=== PATIENT | male | born 1945 | race Caucasian/White ===

== ENCOUNTER 2016-09-18 20:39 | Emergency (ER) | payer MEDICARE, OTHER ==
[2016-09-18] MEDS ORDERED: Sodium Chloride 0.9% 10 ML Syringe FLUSH PRN (20:48)
[2016-09-18] MEDS ORDERED: Aspirin 81 MG Tab.Chew PO ONE (20:57)
--- NOTE | 2016-09-18 22:18 | EDM.PDOC ---
ED HISTORY OF PRESENT ILLNESS - General Chief Complaint: Chest Pain Stated Complaint: CHEST PAIN Time Seen by Provider: 09/18/16 20:48 Source of Information: Reports: Patient, RN notes reviewed - History of Present Illness INITIAL COMMENTS - FREE TEXT/NARRATIVE: 8-year-old male comes in having had 2 episodes of anterior chest discomfort. Debi is driving tractor about an hour to one hour and one half ago when he had onset of sharp anterior chest discomfort without radiation. Also did have some palpitations and mild dizziness with that. He does not recall getting short of breath. He has had chronic cough frequently productive. He just finished a course of Levaquin a few days ago. He is a former heavy smoker and still continues to smoke a "few cigarettes per day". He has history of mild CVA 3 or 4 months ago. He has also been suffering with some eye problems status post cataract surgery. He does have a pacemaker. He is on Plavix with history of prior stroke. He also does take daily aspirin. - Related Data Allergies/ADRs: Allergies Allergy/AdvReac Type Severity Reaction Status Date / Time atorvastatin calcium AdvReac Muscle Verified 05/09/16 09:12 [From Lipitor] Aches Home Meds: Home Meds Aspirin [Halfprin] 81 mg PO BEDTIME 04/03/15 [History] Mirtazapine 15 mg PO BEDTIME 04/03/15 [History] Pravastatin [Pravachol] 40 mg PO BEDTIME 04/03/15 [History] PARoxetine [Paxil] 20 mg PO BEDTIME 09/06/15 [History] risperiDONE 0.5 mg PO BEDTIME 09/06/15 [History] Ibuprofen [Motrin] 400 mg PO Q8HR PRN 11/17/15 [History] Acetaminophen 650 mg PO Q4HR PRN 01/07/16 [History] Biotin/FA/Vit C/Vit B Complex [Nephrocaps] 1 cap PO DAILY 01/07/16 [History] Prazosin HCl [Prazosin] 2 mg PO BID 01/07/16 [History] Albuterol Sulfate [Proair Respiclick] 2 puff INH Q4H PRN 09/18/16 [History] Clopidogrel [Plavix] 75 mg PO BEDTIME 09/18/16 [History] Past Medical History HEENT History: Reports: Other (see below) Other HEENT History: glasses, hearing aids, dentures Cardiovascular History: Reports: Aneurysm, Arrhythmia, High cholesterol, Hypertension, Pacemaker Gastrointestinal History: Reports: GERD Genitourinary History: Reports: Other (see below) Other Genitourinary History: bladder spasms Neurological History: Reports: Migraines Psychiatric History: Reports: PTSD, Other (see below) Other Psychiatric History: nightmares and went thru treatment and feels it has helped. 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 Endocrine/Metabolic: Reports: Diabetes, type II Other Endocrine/Metabolic Family History: Pt states nobody in his family has DM II. RN unable to unchart DM II by BOBTAIL [employer]IVER. Oncologic: Reports: Prostate, Other (see below) Other Oncologic Family History: Pt states his bother has prostate CA with mets to back. - Tobacco Use Smoking Status *Q: Current Every Day Smoker Years of Tobacco use: 48 Packs/Tins Daily: 0.2 Used Tobacco, but Quit: No Second Hand Smoke Exposure: Yes - Caffeine Use Caffeine Use: Reports: Soda Other Caffeine Use: rarely - Alcohol Use Days Per Week of Alcohol Use: 0 (Alcoholic, sober since April 2015) Number of Drinks Per Day: 4 Total Drinks Per Week: 0 - Recreational Drug Use Recreational Drug Use: No Drug Use in Last 12 Months: No - Living Situation & Occupation Living situation: Reports: , with spouse ED ROS GENERAL - Review of Systems Review Of Systems: See Below Constitutional: Denies: fever, chills, diaphoresis HEENT: Denies: Sinus problem, Throat pain Respiratory: Reports: Shortness of Breath (With exertion chronically), Cough, Sputum (Occasional) Cardiovascular: Reports: Chest pain (2 episodes this evening, duration relatively brief, chest pain now gone), Lightheadedness, Palpitations (Gone). Denies: Syncope GI/Abdominal: Denies: Abdominal pain, Nausea, Vomiting Musculoskeletal: Denies: neck pain, shoulder pain, arm pain Skin: Reports: no symptoms Neurological: Reports: Dizziness (Mild, gone). Denies: Numbness, Tingling, Difficulty Walking ED EXAM, GENERAL - Physical Exam Exam: See Below General Appearance: alert, anxious (Mild) Eye Exam: bilateral eye: PERRL Throat/Mouth: Normal inspection, Normal oropharynx Head: atraumatic. No: facial swelling Neck: supple, full range of motion, other (No JVD) Respiratory/Chest: no respiratory distress, lungs clear, normal breath sounds. No: rhonchi, wheezing Cardiovascular: regular rate, rhythm GI/Abdominal: soft, non tender. No: guarding Extremities: normal inspection, normal range of motion. No: pedal edema, leg pain, increased warmth, redness Neurological: alert, oriented, no motor/sensory deficits Skin Exam: Warm, Dry, Normal color EKG INTERPRETATION EKG Date: 09/18/16 Rhythm: NSR [place]: LAD-left axis deviation QRS: normal ST-T: normal Course - Vital Signs Last Recorded V/S: Last Vital Signs Temp 97.1 F 09/18/16 20:46 Pulse 60 09/18/16 23:27 Resp 16 09/18/16 21:45 BP 99/66 09/18/16 23:27 Pulse Ox 91 L 09/18/16 23:27 - Orders/Labs/Meds Orders: Active Orders 24 hr Category Date Time Status EKG 12 Lead [EKG Documentation Completion] [RC] STAT Care 09/18/16 20:48 Active Peripheral IV Care [RC] . DIRECTED Care 09/18/16 20:48 Active Chest 1V Frontal [CR] Stat Exams 09/18/16 21:35 Taken Sodium Chloride 0.9% [Saline Flush] Med 09/18/16 20:48 Active 10 ml FLUSH ASDIRECTED PRN Peripheral IV Insertion Adult [OM.PC] Stat Oth 09/18/16 20:48 Ordered Medication Orders Sodium Chloride (Saline Flush) 10 ml FLUSH ASDIRECTED PRN PRN Reason: Keep Vein Open Last Admin: 09/18/16 21:34 Dose: 10 ml Labs: Laboratory Tests 09/18/16 09/18/16 09/18/16 Range/Units 20:48 20:51 20:51 WBC 8.46 (4.23-9.07) K/mm3 RBC 4.23 L (4.63-6.08) M/mm3 Hgb 12.9 L (13.7-17.5) gm/L Hct 39.1 L (40.1-51.0) % MCV 92.4 H (79.0-92.2) fl MCH 30.5 (25.7-32.2) pg MCHC 33.0 (32.2-35.5) g/dl RDW Std Deviation 45.9 H (35.1-43.9) fL Plt Count 230 (163-337) K/mm3 MPV 8.9 L (9.4-12.3) fl Neut % (Auto) 57.6 (34.0-67.9) % Lymph % (Auto) 30.0 (21.8-53.1) % [place] % (Auto) 9.7 (5.3-12.2) % Eos % (Auto) 2.2 (0.8-7.0) Baso % (Auto) 0.4 (0.1-1.2) % Neut # (Auto) 4.87 (1.78-5.38) K/mm3 Lymph # (Auto) 2.54 (1.32-3.57) K/mm3 [place] # (Auto) 0.82 (0.30-0.82) K/mm3 Eos # (Auto) 0.19 (0.04-0.54) K/mm3 Baso # (Auto) 0.03 (0.01-0.08) K/mm3 Sodium 143 (136-145) mEq/L Potassium 3.8 (3.5-5.1) mEq/L Chloride 107 (98-107) mEq/L Carbon Dioxide 28 (21-32) mEq/L Anion Gap 11.8 (5-15) BUN 20 H (7-18) mg/dL Creatinine 1.3 (0.7-1.3) mg/dL Est Cr Clr Drug Dosing 58.69 mL/min Estimated GFR (MDRD) 55 (>60) mL/min BUN/Creatinine Ratio 15.4 (14-18) Glucose 83 (80-115) mg/dL Calcium 9.4 (8.5-10.1) mg/dL Total Bilirubin 0.3 (0.2-1.0) mg/dL AST 16 (15-37) U/L ALT 20 (16-63) U/L Alkaline Phosphatase 75 (46-116) U/L Troponin I < 0.017 (0.00-0.056) ng/mL Total Protein 7.6 (6.4-8.2) g/dl Albumin 3.9 (3.4-5.0) g/dl Globulin 3.7 gm/dL Albumin/Globulin Ratio 1.1 (1-2) TSH 3rd Generation 3.293 (0.358-3.74) uIU/mL 09/18/16 Range/Units 22:55 WBC (4.23-9.07) K/mm3 RBC (4.63-6.08) M/mm3 Hgb (13.7-17.5) gm/L Hct (40.1-51.0) % MCV (79.0-92.2) fl MCH (25.7-32.2) pg MCHC (32.2-35.5) g/dl RDW Std Deviation (35.1-43.9) fL Plt Count (163-337) K/mm3 MPV (9.4-12.3) fl Neut % (Auto) (34.0-67.9) % Lymph % (Auto) (21.8-53.1) % [place] % (Auto) (5.3-12.2) % Eos % (Auto) (0.8-7.0) Baso % (Auto) (0.1-1.2) % Neut # (Auto) (1.78-5.38) K/mm3 Lymph # (Auto) (1.32-3.57) K/mm3 [place] # (Auto) (0.30-0.82) K/mm3 Eos # (Auto) (0.04-0.54) K/mm3 Baso # (Auto) (0.01-0.08) K/mm3 Sodium (136-145) mEq/L Potassium (3.5-5.1) mEq/L Chloride (98-107) mEq/L Carbon Dioxide (21-32) mEq/L Anion Gap (5-15) BUN (7-18) mg/dL Creatinine (0.7-1.3) mg/dL Est Cr Clr Drug Dosing mL/min Estimated GFR (MDRD) (>60) mL/min BUN/Creatinine Ratio (14-18) Glucose (80-115) mg/dL Calcium (8.5-10.1) mg/dL Total Bilirubin (0.2-1.0) mg/dL AST (15-37) U/L ALT (16-63) U/L Alkaline Phosphatase (46-116) U/L Troponin I < 0.017 (0.00-0.056) ng/mL Total Protein (6.4-8.2) g/dl Albumin (3.4-5.0) g/dl Globulin gm/dL Albumin/Globulin Ratio (1-2) TSH 3rd Generation (0.358-3.74) uIU/mL Meds: Medications Generic Name Dose Route Start Last Admin Trade Name Freq PRN Reason Stop Dose Admin Sodium Chloride 10 ml 09/18/16 20:48 09/18/16 21:34 Saline Flush FLUSH 10 ml ASDIRECTED PRN Administration Keep Vein Open Discontinued Medications Generic Name Dose Route Start Last Admin Trade Name Freq PRN Reason Stop Dose Admin Aspirin 162 mg 09/18/16 20:57 09/18/16 21:00 Aspirin PO 09/18/16 20:58 162 mg ONETIME ONE Administration - Re-Assessments/Exams Free Text/Narrative Re-Assessment/Exam: 09/18/16 22:17 Chest x-ray looks fine, initial troponin is normal. Other labs also all relatively normal. His is mentioning that he seems to have extremely low energy these past several months since his recent stroke. I am going to check a TSH. Continues pain free. He continues with sinus rhythm. Blood pressure readings are in the 105 systolic range but his states that those are normal range readings for him. No ectopy. We'll do a two-hour repeat troponin. 09/19/16 00:02, repeat 2 hour troponin was good. TSH also came back normal. His is concerned that he has not had very good energy for this last 2 or 3 months since his stroke several months ago. Have written a physical therapy order for evaluation for strength and mobility. Also he requests for home strengthening exercises. Discharge instructions as documented. Departure - Departure Time of Disposition: 23:48 Disposition: Home, Self-Care 01 Condition: fair Clinical Impression: Atypical chest pain, Generalized weakness Instructions: Weakness, Lxaw-[id number], Nonspecific Chest Pain Referrals: Sigifredo Thompson MD [Primary Care Provider] - Forms: ED Department Discharge Additional Instructions: Continue current medications, consider a once a day multivitamin, an order for physical therapy has been provided to evaluate intrigue for generalized weakness and to set up a home exercise strengthening program, followup with her regular providers as needed, return to ED as needed - My Orders Last 24 Hours: My Active Orders 09/18/16 20:48 EKG 12 Lead [EKG Documentation Completion] [RC] STAT Peripheral IV Care [RC] . DIRECTED Sodium Chloride 0.9% [Saline Flush] 10 ml FLUSH ASDIRECTED PRN Peripheral IV Insertion Adult [OM.PC] Stat 09/18/16 21:35 Chest 1V Frontal [CR] Stat - Assessment/Plan Last 24 Hours: My Active Orders 09/18/16 20:48 EKG 12 Lead [EKG Documentation Completion] [RC] STAT Peripheral IV Care [RC] . DIRECTED Sodium Chloride 0.9% [Saline Flush] 10 ml FLUSH ASDIRECTED PRN Peripheral IV Insertion Adult [OM.PC] Stat 09/18/16 21:35 Chest 1V Frontal [CR] Stat
[2016-09-18 23:28] VITALS: BP 99/66
--- NOTE | 2016-09-19 10:04 | CR ---
Chest: Portable view of the chest was obtained. Comparison: Previous chest x-ray of 04/28/16 is available. Heart size is normal. Tortuous thoracic aorta is noted. Pacemaker is present. Minimal atelectasis noted within the left base. Lungs otherwise are clear. Impression: 1. Incidental findings. Nothing acute is identified on portable chest x-ray. Diagnostic code #2
== END 2016-09-18 23:55 | disposition home or self-care (01) ==
LOC: JD.ED 20:39
DX: R07.89 Other chest pain (principal); R53.1 Weakness; I10 Essential (primary) hypertension; E78.00 Pure hypercholesterolemia, unspecified; K21.9 Gastro-esophageal reflux disease without esophagitis; F17.210 Nicotine dependence, cigarettes, uncomplicated; Z98.890 Other specified postprocedural states; Z79.02 Long term (current) use of antithrombotics/antiplatelets; Z95.0 Presence of cardiac pacemaker; Z86.73 Personal history of transient ischemic attack (TIA), and cerebral infarction without residual deficits; Z88.8 Allergy status to other drugs, medicaments and biological substances
CPT/HCPCS: 36415; 71010; 80053; 84443; 84484; 85025; 93005; 99285; A9270; J7050; 99284

== ENCOUNTER 2016-10-05 19:54 | Emergency (ER) | payer OTHER, MEDICARE ==
[2016-10-05 20:12] VITALS: BP 122/88
--- NOTE | 2016-10-05 20:53 | EDM.PDOC ---
ED HPI GENERAL MEDICAL PROBLEM - General Chief Complaint: Upper Extremity Injury/Pain Stated Complaint: LEFT SHOULDER INJURY Time Seen by Provider: 10/05/16 20:24 Source of Information: Reports: Patient History Limitations: Reports: No Limitations - History of Present Illness INITIAL COMMENTS - FREE TEXT/NARRATIVE: Patient is a 71 year old male who presents to the E.D. complaining of left sided shoulder pain.Patient states while reaching for the handle on a dry kiln loader he lost footing causing his left arm to be overly stretched placing excessive stress on the shoulder. This caused him to be in a awkward position. [place] a pop to the shoulder and immediate pain. Since then he's had difficulty with raising his arm above the shoulder and also away his body. Has generalized pain to the shoulder. patient states past seen Dr. gonsalez for chronic left shoulder. Dr. Gonsalez injected his left shoulder with cortisone approximately one month ago. Has been in PT ever since. Patient does not know exactly what's wrong with his shoulder. He's had no MRI. Onset: Sudden Duration: Constant Location: Reports: Other (left shoulder) Quality: Reports: Ache, Throbbing Severity: Moderate Improves with: Reports: Rest Worsens with: Reports: Movement (palpation) Context: Reports: Other Associated Symptoms: Reports: No Other Symptoms Treatments SNAILER: Reports: Acetaminophen Left Shoulder Pain Score (Numeric/FACES): 6 - Related Data Allergies Allergy/AdvReac Type Severity Reaction Status Date / Time atorvastatin calcium AdvReac Muscle Verified 10/05/16 20:09 [From Lipitor] Aches Home Meds: Home Meds Aspirin [Halfprin] 81 mg PO BEDTIME 04/03/15 [History] Mirtazapine 15 mg PO BEDTIME 04/03/15 [History] Pravastatin [Pravachol] 40 mg PO BEDTIME 04/03/15 [History] PARoxetine [Paxil] 20 mg PO BEDTIME 09/06/15 [History] risperiDONE 0.5 mg PO BEDTIME 09/06/15 [History] Ibuprofen [Motrin] 400 mg PO Q8HR PRN 11/17/15 [History] Acetaminophen 650 mg PO Q4HR PRN 01/07/16 [History] Biotin/FA/Vit C/Vit B Complex [Nephrocaps] 1 cap PO DAILY 01/07/16 [History] Prazosin HCl [Prazosin] 2 mg PO BID 01/07/16 [History] Albuterol Sulfate [Proair Respiclick] 2 puff INH Q4H PRN 09/18/16 [History] Clopidogrel [Plavix] 75 mg PO BEDTIME 09/18/16 [History] Past Medical History HEENT History: Reports: Epistaxis, Impaired Vision, Macular Degeneration Other HEENT History: Bleeding into R) eye, Wears glasses Cardiovascular History: Reports: Aneurysm, Arrhythmia, High Cholesterol, Hypertension, Pacemaker Gastrointestinal History: Reports: GERD Genitourinary History: Reports: Urinary Incontinence Other Genitourinary History: bladder spasms Musculoskeletal History: Reports: Other (See Below) Other Musculoskeletal History: Injection in L) shoulder Neurological History: Reports: Migraines Psychiatric History: Reports: Depression, PTSD Other Psychiatric History: nightmares and went thru treatment and feels it has helped. 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 Dermatologic History: Reports: Melanoma Other Dermatologic History: sebaceous cyst to R cheek, Melanoma to back - Infectious Disease History Infectious Disease History: Reports: Chicken Pox, Measles, Mumps - Past Surgical History HEENT Surgical History: Reports: Cataract Surgery GI Surgical History: Reports: Cholecystectomy, Colonoscopy, ERCP Other GI Surgeries/Procedures: hemorrhoid surgery Musculoskeletal Surgical History: Reports: Arthroscopic Knee Social & Family History - Family History Family Medical History: Noncontributory Cardiac: Reports: [place] Other Cardiac Family History: Pt states his father had a couple heart attacks. Endocrine/Metabolic: Reports: Diabetes, type II Other Endocrine/Metabolic Family History: Pt states nobody in his family has DM II. RN unable to unchart DM II by HONEY PROCESSOR. Oncologic: Reports: Prostate, Other (See Below) Other Oncologic Family History: Pt states his bother has prostate CA with mets to back. - Tobacco Use Smoking Status *Q: Current Every Day Smoker Years of Tobacco use: 49 Packs/Tins Daily: 0.2 Used Tobacco, but Quit: No Second Hand Smoke Exposure: Yes - Caffeine Use Caffeine Use: Reports: Soda Other Caffeine Use: rarely - Alcohol Use Days Per Week of Alcohol Use: 0 (Alcoholic, sober since April 2015) Number of Drinks Per Day: 4 Total Drinks Per Week: 0 - Recreational Drug Use Recreational Drug Use: No Drug Use in Last 12 Months: No - Living Situation & Occupation Living situation: Reports: , with Spouse Review of Systems - Review of Systems Review Of Systems: See Below Musculoskeletal: Reports: Shoulder Pain (left). Denies: Neck Pain, Back Pain Neurological: Denies: Numbness, Tingling Trauma Exam - Physical Exam Exam: See Below Exam Limited By: No Limitations General Appearance: Reports: Alert, WD/WN, No Apparent Distress Head: Reports: Atraumatic, Normocephalic Ears: Reports: Hearing Grossly Normal Nose: Reports: Normal Inspection Throat/Mouth: Reports: Normal Voice, No Airway Compromise Neck: Reports: Non-Tender, Full Range of Motion, Normal Alignment, Normal Inspection Respiratory Exam: Reports: No Respiratory Distress, Lungs Clear, Normal Breath Sounds, No Accessory Muscle Use, Chest Non-Tender, Other (pacemaker to the left upper chest) Cardiovascular: Reports: Normal Peripheral Pulses, Regular Rate, Rhythm Back: Reports: Full Range of Motion Extremities: No Evidence of Injury, Bony-Point Tenderness (along the AC joint, anterior/lateral/posterior aspect of the left shoulder. ) Neurologic: Reports: Alert, Normal Mood/Affect, Oriented x 3, Other (Increased pain with flexion/extension, internal/external rototation, abduction/adduction of the shoulder. Active range of motion decrease incomparison with passive range of motion. Empty can test: positive. No weakness noted to abduction/ adduction of arm. Unable to perform drop arm test due to pain. ) Skin: Reports: Normal Color, Warm/Dry Course - Vital Signs Last Recorded V/S: Last Vital Signs Temp 98.1 F 10/05/16 20:10 Pulse 69 10/05/16 20:10 Resp 18 10/05/16 20:10 BP 122/88 10/05/16 20:10 Pulse Ox 94 L 10/05/16 20:10 - Orders/Labs/Meds Orders: Active Orders 24 hr Category Date Time Status Shoulder Comp Lt [CR] Stat Exams 10/05/16 20:42 Taken - Re-Assessments/Exams Free Text/Narrative Re-Assessment/Exam: X-ray of the left shoulder ordered. 10/05/16 21:27 X-ray of the left shoulder revealed no acute bony abnormalities. Ordered sling to be discharged patient with patient. Disharge instructions as documented. Departure - Departure Time of Disposition: 21:28 Disposition: Home, Self-Care 01 Condition: good Clinical Impression: Left shoulder strain Qualifiers: Encounter type: initial encounter Qualified Code(s): S46.912A - Strain of unspecified muscle, fascia and tendon at shoulder and upper arm level, left arm , initial encounter Rotator cuff injury Qualifiers: Encounter type: initial encounter Laterality: left Qualified Code(s): S46.002A - Unspecified injury of muscle(s) and tendon(s) of the rotator cuff of left shoulder, initial encounter - Discharge Information Instructions: Rotator Cuff Injury Referrals: Sigifredo Thompson MD [Primary Care Provider] - Everette Gonsalez MD [Physician] - Forms: ED Department Discharge Additional Instructions: Examination suggest you have a rotator cuff injury. Thus this will require further evaluation by orthopedic surgeon to determine treatment course. I have provided a shoulder sling to be use only when ambulating. Take off when sitting , bathing, and icing. See Dr. Gonsalez next week for further evaluation and treatment. Apply ice to the affected area 4 to 6 times daily, 20 minutes in duration, do not apply ice directly on the skin. Take ibuprofen and Tylenol in alternating fashion for pain. Return to the E.D. as needed for any new or worsening symptoms. - My Orders Last 24 Hours: My Active Orders 10/05/16 20:42 Shoulder Comp Lt [CR] Stat - Assessment/Plan Last 24 Hours: My Active Orders 10/05/16 20:42 Shoulder Comp Lt [CR] Stat
--- NOTE | 2016-10-07 07:37 | CR ---
Left shoulder: Three views of the left shoulder were obtained. Comparison: Previous MRI arthrogram exam of left shoulder dated 09/15/14. Joint space narrowing is noted within the acromioclavicular joint. No abnormal inferior spurring is seen off the acromioclavicular joint. Minimal inferior spurring noted off the glenoid. No acute fracture or other abnormality is seen. Impression: 1. Slight degenerative change. Diagnostic code #2
== END 2016-10-05 21:36 | disposition home or self-care (01) ==
LOC: JD.ED 19:54
DX: S46.912A Strain of unspecified muscle, fascia and tendon at shoulder and upper arm level, left arm, initial encounter (principal); S46.002A Unspecified injury of muscle(s) and tendon(s) of the rotator cuff of left shoulder, initial encounter; E78.00 Pure hypercholesterolemia, unspecified; I10 Essential (primary) hypertension; K21.9 Gastro-esophageal reflux disease without esophagitis; F32.9 Major depressive disorder, single episode, unspecified; Z79.82 Long term (current) use of aspirin; Z79.899 Other long term (current) drug therapy; Z88.8 Allergy status to other drugs, medicaments and biological substances; Z98.49 Cataract extraction status, unspecified eye; Z90.49 Acquired absence of other specified parts of digestive tract; W22.8XXA Striking against or struck by other objects, initial encounter
CPT/HCPCS: 73030-26-LT; 73030-LT; 99282; 99283

== ENCOUNTER 2017-05-13 14:15 | Emergency (ER) | payer OTHER ==
--- NOTE | 2017-05-13 14:38 | EDM.PDOC ---
ED HPI GENERAL MEDICAL PROBLEM - General Chief Complaint: Neuro Symptoms/Deficits Stated Complaint: STROKE SYMPTOMS Time Seen by Provider: 05/13/17 14:33 Source of Information: Reports: Patient, Family (spouse) History Limitations: Reports: No Limitations - History of Present Illness INITIAL COMMENTS - FREE TEXT/NARRATIVE: 71-year-old male presents the ED with reported sudden onset of severe bifrontal headache at about noon today. Subsequently identified to have developed dysarthric speech and right leg weakness at approximately 1230 hrs. He was wiping dishes with his in the kitchen when he suddenly stopped wiping and would not speak to her. After period of time is able to indicate that his right leg was weak and numb and tingling. He is unable to weight-bear or ambulate without her help. Speech was dysarthric but still discernible.. He states his leg is not cooperating with his brain and feels like it would give out on him. He has not fallen. Of note patient does take Plavix and aspirin daily. Patient had a stroke involving the right side May 09 last year. However at that time he awoke with symptoms during the night and did not receive any thrombolytics. He denies any nausea or vomiting. He states vision in his right eye is poor he can't see to the right periphery. Left eye is okay. Doesn't feel any numbness or tingling in his right arm or hand. Is aware of this in his right leg. 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 Has known peripheral vascular disease. Onset: Today Onset Date: 05/13/17 (Sudden onset of severe headache bifrontal started about noon today.) Onset Time: 12:00 Duration: Hour(s): Location: Reports: Head (Severe headache about noon today.), Lower Extremity, Right (Weakness), Other (Speech dysarthria) Quality: Reports: Ache Severity: Moderate Improves with: Reports: None Worsens with: Reports: None Context: Reports: Other (Acute spontaneous development of bifrontal headache and then right-sided weakness involving his leg primarily and dysarthric speech. ). Denies: Activity, Exercise, Lifting, Sick Contact, Trauma Associated Symptoms: Reports: Headaches. Denies: Confusion, Chest Pain, Cough, cough w sputum, Fever/Chills, Loss of Appetite, Nausea/Vomiting, Shortness of Breath, Syncope Treatments HEALTHCARE ANALYST: Reports: Other (see below) (None.) Headache Pain Score (Numeric/FACES): 8 - Related Data Allergies Allergy/AdvReac Type Severity Reaction Status Date / Time atorvastatin calcium AdvReac Muscle Verified 10/05/16 20:09 [From Lipitor] Aches Home Meds: Home Meds Aspirin [Halfprin] 81 mg PO BEDTIME 04/03/15 [History] Mirtazapine 15 mg PO BEDTIME 04/03/15 [History] Pravastatin [Pravachol] 40 mg PO BEDTIME 04/03/15 [History] PARoxetine [Paxil] 20 mg PO BEDTIME 09/06/15 [History] Acetaminophen 650 mg PO Q4HR PRN 01/07/16 [History] Clopidogrel [Plavix] 75 mg PO BEDTIME 09/18/16 [History] Magnesium Chloride 1 tab PO DAILY 05/13/17 [History] Metoprolol Succinate [Toprol XL] 12.5 mg PO DAILY 05/13/17 [History] Multivitamin W-Minerals/Lutein [Pub Multivitamin 50 Plus Tab] 1 tab PO DAILY [History] Oxybutynin 5 mg PO DAILY 05/13/17 [History] Rosuvastatin [Crestor] 10 mg PO DAILY 05/13/17 [History] Tamsulosin [Flomax] 0.4 mg PO DAILY 05/13/17 [History] Past Medical History HEENT History: Reports: Epistaxis, Impaired Vision, Macular Degeneration Other HEENT History: Bleeding into R) eye, Wears glasses Cardiovascular History: Reports: Aneurysm, Arrhythmia, High Cholesterol, Hypertension, Pacemaker Gastrointestinal History: Reports: GERD Genitourinary History: Reports: Urinary Incontinence Other Genitourinary History: bladder spasms Musculoskeletal History: Reports: Other (See Below) Other Musculoskeletal History: Injection in L) shoulder Neurological History: Reports: Migraines Psychiatric History: Reports: Depression, PTSD Other Psychiatric History: nightmares and went thru treatment and feels it has helped. 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 Dermatologic History: Reports: Melanoma Other Dermatologic History: sebaceous cyst to R cheek, Melanoma to back - Infectious Disease History Infectious Disease History: Reports: Chicken Pox, Measles, Mumps - Past Surgical History HEENT Surgical History: Reports: Cataract Surgery GI Surgical History: Reports: Cholecystectomy, Colonoscopy, ERCP Other GI Surgeries/Procedures: hemorrhoid surgery Musculoskeletal Surgical History: Reports: Arthroscopic Knee Social & Family History - Family History Family Medical History: Noncontributory Cardiac: Reports: NC Other Cardiac Family History: Pt states his father had a couple heart attacks. Endocrine/Metabolic: Reports: Diabetes, type II Other Endocrine/Metabolic Family History: Pt states nobody in his family has DM II. RN unable to unchart DM II by CLIENT SOLUTIONS DIRECTOR. Oncologic: Reports: Prostate, Other (See Below) Other Oncologic Family History: Pt states his bother has prostate CA with mets to back. - Tobacco Use Smoking Status *Q: Current Every Day Smoker Years of Tobacco use: 49 Packs/Tins Daily: 0.2 Used Tobacco, but Quit: No Second Hand Smoke Exposure: Yes - Caffeine Use Caffeine Use: Reports: Soda Other Caffeine Use: rarely - Alcohol Use Days Per Week of Alcohol Use: 0 (Alcoholic, sober since April 2015) Number of Drinks Per Day: 4 Total Drinks Per Week: 0 - Recreational Drug Use Recreational Drug Use: No Drug Use in Last 12 Months: No - Living Situation & Occupation Living situation: Reports: , with Spouse ED ROS GENERAL - Review of Systems Review Of Systems: See Below Constitutional: Reports: Malaise, Decreased Appetite (Is slowly losing weight.) . Denies: Fever, Chills HEENT: Reports: Glasses, Vision Change (Poor vision right eye with loss of peripheral vision.). Denies: Hearing Loss Respiratory: Reports: Shortness of Breath. Denies: Wheezing, Pleuritic Chest Pain (On exertion), Cough, Sputum Cardiovascular: Reports: Blood Pressure Problem, Dyspnea on Exertion. Denies: Chest Pain, Claudication, Edema, Lightheadedness, Orthopnea Endocrine: Reports: Fatigue GI/Abdominal: Reports: No Symptoms : Reports: Other (Nocturia 3. Has benign physical prostatic hypertrophy) Musculoskeletal: Reports: Joint Pain (Back neck knees and hips.) Skin: Reports: Bruising (Bruises easily because of being on Plavix and aspirin.) Neurological: Reports: Headache, Numbness, Tingling (Right leg right leg), Trouble Speaking (Speeches discernible), Difficulty Walking ( but dysarthric.), Weakness ( due to weakness in his right leg ), Change in Speech ( right leg weakness ), Gait Disturbance. Denies: Confusion, Dizziness, Tremors Psychiatric: Reports: Depression ED EXAM, NEURO - Physical Exam Exam: See Below Exam Limited By: Physical Impairment General Appearance: Alert, Anxious, Moderate Distress Eye Exam: Right Eye: Vision Changes (States he cannot see peripheral vision on the right side.), Bilateral Eye: Normal Inspection, PERRL Throat/Mouth: Normal Inspection, Normal Lips, Normal Teeth, Normal Oropharynx, Other Head Exam: Atraumatic (Uvula is normal.), Normocephalic Neck: Normal Inspection, Supple, Non-Tender, Full Range of Motion. No: Carotid Bruit, Lymphadenopathy (L), Lymphadenopathy (R) Respiratory/Chest: No Respiratory Distress, Respiratory Distress, Decreased Breath Sounds (Decreased breath sounds to the lower 50% of lung valladares). No: Rhonchi, Wheezing Cardiovascular: Regular Rate, Rhythm, No Edema, No Gallop, No Murmur, No Rub. No: Normal Peripheral Pulses GI/Abdominal: Normal Bowel Sounds, Non-Tender, Other (Firm abdominal wall. Multiple scars from previous surgeries.) Neurological: Alert, Oriented x 3, Abnormal Motor (Weakness in the right lower extremity appreciated he is unable to lift the leg hardly off the bed. I would give him grade 3 motor power and tone in the hip flexors and knee extensors. He was not able to plantarflex against my hand at all.). No: Normal Dorsiflexion, CN II-XII Intact, Normal Plantar Flexion, Normal Gait, Normal Reflexes DTR: 0: Achilles (R), Achilles (L), 1+: Patella (R), 2+: Bicep (R), Bicep (L), Patella (L) Back Exam: Normal Inspection, Full Range of Motion. No: CVA Tenderness (L), CVA Tenderness (R) Extremities: Normal Inspection, Normal Range of Motion, Non-Tender, No Pedal Edema, Normal Capillary Refill Psychiatric: Normal Affect Skin Exam: Warm, Dry, Intact, Normal Color, No Rash EKG INTERPRETATION EKG Date: 05/13/17 Time: 14:55 Rhythm: Other (Atrial paced rhythm at 60/m) Rate (Beats/Min): 60 Moody: LAD-Left Moody Deviation (-44) P-Wave: Present QRS: Other (Decreased voltage limb leads) ST-T: Normal QT: Prolonged (Moderately prolonged) Course - Vital Signs Last Recorded V/S: Last Vital Signs Temp 36.7 C 05/13/17 15:35 Pulse 60 05/13/17 15:35 Resp 14 05/13/17 15:35 BP 105/78 05/13/17 15:35 Pulse Ox 90 L 05/13/17 15:35 - Orders/Labs/Meds Orders: Active Orders 24 hr Category Date Time Status EKG Documentation Completion [RC] STAT Care 05/13/17 14:34 Active Labs: Laboratory Tests 05/13/17 05/13/17 05/13/17 Range/Units 14:40 14:40 14:40 WBC 7.68 (4.23-9.07) K/mm3 RBC 4.20 L (4.63-6.08) M/mm3 Hgb 12.8 L (13.7-17.5) gm/L Hct 39.4 L (40.1-51.0) % MCV 93.8 H (79.0-92.2) fl MCH 30.5 (25.7-32.2) pg MCHC 32.5 (32.2-35.5) g/dl RDW Std Deviation 51.0 H (35.1-43.9) fL Plt Count 228 (163-337) K/mm3 MPV 9.3 L (9.4-12.3) fl Neutrophils % (Manual) 66 H (40-60) % Band Neutrophils % 0 (0-10) % Lymphocytes % (Manual) 29 (20-40) % Atypical Lymphs % 0 % Monocytes % (Manual) 5 (2-10) % Eosinophils % (Manual) 0 L (0.8-7.0) % Basophils % (Manual) 0 L (0.2-1.2) Platelet Estimate Adequate Plt Morphology Comment Normal Anisocytosis 1+ slight Microcytosis 1+ slight Macrocytosis 1+ slight RBC Morph Comment Abnormal PT 10.3 (8.0-13.0) SECONDS INR 0.95 APTT (22-36) SECONDS D-Dimer, Quantitative 1.85 H (0.19-0.59) mg/L Sodium 142 (136-145) mEq/L Potassium 4.2 (3.5-5.1) mEq/L Chloride 107 (98-107) mEq/L Carbon Dioxide 27 (21-32) mEq/L Anion Gap 12.2 (5-15) BUN 21 H (7-18) mg/dL Creatinine 1.4 H (0.7-1.3) mg/dL Est Cr Clr Drug Dosing 55.49 mL/min Estimated GFR (MDRD) 50 (>60) mL/min BUN/Creatinine Ratio 15.0 (14-18) Glucose 100 (80-115) mg/dL Calcium 9.1 (8.5-10.1) mg/dL Magnesium 2.1 (1.8-2.4) mg/dl Total Bilirubin 0.5 (0.2-1.0) mg/dL AST 18 (15-37) U/L ALT 26 (16-63) U/L Alkaline Phosphatase 72 (46-116) U/L Troponin I < 0.017 (0.00-0.056) ng/mL Total Protein 7.2 (6.4-8.2) g/dl Albumin 3.6 (3.4-5.0) g/dl Globulin 3.6 gm/dL Albumin/Globulin Ratio 1.0 (1-2) 05/13/17 Range/Units 14:40 WBC (4.23-9.07) K/mm3 RBC (4.63-6.08) M/mm3 Hgb (13.7-17.5) gm/L Hct (40.1-51.0) % MCV (79.0-92.2) fl MCH (25.7-32.2) pg MCHC (32.2-35.5) g/dl RDW Std Deviation (35.1-43.9) fL Plt Count (163-337) K/mm3 MPV (9.4-12.3) fl Neutrophils % (Manual) (40-60) % Band Neutrophils % (0-10) % Lymphocytes % (Manual) (20-40) % Atypical Lymphs % % Monocytes % (Manual) (2-10) % Eosinophils % (Manual) (0.8-7.0) % Basophils % (Manual) (0.2-1.2) Platelet Estimate Plt Morphology Comment Anisocytosis Microcytosis Macrocytosis RBC Morph Comment PT (8.0-13.0) SECONDS INR APTT 25 (22-36) SECONDS D-Dimer, Quantitative (0.19-0.59) mg/L Sodium (136-145) mEq/L Potassium (3.5-5.1) mEq/L Chloride (98-107) mEq/L Carbon Dioxide (21-32) mEq/L Anion Gap (5-15) BUN (7-18) mg/dL Creatinine (0.7-1.3) mg/dL Est Cr Clr Drug Dosing mL/min Estimated GFR (MDRD) (>60) mL/min BUN/Creatinine Ratio (14-18) Glucose (80-115) mg/dL Calcium (8.5-10.1) mg/dL Magnesium (1.8-2.4) mg/dl Total Bilirubin (0.2-1.0) mg/dL AST (15-37) U/L ALT (16-63) U/L Alkaline Phosphatase (46-116) U/L Troponin I (0.00-0.056) ng/mL Total Protein (6.4-8.2) g/dl Albumin (3.4-5.0) g/dl Globulin gm/dL Albumin/Globulin Ratio (1-2) Meds: Medications Discontinued Medications Generic Name Dose Route Start Last Admin Trade Name Freq PRN Reason Stop Dose Admin Alteplase, Recombinant Confirm 05/13/17 15:04 05/13/17 15:16 Activase Administered 05/13/17 15:05 Not Given Dose 100 mg .ROUTE .STK-MED ONE Alteplase, Recombinant 7.3 mg 05/13/17 15:13 05/13/17 15:20 Activase IVPUSH 05/13/17 15:14 Not Given .BOLUS ONE Alteplase, Recombinant 7.3 mg 05/13/17 15:18 05/13/17 15:20 Activase IVPUSH 05/13/17 15:19 7.3 mg .BOLUS ONE Administration Sodium Chloride 1,000 mls @ 100 mls/hr 05/13/17 15:45 05/13/17 15:45 Normal Saline IV 100 mls/hr ASDIRECTED SERGIO Administration Sodium Chloride Confirm 05/13/17 15:48 05/13/17 15:48 Normal Saline Administered 05/13/17 15:49 Not Given Dose 1,000 mls @ as directed .ROUTE .STK-MED ONE - Radiology Interpretation Free Text/Narrative:: 71-year-old male presents the ED with acute onset of a severe bifrontal headache at about noon today. No associated nausea or vomiting. Subsequent identified to be dysarthric in terms of speech is to dismiss it is still discernible but not normal. He is also developed right leg weakness and this is evident on examination. Right arm has normal motor power and tone at this time. Patient is on Plavix and aspirin daily. Plan patient will be taken to CT suite immediately to rule out an intracranial hemorrhage. Routine labs including coags to be done. - Re-Assessments/Exams Free Text/Narrative Re-Assessment/Exam: 05/13/17 14:50: CT of the brain reveals evidence of an old lacunar infarct within the left thalamus that is occurred in the interim from previous examination. Ventricles along the basal cisterns and sulci over the convexities are mildly prominent. No other abnormal parenchymal densities are identified. An incidental intracranial hemorrhage or midline shift or mass effect identified. Therefore I was able to speak to on-call neurological services at [facility] and they agreed that he is still a candidate for thrombolytic therapy even on aspirin and Plavix. Therefore we will proceed with thrombolytic therapy ,Alteplase with total dose to be 73 mg. He will request see a bolus of 7.3 mg and then 66 mg over one hour. Plan will be to arrange a flight team to take him to [place] in [place]. There are no contraindications to thrombolytic therapy. BP here is 100/62. 05/13/17 15:42 Labs are back. White count is 7.68 with a 66% neutrophil count no bands. Hemoglobin is 12.8 with hematocrit of 39.4 Platelet count is normal at 220,000. Sodium is 142 potassium is 4.2. Chloride 107 bicarbonate 27. Anion gap is 12.2. B1 is 21. Creatinine is 1.4. EGFR is 50. Glucose 100 calcium 9.1. Magnesium 2.1 liver function normal troponin I is less than 0.017. Transport team is here to provide air flight to [place]. He was therefore discharged from the department. At the time of discharge there was no significant improvement in range of motion of his right leg and his speech remained dysarthric. Departure - Departure Time of Disposition: 15:50 Disposition: DC/Tfer to Acute Hospital 02 Condition: Serious Clinical Impression: Cerebrovascular accident (CVA) Qualifiers: CVA mechanism: unspecified Qualified Code(s): I63.9 - Cerebral infarction, unspecified - Discharge Information Referrals: Sigifredo Thompson MD [Primary Care Provider] - Forms: ED Department Discharge Additional Instructions: Patient was transferred to [place] stroke unit after receiving alteplase in the ED for significant right-sided weakness involving primarily his leg and dysarthric speech. Time of deficit was around 12:30 as his was standing beside of when the symptoms started to occur. Initially he couldn't speak to her and stop wiping dishes and held onto the countertop. He will then indicated to her that his right leg felt like a piece of wood with pins and needles and he would not work right in terms of allow him to walk. Patient had a similar event involving his right christelle-extremity May 09 of last year but was not amenable to thrombolytics at that time as he had awoken from sleep with symptoms. - My Orders Last 24 Hours: My Active Orders 05/13/17 14:34 EKG Documentation Completion [RC] STAT - Assessment/Plan Last 24 Hours: My Active Orders 05/13/17 14:34 EKG Documentation Completion [RC] STAT
--- NOTE | 2017-05-13 15:19 | CT ---
Head CT Technique: Multiple axial sections through the brain were obtained. Intravenous contrast was not utilized. Comparison: Previous head CT study of 05/09/16. Findings: Ventricles along with basal cisterns and sulci over the convexities are mildly prominent. Old lacunar infarct is noted within the left thalamus which has occurred in the interim from prior exam. No other abnormal parenchymal densities are seen. No evidence of intracranial hemorrhage. No midline shift or mass effect is seen. Bone window settings were reviewed which shows the visualized sinuses to appear clear. No acute calvarial abnormality is seen. Impression: 1. Old thalamic infarct which is an interval change from prior study. This is noted on the left side. 2. No acute intracranial abnormality is identified. Diagnostic code #2
[2017-05-13] MEDS ORDERED: Sodium Chloride 0.9% 1,000 ML IV SCH (15:45)
[2017-05-13] MEDS ORDERED: Sodium Chloride 0.9% 1,000 ML ONE (15:48)
[2017-05-13 19:10] VITALS: BP 105/78
== END 2017-05-13 15:50 ==
LOC: JD.ED 14:15
DX: I63.9 Cerebral infarction, unspecified (principal); E78.00 Pure hypercholesterolemia, unspecified; I10 Essential (primary) hypertension; F17.210 Nicotine dependence, cigarettes, uncomplicated; Z88.8 Allergy status to other drugs, medicaments and biological substances; Z79.82 Long term (current) use of aspirin; Z79.899 Other long term (current) drug therapy
CPT/HCPCS: 36415; 70450; 80053; 83735; 84484; 85025; 85379; 85610; 85730; 93005; 96365; 99285; J2997; J7040; 93010

== ENCOUNTER 2017-07-13 10:12 | Emergency (ER) | payer MEDICARE, OTHER ==
--- NOTE | 2017-07-13 10:18 | EDM.PDOC ---
ED HPI GENERAL MEDICAL PROBLEM - General Stated Complaint: WEAKNESS OF RT LEG Time Seen by Provider: 07/13/17 10:14 Source of Information: Reports: Patient, Family () History Limitations: Reports: Physical Impairment (Dysarthric speech, stutter - chronic) - History of Present Illness INITIAL COMMENTS - FREE TEXT/NARRATIVE: The patient's states that the patient went to bed around 20:45 last night, at his neurologic baseline. When he got up this morning around 08:30, he was dragging his right lower extremity. He complains of a headache all over his head , although his states that he gets them frequently, and that is not a new concern. Medical records indicate that the patient was seen in this ED on 05/13/2017 with a bifrontal headache, expressive aphasia (unclear if changed from his baseline), and right lower extremity weakness, numbness, and tingling. A CT scan of his head was negative, and the patient was given Activase before being transferred to [facility]. The patient's states that she was told by the doctors at [facility] that the patient had not suffered a stroke, that his symptoms were "stress related". The patient had previously been on Plavix and aspirin, which he is still on, but [facility] did not add any new medicines. The patient's PCP is Dr. Erickson. Headache Pain Score (Numeric/FACES): 8 - Related Data Allergies Allergy/AdvReac Type Severity Reaction Status Date / Time atorvastatin calcium AdvReac Muscle Verified 07/13/17 10:21 [From Lipitor] Aches Home Meds: Home Meds Aspirin [Halfprin] 81 mg PO BEDTIME 04/03/15 [History] Mirtazapine 45 mg PO BEDTIME 04/03/15 [History] PARoxetine [Paxil] 40 mg PO BEDTIME 09/06/15 [History] Acetaminophen 650 mg PO Q4HR PRN 01/07/16 [History] Clopidogrel [Plavix] 75 mg PO BEDTIME 09/18/16 [History] Metoprolol Succinate [Toprol XL] 12.5 mg PO DAILY 05/13/17 [History] Multivitamin W-Minerals/Lutein [Pub Multivitamin 50 Plus Tab] 1 tab PO DAILY [History] Oxybutynin 5 mg PO BID 05/13/17 [History] Rosuvastatin [Crestor] 10 mg PO DAILY 05/13/17 [History] Tamsulosin [Flomax] 0.4 mg PO DAILY 05/13/17 [History] Magnesium Oxide [Magnesium] 400 mg PO DAILY 07/13/17 [History] Rizatriptan [Maxalt LOIN TRIMMER] 1 tab PO Q2H PRN #3 tab.dis 07/13/17 [Rx] Past Medical History HEENT History: Reports: Impaired Vision, Macular Degeneration Other HEENT History: Wears glasses Cardiovascular History: Reports: Aneurysm (AAA), Arrhythmia (Bradycardia), High Cholesterol Genitourinary History: Reports: BPH, Urinary Incontinence (due to spastic bladder) Neurological History: Reports: Migraines Psychiatric History: Reports: Addiction (Alcoholism), Depression, PTSD Oncologic (Cancer) History: Reports: 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) - Infectious Disease History Infectious Disease History: Reports: Chicken Pox, Measles, Mumps - Past Surgical History HEENT Surgical History: Reports: Cataract Surgery Cardiovascular Surgical History: Reports: AAA Repair, Pacer GI Surgical History: Reports: Cholecystectomy, Colonoscopy, EGD, ERCP, Other ( See Below) (Hemorrhoidectomy) Musculoskeletal Surgical History: Reports: Arthroscopic Knee Dermatological Surgical History: Reports: Other (See Below) (Melanoma excised from back 2005) Social & Family History - Family History Family Medical History: Noncontributory Cardiac: Reports: [place] Other Cardiac Family History: Pt states his father had a couple heart attacks. Endocrine/Metabolic: Reports: Diabetes, type II Other Endocrine/Metabolic Family History: Pt states nobody in his family has DM II. RN unable to unchart DM II by CLEAR[employer] DIVER. Oncologic: Reports: Prostate, Other (See Below) Other Oncologic Family History: Pt states his bother has prostate CA with mets to back. - Tobacco Use Smoking Status *Q: Current Every Day Smoker Years of Tobacco use: 50 Packs/Tins Daily: 0.5 - Caffeine Use Caffeine Use: Reports: Soda Other Caffeine Use: rarely - Alcohol Use Alcohol Use History: Yes Date/Time of Last Drink Comment: November 2015 - Recreational Drug Use Recreational Drug Use: No - Living Situation & Occupation Living situation: Reports: , with Spouse Occupation: Retired ED ROS GENERAL - Review of Systems Review Of Systems: ROS reveals no pertinent complaints other than HPI. ED EXAM, NEURO - Physical Exam Exam: See Below Exam Limited By: No Limitations (stuttering sppech) General Appearance: Alert, WD/WN, No Apparent Distress Eye Exam: Bilateral Eye: EOMI (Patient had some difficulty following eye movement commands), Other (Bilateral cataracts) Ears: Normal External Exam, Hearing Grossly Normal Nose: Normal Inspection, No Blood Throat/Mouth: Normal Inspection, Normal Lips, Normal Voice, No Airway Compromise Head Exam: Atraumatic, Normocephalic Neck: Normal Inspection, Full Range of Motion Respiratory/Chest: No Respiratory Distress, Lungs Clear, Normal Breath Sounds, No Accessory Muscle Use Cardiovascular: Normal Peripheral Pulses, Regular Rate, Rhythm, No Edema, No Gallop, No JVD, No Murmur, No Rub GI/Abdominal: Normal Bowel Sounds, Soft, Non-Tender, No Organomegaly, No Distention, No Abnormal Bruit, No Mass (Male) Exam: Deferred Rectal (Males) Exam: Deferred Neurological: Alert, Oriented x 3, Other (The patient reports decreased sensation to the right side of his face that he had not appreciated prior to my examination. 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 There is considerable weakness of the right lower extremity to hip and knee flexion and extension. Plantar flexion and dorsiflexion are only minimally affected on the right. No sensory deprivation to the right lower extremity.) Back Exam: Normal Inspection, Full Range of Motion, NT Extremities: Normal Inspection, Normal Range of Motion, Non-Tender, No Pedal Edema, Normal Capillary Refill Psychiatric: Normal Affect Skin Exam: Warm, Dry, Intact, Normal Color, No Rash Course - Vital Signs Last Recorded V/S: Last Vital Signs Temp 36.2 C 07/13/17 10:12 Pulse 61 07/13/17 10:12 Resp 16 07/13/17 10:12 BP 97/75 07/13/17 10:12 Pulse Ox 93 L 07/13/17 10:12 - Orders/Labs/Meds Orders: Active Orders 24 hr Category Date Time Status EKG Documentation Completion [RC] STAT Care 07/13/17 10:18 Active Sodium Chloride 0.9% [Normal Saline] 1,000 ml Med 07/13/17 11:30 Active IV ASDIRECTED Medication Orders Sodium Chloride (Normal Saline) 1,000 mls @ 150 mls/hr IV ASDIRECTED SERGIO Last Admin: 07/13/17 11:45 Dose: 150 mls/hr Labs: Laboratory Tests 07/13/17 07/13/17 07/13/17 Range/Units 10:20 10:20 10:20 WBC 7.20 (4.23-9.07) K/mm3 RBC 4.63 (4.63-6.08) M/mm3 Hgb 14.0 (13.7-17.5) gm/L Hct 43.5 (40.1-51.0) % MCV 94.0 H (79.0-92.2) fl MCH 30.2 (25.7-32.2) pg MCHC 32.2 (32.2-35.5) g/dl RDW Std Deviation 49.0 H (35.1-43.9) fL Plt Count 240 (163-337) K/mm3 MPV 9.1 L (9.4-12.3) fl Neutrophils % (Manual) 61 H (40-60) % Band Neutrophils % 0 (0-10) % Lymphocytes % (Manual) 33 (20-40) % Atypical Lymphs % 0 % Monocytes % (Manual) 4 (2-10) % Eosinophils % (Manual) 2 (0.8-7.0) % Basophils % (Manual) 0 L (0.2-1.2) Platelet Estimate Adequate RBC Morph Comment Normal PT 10.0 (8.0-13.0) SECONDS INR 0.94 APTT 26 (22-36) SECONDS Sodium 144 (136-145) mEq/L Potassium 4.3 (3.5-5.1) mEq/L Chloride 105 (98-107) mEq/L Carbon Dioxide 27 (21-32) mEq/L Anion Gap 16.3 H (5-15) BUN 21 H (7-18) mg/dL Creatinine 1.2 (0.7-1.3) mg/dL Est Cr Clr Drug Dosing TNP Estimated GFR (MDRD) 60 (>60) mL/min BUN/Creatinine Ratio 17.5 (14-18) Glucose 83 (83-115) mg/dL POC Glucose (83-110) mg/dL Calcium 9.3 (8.5-10.1) mg/dL Total Bilirubin 0.4 (0.2-1.0) mg/dL AST 17 (15-37) U/L ALT 24 (16-63) U/L Alkaline Phosphatase 76 (46-116) U/L Total Protein 7.7 (6.4-8.2) g/dl Albumin 3.7 (3.4-5.0) g/dl Globulin 4.0 gm/dL Albumin/Globulin Ratio 0.9 L (1-2) 07/13/17 Range/Units 10:23 WBC (4.23-9.07) K/mm3 RBC (4.63-6.08) M/mm3 Hgb (13.7-17.5) gm/L Hct (40.1-51.0) % MCV (79.0-92.2) fl MCH (25.7-32.2) pg MCHC (32.2-35.5) g/dl RDW Std Deviation (35.1-43.9) fL Plt Count (163-337) K/mm3 MPV (9.4-12.3) fl Neutrophils % (Manual) (40-60) % Band Neutrophils % (0-10) % Lymphocytes % (Manual) (20-40) % Atypical Lymphs % % Monocytes % (Manual) (2-10) % Eosinophils % (Manual) (0.8-7.0) % Basophils % (Manual) (0.2-1.2) Platelet Estimate RBC Morph Comment PT (8.0-13.0) SECONDS INR APTT (22-36) SECONDS Sodium (136-145) mEq/L Potassium (3.5-5.1) mEq/L Chloride (98-107) mEq/L Carbon Dioxide (21-32) mEq/L Anion Gap (5-15) BUN (7-18) mg/dL Creatinine (0.7-1.3) mg/dL Est Cr Clr Drug Dosing Estimated GFR (MDRD) (>60) mL/min BUN/Creatinine Ratio (14-18) Glucose (83-115) mg/dL POC Glucose 90 (83-110) mg/dL Calcium (8.5-10.1) mg/dL Total Bilirubin (0.2-1.0) mg/dL AST (15-37) U/L ALT (16-63) U/L Alkaline Phosphatase (46-116) U/L Total Protein (6.4-8.2) g/dl Albumin (3.4-5.0) g/dl Globulin gm/dL Albumin/Globulin Ratio (1-2) Meds: Medications Generic Name Dose Route Start Last Admin Trade Name Sebastian PRN Reason Stop Dose Admin Sodium Chloride 1,000 mls @ 150 mls/hr 07/13/17 11:30 07/13/17 11:45 Normal Saline IV 150 mls/hr ASDIRECTED SERGIO Administration Discontinued Medications Generic Name Dose Route Start Last Admin Trade Name Kevinq PRN Reason Stop Dose Admin Benztropine Mesylate 1 mg 07/13/17 11:29 07/13/17 11:55 Cogentin PO 07/13/17 11:30 1 mg ONETIME STA Administration Haloperidol Lactate 5 mg 07/13/17 11:29 07/13/17 11:50 Haldol IM 07/13/17 11:30 5 mg ONETIME ONE Administration - Re-Assessments/Exams Free Text/Narrative Re-Assessment/Exam: 07/13/17 11:08 CT of the head without contrast is read by Dr. Benjamin as: 1. Findings as noted above. No significant change from previous study is seen. 2. Nothing acute is appreciated on noncontrast head CT. 07/13/17 11:32 [facility] contacted at 11:17. Case discussed with Dr. Solange Faye, Neurologist at [facility], at 11 :22. She reviewed the patient's chart from 05/13/2017. She stated that exhaustive workup, including a MRI/MRA found no stroke. The patient's symptoms were felt to have a strong psychiatric component, and it was recommended that the patient follow-up with psychiatry. 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 She agrees with my recommendation to treat the patient with Haldol to see if his symptoms resolve. No transfer. 07/13/17 12:26 30 minutes after receiving Haldol, the patient is reporting improvement in his symptoms. He states that his headache is nearly gone. The decreased sensation to his right face has resolved. The weakness to his right lower extremity is still present, but improving. He is now able to lift his right lower extremity off the gurney, and has increased flexion and extension at the hip and knee. The improvement in his symptoms is strongly supportive that his symptoms are due to a migraine. I will discharge the patient home with a prescription for Maxalt. Departure - Departure Time of Disposition: 12:27 Disposition: Home, Self-Care 01 Condition: Fair Clinical Impression: Hemiplegic migraine - Discharge Information Prescriptions: Rizatriptan [Maxalt LOIN TRIMMER] 1 tab PO Q2H PRN #3 tab.dis PRN Reason: Headache Instructions: Migraine Headache, [id number] Referrals: Sigifredo Thompson MD [Primary Care Provider] - Forms: ED Department Discharge Additional Instructions: You were seen in the emergency room for a headache, decreased sensation to the right side of your face, and weakness to your right lower extremity. Workup in the ER included an Accu-Chek, blood work, an ECG, and a CT scan of your head. Your entire workup was unremarkable. You have not suffered a stroke. Your case was discussed with a Neurologist at [facility]. She reviewed your prior admission and believes that your symptoms both in April and today are due to a hemiplegic migraine. You were treated with a migraine medicine, with improvement of your symptoms. You have been prescribed the anti-migraine medicine Maxalt. Dissolve 1 tablet in your mouth at the earliest onset of a migraine - whether a headache, tingling or numbness, or weakness. You may repeat 1 tablet after 2 hours, if needed, and you may take a third tablet 2 hours after that, if needed, to a maximum of 3 tablets within a 24-hour period. If Maxalt works on your migraines, talk to Dr. Erickson about getting an additional prescription. If any other problems, please do not hesitate to return to the ER. - My Orders Last 24 Hours: My Active Orders 07/13/17 10:18 EKG Documentation Completion [RC] STAT 07/13/17 11:30 Sodium Chloride 0.9% [Normal Saline] 1,000 ml IV ASDIRECTED - Assessment/Plan Last 24 Hours: My Active Orders 07/13/17 10:18 EKG Documentation Completion [RC] STAT 07/13/17 11:30 Sodium Chloride 0.9% [Normal Saline] 1,000 ml IV ASDIRECTED
--- NOTE | 2017-07-13 10:48 | CT ---
Head CT Technique: Multiple axial sections through the brain were obtained. Intravenous contrast was not utilized. Comparison: Prior head CT study of 05/13/17. Findings: Ventricles along with basal cisterns and sulci over the convexities are mildly prominent. 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 No other abnormal parenchymal densities are seen. No evidence of intracranial hemorrhage. No midline shift or mass effect is seen. Mild atherosclerotic calcification is seen within the carotid siphon. Minimal mucosal thickening is noted within the ethmoid sinus which is incidental. No acute calvarial abnormality is seen. Impression: 1. Findings as noted above. No significant change from previous study is seen. 2. Nothing acute is appreciated on noncontrast head CT. Diagnostic code #2
[2017-07-13] MEDS ORDERED: Haloperidol Lactate 5 MG/ML SDV IM ONE (11:29)
[2017-07-13] MEDS ORDERED: Benztropine 1 MG Tab PO STA (11:29)
[2017-07-13] MEDS ORDERED: Sodium Chloride 0.9% 1,000 ML IV SCH (11:30)
[2017-07-13 15:34] VITALS: BP 92/68
== END 2017-07-13 13:15 | disposition home or self-care (01) ==
LOC: JD.ED 10:12
DX: G43.409 Hemiplegic migraine, not intractable, without status migrainosus (principal); F32.9 Major depressive disorder, single episode, unspecified; F17.210 Nicotine dependence, cigarettes, uncomplicated; Z79.02 Long term (current) use of antithrombotics/antiplatelets; Z79.899 Other long term (current) drug therapy; Z88.8 Allergy status to other drugs, medicaments and biological substances
CPT/HCPCS: 36415; 70450; 80053; 82962; 85025; 85610; 85730; 93005; 96360; 96372; 99285; A9270; J1630; J7040; 99284

== ENCOUNTER 2017-10-27 18:58 | Emergency (ER) | payer OTHER, MEDICARE ==
[2017-10-27] MEDS ORDERED: Sodium Chloride 0.9% 10 ML Syringe FLUSH PRN (19:08)
[2017-10-27 19:10] VITALS: BP 125/88
--- NOTE | 2017-10-27 19:25 | EDM.PDOC ---
ED HPI GENERAL MEDICAL PROBLEM - General Chief Complaint: Chest Pain Stated Complaint: CHEST PAIN Time Seen by Provider: 10/27/17 19:08 Source of Information: Reports: Patient History Limitations: Reports: No Limitations - History of Present Illness INITIAL COMMENTS - FREE TEXT/NARRATIVE: The patient presents with mid sternal chest pain. The pain is sharp. It is made worse when he moves. It started about an hour before arrival. The patient did get aspirin 162mg by mouth. He has no history of an DC but he does have a pacemaker and he had a couple strokes and a AAA repair. He did smoke for years but he quit a few years ago. He has no shortness of breath. He has no abdominal pain, nausea or vomiting. He was helping his grandson with his 4H steer when this started. He is on plavix and aspirin. Onset: Sudden Duration: Hour(s): (1) Location: Reports: Chest Quality: Reports: Sharp Severity: Moderate Improves with: Reports: Immobilization Worsens with: Reports: Movement Context: Reports: Activity (He was helping his grandson) Associated Symptoms: Reports: Chest Pain. Denies: Cough, Fever/Chills, Headaches, Nausea/Vomiting, Shortness of Breath Left Chest Pain Score (Numeric/FACES): 9 - Related Data Allergies Allergy/AdvReac Type Severity Reaction Status Date / Time atorvastatin calcium AdvReac Muscle Verified 10/27/17 20:34 [From Lipitor] Aches Home Meds: Home Meds Aspirin [Halfprin] 81 mg PO BEDTIME 04/03/15 [History] Mirtazapine 15 mg PO BEDTIME 04/03/15 [History] PARoxetine [Paxil] 40 mg PO BEDTIME 09/06/15 [History] Acetaminophen 650 mg PO Q4HR PRN 01/07/16 [History] Clopidogrel [Plavix] 75 mg PO BEDTIME 09/18/16 [History] Metoprolol Succinate [Toprol XL] 12.5 mg PO DAILY 05/13/17 [History] Multivitamin W-Minerals/Lutein [Pub Multivitamin 50 Plus Tab] 1 tab PO DAILY [History] Oxybutynin 5 mg PO BID 05/13/17 [History] Rosuvastatin [Crestor] 10 mg PO DAILY 05/13/17 [History] Tamsulosin [Flomax] 0.4 mg PO DAILY 05/13/17 [History] Clopidogrel [Plavix] 75 mg PO DAILY 10/27/17 [History] Folic Acid 1 tab PO DAILY 10/27/17 [History] Gabapentin [Neurontin] 100 mg PO BID 10/27/17 [History] Mirtazapine [Remeron] 45 mg PO BEDTIME 10/27/17 [History] Past Medical History HEENT History: Reports: Impaired Vision, Macular Degeneration Other HEENT History: Wears glasses Cardiovascular History: Reports: Aneurysm, Arrhythmia, High Cholesterol, Pacemaker Other Cardiovascular History: bradycardia. Gastrointestinal History: Reports: GERD Genitourinary History: Reports: BPH, Urinary Incontinence Other Genitourinary History: bladder spasms Musculoskeletal History: Reports: Other (See Below) Other Musculoskeletal History: Injection in L) shoulder Neurological History: Reports: Migraines Psychiatric History: Reports: Addiction, Depression, PTSD Other Psychiatric History: nightmares and went thru treatment and feels it has helped. alcoholism Oncologic (Cancer) History: Reports: Malignant Melanoma Other Oncologic History: melonoma cancer to back and surgically removed Dermatologic History: Reports: Melanoma Other Dermatologic History: sebaceous cyst to R cheek, Melanoma to back - Infectious Disease History Infectious Disease History: Reports: Chicken Pox, Measles, Mumps - Past Surgical History HEENT Surgical History: Reports: Cataract Surgery Cardiovascular Surgical History: Reports: AAA Repair, Pacer GI Surgical History: Reports: Cholecystectomy, Colonoscopy, EGD, ERCP, Other ( See Below) Musculoskeletal Surgical History: Reports: Arthroscopic Knee Dermatological Surgical History: Reports: Other (See Below) Social & Family History - Family History Family Medical History: Noncontributory Cardiac: Reports: DC Other Cardiac Family History: Pt states his father had a couple heart attacks. Endocrine/Metabolic: Reports: Diabetes, type II Other Endocrine/Metabolic Family History: Pt states nobody in his family has DM II. RN unable to unchart DM II by [employer]. Oncologic: Reports: Prostate, Other (See Below) Other Oncologic Family History: Pt states his bother has prostate CA with mets to back. - Tobacco Use Smoking Status *Q: Current Every Day Smoker Years of Tobacco use: 50 Packs/Tins Daily: 0.4 - Caffeine Use Caffeine Use: Reports: Coffee Other Caffeine Use: rarely - Recreational Drug Use Recreational Drug Use: No - Living Situation & Occupation Living situation: Reports: , with Spouse Occupation: Retired [employer] GENER[facility] - Review of Systems Review Of Systems: See Below Constitutional: Reports: No Symptoms HEENT: Reports: No Symptoms Respiratory: Reports: No Symptoms Cardiovascular: Reports: Chest Pain Endocrine: Reports: No Symptoms GI/Abdominal: Reports: No Symptoms : Reports: No Symptoms Musculoskeletal: Reports: No Symptoms Skin: Reports: No Symptoms ED EXAM, GENERAL - Physical Exam Exam: See Below Exam Limited By: No Limitations General Appearance: Alert, No Apparent Distress Ears: Normal External Exam Nose: Normal Inspection Head: Atraumatic, Normocephalic Neck: Normal Inspection Respiratory/Chest: No Respiratory Distress, Lungs Clear, Normal Breath Sounds Cardiovascular: Regular Rate, Rhythm, No Edema, No Murmur GI/Abdominal: Soft, Non-Tender, No Organomegaly, No Mass Extremities: Normal Inspection Course - Vital Signs Last Recorded V/S: Last Vital Signs Temp 97.6 F 10/27/17 19:04 Pulse 63 10/27/17 19:04 Resp 30 H 10/27/17 19:04 BP 125/88 10/27/17 19:04 Pulse Ox 97 10/27/17 19:04 - Orders/Labs/Meds Orders: Active Orders 24 hr Category Date Time Status Cardiac Monitoring [RC] . DIRECTED Care 10/27/17 19:08 Active EKG Documentation Completion [RC] STAT Care 10/27/17 19:09 Active Oxygen Therapy [RC] PRN Care 10/27/17 19:08 Active Peripheral IV Care [RC] . DIRECTED Care 10/27/17 19:09 Active Ang Chest [CT] Stat Exams 10/27/17 19:57 Taken Chest 1V Frontal [CR] Stat Exams 10/27/17 19:09 Taken TROPONIN I [CHEM] Stat Lab 10/27/17 22:00 Received Sodium Chloride 0.9% [Normal Saline] 100 ml Med 10/27/17 20:30 Active IV ASDIRECTED Sodium Chloride 0.9% [Saline Flush] Med 10/27/17 19:08 Active 10 ml FLUSH ASDIRECTED PRN Peripheral IV Insertion Adult [OM.PC] Stat Oth 10/27/17 19:08 Ordered Medication Orders Sodium Chloride (Normal Saline) 100 mls @ 100 mls/hr IV ASDIRECTED SERGIO Last Admin: 10/27/17 20:30 Dose: 100 mls/hr Sodium Chloride (Saline Flush) 10 ml FLUSH ASDIRECTED PRN PRN Reason: Keep Vein Open Last Admin: 10/27/17 19:19 Dose: 10 ml Labs: Laboratory Tests 10/27/17 10/27/17 10/27/17 Range/Units 19:20 19:20 19:20 WBC 9.13 H (4.23-9.07) K/mm3 RBC 4.53 L (4.63-6.08) M/mm3 Hgb 13.4 L (13.7-17.5) gm/L Hct 41.7 (40.1-51.0) % MCV 92.1 (79.0-92.2) fl MCH 29.6 (25.7-32.2) pg MCHC 32.1 L (32.2-35.5) g/dl RDW Std Deviation 50.6 H (35.1-43.9) fL Plt Count 236 (163-337) K/mm3 MPV 8.9 L (9.4-12.3) fl Neut % (Auto) 63.5 (34.0-67.9) % Lymph % (Auto) 24.3 (21.8-53.1) % [place] % (Auto) 9.7 (5.3-12.2) % Eos % (Auto) 2.1 (0.8-7.0) Baso % (Auto) 0.2 (0.1-1.2) % Neut # (Auto) 5.79 H (1.78-5.38) K/mm3 Lymph # (Auto) 2.22 (1.32-3.57) K/mm3 [place] # (Auto) 0.89 H (0.30-0.82) K/mm3 Eos # (Auto) 0.19 (0.04-0.54) K/mm3 Baso # (Auto) 0.02 (0.01-0.08) K/mm3 D-Dimer, Quantitative 2.01 H (0.19-0.50) mg/L Sodium 143 (136-145) mEq/L Potassium 3.9 (3.5-5.1) mEq/L Chloride 106 (98-107) mEq/L Carbon Dioxide 25 (21-32) mEq/L Anion Gap 15.9 H (5-15) BUN 25 H (7-18) mg/dL Creatinine 1.3 (0.7-1.3) mg/dL Est Cr Clr Drug Dosing 58.90 mL/min Estimated GFR (MDRD) 54 (>60) mL/min BUN/Creatinine Ratio 19.2 H (14-18) Glucose 137 H (83-115) mg/dL Calcium 8.8 (8.5-10.1) mg/dL Total Bilirubin 0.3 (0.2-1.0) mg/dL AST 14 L (15-37) U/L ALT 19 (16-63) U/L Alkaline Phosphatase 82 (46-116) U/L Troponin I < 0.017 (0.00-0.056) ng/mL Total Protein 7.6 (6.4-8.2) g/dl Albumin 3.4 (3.4-5.0) g/dl Globulin 4.2 gm/dL Albumin/Globulin Ratio 0.8 L (1-2) Meds: Medications Generic Name Dose Route Start Last Admin Trade Name Freyael PRN Reason Stop Dose Admin Sodium Chloride 100 mls @ 100 mls/hr 10/27/17 20:30 10/27/17 20:30 Normal Saline IV 100 mls/hr ASDIRECTED SERGIO Administration Sodium Chloride 10 ml 10/27/17 19:08 10/27/17 19:19 Saline Flush FLUSH 10 ml ASDIRECTED PRN Administration Keep Vein Open Discontinued Medications Generic Name Dose Route Start Last Admin Trade Name Sebastian PRN Reason Stop Dose Admin Iopamidol 100 ml 10/27/17 20:27 10/27/17 20:30 [id number] (76%) IVPUSH 10/27/17 20:28 100 ml ONETIME ONE Administration - Re-Assessments/Exams Free Text/Narrative Re-Assessment/Exam: 10/27/17 19:24 I ordered an IV saline lock, oxygen PRN, labs, EKG, and CXR. 10/27/17 22:01 His EKG shows an atrial paced rhythm with no acute changes. His CXR shows nothing acute. His WBC is slightly elevated at 9.13. His D-dimer was elevated at 2.01. I ordered a CT angio of his chest. His glucose was elevated at 137. His troponin was negative. His CT shows no evidence of PE. Ectatic changes of the descending thoracic aorta present. Emphysematous changes bilaterally. His informs me that he did start smoking again. I talked to him about stopping. I will do a repeat troponin and discharge him. He sees cardiology in 2 days. I will send a copy of the CT to [place]. Please send a copy of this dictation to Orly Whitfield and Dr Erickson. Departure - Departure Time of Disposition: 22:05 Disposition: Home, Self-Care 01 Condition: Good Clinical Impression: Atypical chest pain, Ectatic thoracic aorta Emphysema lung Qualifiers: Emphysema type: unspecified Qualified Code(s): J43.9 - Emphysema, unspecified Referrals: Sigifredo Thompson MD [Primary Care Provider] - 1 Week Forms: ED Department Discharge Additional Instructions: Follow up with cardiology and neurology this week. Stop smoking. Continue taking your medications as prescribed. Please return if you are worse. - My Orders Last 24 Hours: My Active Orders 10/27/17 19:08 Cardiac Monitoring [RC] . DIRECTED Oxygen Therapy [RC] PRN Sodium Chloride 0.9% [Saline Flush] 10 ml FLUSH ASDIRECTED PRN Peripheral IV Insertion Adult [OM.PC] Stat 10/27/17 19:09 EKG Documentation Completion [RC] STAT Peripheral IV Care [RC] . DIRECTED Chest 1V Frontal [CR] Stat 10/27/17 19:57 Ang Chest [CT] Stat 10/27/17 20:30 Sodium Chloride 0.9% [Normal Saline] 100 ml IV ASDIRECTED 10/27/17 22:00 TROPONIN I [CHEM] Stat - Assessment/Plan Last 24 Hours: My Active Orders 10/27/17 19:08 Cardiac Monitoring [RC] . DIRECTED Oxygen Therapy [RC] PRN Sodium Chloride 0.9% [Saline Flush] 10 ml FLUSH ASDIRECTED PRN Peripheral IV Insertion Adult [OM.PC] Stat 10/27/17 19:09 EKG Documentation Completion [RC] STAT Peripheral IV Care [RC] . DIRECTED Chest 1V Frontal [CR] Stat 10/27/17 19:57 Ang Chest [CT] Stat 10/27/17 20:30 Sodium Chloride 0.9% [Normal Saline] 100 ml IV ASDIRECTED 10/27/17 22:00 TROPONIN I [CHEM] Stat
[2017-10-27] MEDS ORDERED: Iopamidol 755 Mg/ML 100 ML Bottle IVPUSH ONE (20:27)
[2017-10-27] MEDS ORDERED: Sodium Chloride 0.9% 100 ML IV SCH (20:30)
--- NOTE | 2017-10-28 08:46 | CR ---
Chest: Portable view of the chest was obtained. Comparison: Prior chest x-ray of 09/18/16. Heart size appears within normal limits. Tortuous thoracic aorta is seen. Pacemaker is noted. Minimal scarring is noted above left hemidiaphragm. No acute parenchymal densities are seen. Bony structures are grossly intact. Impression: 1. Incidental findings. Nothing acute is seen. Diagnostic code #2
--- NOTE | 2017-10-28 08:46 | CT ---
CT chest Technique: Multiple axial sections were obtained from above the lung apices inferiorly through the lung bases. Intravenous contrast was utilized. Study has been performed as a pulmonary angiogram protocol. Comparison: Prior CT chest of 04/03/15. Findings: Pulmonary arteries are well-opacified. No filling defects are seen to indicate pulmonary embolism. Atherosclerotic calcification noted within the thoracic aorta. Small mediastinal lymph nodes are seen which are normal in size. Coronary artery calcification is noted. Artifact is identified from pacemaker. Heart size at the upper limits of normal. Small portion of the visualized upper abdominal structures show incidental renal cysts. Previous cholecystectomy is noted. Diffuse emphysematous changes are seen within both lungs. Mild areas of scarring seen posteriorly within both lung bases. No pleural effusions or pneumothorax is seen. No acute parenchymal densities are seen. Small subpleural nodule is noted within the right middle lobe which is stable from prior chest CT and therefore incidental. Bone window settings were reviewed showing scattered degenerative endplate spurring within the spine. Impression: 1. No findings of pulmonary embolism. 2. Other incidental findings as noted above. Nothing acute is appreciated. Diagnostic code #2 I agree with preliminary report issued by [facility] ([facility] preliminary report dictated on 10/27/17, 10:38 PM Central Time)
== END 2017-10-27 22:17 | disposition home or self-care (01) ==
LOC: JD.ED 18:58
DX: I77.810 Thoracic aortic ectasia (principal); R07.89 Other chest pain; J43.9 Emphysema, unspecified; Z88.8 Allergy status to other drugs, medicaments and biological substances; Z79.899 Other long term (current) drug therapy; E78.00 Pure hypercholesterolemia, unspecified; K21.9 Gastro-esophageal reflux disease without esophagitis; F32.9 Major depressive disorder, single episode, unspecified; F17.210 Nicotine dependence, cigarettes, uncomplicated
CPT/HCPCS: 36415; 71045; 71275; 80053; 84484; 85025; 85379; 93005; 99285; J7030; J7050; Q9967; 93010; 99284-25

== ENCOUNTER 2018-05-31 13:39 | Emergency (ER) | payer OTHER, MEDICARE ==
[2018-05-31] MEDS ORDERED: Sodium Chloride 0.9% 500 ML IV ONE (13:57)
[2018-05-31] MEDS ORDERED: Sodium Chloride 0.9% 10 ML Syringe FLUSH PRN (13:57)
--- NOTE | 2018-05-31 14:09 | CT ---
Head CT Technique: Multiple axial sections through the brain were obtained. Intravenous contrast was not utilized. Comparison: Prior head CT study of 07/13/17. Findings: Ventricles along with basal cisterns and sulci over the convexities are mildly prominent. Old small infarct is noted within the left thalamus. No other abnormal parenchymal densities are seen. No evidence of intracranial hemorrhage. No midline shift or mass effect is seen. Bone window settings were reviewed which shows no acute calvarial abnormality. Visualized sinuses are clear. Minimal atherosclerotic calcification is seen within the carotid siphon. Impression: 1. Old infarct as noted above. Mild senescent change. 2. Nothing acute is appreciated on noncontrast head CT exam. Diagnostic code #2
--- NOTE | 2018-05-31 14:21 | EDM.PDOC ---
ED HPI GENERAL MEDICAL PROBLEM - General Chief Complaint: Neuro Symptoms/Deficits Stated Complaint: POSSIBLE STROKE Time Seen by Provider: 05/31/18 13:53 Source of Information: Reports: Patient, Family, RN Notes Reviewed (6) - History of Present Illness INITIAL COMMENTS - FREE TEXT/NARRATIVE: 72-year-old male comes in with right-sided weakness, speech difficulty. His states that he was standing walking in his home doing well when he partially fell to the floor. 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 Also his speech was impaired, very slow and stuttering, difficult to get any words out which he has had occasionally in the past but not this severe. Also does have history of stroke with right-sided deficit about 2 years ago. History of COPD, hypertension, coronary artery disease and also does have a pacer. No current chest or abdominal discomfort. He does complain of headache but his states "he always has a headache". No injury or pain from his fall. This was called as a stroke alert on arrival to ED. I did see patient within a few minutes of patient arrival, as soon as the stroke alert was called. hkeadache Pain Score (Numeric/FACES): 4 - Related Data Allergies Allergy/AdvReac Type Severity Reaction Status Date / Time atorvastatin calcium AdvReac Muscle Verified 10/27/17 20:34 [From Lipitor] Aches Home Meds: Home Meds Aspirin [Halfprin] 81 mg PO BEDTIME 04/03/15 [History] PARoxetine [Paxil] 40 mg PO BEDTIME 09/06/15 [History] Acetaminophen 500 mg PO Q6H PRN 01/07/16 [History] Multivitamin W-Minerals/Lutein [Pub Multivitamin 50 Plus Tab] 1 tab PO DAILY [History] Oxybutynin 5 mg PO BID 05/13/17 [History] Rosuvastatin [Crestor] 10 mg PO DAILY 05/13/17 [History] Tamsulosin [Flomax] 0.4 mg PO DAILY 05/13/17 [History] Gabapentin [Neurontin] 600 mg PO BID 10/27/17 [History] Mirtazapine [Remeron] 45 mg PO BEDTIME 10/27/17 [History] Apixaban [Eliquis] 5 mg PO BID 05/31/18 [History] Magnesium Chloride [Mag-64] 64 mg PO DAILY 05/31/18 [History] Vit A/C/E/Zinc/Selenium/Copper [Vision Formula Tablet] 1 each PO DAILY 05/31/18 [History] Past Medical History HEENT History: Reports: Impaired Vision, Macular Degeneration Other HEENT History: Wears glasses Cardiovascular History: Reports: Aneurysm, Arrhythmia, High Cholesterol, Pacemaker Other Cardiovascular History: bradycardia. Gastrointestinal History: Reports: GERD Genitourinary History: Reports: BPH, Urinary Incontinence Other Genitourinary History: bladder spasms Musculoskeletal History: Reports: Other (See Below) Other Musculoskeletal History: Injection in L) shoulder Neurological History: Reports: Migraines Psychiatric History: Reports: Addiction, Depression, PTSD Other Psychiatric History: nightmares and went thru treatment and feels it has helped. alcoholism Oncologic (Cancer) History: Reports: Malignant Melanoma Other Oncologic History: melonoma cancer to back and surgically removed Dermatologic History: Reports: Melanoma Other Dermatologic History: sebaceous cyst to R cheek, Melanoma to back - Infectious Disease History Infectious Disease History: Reports: Chicken Pox, Measles, Mumps - Past Surgical History HEENT Surgical History: Reports: Cataract Surgery Cardiovascular Surgical History: Reports: AAA Repair, Pacer GI Surgical History: Reports: Cholecystectomy, Colonoscopy, EGD, ERCP, Other ( See Below) Musculoskeletal Surgical History: Reports: Arthroscopic Knee Dermatological Surgical History: Reports: Other (See Below) Social & Family History - Family History Family Medical History: Noncontributory Cardiac: Reports: IA Other Cardiac Family History: Pt states his father had a couple heart attacks. Endocrine/Metabolic: Reports: Diabetes, type II Other Endocrine/Metabolic Family History: Pt states nobody in his family has DM II. RN unable to unchart DM II by FLOW WORKER. Oncologic: Reports: Prostate, Other (See Below) Other Oncologic Family History: Pt states his bother has prostate CA with mets to back. 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 Denies: Fever, Chills, Diaphoresis HEENT: Denies: Ear Discharge, Throat Pain Respiratory: Reports: Shortness of Breath (Mild chronically), Cough Cardiovascular: Denies: Chest Pain (Chronic) GI/Abdominal: Denies: Abdominal Pain, Nausea, Vomiting Musculoskeletal: Denies: Shoulder Pain, Arm Pain Skin: Reports: Pallor Neurological: Reports: Dizziness, Headache, Trouble Speaking (Stuttering type speech with slowness and more delay/difficulty getting words out), Weakness ( right upper and right lower extremity) ED EXAM, NEURO - Physical Exam Exam: See Below Exam Limited By: Other (impaired speech) General Appearance: Alert, Anxious Eye Exam: Bilateral Eye: PERRL Ears: Normal External Exam Nose: Normal Inspection Throat/Mouth: Normal Inspection, Other (No facial droop) Head Exam: Atraumatic. No: Facial Swelling Neck: Supple, Full Range of Motion, Other (No JVD) Respiratory/Chest: Respiratory Distress. No: Rhonchi (Mild tachypnea), Wheezing Cardiovascular: Regular Rate, Rhythm GI/Abdominal: Soft, Non-Tender. No: Guarding Neurological: Alert, Oriented x 3, Abnormal Finger to Nose (very slow, ataxic bilat. ) EKG INTERPRETATION EKG Date: 05/31/18 Rhythm: Other (paced rythm, rate 60) Rate (Beats/Min): 60 QRS: Normal ST-T: Normal Course - Vital Signs Last Recorded V/S: Last Vital Signs Temp 97.8 F 05/31/18 13:42 Pulse 60 05/31/18 14:25 Resp 16 05/31/18 14:25 BP 99/75 05/31/18 14:25 Pulse Ox 99 05/31/18 14:25 - Orders/Labs/Meds Labs: Laboratory Tests 05/31/18 05/31/18 05/31/18 Range/Units 13:45 14:15 14:15 WBC 6.69 (4.23-9.07) K/mm3 RBC 4.74 (4.63-6.08) M/mm3 Hgb 14.0 (13.7-17.5) gm/L Hct 43.8 (40.1-51.0) % MCV 92.4 H (79.0-92.2) fl MCH 29.5 (25.7-32.2) pg MCHC 32.0 L (32.2-35.5) g/dl RDW Std Deviation 51.5 H (35.1-43.9) fL Plt Count 231 (163-337) K/mm3 MPV 9.4 (9.4-12.3) fl Neut % (Auto) 63.3 (34.0-67.9) % Lymph % (Auto) 25.3 (21.8-53.1) % [place] % (Auto) 8.4 (5.3-12.2) % Eos % (Auto) 2.5 (0.8-7.0) Baso % (Auto) 0.4 (0.1-1.2) % Neut # (Auto) 4.23 (1.78-5.38) K/mm3 Lymph # (Auto) 1.69 (1.32-3.57) K/mm3 [place] # (Auto) 0.56 (0.30-0.82) K/mm3 Eos # (Auto) 0.17 (0.04-0.54) K/mm3 Baso # (Auto) 0.03 (0.01-0.08) K/mm3 Sodium 142 (136-145) mEq/L Potassium 5.3 H (3.5-5.1) mEq/L Chloride 105 (98-107) mEq/L Carbon Dioxide 33 H (21-32) mEq/L Anion Gap 9.3 (5-15) BUN 16 (7-18) mg/dL Creatinine 1.2 (0.7-1.3) mg/dL Est Cr Clr Drug Dosing TNP Estimated GFR (MDRD) 60 (>60) mL/min BUN/Creatinine Ratio 13.3 L (14-18) Glucose 79 L (83-115) mg/dL POC Glucose 105 (83-110) mg/dL Calcium 9.3 (8.5-10.1) mg/dL Total Bilirubin 0.5 (0.2-1.0) mg/dL AST 11 L (15-37) U/L ALT 32 (16-63) U/L Alkaline Phosphatase 84 (46-116) U/L Total Protein 7.8 (6.4-8.2) g/dl Albumin 3.7 (3.4-5.0) g/dl Globulin 4.1 gm/dL Albumin/Globulin Ratio 0.9 L (1-2) Meds: Medications Discontinued Medications Generic Name Dose Route Start Last Admin Trade Name Freq PRN Reason Stop Dose Admin Sodium Chloride 500 mls @ 999 mls/hr 01/13/19 13:57 05/31/18 14:41 Normal Saline IV 05/31/18 14:27 999 mls/hr .BOLUS ONE Administration Sodium Chloride 10 ml 05/31/18 13:57 05/31/18 14:42 Saline Flush FLUSH 10 ml ASDIRECTED PRN Administration Keep Vein Open - Re-Assessments/Exams Free Text/Narrative Re-Assessment/Exam: 06/03/18 12:[address] showed no hemorhage. old thalamic infarct, no apparent acute infarct. I started discussing admission, transfer options with patient almost imediately. He initially stated he would prefer to be admitted here. I discused with Dr Gaffney, Hospitalist who did come visit with patient and very quickly. After that discussion patient is willing to go to [place] where they would have Neurology available for consultation if/as needed. He upper extremity strength did improve somewhat on repeat exams but he continued to be unable to lift R leg off of the cot with good ability to lift L leg. Speech at one time better, more fluent but than back to severe difficulty getting words out. Continued to have no facial droop. His believes he had recovered back to full strength R arm and leg from his stroke 2 yrs ago. States the current weakness and increased speech difficulty is abnormal for him. Have arranged for transfer to [facility], Dr Flynn, Hospitalist accepting Phys. He was transferred by ground ambulance. Departure - Departure Time of Disposition: 14:15 Disposition: DC/Tfer to Acute Hospital 02 Condition: Serious Clinical Impression: Acute ischemic stroke - Discharge Information Referrals: Sigifredo Thompson MD [Primary Care Provider] - Forms: ED Department Discharge
[2018-05-31 14:32] VITALS: BP 99/75
--- NOTE | 2018-05-31 16:59 | CR ---
Chest: Portable view of the chest was obtained. Comparison: Prior chest x-ray of 10/27/17. Minimal scarring is seen within the left base. Lungs otherwise are clear with no acute parenchymal change. Heart size is normal. Tortuous thoracic aorta is seen. Pacemaker is noted. Bony structures are grossly intact. Compression: 1. Incidental findings. Nothing acute is appreciated on portable chest x-ray. Diagnostic code #2
== END 2018-05-31 15:15 ==
LOC: JD.ED 13:39
DX: I63.9 Cerebral infarction, unspecified (principal); Z88.8 Allergy status to other drugs, medicaments and biological substances; Z79.899 Other long term (current) drug therapy
CPT/HCPCS: 36415; 70450; 71045; 80053; 82962; 85025; 93005; 96360; 99285; J7040; 93010

== ENCOUNTER 2019-04-10 14:28 | Emergency (ER) | payer OTHER, MEDICARE ==
[2019-04-10] MEDS ORDERED: Sodium Chloride 0.9% 10 ML Syringe FLUSH PRN (15:25)
[2019-04-10] MEDS ORDERED: Albuterol/Ipratropium 3.0-0.5 MG/3 ML Neb Soln NEB ONE (15:29)
--- NOTE | 2019-04-10 15:34 | EDM.PDOC ---
ED HPI GENERAL MEDICAL PROBLEM - General Chief Complaint: Chest Pain Stated Complaint: CHEST PAIN/L ARM & L LEG WEAKNESS Time Seen by Provider: 04/10/19 15:24 Source of Information: Reports: Patient, Family (spouse) History Limitations: Reports: No Limitations - History of Present Illness INITIAL COMMENTS - FREE TEXT/NARRATIVE: 73-year-old male presents to the ED with increased shortness of breath and left precordial chest heaviness reported stable about 1300 hrs. today. Patient was recently admitted to the hospital due to exacerbation of COPD and was discharged on Pulmicort neb treatments as well as albuterol neb treatments at home he also has metered-dose inhalers. He was also placed on a Medrol Dosepak while in hospital and finished up 2 days of medication after he was discharged. He continues to be unable to cough but developed shortness of breath on minimal exertion. was a smoker for many years but quit within the last 5 years. Patient has known generalized atherosclerotic disease involving coronary arteries and previous abdominal aortic aneurysm repair. It is suspect that he has suffered TIAs and strokes as well. He has very poor vision particularly in his left eye due to bilateral macular degeneration followed by Dr. Kelly. He is complaining of some left upper extremity weakness that is seems to be worse than normal today. Of note the patient remains on Eliquis daily and hasn't missed any dosages. Onset: Today, Sudden Onset Date: 04/10/19 Onset Time: 13:00 Duration: Hour(s):, Waxing/Waning Location: Reports: Chest (Better at rest. Precordial chest heaviness reported with difficulty breathing.) Quality: Reports: Pressure Severity: Moderate (Describes a pressure in his left anterior chest.) Improves with: Reports: None, Rest Worsens with: Reports: Other, Movement Context: Denies: Activity, Exercise (Worse with exertion.), Lifting, Sick Contact, Trauma, Other Associated Symptoms: Reports: Chest Pain (Nonproductive cough can't seem to get up any sputum.), Cough, Malaise, Shortness of Breath, Weakness. Denies: No Other Symptoms, Confusion ( The precordial chest pressure discomfort.), Diaphoresis, Fever/Chills, Headaches, Loss of Appetite, Nausea/Vomiting, Seizure , Syncope Treatments RN CVICU: Reports: Other (see below) (Meter dose inhaler of albuterol.) Left Chest Pain Score (Numeric/FACES): 4 - Related Data Allergies Allergy/AdvReac Type Severity Reaction Status Date / Time atorvastatin calcium AdvReac Muscle Verified 04/10/19 14:41 [From Lipitor] Aches Home Meds: Home Meds Aspirin [Halfprin] 81 mg PO BEDTIME 04/03/15 [History] Oxybutynin 5 mg PO BID 05/13/17 [History] Rosuvastatin [Crestor] 20 mg PO DAILY 05/13/17 [History] Tamsulosin [Flomax] 0.4 mg PO DAILY 05/13/17 [History] Mirtazapine [Remeron] 30 mg PO BEDTIME 10/27/17 [History] Apixaban [Eliquis] 5 mg PO BID 05/31/18 [History] Metoprolol Succinate [Toprol XL] 12.5 mg PO DAILY 12/06/18 [History] Folic Acid 0.8 mg PO DAILY 04/02/19 [History] Nicotine [Nicotine Patch] 1 patch TOP DAILY 04/02/19 [History] Opthamalic Areds 1 tab PO DAILY 04/02/19 [History] PARoxetine HCl [Paroxetine HCl] 40 mg PO DAILY 04/02/19 [History] lamoTRIgine [Lamotrigine] 50 mg PO DAILY 04/02/19 [History] Albuterol/Ipratropium [DuoNeb 3.0-0.5 MG/3 ML] 3 ml NEB Q6HRRT #100 neb [Rx] Budesonide [Pulmicort] 0.5 mg NEB BIDRT #60 neb 04/07/19 [Rx] methylPREDNISolone [Medrol] 4 mg PO WITHBREAKFAST #2 tablet 04/07/19 [Rx] guaiFENesin [Mucinex] 600 mg PO TID #30 tab.er 04/10/19 [Rx] levoFLOXacin [Levaquin] 500 mg PO DAILY #10 tab 04/10/19 [Rx] predniSONE [Prednisone] 20 mg PO ASDIRECTED #15 tablet 04/10/19 [Rx] Past Medical History HEENT History: Reports: Impaired Vision, Macular Degeneration Other HEENT History: Wears glasses Cardiovascular History: Reports: Aneurysm, Arrhythmia, High Cholesterol, Pacemaker Other Cardiovascular History: bradycardia. Gastrointestinal History: Reports: GERD Genitourinary History: Reports: BPH, Urinary Incontinence Other Genitourinary History: bladder spasms Musculoskeletal History: Reports: Other (See Below) Other Musculoskeletal History: Injection in L) shoulder Neurological History: Reports: Migraines Psychiatric History: Reports: Addiction, Depression, PTSD Other Psychiatric History: nightmares and went thru treatment and feels it has helped. alcoholism Endocrine/Metabolic History: Reports: None Hematologic History: Reports: Anticoagulation Therapy Immunologic History: Reports: None Oncologic (Cancer) History: Reports: Malignant Melanoma Other Oncologic History: melonoma cancer to back and surgically removed Dermatologic History: Reports: Melanoma Other Dermatologic History: sebaceous cyst to R cheek, Melanoma to back - Infectious Disease History Infectious Disease History: Reports: Chicken Pox, Measles, Mumps - Past Surgical History HEENT Surgical History: Reports: Cataract Surgery Cardiovascular Surgical History: Reports: AAA Repair, Pacer GI Surgical History: Reports: Cholecystectomy, Colonoscopy, EGD, ERCP, Other ( See Below) Musculoskeletal Surgical History: Reports: Arthroscopic Knee Dermatological Surgical History: Reports: Other (See Below) Social & Family History - Family History Family Medical History: Noncontributory Cardiac: Reports: [facility] Other Cardiac Family History: Pt states his father had a couple heart attacks. Endocrine/Metabolic: Reports: Diabetes, type II Other Endocrine/Metabolic Family History: Pt states nobody in his family has DM II. RN unable to unchart DM II by IMMIGRATION INSPECTOR. Oncologic: Reports: Prostate, Other (See Below) Other Oncologic Family History: Pt states his bother has prostate CA with mets to back. - Tobacco Use Smoking Status *Q: Former Smoker Used Tobacco, but Quit: Yes Month/Year Tobacco Last Used: 03/2019 Tobacco Use Comment: Pt quit smoking last week, smoked for 50 years prior. - Caffeine Use Caffeine Use: Reports: Soda Other Caffeine Use: rarely - Recreational Drug Use Recreational Drug Use: No - Living Situation & Occupation Living situation: Reports: , with Spouse Occupation: Retired ED ROS GENERAL - Review of Systems Review Of Systems: See Below Constitutional: Reports: Malaise, Weakness, Fatigue. Denies: Fever, Chills HEENT: Reports: Hearing Loss (Mildly hard of hearing.), Vision Change (Has bilateral macular degeneration with very poor vision left eye.) Respiratory: Reports: Shortness of Breath, Wheezing, Cough. Denies: No Symptoms , Pleuritic Chest Pain (Due to COPD.), Sputum, Hemoptysis Cardiovascular: Reports: Chest Pain, Blood Pressure Problem (Left precordial chest pressure heaviness today.), Dyspnea on Exertion, Lightheadedness. Denies : Claudication, Edema, Orthopnea ( Often runs low on medication. Has been very careful when he stands up so as not to fall.) Endocrine: Reports: Fatigue (Chronically) GI/Abdominal: Reports: Other : Reports: Frequency, Other Musculoskeletal: Reports: Back Pain, Joint Pain Skin: Reports: Bruising (Bruises easily as he is on Eliquis.) Neurological: Reports: No Symptoms, Dizziness, Headache, Numbness (Does frequent headaches), Tingling, Tremors, Difficulty Walking, Weakness (Weakness) . Denies: Paresthesia, Pre-Existing Deficit, Seizure (Left upper extremity today. But he said this off and on before), Syncope, Trouble Speaking (Right hand.) Psychiatric: Reports: Anxiety Hematologic/Lymphatic: Reports: Easy Bruising ED EXAM, GENERAL - Physical Exam Exam: See Below Exam Limited By: No Limitations General Appearance: Alert, WD/WN, Anxious, Other (Mildly anxious. Essential To 36.3 pulse of 70 per side crit is 20 with O2 sats of 91-95% on room air. BP 105/ 81.) Eye Exam: Bilateral Eye: Normal Inspection, PERRL Throat/Mouth: Normal Inspection, Normal Lips, Normal Oropharynx Head: Atraumatic, Normocephalic Neck: Normal Inspection, Limited Range of Motion. No: Carotid Bruit, Lymphadenopathy (L), Lymphadenopathy (R) Respiratory/Chest: Respiratory Distress (Mild tachypnea at rest.), Decreased Breath Sounds (Decreased air entry to the lower 60% of lung valladares bilaterally. Occasional expiratory wheeze appreciated. No better with coughing. Appears to have severe COPD.). No: Lungs Clear, Normal Breath Sounds Cardiovascular: Regular Rate, Rhythm, No Edema, No Gallop, No Murmur, No Rub. No: Normal Peripheral Pulses Peripheral Pulses: 1+: Posterior Tibial (L), Posterior Tibial (R), Dorsalis Pedis (L), Dorsalis Pedis (R) GI/Abdominal: Normal Bowel Sounds, Soft, Non-Tender, No Organomegaly, No Abnormal Bruit, No Mass, Pelvis Stable, Other (Lots of surgical scars.) Back Exam: Decreased Range of Motion. No: CVA Tenderness (L), CVA Tenderness (R ) Extremities: Other (Good pulses to both upper extremities. He has pain in his left anterior shoulder both in the long and short head of the biceps as well as evidence of supraspinatus tendinitis and rotator cuff disease.) Neurological: Alert, Oriented, CN II-XII Intact, Normal Cognition, No Motor/ Sensory Deficits Psychiatric: Flat Affect (He always has a fairly flat affect.) Skin Exam: Warm, Dry, Intact, Normal Color, No Rash EKG INTERPRETATION EKG Date: 04/10/19 Time: 14:37 Rhythm: Other (Atrial paced rhythm at 55/min underlying rhythm appears to be atrial fibrillation.) Rate (Beats/Min): 73 Watkins: LAD-Left Watkins Deviation (-58.) P-Wave: Present QRS: Other (Left anterior fascicular block pattern. RSR prime waves in V1 and V2 likely normal variant. Decreased voltage precordial leads and limb leads. I.e. COPD pattern. Consider right ventricular hypertrophy pattern.) ST-T: Normal QT: Normal EKG Interpretation Comments: Abnormal ECG Course - Vital Signs Last Recorded V/S: Last Vital Signs Temp 36.3 C 04/10/19 14:36 Pulse 70 04/10/19 14:36 Resp 20 04/10/19 14:36 BP 105/81 04/10/19 14:36 Pulse Ox 95 04/10/19 14:36 - Orders/Labs/Meds Orders: Active Orders 24 hr Category Date Time Status EKG Documentation Completion [RC] STAT Care 04/10/19 15:25 Active Peripheral IV Care [RC] . DIRECTED Care 04/10/19 15:26 Active RT Aerosol Therapy [RC] ASDIRECTED Care 04/10/19 15:29 Active Chest 1V Frontal [CR] Stat Exams 04/10/19 15:25 Taken Sodium Chloride 0.9% [Saline Flush] Med 04/10/19 15:25 Active 10 ml FLUSH ASDIRECTED PRN Peripheral IV Insertion Adult [OM.PC] Stat Oth 04/10/19 15:26 Ordered Medication Orders Sodium Chloride (Saline Flush) 10 ml FLUSH ASDIRECTED PRN PRN Reason: Keep Vein Open Last Admin: 04/10/19 15:55 Dose: 10 ml Labs: Laboratory Tests 04/10/19 04/10/19 04/10/19 Range/Units 15:51 15:51 15:51 WBC 10.42 H (4.23-9.07) K/mm3 RBC 4.58 L (4.63-6.08) M/mm3 Hgb 13.5 L (13.7-17.5) gm/dl Hct 42.5 (40.1-51.0) % MCV 92.8 H (79.0-92.2) fl MCH 29.5 (25.7-32.2) pg MCHC 31.8 L (32.2-35.5) g/dl RDW Std Deviation 53.8 H (35.1-43.9) fL Plt Count 267 (163-337) K/mm3 MPV 9.3 L (9.4-12.3) fl Neutrophils % (Manual) 70 H (40-60) % Band Neutrophils % 0 (0-10) % Lymphocytes % (Manual) 22 (20-40) % Atypical Lymphs % 0 % Monocytes % (Manual) 3 (2-10) % Eosinophils % (Manual) 4 (0.8-7.0) % Basophils % (Manual) 1 (0.2-1.2) Platelet Estimate Adequate RBC Morph Comment Normal PT 10.3 (9.7-12.0) SECONDS INR 0.94 APTT 25 (22-31) SECONDS Sodium 143 (136-145) mEq/L Potassium 3.9 (3.5-5.1) mEq/L Chloride 108 H (98-107) mEq/L Carbon Dioxide 28 (21-32) mEq/L Anion Gap 10.9 (5-15) BUN 24 H (7-18) mg/dL Creatinine 1.2 (0.7-1.3) mg/dL Est Cr Clr Drug Dosing 62.88 mL/min Estimated GFR (MDRD) 60 (>60) mL/min BUN/Creatinine Ratio 20.0 H (14-18) Glucose 138 H (83-115) mg/dL Calcium 8.7 (8.5-10.1) mg/dL Magnesium 2.1 (1.8-2.4) mg/dl Total Bilirubin 0.3 (0.2-1.0) mg/dL AST 26 (15-37) U/L ALT 47 (16-63) U/L Alkaline Phosphatase 70 (46-116) U/L CK-MB (CK-2) (0-3.6) ng/ml Troponin I < 0.017 (0.00-0.056) ng/mL NT-Pro-B Natriuret Pep (0-125) pg/mL Total Protein 7.0 (6.4-8.2) g/dl Albumin 3.1 L (3.4-5.0) g/dl Globulin 3.9 gm/dL Albumin/Globulin Ratio 0.8 L (1-2) 04/10/19 04/10/19 Range/Units 15:51 15:51 WBC (4.23-9.07) K/mm3 RBC (4.63-6.08) M/mm3 Hgb (13.7-17.5) gm/dl Hct (40.1-51.0) % MCV (79.0-92.2) fl MCH (25.7-32.2) pg MCHC (32.2-35.5) g/dl RDW Std Deviation (35.1-43.9) fL Plt Count (163-337) K/mm3 MPV (9.4-12.3) fl Neutrophils % (Manual) (40-60) % Band Neutrophils % (0-10) % Lymphocytes % (Manual) (20-40) % Atypical Lymphs % % Monocytes % (Manual) (2-10) % Eosinophils % (Manual) (0.8-7.0) % Basophils % (Manual) (0.2-1.2) Platelet Estimate RBC Morph Comment PT (9.7-12.0) SECONDS INR APTT (22-31) SECONDS Sodium (136-145) mEq/L Potassium (3.5-5.1) mEq/L Chloride (98-107) mEq/L Carbon Dioxide (21-32) mEq/L Anion Gap (5-15) BUN (7-18) mg/dL Creatinine (0.7-1.3) mg/dL Est Cr Clr Drug Dosing mL/min Estimated GFR (MDRD) (>60) mL/min BUN/Creatinine Ratio (14-18) Glucose (83-115) mg/dL Calcium (8.5-10.1) mg/dL Magnesium (1.8-2.4) mg/dl Total Bilirubin (0.2-1.0) mg/dL AST (15-37) U/L ALT (16-63) U/L Alkaline Phosphatase (46-116) U/L CK-MB (CK-2) 0.6 (0-3.6) ng/ml Troponin I (0.00-0.056) ng/mL NT-Pro-B Natriuret Pep 78 (0-125) pg/mL Total Protein (6.4-8.2) g/dl Albumin (3.4-5.0) g/dl Globulin gm/dL Albumin/Globulin Ratio (1-2) Meds: Medications Generic Name Dose Route Start Last Admin Trade Name Freq PRN Reason Stop Dose Admin Sodium Chloride 10 ml 04/10/19 15:25 04/10/19 15:55 Saline Flush FLUSH 10 ml ASDIRECTED PRN Administration Keep Vein Open Discontinued Medications Generic Name Dose Route Start Last Admin Trade Name Freq PRN Reason Stop Dose Admin Albuterol/Ipratropium 3 ml 04/10/19 15:29 04/10/19 15:36 Duoneb 3.0-0.5 Mg/3 Ml NEB 04/10/19 15:30 3 ml ONETIME ONE Administration - Radiology Interpretation Free Text/Narrative:: 73-year-old male presents to the ED for evaluation of increased difficulty breathing today and left precordial chest heaviness pressure discomfort. His ECG does not show any signs of acute ischemic change. He is also on Eliquis daily which should prevent myocardial infarction. He has a history of coronary disease and generalized atherosclerosis from smoking. He was recently hospitalized last week for 2 days due to exacerbation of COPD. He was treated with a Medrol Dosepak which she has finished. He was discharged on Pulmicort home nebulizer treatment twice a day as well as albuterol 4 times a day via home nebulizer. Today about 1300 hrs. she developed increased trouble breathing and pressure in his left precordial chest. [place] some weakness in his left upper extremity. Examination of his left upper extremity shows bicipital tendinitis and rotator cuff disease think causing his pain in his arm. Lungs have very poor air entry to both sides by greater than 65% decreased air entry to posterior lung valladares. 02 Sats are 91% on room air. Plan DuoNeb treatment. Chest x-ray of course. Routine labs to be done to include BNP and cardiac markers. - Re-Assessments/Exams Free Text/Narrative Re-Assessment/Exam: 04/10/19 16:19 chest x-ray done portably reveals mild to moderate cardiomegaly. Atherosclerosis appreciated of coronary arteries and of the arch of the aorta. Their is an infiltrate along the right heart border which is denser than on previous chest x-ray done last week. This suggests to be a developing pneumonia. There has been chronic inflammatory change. Appears to be developing a pneumonia in this area. 04/10/19 16:47 Labs reveal a white count of 10.42. 70% neutrophils no bands reported. Hemoglobin 13.5 hematocrit of 42.5. Platelet count 267,000. PT is 10.3 with an INR of 0.94 PTT is 25 sodium 143 with a potassium of 3.9. Chloride is 108 with a bicarbonate of 28. Anion gap is 10.9 BUN is 24 with a creatinine of 1.2. GFR is greater than 60. Glucose 138. Calcium 8.7 magnesium 2.1. Liver function normal. CK-MB fraction 0.6 troponin I is less than 0.017. BNP is 78. Total protein 7.0 with an albumin fraction of 3.1. 04/10/19 17:09 findings discussed with the patient and his . Plan will be to place him on anabolic Levaquin 500 milligrams once daily for the next 10 days. I'm going to continue him on steroids prednisone 20 mg twice a day with breakfast and supper for 5 days and then 1 tablet in the morning for another 5 days to complete a 10 day course. Also advised Mucinex 600 mg 3 times daily to help loosen up his secretions. He already has medication for home nebulizer treatments. Departure - Departure Time of Disposition: 17:10 Disposition: Home, Self-Care 01 Condition: Fair Clinical Impression: Left upper arm pain, Bicipital tendinitis of left shoulder, Non-cardiac chest pain COPD (chronic obstructive pulmonary disease) with emphysema Qualifiers: Emphysema type: unspecified Qualified Code(s): J43.9 - Emphysema, unspecified Pneumonia Qualifiers: Pneumonia type: due to unspecified organism Laterality: right Lung location: lower lobe of lung Qualified Code(s): J18.9 - Pneumonia, unspecified organism Prescriptions: guaiFENesin [Mucinex] 600 mg PO TID #30 tab.er levoFLOXacin [Levaquin] 500 mg PO DAILY #10 tab predniSONE [Prednisone] 20 mg PO ASDIRECTED #15 tablet Instructions: Biceps Tendon Tendinitis (Proximal) and Tenosynovitis, Biceps Tendon Tendinitis (Proximal) and Tenosynovitis Rehab-SportsMed, Chronic Obstructive Pulmonary Disease, [id number] Referrals: Sigifredo Thompson MD [Primary Care Provider] - Forms: ED Department Discharge Additional Instructions: Evaluation the emergency room today in regards to development of left sided chest pressure heaviness radiating into the left upper extremity. This started while seated in a car at about 1300 hrs. today. History of recent discharge from the hospital after COPD exacerbation. Exam reveals markedly decreased air entry to both posterior lung valladares by over 60%. X-ray done today suggests that there is an early infiltrate developing in the right lower lobe of the lung concerning for possible developing pneumonia. You're treated with inhalational medication DuoNeb in the ED. Labs were done to make sure that there was no heart involvement and none were found. You have no retention of fluid from your heart and no evidence of heart attack. 2 minutes to be antibiotic Levaquin 500 milligrams once daily for the next 10 days starting today. Continue steroids using prednisone 20 mg with supper and with breakfast daily for 5 days and then once in the morning only for another 5 days. Suggest producing some Mucinex to break up the mucus in the lung tubes and take this 3 times daily for the next 10 days and after this it can be taken twice daily to help her cough up mucus and prevent pneumonia and improved airflow in the lungs. Personal care physician if any further problems develop or return to the ED - My Orders Last 24 Hours: My Active Orders 04/10/19 15:29 RT Aerosol Therapy [RC] ASDIRECTED - Assessment/Plan Last 24 Hours: My Active Orders 04/10/19 15:29 RT Aerosol Therapy [RC] ASDIRECTED
[2019-04-10 17:53] VITALS: BP 103/70; PULSE 60
--- NOTE | 2019-04-11 16:34 | CR ---
Chest: Portable view of the chest was obtained. Comparison: Prior chest CT study of 04/03/19 and chest x-ray also of 04/02/19. Slight increased density is noted within both lung bases believed to represent areas of atelectasis. Central lung markings are mildly increased and difficult to exclude mild pulmonary vascular congestion which is superimposed upon emphysematous change. Tortuous thoracic aorta is noted. Pacemaker is present. Impression: 1. Mild bibasilar atelectasis. 2. Possible mild pulmonary vascular congestion superimposed upon emphysematous change. Diagnostic code #3
== END 2019-04-10 17:51 | disposition home or self-care (01) ==
LOC: JD.ED 14:28
DX: J18.9 Pneumonia, unspecified organism (principal); J43.9 Emphysema, unspecified; M79.622 Pain in left upper arm; M75.22 Bicipital tendinitis, left shoulder; E78.00 Pure hypercholesterolemia, unspecified; F32.9 Major depressive disorder, single episode, unspecified; N40.1 Benign prostatic hyperplasia with lower urinary tract symptoms; N39.498 Other specified urinary incontinence; Z87.891 Personal history of nicotine dependence; Z88.8 Allergy status to other drugs, medicaments and biological substances; Z79.01 Long term (current) use of anticoagulants; Z79.82 Long term (current) use of aspirin; Z79.899 Other long term (current) drug therapy
CPT/HCPCS: 36415; 71045; 71045-26; 80053; 82553; 83735; 83880; 84484; 85007; 85027; 85610; 85730; 93005; 93010; 94640; 99284; 99285-25; J7620-GY

== ENCOUNTER 2019-06-19 08:58 | Emergency (ER) | payer OTHER, MEDICARE ==
[2019-06-19 09:13] VITALS: BP 115/82; PULSE 86
[2019-06-19] MEDS ORDERED: HYDROmorphone 0.5 MG/0.5 ML Syringe IVPUSH ONE (09:29)
[2019-06-19] MEDS ORDERED: Sodium Chloride 0.9% 1,000 ML IV SCH (09:30)
[2019-06-19] MEDS: Sodium Chloride 0.9% 10 ML Syringe FLUSH PRN ×2 (09:34→09:40)
--- NOTE | 2019-06-19 10:45 | EDM.PDOC ---
ED HPI GENERAL MEDICAL PROBLEM - General Chief Complaint: Back Pain or Injury Stated Complaint: LOW BACK PAIN Time Seen by Provider: 06/19/19 09:10 Source of Information: Reports: Patient History Limitations: Reports: No Limitations - History of Present Illness INITIAL COMMENTS - FREE TEXT/NARRATIVE: The patient presents with low back pain and abdominal pain. He had a AAA repair done about a week ago at the [facility]. He had a stent placed. He lifted something heavy a couple days ago and last night he had some right lower back pain and some abdominal pain. He has no fever, chills, cough, chest pain, shortness of breath, numbness or weakness. He has no bowel or bladder problems. Onset: Gradual Duration: Day(s): (last night) Location: Reports: Abdomen, Back Quality: Reports: Sharp Severity: Moderate Improves with: Reports: None Worsens with: Reports: None Associated Symptoms: Reports: No Other Symptoms Lower Back Pain Score (Numeric/FACES): 8 - Related Data Allergies Allergy/AdvReac Type Severity Reaction Status Date / Time atorvastatin calcium AdvReac Muscle Verified 06/19/19 09:11 [From Lipitor] Aches Home Meds: Home Meds Aspirin [Halfprin] 81 mg PO BEDTIME 04/03/15 [History] Oxybutynin 5 mg PO BID 05/13/17 [History] Rosuvastatin [Crestor] 20 mg PO DAILY 05/13/17 [History] Tamsulosin [Flomax] 0.4 mg PO DAILY 05/13/17 [History] Mirtazapine [Remeron] 30 mg PO BEDTIME 10/27/17 [History] Apixaban [Eliquis] 5 mg PO BID 05/31/18 [History] Metoprolol Succinate [Toprol XL] 12.5 mg PO DAILY 12/06/18 [History] Folic Acid 0.8 mg PO DAILY 04/02/19 [History] Nicotine [Nicotine Patch] 1 patch TOP DAILY 04/02/19 [History] PARoxetine HCl [Paroxetine HCl] 40 mg PO DAILY 04/02/19 [History] lamoTRIgine [Lamotrigine] 50 mg PO DAILY 04/02/19 [History] Budesonide [Pulmicort] 0.5 mg NEB BIDRT #60 neb 04/07/19 [Rx] methylPREDNISolone [Medrol] 4 mg PO WITHBREAKFAST #2 tablet 04/07/19 [Rx] Albuterol [Ventolin HFA] 1 puff INH BID 06/19/19 [History] Cyclobenzaprine [Flexeril] 10 mg PO TID PRN #20 tab 06/19/19 [Rx] Magnesium 400 mg PO DAILY 06/19/19 [History] Past Medical History HEENT History: Reports: Impaired Vision, Macular Degeneration Other HEENT History: Wears glasses Cardiovascular History: Reports: Aneurysm, Arrhythmia, High Cholesterol, Pacemaker Other Cardiovascular History: bradycardia. Gastrointestinal History: Reports: GERD Genitourinary History: Reports: BPH, Urinary Incontinence Other Genitourinary History: bladder spasms Musculoskeletal History: Reports: Other (See Below) Other Musculoskeletal History: Injection in L) shoulder Neurological History: Reports: Migraines Psychiatric History: Reports: Addiction, Depression, PTSD Other Psychiatric History: nightmares and went thru treatment and feels it has helped. alcoholism Endocrine/Metabolic History: Reports: None Hematologic History: Reports: Anticoagulation Therapy Immunologic History: Reports: None Oncologic (Cancer) History: Reports: Malignant Melanoma Other Oncologic History: melonoma cancer to back and surgically removed Dermatologic History: Reports: Melanoma Other Dermatologic History: sebaceous cyst to R cheek, Melanoma to back - Infectious Disease History Infectious Disease History: Reports: Chicken Pox, Measles, Mumps - Past Surgical History HEENT Surgical History: Reports: Cataract Surgery Cardiovascular Surgical History: Reports: AAA Repair, Pacer GI Surgical History: Reports: Cholecystectomy, Colonoscopy, EGD, ERCP, Other ( See Below) Musculoskeletal Surgical History: Reports: Arthroscopic Knee Dermatological Surgical History: Reports: Other (See Below) Social & Family History - Family History Family Medical History: Noncontributory Cardiac: Reports: NE Other Cardiac Family History: Pt states his father had a couple heart attacks. Endocrine/Metabolic: Reports: Diabetes, type II Other Endocrine/Metabolic Family History: Pt states nobody in his family has DM II. RN unable to unchart DM II by PUL[employer] T[employer]ER. Oncologic: Reports: Prostate, Other (See Below) Other Oncologic Family History: Pt states his bother has prostate CA with mets to back. - Tobacco Use Smoking Status *Q: Never Smoker - Caffeine Use Caffeine Use: Reports: Soda Other Caffeine Use: rarely - Recreational Drug Use Recreational Drug Use: No - Living Situation & Occupation Living situation: Reports: , with Spouse Occupation: Retired ED ROS GENERAL - Review of Systems Review Of Systems: See Below Constitutional: Reports: No Symptoms HEENT: Reports: No Symptoms Respiratory: Reports: No Symptoms Cardiovascular: Reports: No Symptoms Endocrine: Reports: No Symptoms GI/Abdominal: Reports: Abdominal Pain. Denies: Nausea, Vomiting : Reports: No Symptoms Musculoskeletal: Reports: Back Pain (right side) ED EXAM,LOWER BACK PAIN/INJURY - Physical Exam Exam: See Below Exam Limited By: No Limitations General Appearance: Alert, No Apparent Distress Ears: Normal External Exam Nose: Normal Inspection Head: Atraumatic, Normocephalic Neck: Normal Inspection Respiratory/Chest: No Respiratory Distress, Lungs Clear, Normal Breath Sounds Cardiovascular: Regular Rate, Rhythm, No Edema, No Murmur GI/Abdominal: Soft, No Organomegaly, No Mass, Tender (Mild to moderate generalized tenderness) Back Exam: Other (Pain upon palpation to the right lower back) Course - Vital Signs Last Recorded V/S: Last Vital Signs Temp 98.7 F 06/19/19 09:11 Pulse 86 06/19/19 09:11 Resp 16 06/19/19 09:11 BP 115/82 06/19/19 09:11 Pulse Ox 97 06/19/19 09:11 - Orders/Labs/Meds Orders: Active Orders 24 hr Category Date Time Status Peripheral IV Care [RC] . DIRECTED Care 06/19/19 09:28 Active Sodium Chloride 0.9% [Normal Saline] 1,000 ml Med 06/19/19 09:30 Active IV ASDIRECTED Sodium Chloride 0.9% [Saline Flush] Med 06/19/19 09:27 Active 10 ml FLUSH ASDIRECTED PRN Peripheral IV Insertion Adult [OM.PC] Stat Oth 06/19/19 09:27 Ordered Medication Orders Sodium Chloride (Normal Saline) 1,000 mls @ 125 mls/hr IV ASDIRECTED SERGIO Last Admin: 06/19/19 09:38 Dose: 125 mls/hr Sodium Chloride (Saline Flush) 10 ml FLUSH ASDIRECTED PRN PRN Reason: Keep Vein Open Last Admin: 06/19/19 09:40 Dose: 10 ml Admin: 06/19/19 09:34 Dose: 10 ml Labs: Laboratory Tests 06/19/19 06/19/19 Range/Units 09:35 09:35 WBC 7.39 (4.23-9.07) K/mm3 RBC 4.25 L (4.63-6.08) M/mm3 Hgb 12.2 L (13.7-17.5) gm/dl Hct 39.5 L (40.1-51.0) % MCV 92.9 H (79.0-92.2) fl MCH 28.7 (25.7-32.2) pg MCHC 30.9 L (32.2-35.5) g/dl RDW Std Deviation 53.4 H (35.1-43.9) fL Plt Count 459 H D (163-337) K/mm3 MPV 8.3 L (9.4-12.3) fl Neut % (Auto) 67.7 (34.0-67.9) % Lymph % (Auto) 18.5 L (21.8-53.1) % [place] % (Auto) 10.1 (5.3-12.2) % Eos % (Auto) 3.1 (0.8-7.0) Baso % (Auto) 0.3 (0.1-1.2) % Neut # (Auto) 5.00 (1.78-5.38) K/mm3 Lymph # (Auto) 1.37 (1.32-3.57) K/mm3 [place] # (Auto) 0.75 (0.30-0.82) K/mm3 Eos # (Auto) 0.23 (0.04-0.54) K/mm3 Baso # (Auto) 0.02 (0.01-0.08) K/mm3 Sodium 140 (136-145) mEq/L Potassium 4.3 (3.5-5.1) mEq/L Chloride 104 (98-107) mEq/L Carbon Dioxide 29 (21-32) mEq/L Anion Gap 11.3 (5-15) BUN 12 (7-18) mg/dL Creatinine 1.2 (0.7-1.3) mg/dL Est Cr Clr Drug Dosing 62.88 mL/min Estimated GFR (MDRD) 60 (>60) mL/min BUN/Creatinine Ratio 10.0 L (14-18) Glucose 123 H (83-115) mg/dL Calcium 9.4 (8.5-10.1) mg/dL Total Bilirubin 0.3 (0.2-1.0) mg/dL AST 19 (15-37) U/L ALT 28 (16-63) U/L Alkaline Phosphatase 68 (46-116) U/L Total Protein 8.1 (6.4-8.2) g/dl Albumin 2.9 L (3.4-5.0) g/dl Globulin 5.2 gm/dL Albumin/Globulin Ratio 0.6 L (1-2) Lipase 106 (73-393) U/L Meds: Medications Generic Name Dose Route Start Last Admin Trade Name Freq PRN Reason Stop Dose Admin Sodium Chloride 1,000 mls @ 125 mls/hr 06/19/19 09:30 06/19/19 09:38 Normal Saline IV 125 mls/hr ASDIRECTED SERGIO Administration Sodium Chloride 10 ml 06/19/19 09:27 06/19/19 09:40 Saline Flush FLUSH 10 ml ASDIRECTED PRN Administration Keep Vein Open Discontinued Medications Generic Name Dose Route Start Last Admin Trade Name Freq PRN Reason Stop Dose Admin Hydromorphone HCl 0.5 mg 06/19/19 09:29 06/19/19 09:38 Dilaudid IVPUSH 06/19/19 09:30 0.5 mg ONETIME ONE Administration Sodium Chloride 100 mls @ 4 mls/sec 06/19/19 10:54 06/19/19 10:56 Normal Saline IV 06/19/19 10:55 4 mls/sec ONETIME ONE Administration Iopamidol 100 ml 06/19/19 10:54 06/19/19 10:56 Isovue-370 (76%) IVPUSH 06/19/19 10:55 100 ml ONETIME ONE Administration - Re-Assessments/Exams Free Text/Narrative Re-Assessment/Exam: 06/19/19 10:44 I ordered an IV NS at 125mL/hr, labs, and a CT of his chest, abdomen and pelvis to look at his aorta. 06/19/19 11:30 His CBC looks good. His K was a little low at 3.4. His total protein is a little elevated at 6.3. His CT shows aortoiliac stent. Stent lies within previous abdominal aortic aneurysm. No contrast is seen to extend outside the stent. Other findings as noted above. Nothing acute is appreciated on CT study of the abdomen and pelvis. I will get him some flexeril for his back. Departure - Departure Time of Disposition: 11:35 Disposition: Home, Self-Care 01 Condition: Good Clinical Impression: Low back pain Qualifiers: Chronicity: acute Back pain laterality: right Sciatica presence: without sciatica Qualified Code(s): M54.5 - Low back pain - Discharge Information *PRESCRIPTION DRUG MONITORING PROGRAM REVIEWED*: No *COPY OF PRESCRIPTION DRUG MONITORING REPORT IN PATIENT GABRIELLE: No Prescriptions: Cyclobenzaprine [Flexeril] 10 mg PO TID PRN #20 tab PRN Reason: Pain Referrals: Sigifredo Thompson MD [Primary Care Provider] - 1 Week Forms: ED Department Discharge Additional Instructions: Take tylenol as needed for pain. If that does not help, try the flexeril. Please return if you are worse. Sepsis Event Note - Evaluation Sepsis Screening Result: No Definite Risk - Focused Exam Vital Signs: Vital Signs Temp Pulse Resp BP Pulse Ox 06/19/19 09:11 98.7 F 86 16 115/82 97 Date Exam was Performed: 06/19/19 Time Exam was Performed: 11:30 - My Orders Last 24 Hours: My Active Orders 06/19/19 09:27 Sodium Chloride 0.9% [Saline Flush] 10 ml FLUSH ASDIRECTED PRN Peripheral IV Insertion Adult [OM.PC] Stat 06/19/19 09:28 Peripheral IV Care [RC] . DIRECTED 06/19/19 09:30 Sodium Chloride 0.9% [Normal Saline] 1,000 ml IV ASDIRECTED - Assessment/Plan Last 24 Hours: My Active Orders 06/19/19 09:27 Sodium Chloride 0.9% [Saline Flush] 10 ml FLUSH ASDIRECTED PRN Peripheral IV Insertion Adult [OM.PC] Stat 06/19/19 09:28 Peripheral IV Care [RC] . DIRECTED 06/19/19 09:30 Sodium Chloride 0.9% [Normal Saline] 1,000 ml IV ASDIRECTED
[2019-06-19] MEDS ORDERED: Iopamidol 755 Mg/ML 100 ML Bottle IVPUSH ONE (10:54)
[2019-06-19] MEDS ORDERED: Sodium Chloride 0.9% 100 ML IV ONE (10:54)
--- NOTE | 2019-06-19 11:23 | CT ---
CT abdomen and pelvis Technique: Multiple axial sections were obtained from above the dome of the diaphragm inferiorly through the pubic symphysis. Intravenous contrast was utilized. No oral contrast was given. Delayed images were also obtained were also obtained through the abdomen and pelvis. Findings: Stent is noted within an abdominal aortic aneurysm. No contrast is seen to extend outside the stent. Stent continues into both iliac arteries. Mild increased density is noted within both lung bases which appear to represent scarring. Celiac axis is patent. Superior mesenteric artery is patent. Atherosclerotic change is noted within the right renal artery. No focal stenosis is seen within the renal arteries. Inferior mesenteric artery is also patent. Liver contains no focal abnormality. Spleen appears within normal limits. Adrenal glands contain no nodule. Cysts are noted within both kidneys. Delayed images shows contrast excretion from both kidneys into nondilated ureters as well as contrast being seen within the bladder. Surgical clips are seen from prior cholecystectomy. Pancreas is within normal limits. No retroperitoneal adenopathy or mesenteric abnormalities are seen. Fat-containing umbilical hernia is noted. Adjacent fat containing abdominal wall hernia is seen to the left side of the umbilicus. Appendix is seen which is normal in size. No pelvic mass or adenopathy is seen. No free fluid or inflammatory change is identified. Sigmoid diverticuli are seen with no inflammatory change of diverticulitis. Bone window settings show us disc space narrowing and vacuum phenomena within the L4-5 and L5-S1 disc. Scattered endplate osteophytes are seen within the spine. No acute osseous finding is appreciated. Impression: 1. Aortoiliac stent. Stent lies within previous abdominal aortic aneurysm. No contrast is seen to extend outside the stent. 2. Other findings as noted above. Nothing acute is appreciated on CT study of the abdomen and pelvis. Diagnostic code #2 This report was dictated in [place] Standard Time
== END 2019-06-19 11:42 | disposition home or self-care (01) ==
LOC: JD.ED 08:58
DX: M54.5 Low back pain (principal); E78.00 Pure hypercholesterolemia, unspecified; K21.9 Gastro-esophageal reflux disease without esophagitis; F32.9 Major depressive disorder, single episode, unspecified; Z79.01 Long term (current) use of anticoagulants; Z88.8 Allergy status to other drugs, medicaments and biological substances; Z79.82 Long term (current) use of aspirin; Z79.899 Other long term (current) drug therapy
CPT/HCPCS: 36415; 74177; 80053; 83690; 85025; 96361; 96374; 99284; J1170; J7030; J7050; Q9967; 99283

== ENCOUNTER 2019-07-27 13:27 | Emergency (ER) | payer OTHER, MEDICARE ==
[2019-07-27 13:47] VITALS: BP 99/71; PULSE 61
--- NOTE | 2019-07-27 13:59 | EDM.PDOC ---
ED HPI GENERAL MEDICAL PROBLEM - General Chief Complaint: Chest Pain Stated Complaint: CHEST PAIN Time Seen by Provider: 07/27/19 13:52 Source of Information: Reports: Patient, Family (aspouse) History Limitations: Reports: Respiratory Distress - History of Present Illness INITIAL COMMENTS - FREE TEXT/NARRATIVE: 74-year-old male presents to the ED complaining of shortness of breath with pain in his left upper anterior chest rating up into his left shoulder and neck. He is tachypneic at rest and taking shallow short breaths. He states the pain has a combination of/being sharp and stabbing as well as somewhat heavy and squeezing. It came on about 11:00 this morning and he was reluctant to come to the hospital and initially but things seem to have gotten worse and he had his bring him to the hospital. He has an extensive history of coronary disease and aneurysm of the aorta. He has a history of COPD and history of chronic alcoholism and some early dementia changes. He recently had endovascular aortic graft placed in May of this year. Mild renal insufficiency. He remains on Eliquis twice daily. Therefore it is unlikely that he has developed a PE. He denies any fall or injury to the chest wall. Onset: Today Onset Date: 07/27/19 Onset Time: 11:00 Duration: Hour(s):, Getting Worse Location: Reports: Chest Quality: Reports: Ache (Upper anterior chest rating to his shoulder and neck.), Pressure, Other (Some of the pain is sharp and stabbing and pleuritic) Severity: Moderate Improves with: Reports: None Worsens with: Reports: None Context: Reports: Other (Spontaneous occurrence.). Denies: Activity, Exercise, Lifting, Sick Contact, Trauma Associated Symptoms: Reports: Chest Pain (Occasional cough.), Cough, Loss of Appetite, Malaise ( See history of present illness), Shortness of Breath, Other (He is tachypneic at rest.). Denies: No Other Symptoms, Confusion, cough w sputum, Diaphoresis, Fever/Chills, Headaches, Nausea/Vomiting, Rash, Syncope Treatments EXTENSION COURSE COORDINATOR: Reports: Other (see below) (He has taken no pain medication.) Other Treatments EXTENSION COURSE COORDINATOR: aspirin Left Chest Pain Score (Numeric/FACES): 4 - Related Data Allergies Allergy/AdvReac Type Severity Reaction Status Date / Time atorvastatin calcium AdvReac Muscle Verified 06/19/19 09:11 [From Lipitor] Aches Home Meds: Home Meds Aspirin [Halfprin] 81 mg PO BEDTIME 04/03/15 [History] Oxybutynin 5 mg PO BID 05/13/17 [History] Rosuvastatin [Crestor] 20 mg PO DAILY 05/13/17 [History] Tamsulosin [Flomax] 0.4 mg PO DAILY 05/13/17 [History] Mirtazapine [Remeron] 30 mg PO BEDTIME 10/27/17 [History] Apixaban [Eliquis] 5 mg PO BID 05/31/18 [History] Metoprolol Succinate [Toprol XL] 12.5 mg PO DAILY 12/06/18 [History] Folic Acid 0.8 mg PO DAILY 04/02/19 [History] Nicotine [Nicotine Patch] 1 patch TOP DAILY 04/02/19 [History] PARoxetine HCl [Paroxetine HCl] 40 mg PO DAILY 04/02/19 [History] lamoTRIgine [Lamotrigine] 50 mg PO DAILY 04/02/19 [History] Budesonide [Pulmicort] 0.5 mg NEB BIDRT #60 neb 04/07/19 [Rx] methylPREDNISolone [Medrol] 4 mg PO WITHBREAKFAST #2 tablet 04/07/19 [Rx] Albuterol [Ventolin HFA] 1 puff INH BID 06/19/19 [History] Cyclobenzaprine [Flexeril] 10 mg PO TID PRN #20 tab 06/19/19 [Rx] Hydrocodone/Acetaminophen [Hydrocodon-Acetaminophen 5-325] 1 - 2 each PO Q6HR PRN #20 tablet 06/19/19 [Rx] Magnesium 400 mg PO DAILY 06/19/19 [History] Past Medical History HEENT History: Reports: Impaired Vision, Macular Degeneration Other HEENT History: Wears glasses Cardiovascular History: Reports: Aneurysm, Arrhythmia, High Cholesterol, Pacemaker, Other (See Below) Other Cardiovascular History: bradycardia.anuerysm repair 2019 Gastrointestinal History: Reports: GERD Genitourinary History: Reports: BPH, Urinary Incontinence Other Genitourinary History: bladder spasms Musculoskeletal History: Reports: Other (See Below) Other Musculoskeletal History: Injection in L) shoulder Neurological History: Reports: Migraines Psychiatric History: Reports: Addiction, Depression, PTSD Other Psychiatric History: nightmares and went thru treatment and feels it has helped. alcoholism Endocrine/Metabolic History: Reports: None Hematologic History: Reports: Anticoagulation Therapy Immunologic History: Reports: None Oncologic (Cancer) History: Reports: Malignant Melanoma Other Oncologic History: melonoma cancer to back and surgically removed Dermatologic History: Reports: Melanoma Other Dermatologic History: sebaceous cyst to R cheek, Melanoma to back - Infectious Disease History Infectious Disease History: Reports: Chicken Pox, Measles, Mumps - Past Surgical History HEENT Surgical History: Reports: Cataract Surgery Cardiovascular Surgical History: Reports: AAA Repair, Pacer GI Surgical History: Reports: Cholecystectomy, Colonoscopy, EGD, ERCP, Other ( See Below) Musculoskeletal Surgical History: Reports: Arthroscopic Knee Dermatological Surgical History: Reports: Other (See Below) Social & Family History - Family History Family Medical History: Noncontributory Cardiac: Reports: [place] Other Cardiac Family History: Pt states his father had a couple heart attacks. Endocrine/Metabolic: Reports: Diabetes, type II Other Endocrine/Metabolic Family History: Pt states nobody in his family has DM II. RN unable to unchart DM II by BATHROOM TILING PROFESSIONAL. Oncologic: Reports: Prostate, Other (See Below) Other Oncologic Family History: Pt states his bother has prostate CA with mets to back. - Caffeine Use Caffeine Use: Reports: Soda Other Caffeine Use: rarely - Living Situation & Occupation Living situation: Reports: , with Spouse Occupation: Retired ED ROS GENERAL - Review of Systems Review Of Systems: See Below Constitutional: Reports: Malaise, Weakness, Fatigue, Decreased Appetite. Denies : Fever, Chills, Weight Loss HEENT: Reports: Glasses, Hearing Loss (Hearing is poor) Respiratory: Reports: Shortness of Breath, Pleuritic Chest Pain, Cough (Upper anterior chest into the shoulder today.), Sputum. Denies: Wheezing Cardiovascular: Reports: Chest Pain (Nasal sputum production), Blood Pressure Problem, Dyspnea on Exertion. Denies: Claudication, Edema, Lightheadedness, Orthopnea (And still run low due to the medications he is on.) Endocrine: Reports: Fatigue GI/Abdominal: Reports: No Symptoms : Reports: Frequency, Other (Nocturia x2 or 3) Musculoskeletal: Reports: Joint Pain Skin: Reports: Bruising (Knees hips shoulders neck and low back at times generalized osteoarthritis oozes easily as he is on Eliquis.) Neurological: Reports: Confusion (Mild confusion at times), Difficulty Walking ( Ataxic gait) Psychiatric: Reports: Anxiety, Confusion, Depression Hematologic/Lymphatic: Reports: No Symptoms Immunologic: Reports: No Symptoms ED EXAM, GENERAL - Physical Exam Exam: See Below Exam Limited By: Language Barrier (Patient speaks in a stuttering type voice.) General Appearance: Alert, WD/WN, Mild Distress Eye Exam: Bilateral Eye: Normal Inspection Throat/Mouth: Normal Inspection, Normal Lips, Normal Oropharynx, Other Head: Atraumatic (Tongue is moist), Normocephalic Neck: Limited Range of Motion, Tender Lateral. No: Full Range of Motion, Carotid Bruit, Lymphadenopathy (L), Lymphadenopathy (R) Respiratory/Chest: No Respiratory Distress (Tender both sides the lateral neck due to arthritis.), Lungs Clear, Normal Breath Sounds, Other (He is tender to touch in the left supraclavicular area and the trapezius muscle area. No masses appreciated.) Cardiovascular: Regular Rate, Rhythm, No Edema, No Gallop, No Murmur, No Rub. No: Normal Peripheral Pulses Peripheral Pulses: 1+: Posterior Tibial (L) (Clinically does have mild peripheral vascular disease), Posterior Tibial (R), Dorsalis Pedis (L), Dorsalis Pedis (R) GI/Abdominal: Normal Bowel Sounds, Soft, Non-Tender, No Organomegaly, No Mass, Pelvis Stable Back Exam: Normal Inspection, Full Range of Motion. No: CVA Tenderness (L), CVA Tenderness (R) Extremities: Normal Inspection, Normal Range of Motion, Non-Tender. No: Pedal Edema Neurological: Alert, Oriented, CN II-XII Intact, Normal Cognition Psychiatric: Anxious Skin Exam: Warm, Dry, Intact, Normal Color, No Rash EKG INTERPRETATION EKG Date: 07/27/19 Time: 13:35 Rhythm: Other Rate (Beats/Min): 62 [place]: LAD-Left [place] Deviation P-Wave: Absent (1 is 54 degrees. Creased voltage limb leads) EKG Interpretation Comments: Abnormal ECG Course - Vital Signs Last Recorded V/S: Last Vital Signs Temp 36.0 C L 07/27/19 13:45 Pulse 61 07/27/19 13:45 Resp 20 07/27/19 13:45 BP 99/71 07/27/19 13:45 Pulse Ox 94 L 03/10/20 13:45 - Orders/Labs/Meds Labs: Laboratory Tests 07/27/19 07/27/19 07/27/19 Range/Units 14:07 14:07 14:07 WBC 6.66 (4.23-9.07) K/mm3 RBC 4.41 L (4.63-6.08) M/mm3 Hgb 12.7 L (13.7-17.5) gm/dl Hct 40.5 (40.1-51.0) % MCV 91.8 (79.0-92.2) fl MCH 28.8 (25.7-32.2) pg MCHC 31.4 L (32.2-35.5) g/dl RDW Std Deviation 56.1 H (35.1-43.9) fL Plt Count 249 D (163-337) K/mm3 MPV 9.5 (9.4-12.3) fl Neut % (Auto) 66.9 (34.0-67.9) % Lymph % (Auto) 22.5 (21.8-53.1) % [place] % (Auto) 8.6 (5.3-12.2) % Eos % (Auto) 1.5 (0.8-7.0) Baso % (Auto) 0.3 (0.1-1.2) % Neut # (Auto) 4.46 (1.78-5.38) K/mm3 Lymph # (Auto) 1.50 (1.32-3.57) K/mm3 [place] # (Auto) 0.57 (0.30-0.82) K/mm3 Eos # (Auto) 0.10 (0.04-0.54) K/mm3 Baso # (Auto) 0.02 (0.01-0.08) K/mm3 PT 10.9 (9.7-12.0) SECONDS INR 1.00 APTT 27 (22-31) SECONDS D-Dimer, Quantitative 2.05 H (0.19-0.50) mg/L Puncture Site ABG pH (7.35-7.45) ABG pCO2 (35.0-45.0) mmHg ABG pO2 (80.0-100.0) mmHg ABG HCO3 (22.0-26.0) meq/L ABG O2 Saturation (96.0-97.0) % ABG Base Excess (-2-2.0) Tyson Test A-a Gradient mmHg O2 Delivery Device Oxygen Flow Rate FiO2 (21.00-100.00) % Sodium 141 (136-145) mEq/L Potassium 4.2 (3.5-5.1) mEq/L Chloride 105 (98-107) mEq/L Carbon Dioxide 25 (21-32) mEq/L Anion Gap 15.2 H (5-15) BUN 16 (7-18) mg/dL Creatinine 1.3 (0.7-1.3) mg/dL Est Cr Clr Drug Dosing 57.19 mL/min Estimated GFR (MDRD) 54 (>60) mL/min BUN/Creatinine Ratio 12.3 L (14-18) Glucose 110 (83-115) mg/dL Lactic Acid (0.4-2.0) mmol/L Calcium 9.1 (8.5-10.1) mg/dL Magnesium (1.8-2.4) mg/dl Total Bilirubin 0.5 (0.2-1.0) mg/dL AST 16 (15-37) U/L ALT 23 (16-63) U/L Alkaline Phosphatase 80 (46-116) U/L CK-MB (CK-2) 0.6 (0-3.6) ng/ml Troponin I < 0.017 (0.00-0.056) ng/mL C-Reactive Protein (<1.0) mg/dL NT-Pro-B Natriuret Pep (0-125) pg/mL Total Protein 7.5 (6.4-8.2) g/dl Albumin 3.3 L (3.4-5.0) g/dl Globulin 4.2 gm/dL Albumin/Globulin Ratio 0.8 L (1-2) 07/27/19 07/27/19 07/27/19 Range/Units 14:07 14:07 14:13 WBC (4.23-9.07) K/mm3 RBC (4.63-6.08) M/mm3 Hgb (13.7-17.5) gm/dl Hct (40.1-51.0) % MCV (79.0-92.2) fl MCH (25.7-32.2) pg MCHC (32.2-35.5) g/dl RDW Std Deviation (35.1-43.9) fL Plt Count (163-337) K/mm3 MPV (9.4-12.3) fl Neut % (Auto) (34.0-67.9) % Lymph % (Auto) (21.8-53.1) % [place] % (Auto) (5.3-12.2) % Eos % (Auto) (0.8-7.0) Baso % (Auto) (0.1-1.2) % Neut # (Auto) (1.78-5.38) K/mm3 Lymph # (Auto) (1.32-3.57) K/mm3 [place] # (Auto) (0.30-0.82) K/mm3 Eos # (Auto) (0.04-0.54) K/mm3 Baso # (Auto) (0.01-0.08) K/mm3 PT (9.7-12.0) SECONDS INR APTT (22-31) SECONDS D-Dimer, Quantitative (0.19-0.50) mg/L Puncture Site Rt radial ABG pH 7.46 H (7.35-7.45) ABG pCO2 35.2 (35.0-45.0) mmHg ABG pO2 70.0 L (80.0-100.0) mmHg ABG HCO3 24.4 (22.0-26.0) meq/L ABG O2 Saturation 94.3 L (96.0-97.0) % ABG Base Excess 1.3 (-2-2.0) Tyson Test Positive A-a Gradient 86 mmHg O2 Delivery Device Nasal cannula Oxygen Flow Rate 2.0 FiO2 28.00 (21.00-100.00) % Sodium (136-145) mEq/L Potassium (3.5-5.1) mEq/L Chloride (98-107) mEq/L Carbon Dioxide (21-32) mEq/L Anion Gap (5-15) BUN (7-18) mg/dL Creatinine (0.7-1.3) mg/dL Est Cr Clr Drug Dosing mL/min Estimated GFR (MDRD) (>60) mL/min BUN/Creatinine Ratio (14-18) Glucose (83-115) mg/dL Lactic Acid (0.4-2.0) mmol/L Calcium (8.5-10.1) mg/dL Magnesium 2.0 (1.8-2.4) mg/dl Total Bilirubin (0.2-1.0) mg/dL AST (15-37) U/L ALT (16-63) U/L Alkaline Phosphatase (46-116) U/L CK-MB (CK-2) (0-3.6) ng/ml Troponin I (0.00-0.056) ng/mL C-Reactive Protein 0.7 (<1.0) mg/dL NT-Pro-B Natriuret Pep 198 H (0-125) pg/mL Total Protein (6.4-8.2) g/dl Albumin (3.4-5.0) g/dl Globulin gm/dL Albumin/Globulin Ratio (1-2) 07/27/19 Range/Units 14:25 WBC (4.23-9.07) K/mm3 RBC (4.63-6.08) M/mm3 Hgb (13.7-17.5) gm/dl Hct (40.1-51.0) % MCV (79.0-92.2) fl MCH (25.7-32.2) pg MCHC (32.2-35.5) g/dl RDW Std Deviation (35.1-43.9) fL Plt Count (163-337) K/mm3 MPV (9.4-12.3) fl Neut % (Auto) (34.0-67.9) % Lymph % (Auto) (21.8-53.1) % [place] % (Auto) (5.3-12.2) % Eos % (Auto) (0.8-7.0) Baso % (Auto) (0.1-1.2) % Neut # (Auto) (1.78-5.38) K/mm3 Lymph # (Auto) (1.32-3.57) K/mm3 [place] # (Auto) (0.30-0.82) K/mm3 Eos # (Auto) (0.04-0.54) K/mm3 Baso # (Auto) (0.01-0.08) K/mm3 PT (9.7-12.0) SECONDS INR APTT (22-31) SECONDS D-Dimer, Quantitative (0.19-0.50) mg/L Puncture Site ABG pH (7.35-7.45) ABG pCO2 (35.0-45.0) mmHg ABG pO2 (80.0-100.0) mmHg ABG HCO3 (22.0-26.0) meq/L ABG O2 Saturation (96.0-97.0) % ABG Base Excess (-2-2.0) Tyson Test A-a Gradient mmHg O2 Delivery Device Oxygen Flow Rate FiO2 (21.00-100.00) % Sodium (136-145) mEq/L Potassium (3.5-5.1) mEq/L Chloride (98-107) mEq/L Carbon Dioxide (21-32) mEq/L Anion Gap (5-15) BUN (7-18) mg/dL Creatinine (0.7-1.3) mg/dL Est Cr Clr Drug Dosing mL/min Estimated GFR (MDRD) (>60) mL/min BUN/Creatinine Ratio (14-18) Glucose (83-115) mg/dL Lactic Acid 1.0 (0.4-2.0) mmol/L Calcium (8.5-10.1) mg/dL Magnesium (1.8-2.4) mg/dl Total Bilirubin (0.2-1.0) mg/dL AST (15-37) U/L ALT (16-63) U/L Alkaline Phosphatase (46-116) U/L CK-MB (CK-2) (0-3.6) ng/ml Troponin I (0.00-0.056) ng/mL C-Reactive Protein (<1.0) mg/dL NT-Pro-B Natriuret Pep (0-125) pg/mL Total Protein (6.4-8.2) g/dl Albumin (3.4-5.0) g/dl Globulin gm/dL Albumin/Globulin Ratio (1-2) Meds: Medications Discontinued Medications Generic Name Dose Route Start Last Admin Trade Name Freq PRN Reason Stop Dose Admin Hydromorphone HCl 0.5 mg 07/27/19 14:53 07/27/19 15:09 Dilaudid IVPUSH 07/27/19 14:54 0.5 mg ONETIME ONE Administration Dextrose/Sodium Chloride 1,000 mls @ 150 mls/hr 07/27/19 14:00 07/27/19 14:28 Dextrose 5%-Normal Saline IV 150 mls/hr ASDIRECTED SERGIO Administration Sodium Chloride 100 mls @ 60 mls/hr 07/27/19 16:00 07/27/19 16:07 Normal Saline IV 60 mls/hr ASDIRECTED SERGIO Administration Iopamidol 100 ml 07/27/19 15:59 07/27/19 16:04 Isovue-370 (76%) IVPUSH 07/27/19 16:00 100 ml ONETIME ONE Administration Ondansetron HCl 4 mg 07/27/19 14:53 07/27/19 15:09 Zofran IVPUSH 07/27/19 14:54 4 mg ONETIME ONE Administration Sodium Chloride 10 ml 07/27/19 15:59 07/27/19 16:07 Saline Flush FLUSH 07/27/19 16:00 10 ml ONETIME ONE Administration - Radiology Interpretation Free Text/Narrative:: 74-year-old male presents to the ED with complaint of left precordial chest pain rating up into the left supraclavicular fossa and left shoulder as well as the superior belly of the left trapezius muscle. This came on rather abruptly around 11:00 this morning and is gradually worsened. He presents quite tachypneic with taking rapid shallow breaths and appears to be a pleuritic component to his pain. He is on Eliquis 5 mg twice daily because of vascular stents primarily in his aorta. [place] any falls or injuries. He has mild COPD as he used to smoke heavily. Denies any worsening cough or sputum production. It appears to be strongly pleuritic. Is also tender to touch in the distribution of the left trapezius muscle and supra navicular fossa area. It appears to be musculoskeletal type pain. Plan 1 view chest x-ray to rule out a pneumothorax. Routine labs to make sure that his cardiovascular function is okay. - Re-Assessments/Exams Free Text/Narrative Re-Assessment/Exam: 07/27/19 14:55 when I went back into visit with him after chest x-ray shows no evidence of a pneumothorax he is doing somewhat better. Still having significant pain on inspiration. We will therefore give him Zofran 4 mg IV with Dilaudid 0.5 mg IV for pain relief. 07/27/19 14:57 Labs reveal a normal white count at 6.66. Auto differential 6 shows 67% neutrophils. Hemoglobin is 12.7 with hematocrit of 40.5 platelet count is 249,000. PT is 10.9 with an INR of 1.0. PTT is 27 d-dimer is elevated at 2.05. ABG showed pH of 7.46 with a PCO2 of 35.2 and a non-retainer PO2 is 70 with a bicarb of 24 sats were 94.3% on liters per minute. Magnesium is 2.0 C-reactive protein is 0.7. Chemistry is pending 07/27/19 15:40 This reveals a sodium of 141 and a potassium of 4.2. Chloride is 105 with a bicarb of 25 anion gap is 15.2. BUN is 16 with a creatinine of 1.3. GFR is 54 . Glucose is 110 with a lactic acid of 1.0 calcium is 9.1 magnesium is normal at 2.0 liver function normal CK-MB fraction 0.6 troponin I is less than 0.017. C-reactive protein is 0.7 BNP is 198. Total protein 7.5 with an albumin fraction of 3.3. Since his d-dimer is elevated and he is tachypneic with pleuritic pain in the left upper anterior chest a CT pulmonary angiogram will be done. Renal function is good enough to tolerate IV contrast. 07/27/19 16:35 T pulmonary angiogram has been completed. Assessment I do not see any evidence of a pulmonary embolism. He has moderate cardiomegaly. The elevated left hemidiaphragm. Visualized portions of the abdomen show previous cholecystectomy. He does have a fairly large hiatal hernia. Stomach is fluid- filled. Pancreas is atrophic and there is a large cyst on the inferior pole of the left kidney with marked atrophy of the left kidney. On the right side there appears to be mild perinephric stranding of the right kidney. With the radiologist report. 07/27/19 17:03 10 and reassured the of the negative pulmonary angiogram on this patient. Once again I can make the pain worse by touching the left upper anterior chest ribs 2 3 and 4 and collarbone and into the supraclavicular fossa indicating musculoskeletal origin. He has some pain medications at home that he can take as needed. His will usually look after this. Departure - Departure Time of Disposition: 17:04 Disposition: Home, Self-Care 01 Condition: Fair Clinical Impression: Non-cardiac chest pain, Anterior chest wall pain Instructions: Nonspecific Chest Pain, [id number] Referrals: Sigifredo Thompson MD [Primary Care Provider] - Forms: ED Department Discharge Additional Instructions: Evaluation in the emergency room today in regards to development of acute left upper anterior chest wall pain particular involving ribs 2 3 and 4 in the midclavicular line and the collarbone and the tissues in the supraclavicular fossa between the collarbone and your trapezius muscle. All of these area are quite tender to touch. The reason for this is unclear. A chest x-ray reveals diffuse changes compatible with emphysema and this is confirmed on CT scan of the chest. The D-dimer test came back elevated at 2.05 with normal being less than 1 and therefore there was some concern about a possible blood clot in the lung. CT scan of the chest was therefore done and reveals no signs of a any blood clots in the lungs. There is advanced emphysema changes on the CT scan and some mild scar tissue in both bases of the lungs but no signs of infection. No evidence in the lab test that there was any heart related illness. Therefore suggest pain medication as needed. You can use Tylenol 650 mg every 4 hours or so stronger medicine such as Percocet or hydrocodone if needed for pain relief for the next 3 or 4 days until it settles down. [place] all other medications as before. Sepsis Event Note - Evaluation Sepsis Screening Result: No Definite Risk - Focused Exam Date Exam was Performed: 07/29/19 Time Exam was Performed: 06:57
[2019-07-27] MEDS ORDERED: Dextrose 5%-0.9% NaCl 1,000 ML IV SCH (14:00)
[2019-07-27] MEDS ORDERED: HYDROmorphone 0.5 MG/0.5 ML Syringe IVPUSH ONE (14:53)
[2019-07-27] MEDS ORDERED: Ondansetron 4 MG/2 ML SDV IVPUSH ONE (14:53)
--- NOTE | 2019-07-27 14:57 | CR ---
Chest: Portable view of the chest was obtained. Comparison: Prior chest x-ray of 04/10/19. Heart size is normal. Tortuous thoracic aorta is seen. Bichamber pacemaker is present. Mild increased density within both lung bases are seen believed to be chronic. No acute parenchymal change is suspected. Impression: 1. Findings as noted above. 2. Nothing acute is suspected. Diagnostic code #2 This report was dictated in [place] Standard Time
[2019-07-27] MEDS ORDERED: Sodium Chloride 0.9% 10 ML Syringe FLUSH ONE (15:59)
[2019-07-27] MEDS ORDERED: Iopamidol 755 Mg/ML 100 ML Bottle IVPUSH ONE (15:59)
[2019-07-27] MEDS ORDERED: Sodium Chloride 0.9% 100 ML IV SCH (16:00)
--- NOTE | 2019-07-27 16:36 | CT ---
CT chest Technique: Multiple axial sections through the chest were obtained. Intravenous contrast was utilized. Study has been performed as a pulmonary angiogram protocol. Comparison: Prior chest CT study of 04/03/19. Findings: Pulmonary arteries are well opacified. No filling defects are seen to indicate pulmonary embolism. Mediastinum shows no adenopathy. Descending thoracic aorta and upper abdominal aorta are diffusely ectatic. Diffuse emphysematous change is seen within both lungs. Interstitial changes are seen within both posterior lungs which could represent pulmonary fibrosis if patient has no infectious symptoms to suggest pneumonia. Impression: 1. No findings of pulmonary embolism. 2. Diffuse emphysematous change. 3. Diffusely ectatic thoracic aorta, coronary artery calcification. 4. Interstitial change within both posterior lung bases. Findings most likely due to pulmonary fibrosis, please exclude any infectious symptoms to indicate pneumonia. Diagnostic code #3 This report was dictated in [place] Standard Time
== END 2019-07-27 17:23 | disposition home or self-care (01) ==
LOC: JD.ED 13:27
DX: R07.89 Other chest pain (principal); J44.9 Chronic obstructive pulmonary disease, unspecified; Z88.8 Allergy status to other drugs, medicaments and biological substances; Z79.82 Long term (current) use of aspirin; Z79.899 Other long term (current) drug therapy; Z98.49 Cataract extraction status, unspecified eye; Z90.49 Acquired absence of other specified parts of digestive tract
CPT/HCPCS: 36415; 36600; 71045; 71275; 80053; 82553; 82803; 83605; 83735; 83880; 84484; 85025; 85379; 85610; 85730; 86140; 96361; 96374; 96375; 99285; J1170; J2405; J7042; J7050; Q9967; 93010; 99284

== ENCOUNTER 2019-12-15 15:37 | Emergency (ER) | payer OTHER, MEDICARE ==
[2019-12-15] MEDS ORDERED: Sodium Chloride 0.9% 10 ML Syringe FLUSH PRN (15:46)
[2019-12-15 15:47] VITALS: BP 113/74; PULSE 70
[2019-12-15] MEDS ORDERED: Albuterol/Ipratropium 3.0-0.5 MG/3 ML Neb Soln NEB ONE ×2 (15:47→17:40)
[2019-12-15] MEDS ORDERED: methylPREDNISolone Sodium Succinate 125 MG/2 ML SDV IVPUSH ONE (15:47)
--- NOTE | 2019-12-15 16:22 | EDM.PDOC ---
ED HPI GENERAL MEDICAL PROBLEM - General Chief Complaint: Respiratory Problem Stated Complaint: SOB Time Seen by Provider: 12/15/19 15:45 Source of Information: Reports: Patient, Family History Limitations: Reports: No Limitations - History of Present Illness INITIAL COMMENTS - FREE TEXT/NARRATIVE: The patient presents with shortness of breath. He was recently diagnosed with e mphysema. He recently saw a curator of education in [place] and had a PFT. He was out spraying yesterday and there was lots of pollen and dust. When he came back he was yellow. He just quit smoking a few days ago. He has no chest pain. He has no fever, chills, or cough. He has no abdominal pain, nausea or vomiting. He is on symbocort and proair. Onset: Gradual Duration: Day(s): Severity: Moderate Improves with: Reports: None Worsens with: Reports: None Associated Symptoms: Reports: Shortness of Breath. Denies: Chest Pain, Cough, Fever/Chills, Headaches, Nausea/Vomiting Left Chest Pain Score (Numeric/FACES): 5 - Related Data Allergies Allergy/AdvReac Type Severity Reaction Status Date / Time atorvastatin calcium AdvReac Muscle Verified 12/15/19 15:47 [From Lipitor] Aches Home Meds: Home Meds Albuterol [Proair HFA] 2 puff INH Q4H PRN 12/15/19 [History] Apixaban [Eliquis] 5 mg PO BID 12/15/19 [History] Aspirin 81 mg PO DAILY 12/15/19 [History] Budesonide/Formoterol [Symbicort 80-4.5 MCG] 1 puff INH BID 12/15/19 [History] Cholecalciferol (Vitamin D3) [Vitamin D3] 5,000 units PO DAILY 12/15/19 [History] Cyanocobalamin (Vitamin B12) [Vitamin B12] 500 mg PO DAILY 12/15/19 [History] Docusate Sodium 100 mg PO TID PRN 12/15/19 [History] FLUoxetine [PROzac] 10 mg PO DAILY 12/15/19 [History] Folic Acid 0.8 mg PO DAILY 12/15/19 [History] Lutein/Min/Vit C/Vit E Acetate [Ocuvite Lutein] 1 cap PO DAILY 12/15/19 [History] Metoprolol Succinate 12.5 mg PO BEDTIME 12/15/19 [History] Mirtazapine 30 mg PO DAILY 12/15/19 [History] Rosuvastatin Calcium 40 mg PO BEDTIME 12/15/19 [History] Tamsulosin HCl [Flomax] 0.4 mg PO DAILY 12/15/19 [History] lamoTRIgine [Lamotrigine] 50 mg PO DAILY 12/15/19 [History] predniSONE [Prednisone] 40 mg PO DAILY #10 tablet 12/15/19 [Rx] Past Medical History HEENT History: Reports: Impaired Vision, Macular Degeneration Other HEENT History: Wears glasses Cardiovascular History: Reports: Aneurysm, Arrhythmia, High Cholesterol, Pacemaker, Other (See Below) Other Cardiovascular History: bradycardia.anuerysm repair 2019 Gastrointestinal History: Reports: GERD Genitourinary History: Reports: BPH, Urinary Incontinence Other Genitourinary History: bladder spasms Musculoskeletal History: Reports: Other (See Below) Other Musculoskeletal History: Injection in L) shoulder Neurological History: Reports: Migraines Psychiatric History: Reports: Addiction, Depression, PTSD Other Psychiatric History: nightmares and went thru treatment and feels it has helped. alcoholism Endocrine/Metabolic History: Reports: None Hematologic History: Reports: Anticoagulation Therapy Immunologic History: Reports: None Oncologic (Cancer) History: Reports: Malignant Melanoma Other Oncologic History: melonoma cancer to back and surgically removed Dermatologic History: Reports: Melanoma Other Dermatologic History: sebaceous cyst to R cheek, Melanoma to back - Infectious Disease History Infectious Disease History: Reports: Chicken Pox, Measles, Mumps - Past Surgical History HEENT Surgical History: Reports: Cataract Surgery Cardiovascular Surgical History: Reports: AAA Repair, Pacer GI Surgical History: Reports: Cholecystectomy, Colonoscopy, EGD, ERCP, Other (See Below) Musculoskeletal Surgical History: Reports: Arthroscopic Knee Dermatological Surgical History: Reports: Other (See Below) Social & Family History - Family History Family Medical History: Noncontributory Cardiac: Reports: ID Other Cardiac Family History: Pt states his father had a couple heart attacks. Endocrine/Metabolic: Reports: Diabetes, type II Other Endocrine/Metabolic Family History: Pt states nobody in his family has DM II. RN unable to unchart DM II by SHOWROOM SALES ASSISTANT. Oncologic: Reports: Prostate, Other (See Below) Other Oncologic Family History: Pt states his bother has prostate CA with mets to back. - Tobacco Use Smoking Status *Q: Current Every Day Smoker Years of Tobacco use: 50 Packs/Tins Daily: 0.2 - Caffeine Use Caffeine Use: Reports: Soda Other Caffeine Use: rarely - Living Situation & Occupation Living situation: Reports: , with Spouse Occupation: Retired ED ROS GENERAL - Review of Systems Review Of Systems: See Below Constitutional: Reports: No Symptoms HEENT: Reports: No Symptoms Respiratory: Reports: Shortness of Breath. Denies: Cough Cardiovascular: Reports: No Symptoms Endocrine: Reports: No Symptoms GI/Abdominal: Reports: No Symptoms : Reports: No Symptoms Musculoskeletal: Reports: No Symptoms Skin: Reports: No Symptoms Neurological: Reports: No Symptoms ED EXAM, GENERAL - Physical Exam Exam: See Below Exam Limited By: No Limitations General Appearance: Alert, No Apparent Distress Ears: Normal External Exam Nose: Normal Inspection Head: Atraumatic, Normocephalic Neck: Normal Inspection Respiratory/Chest: No Respiratory Distress, Decreased Breath Sounds Cardiovascular: Regular Rate, Rhythm, No Edema, No Murmur GI/Abdominal: Soft, Non-Tender, No Organomegaly, No Mass Back Exam: Normal Inspection Extremities: Normal Inspection EKG INTERPRETATION EKG Date: 12/15/19 Time: 15:44 Rhythm: NSR Rate (Beats/Min): 69 [place]: Normal P-Wave: Present QRS: Normal ST-T: Normal QT: Normal Course - Vital Signs Last Recorded V/S: Last Vital Signs Temp 97.6 F 12/15/19 15:43 Pulse 70 12/15/19 15:43 Resp 42 H 12/15/19 15:43 BP 113/74 12/15/19 15:43 Pulse Ox 92 L 12/15/19 17:40 - Orders/Labs/Meds Orders: Active Orders 24 hr Category Date Time Status Cardiac Monitoring [RC] . DIRECTED Care 12/15/19 15:46 Active EKG Documentation Completion [RC] STAT Care 12/15/19 15:46 Active Oxygen Therapy [RC] PRN Care 12/15/19 15:46 Active Peripheral IV Care [RC] . DIRECTED Care 12/15/19 15:46 Active RT Aerosol Therapy [RC] ASDIRECTED Care 12/15/19 15:47 Active RT Aerosol Therapy [RC] ASDIRECTED Care 12/15/19 17:40 Active Sodium Chloride 0.9% [Saline Flush] Med 12/15/19 15:46 Active 10 ml FLUSH ASDIRECTED PRN Peripheral IV Insertion Adult [OM.PC] Stat Oth 12/15/19 15:46 Ordered Medication Orders Sodium Chloride (Saline Flush) 10 ml FLUSH ASDIRECTED PRN PRN Reason: Keep Vein Open Last Admin: 12/15/19 16:07 Dose: 10 ml Documented by: SHERICE Labs: Laboratory Tests 12/15/19 12/15/19 Range/Units 16:07 16:07 WBC 7.74 (4.23-9.07) K/mm3 RBC 4.85 (4.63-6.08) M/mm3 Hgb 14.2 D (13.7-17.5) gm/dl Hct 45.3 (40.1-51.0) % MCV 93.4 H (79.0-92.2) fl MCH 29.3 (25.7-32.2) pg MCHC 31.3 L (32.2-35.5) g/dl RDW Std Deviation 57.1 H (35.1-43.9) fL Plt Count 226 (163-337) K/mm3 MPV 9.5 (9.4-12.3) fl Neut % (Auto) 69.5 H (34.0-67.9) % Lymph % (Auto) 20.2 L (21.8-53.1) % [place] % (Auto) 8.7 (5.3-12.2) % Eos % (Auto) 1.4 (0.8-7.0) Baso % (Auto) 0.1 (0.1-1.2) % Neut # (Auto) 5.38 (1.78-5.38) K/mm3 Lymph # (Auto) 1.56 (1.32-3.57) K/mm3 [place] # (Auto) 0.67 (0.30-0.82) K/mm3 Eos # (Auto) 0.11 (0.04-0.54) K/mm3 Baso # (Auto) 0.01 (0.01-0.08) K/mm3 Sodium 142 (136-145) mEq/L Potassium 4.1 (3.5-5.1) mEq/L Chloride 104 (98-107) mEq/L Carbon Dioxide 29 (21-32) mEq/L Anion Gap 13.1 (5-15) BUN 23 H (7-18) mg/dL Creatinine 1.3 (0.7-1.3) mg/dL Est Cr Clr Drug Dosing 57.19 mL/min Estimated GFR (MDRD) 54 (>60) mL/min BUN/Creatinine Ratio 17.7 (14-18) Glucose 97 (83-115) mg/dL Calcium 9.5 (8.5-10.1) mg/dL Total Bilirubin 0.4 (0.2-1.0) mg/dL AST 19 (15-37) U/L ALT 28 (16-63) U/L Alkaline Phosphatase 78 (46-116) U/L Troponin I < 0.017 (0.00-0.056) ng/mL Total Protein 8.2 (6.4-8.2) g/dl Albumin 3.9 (3.4-5.0) g/dl Globulin 4.3 gm/dL Albumin/Globulin Ratio 0.9 L (1-2) Meds: Medications Generic Name Dose Route Start Last Admin Trade Name Sebastian PRN Reason Stop Dose Admin Sodium Chloride 10 ml 12/15/19 15:46 12/15/19 16:07 Saline Flush FLUSH 10 ml ASDIRECTED PRN Administration Keep Vein Open Discontinued Medications Generic Name Dose Route Start Last Admin Trade Name Sebastian PRN Reason Stop Dose Admin Albuterol/Ipratropium 3 ml 12/15/19 15:47 12/15/19 16:01 Duoneb 3.0-0.5 Mg/3 Ml NEB 12/15/19 15:48 3 ml ONETIME ONE Administration Albuterol/Ipratropium 3 ml 12/15/19 17:40 12/15/19 17:49 Duoneb 3.0-0.5 Mg/3 Ml NEB 12/15/19 17:41 3 ml ONETIME ONE Administration Methylprednisolone Sodium Succinate 125 mg 12/15/19 15:47 12/15/19 16:07 Solu-Medrol IVPUSH 12/15/19 15:48 125 mg ONETIME ONE Administration - Re-Assessments/Exams Free Text/Narrative Re-Assessment/Exam: 12/15/19 16:31 I ordered oxygen, IV saline lock, duoneb, CXR, labs, KEG and solu-medrol 125mg IV. His EKG shows a NSR with no acute changes. 12/15/19 18:36 His CXR shows nothing acute. His CBC and CMP look good. His troponin is negative. The first treatment did not help much. I gave him another one and that did help. I feel the pollen triggered a COPD exacerbation. I will get him on some prednisone. Departure - Departure Time of Disposition: 18:40 Disposition: Home, Self-Care 01 Condition: Good Clinical Impression: COPD exacerbation - Discharge Information *PRESCRIPTION DRUG MONITORING PROGRAM REVIEWED*: Not Applicable *COPY OF PRESCRIPTION DRUG MONITORING REPORT IN PATIENT GABRIELLE: Not Applicable Prescriptions: predniSONE [Prednisone] 40 mg PO DAILY #10 tablet Referrals: Leny Bowman MD [Primary Care Provider] - 1 Week Forms: ED Department Discharge Additional Instructions: Take the prednisone daily for 5 days. Use the inhaler 2 puffs every 6 hours as needed for shortness of breath. Continue taking your other medications. Please return if you are worse. Sepsis Event Note (ED) - Evaluation Sepsis Screening Result: No Definite Risk - Focused Exam Vital Signs: Vital Signs Temp Pulse Resp BP Pulse Ox Pulse Ox Pulse Ox 12/15/19 17:40 92 L 12/15/19 15:47 91 L 12/15/19 15:43 97.6 F 70 42 H 113/74 94 L - My Orders Last 24 Hours: My Active Orders 12/15/19 15:46 Cardiac Monitoring [RC] . DIRECTED EKG Documentation Completion [RC] STAT Oxygen Therapy [RC] PRN Peripheral IV Care [RC] . DIRECTED Sodium Chloride 0.9% [Saline Flush] 10 ml FLUSH ASDIRECTED PRN Peripheral IV Insertion Adult [OM.PC] Stat 12/15/19 15:47 RT Aerosol Therapy [RC] ASDIRECTED 12/15/19 17:40 RT Aerosol Therapy [RC] ASDIRECTED - Assessment/Plan Last 24 Hours: My Active Orders 12/15/19 15:46 Cardiac Monitoring [RC] . DIRECTED EKG Documentation Completion [RC] STAT Oxygen Therapy [RC] PRN Peripheral IV Care [RC] . DIRECTED Sodium Chloride 0.9% [Saline Flush] 10 ml FLUSH ASDIRECTED PRN Peripheral IV Insertion Adult [OM.PC] Stat 12/15/19 15:47 RT Aerosol Therapy [RC] ASDIRECTED 12/15/19 17:40 RT Aerosol Therapy [RC] ASDIRECTED
--- NOTE | 2019-12-15 17:41 | CR ---
Chest: PA view of the chest was obtained. Comparison: Previous chest x-ray of 04/02/19. Tortuous thoracic aorta the aorta is noted. Heart size appears within normal limits. Bichamber pacemaker is seen. Minimal left basilar atelectasis is noted. Lungs otherwise are clear. Bony structures are grossly intact. Impression: 1. Findings as noted above. 2. Nothing acute is appreciated. Diagnostic code #2 This report was dictated in MDT
== END 2019-12-15 18:50 | disposition home or self-care (01) ==
LOC: JD.ED 15:37
DX: J44.1 Chronic obstructive pulmonary disease with (acute) exacerbation (principal); E78.00 Pure hypercholesterolemia, unspecified; N40.0 Benign prostatic hyperplasia without lower urinary tract symptoms; F32.9 Major depressive disorder, single episode, unspecified; F43.10 Post-traumatic stress disorder, unspecified; G43.909 Migraine, unspecified, not intractable, without status migrainosus; F17.210 Nicotine dependence, cigarettes, uncomplicated; Z88.8 Allergy status to other drugs, medicaments and biological substances; Z79.82 Long term (current) use of aspirin; Z79.899 Other long term (current) drug therapy; Z90.49 Acquired absence of other specified parts of digestive tract; Z98.890 Other specified postprocedural states
CPT/HCPCS: 36415; 71045; 80053; 84484; 85025; 93005; 94640; 96374; 99285; J2930; 93010; 99284; J7620-GY

== ENCOUNTER 2019-12-16 14:35 | Observation (INO) | payer OTHER, MEDICARE ==
[2019-12-16] MEDS ORDERED: Albuterol/Ipratropium 3.0-0.5 MG/3 ML Neb Soln NEB ONE ×2 (15:06→15:46)
--- NOTE | 2019-12-16 15:30 | EDM.PDOC ---
ED HPI GENERAL MEDICAL PROBLEM - General Chief Complaint: Respiratory Problem Stated Complaint: SOB Time Seen by Provider: 12/16/19 15:05 Source of Information: Reports: Patient, Old Records, RN Notes Reviewed History Limitations: Reports: No Limitations - History of Present Illness INITIAL COMMENTS - FREE TEXT/NARRATIVE: Patient is a 74-year-old male who is brought into the ED by his for the evaluation of ongoing shortness of breath. Patient was seen in this ER yesterday, by Dr. Chi, and was found to have a COPD exacerbation. They wanted to try some outpatient prednisone at home, so they were discharged home. notes that the patient did take the prednisone as prescribed last night, and he seemed to have a fairly good night, but woke up again this morning with increasing shortness of breath and increased respiratory rate. The notes that he is laboring quite a bit to breathe. He was recently diagnosed with moderate emphysema on PFT on November 21, and she states also that the stress test was okay. Triage nurse notes that with ambulation to his ER bed, O2 sats were 86% on room air, and they did improve to 91% with rest on room air. On my initial exam, they have been in the low 90s, 94 to 95% on room air. He is tachypneic at roughly 30 breaths/min, is afebrile at 98.9F, his pulse is okay at 79, and blood pressure is somewhat low at 112/56. Patient did have CBC, CMP, EKG, chest x-ray, and a troponin done yesterday, and all of these were within normal limits. The states that she brought him back to the ER, as they would like to be hospitalized for his COPD at this time. Treatments LANDSCAPE MANAGER: Reports: Other (see below) Other Treatments LANDSCAPE MANAGER: inhalers - Related Data Allergies Allergy/AdvReac Type Severity Reaction Status Date / Time atorvastatin calcium AdvReac Muscle Verified 12/16/19 14:40 [From Lipitor] Aches Home Meds: Home Meds Albuterol [Proair HFA] 2 puff INH Q6H PRN 12/15/19 [History] Apixaban [Eliquis] 5 mg PO BID 12/15/19 [History] Cyanocobalamin (Vitamin B12) [Vitamin B12] 500 mcg PO DAILY 12/15/19 [History] Docusate Sodium 100 mg PO TID PRN 12/15/19 [History] FLUoxetine [PROzac] 10 mg PO DAILY 12/15/19 [History] Folic Acid 0.8 mg PO DAILY 12/15/19 [History] Metoprolol Succinate 12.5 mg PO QAM 12/15/19 [History] Mirtazapine 60 mg PO QPM 12/15/19 [History] Rosuvastatin Calcium 40 mg PO BEDTIME 12/15/19 [History] Tamsulosin HCl [Flomax] 0.4 mg PO DAILY 12/15/19 [History] lamoTRIgine [Lamotrigine] 50 mg PO DAILY 12/15/19 [History] predniSONE [Prednisone] 40 mg PO DAILY #10 tablet 12/15/19 [Rx] Aspirin [Aspirin EC] 81 mg PO DAILY 12/16/19 [History] Budesonide/Formoterol Fumarate [Symbicort 80-4.5 MCG] 2 puff IH Q12H 12/16/19 [History] Lutein/Minerals/Vit A,C & E [Ocuvite] 1 tab PO DAILY 12/16/19 [History] Magnesium Oxide [Magnesium] 400 mg PO DAILY 12/16/19 [History] Oxybutynin [Oxybutynin ER] 5 mg PO DAILY 12/16/19 [History] Past Medical History HEENT History: Reports: Impaired Vision, Macular Degeneration Other HEENT History: Wears glasses Cardiovascular History: Reports: Aneurysm, Arrhythmia, High Cholesterol, Pacemaker, Other (See Below) Other Cardiovascular History: bradycardia.anuerysm repair 2019 Gastrointestinal History: Reports: GERD Genitourinary History: Reports: BPH, Urinary Incontinence Other Genitourinary History: bladder spasms Musculoskeletal History: Reports: Other (See Below) Other Musculoskeletal History: Injection in L) shoulder Neurological History: Reports: Migraines Psychiatric History: Reports: Addiction, Depression, PTSD Other Psychiatric History: nightmares and went thru treatment and feels it has helped. alcoholism Endocrine/Metabolic History: Reports: Obesity/BMI 30+ Hematologic History: Reports: Anticoagulation Therapy Oncologic (Cancer) History: Reports: Malignant Melanoma Other Oncologic History: melonoma cancer to back and surgically removed Dermatologic History: Reports: Melanoma Other Dermatologic History: sebaceous cyst to R cheek, Melanoma to back - Past Surgical History HEENT Surgical History: Reports: Cataract Surgery Cardiovascular Surgical History: Reports: AAA Repair, Pacer GI Surgical History: Reports: Cholecystectomy, Colonoscopy, EGD, ERCP, Other (See Below) Musculoskeletal Surgical History: Reports: Arthroscopic Knee Dermatological Surgical History: Reports: Other (See Below) Social & Family History - Family History Family Medical History: Noncontributory Cardiac: Reports: RI Other Cardiac Family History: Pt states his father had a couple heart attacks. Endocrine/Metabolic: Reports: Diabetes, type II Other Endocrine/Metabolic Family History: Pt states nobody in his family has DM II. RN unable to unchart DM II by INDUSTRIAL MAINTENANCE MILLWRIGHT. Oncologic: Reports: Prostate, Other (See Below) Other Oncologic Family History: Pt states his bother has prostate CA with mets to back. - Caffeine Use Caffeine Use: Reports: Soda Other Caffeine Use: rarely - Living Situation & Occupation Living situation: Reports: , with Spouse Occupation: Retired ED ROS GENERAL - Review of Systems Review Of Systems: Comprehensive ROS is negative, except as noted in HPI. ED EXAM, GENERAL - Physical Exam Exam: See Below Exam Limited By: No Limitations General Appearance: Alert, WD/WN, Moderate Distress Eye Exam: Bilateral Eye: EOMI, Normal Inspection, PERRL Nose: Normal Inspection Throat/Mouth: Normal Inspection, Normal Lips, Normal Teeth, Normal Gums, Normal Oropharynx, Normal Voice, No Airway Compromise Head: Atraumatic, Normocephalic Neck: Normal Inspection Respiratory/Chest: Lungs Clear, Respiratory Distress (mild to moderate distress, pt is using accessory muscles to breathe.), Decreased Breath Sounds (bilaterally), Wheezing (slight end expiratory wheeze), Accessory Muscle Use Cardiovascular: Normal Peripheral Pulses, Regular Rate, Rhythm, No Edema, No Murmur Peripheral Pulses: 2+: Radial (L), Radial (R) Neurological: Alert, Oriented, Normal Cognition, No Motor/Sensory Deficits Psychiatric: Normal Affect, Normal Mood Skin Exam: Warm, Dry, Intact, Normal Color, No Rash Course - Vital Signs Last Recorded V/S: Last Vital Signs Temp 98.9 F 12/16/19 14:40 Pulse 79 12/16/19 14:40 Resp 26 H 12/16/19 14:40 BP 112/56 L 12/16/19 14:40 Pulse Ox 93 L 12/16/19 20:59 - Orders/Labs/Meds Orders: Medication Orders Acetaminophen (Tylenol) 650 mg PO Q4H PRN PRN Reason: Pain (Mild 1-3)/fever Apixaban (Eliquis) 5 mg PO BID [facility] Last Admin: 12/16/19 20:27 Dose: 5 mg Documented by: NELSON Aspirin (Halfprin) 81 mg PO DAILY [facility] Azithromycin (Zithromax) 250 mg PO DAILY [facility] Benzonatate (Tessalon Perles) 100 mg PO TID [facility] Last Admin: 12/16/19 20:27 Dose: 100 mg Documented by: NELSON Budesonide (Pulmicort) 0.5 mg NEB BIDRT [facility] Last Admin: 12/16/19 20:56 Dose: 0.5 mg Documented by: STEPHANIE Fluoxetine HCl (Prozac) 10 mg PO DAILY [facility] Guaifenesin (Mucinex) 600 mg PO BID [facility] Last Admin: 12/16/19 20:27 Dose: 600 mg Documented by: NELSON Guaifenesin (Robitussin) 200 mg PO Q8H [facility] Last Admin: 12/16/19 17:34 Dose: 200 mg Documented by: DENZEL Hydralazine HCl (Apresoline) 10 mg IVPUSH Q2H PRN PRN Reason: Hypertension Ipratropium Kirkman (Atrovent) 0.5 mg NEB Q8HRRT [facility] Last Admin: 12/16/19 20:56 Dose: 0.5 mg Documented by: STEPHANIE Methylprednisolone (Medrol) 0 mg PO DAILY [facility]; Taper Stop: 12/23/19 01:59 Mirtazapine (Remeron) 60 mg PO DAILY [facility] Nicotine (Habitrol) 14 mg TRDERM DAILY [facility] Ondansetron HCl (Zofran Odt) 4 mg PO Q6H PRN PRN Reason: nausea, able to take PO Ondansetron HCl (Zofran) 4 mg IV Q6H PRN PRN Reason: Nausea/Vomiting Oxybutynin Chloride (Oxybutynin Er) 5 mg PO DAILY [facility] Rosuvastatin Calcium (Crestor) 40 mg PO BEDTIME [facility] Last Admin: 12/16/19 20:26 Dose: 40 mg Documented by: NELSON Tamsulosin HCl (Flomax) 0.4 mg PO DAILY [facility] Labs: Laboratory Tests 12/16/19 12/16/19 12/16/19 Range/Units 14:45 15:38 16:05 Puncture Site Rt radial ABG pH 7.55 H (7.35-7.45) ABG pCO2 24.0 L (35.0-45.0) mmHg ABG pO2 54.0 L (80.0-100.0) mmHg ABG HCO3 21.1 L (22.0-26.0) meq/L ABG O2 Saturation 91.1 L (96.0-97.0) % ABG Base Excess 0.3 (-2-2.0) Tyson Test Positive A-a Gradient 66 mmHg O2 Delivery Device Room air Oxygen Flow Rate 0.0 FiO2 21.00 (21.00-100.00) % Mycoplasma pneumon IgM Negative (NEGATIVE) SARS Virus RNA (PCR) Negative (NEGATIVE) Meds: Medications Generic Name Dose Route Start Last Admin Trade Name Freq PRN Reason Stop Dose Admin Acetaminophen 650 mg 12/16/19 16:59 Tylenol PO Q4H PRN Pain (Mild 1-3)/fever Apixaban 5 mg 12/16/19 21:00 12/16/19 20:27 Eliquis PO 5 mg BID SERGIO Administration Aspirin 81 mg 12/17/19 09:00 Halfprin PO DAILY [facility] Azithromycin 250 mg 12/17/19 09:00 Zithromax PO DAILY [facility] Benzonatate 100 mg 12/16/19 21:00 12/16/19 20:27 Tessalon Perles PO 100 mg TID [facility] Administration Budesonide 0.5 mg 12/16/19 21:00 12/16/19 20:56 Pulmicort NEB 0.5 mg BIDRT SERGIO Administration Fluoxetine HCl 10 mg 12/17/19 09:00 Prozac PO DAILY [facility] Guaifenesin 600 mg 12/16/19 21:00 12/16/19 20:27 Mucinex PO 600 mg BID [facility] Administration Guaifenesin 200 mg 12/16/19 17:00 12/16/19 17:34 Robitussin PO 200 mg Q8H [facility] Administration Hydralazine HCl 10 mg 12/16/19 17:11 Apresoline IVPUSH Q2H PRN Hypertension Ipratropium Kirkman 0.5 mg 12/16/19 21:00 12/16/19 20:56 Atrovent NEB 0.5 mg Q8HRRT [facility] Administration Methylprednisolone 0 mg 12/17/19 09:00 Medrol PO 12/23/19 01:59 DAILY [facility]IO Taper Mirtazapine 60 mg 12/17/19 09:00 Remeron PO DAILY [facility] Nicotine 14 mg 12/17/19 09:00 Habitrol TRDERM DAILY [facility] Ondansetron HCl 4 mg 12/16/19 16:59 Zofran Odt PO Q6H PRN nausea, able to take PO Ondansetron HCl 4 mg 12/16/19 16:59 Zofran IV Q6H PRN Nausea/Vomiting Oxybutynin Chloride 5 mg 12/17/19 09:00 Oxybutynin Er PO DAILY [facility] Rosuvastatin Calcium 40 mg 12/16/19 21:00 12/16/19 20:26 Crestor PO 40 mg BEDTIME [facility]GIO Administration Tamsulosin HCl 0.4 mg 12/17/19 09:00 Flomax PO DAILY [facility] Discontinued Medications Generic Name Dose Route Start Last Admin Trade Name Freq PRN Reason Stop Dose Admin Albuterol/Ipratropium 3 ml 12/16/19 15:06 12/16/19 15:12 Duoneb 3.0-0.5 Mg/3 Ml NEB 12/16/19 15:07 3 ml ONETIME ONE Administration Albuterol/Ipratropium 3 ml 12/16/19 15:46 12/16/19 15:53 Duoneb 3.0-0.5 Mg/3 Ml NEB 12/16/19 15:47 3 ml ONETIME ONE Administration Apixaban 5 mg 12/16/19 21:00 Eliquis PO BID [facility] Azithromycin 500 mg 12/16/19 16:59 12/16/19 17:34 Zithromax PO 12/16/19 17:00 500 mg ONETIME STA Administration Lorazepam 0.5 mg 12/16/19 16:25 12/16/19 16:33 Ativan IVPUSH 12/16/19 16:26 0.5 mg ONETIME ONE Administration Metoprolol Succinate 12.5 mg 12/16/19 21:00 Toprol Xl PO BEDTIME [facility] - Re-Assessments/Exams Free Text/Narrative Re-Assessment/Exam: 12/16/19 15:32 Patient presents to the ED for his ongoing shortness of breath. Patient was spraying weeds yesterday, and then developed shortness of breath. He elected to try outpatient therapy at home, but failed and returns back to the ER for management. I did talk with the hospitalist about possible straightforward hospital admission, although I did order a DuoNeb for his respiratory difficulty, hospitalist is requesting an ABG, and COVID-19 be done for today's admission purposes. She will be over to assess the patient for admission. 12/16/19 16:40 I did talk with Dr. Morataya, and she states she will take the patient for observation admission at this time. Departure - Departure Time of Disposition: 16:45 Disposition: Refer to Observation Condition: Good Clinical Impression: COPD exacerbation - Discharge Information *PRESCRIPTION DRUG MONITORING PROGRAM REVIEWED*: No *COPY OF PRESCRIPTION DRUG MONITORING REPORT IN PATIENT GABRIELLE: No Sepsis Event Note (ED) - Evaluation Sepsis Screening Result: No Definite Risk - Focused Exam Vital Signs: Vital Signs Temp Pulse Resp BP Pulse Ox Pulse Ox 12/16/19 15:53 96 12/16/19 15:13 92 L 12/16/19 14:40 98.9 F 79 26 H 112/56 L 94 L
[2019-12-16] MEDS ORDERED: LORazepam 2 MG/ML SDV IVPUSH ONE (16:25)
[2019-12-16] MEDS ORDERED: Acetaminophen 325 MG Tab PO PRN (16:59)
[2019-12-16] MEDS ORDERED: Ondansetron 4 MG Tab.DIS PO PRN (16:59)
[2019-12-16] MEDS ORDERED: Ondansetron 4 MG/2 ML SDV IV PRN (16:59)
[2019-12-16] MEDS ORDERED: Azithromycin 250 MG Tab PO STA (16:59)
--- NOTE | 2019-12-16 16:59 | PCM.HP.2 ---
H&P History of Present Illness - General Date of Service: 12/16/19 Admit Problem/Dx: Admission Diagnosis/Problem Admission Diagnosis/Problem COPD with acute lower respiratory infection - History of Present Illness Initial Comments - Free Text/Narative: This is a 74-year-old male with past medical history of advanced COPD who comes emergency department complaining of worsening shortness of breath. As per patient on Friday he was spraying a weed substance in his yard after which he went inside and started experiencing shortness of breath. At that time he used his pro-air 3 times in his Symbicort that evening without any changes Slept through the night however in the morning started having shortness of breath as well that did not respond to his inhalers for which she came to the emergency department was treated and discharged at 7 PM Discharged on daily prednisone which he took yesterday and then slept okay This morning again he started experiencing shortness of breath, inability to catch his breath for which she came in for further evaluation Associated with chest pain, palpitations Denies any fevers, chills, MARIE, PND, lower extremity edema, indigestion, nausea, vomiting, abdominal pain, diarrhea, constipation He is still smoking about 4 cigarettes a day - Related Data Allergies/Adverse Reactions: Allergies Allergy/AdvReac Type Severity Reaction Status Date / Time atorvastatin calcium AdvReac Muscle Verified 12/16/19 14:40 [From Lipitor] Aches Home Medications: Home Meds Albuterol [Proair HFA] 2 puff INH Q6H PRN 12/15/19 [History] Apixaban [Eliquis] 5 mg PO BID 12/15/19 [History] Cyanocobalamin (Vitamin B12) [Vitamin B12] 500 mcg PO DAILY 12/15/19 [History] Docusate Sodium 100 mg PO TID PRN 12/15/19 [History] FLUoxetine [PROzac] 10 mg PO DAILY 12/15/19 [History] Folic Acid 0.8 mg PO DAILY 12/15/19 [History] Metoprolol Succinate 12.5 mg PO BEDTIME 12/15/19 [History] Mirtazapine 60 mg PO DAILY 12/15/19 [History] Rosuvastatin Calcium 40 mg PO BEDTIME 12/15/19 [History] Tamsulosin HCl [Flomax] 0.4 mg PO DAILY 12/15/19 [History] lamoTRIgine [Lamotrigine] 50 mg PO DAILY PRN 12/15/19 [History] predniSONE [Prednisone] 40 mg PO DAILY #10 tablet 12/15/19 [Rx] Aspirin [Aspirin EC] 81 mg PO DAILY 12/16/19 [History] Budesonide/Formoterol Fumarate [Symbicort 80-4.5 MCG] 2 puff IH Q12H 12/16/19 [History] Folic Acid 0.8 mg PO DAILY 12/16/19 [History] Lutein/Minerals/Vit A,C & E [Ocuvite] 1 tab PO DAILY 12/16/19 [History] Magnesium Oxide [Magnesium] 400 mg PO DAILY 12/16/19 [History] Oxybutynin [Oxybutynin ER] 5 mg PO DAILY 12/16/19 [History] Past Medical History HEENT History: Reports: Impaired Vision, Macular Degeneration Other HEENT History: Wears glasses Cardiovascular History: Reports: Aneurysm, Arrhythmia, High Cholesterol, Pacemaker, Other (See Below) Other Cardiovascular History: bradycardia.anuerysm repair 2019 Gastrointestinal History: Reports: GERD Genitourinary History: Reports: BPH, Urinary Incontinence Other Genitourinary History: bladder spasms Musculoskeletal History: Reports: Other (See Below) Other Musculoskeletal History: Injection in L) shoulder Neurological History: Reports: Migraines Psychiatric History: Reports: Addiction, Depression, PTSD Other Psychiatric History: nightmares and went thru treatment and feels it has helped. alcoholism Endocrine/Metabolic History: Reports: Obesity/BMI 30+ Hematologic History: Reports: Anticoagulation Therapy Immunologic History: Reports: None Oncologic (Cancer) History: Reports: Malignant Melanoma Other Oncologic History: melonoma cancer to back and surgically removed Dermatologic History: Reports: Melanoma Other Dermatologic History: sebaceous cyst to R cheek, Melanoma to back - Infectious Disease History Infectious Disease History: Reports: None - Past Surgical History HEENT Surgical History: Reports: Cataract Surgery Cardiovascular Surgical History: Reports: AAA Repair, Pacer GI Surgical History: Reports: Cholecystectomy, Colonoscopy, EGD, ERCP, Other (See Below) Musculoskeletal Surgical History: Reports: Arthroscopic Knee Dermatological Surgical History: Reports: Other (See Below) Social & Family History - Family History Family Medical History: Noncontributory Cardiac: Reports: [place] Other Cardiac Family History: Pt states his father had a couple heart attacks. Endocrine/Metabolic: Reports: Diabetes, type II Other Endocrine/Metabolic Family History: Pt states nobody in his family has DM II. RN unable to unchart DM II by RIGHT OF WAY SUPERVISOR. Oncologic: Reports: Prostate, Other (See Below) Other Oncologic Family History: Pt states his bother has prostate CA with mets to back. - Tobacco Use Smoking Status *Q: Current Every Day Smoker Years of Tobacco use: 50 Packs/Tins Daily: 0.5 - Caffeine Use Caffeine Use: Reports: Soda Other Caffeine Use: rarely - Recreational Drug Use Recreational Drug Use: No - Living Situation & Occupation Living situation: Reports: , with Spouse Occupation: Retired H&P Review of Systems - Review of Systems: Review Of Systems: See Below General: Reports: Malaise, Weakness, Fatigue. Denies: Fever, Chills, Night Sweats, Diaphoresis, Decreased Appetite, Weight Loss, Weight Gain HEENT: Denies: Post Nasal Drip, Sinus Congestion, Sore Throat, Vertigo, Visual Changes Pulmonary: Reports: Shortness of Breath. Denies: Wheezing, Pleuritic Chest Pain, Cough, Sputum, Hemoptysis Cardiovascular: Reports: Chest Pain, Palpitations, Lightheadedness. Denies: Dyspnea on Exertion, Orthopnea, PND, Edema, Syncope, Claudication, Blood Pressure Problem Gastrointestinal: Denies: Abdominal Pain, Anorexia, Black Stool, Bloody Stool, Constipation, Diarrhea, Decreased Appetite, Difficulty Swallowing, Distension, Nausea, Vomiting Genitourinary: Denies: Dysuria, Frequency, Burning, Pain, Urgency, Incontinence, Retention Musculoskeletal: Denies: Joint Swelling, Muscle Pain, Muscle Stiffness Skin: Denies: Cyanosis, Jaundice, Mottled, Pallor, Diaphoresis Psychiatric: Reports: Depression, Anxiety. Denies: Confusion, Mood Lability, Hallucinations, Suicidal Ideation, Homicidal Ideation Neurological: Denies: Dizziness, Headache, Numbness, Paresthesia Hematologic/Lymphatic: Denies: Easy Bleeding, Easy Bruising Exam - Exam Exam: See Below - Vital Signs Vital Signs: Last Vital Signs Temp 98.9 F 12/16/19 14:40 Pulse 79 12/16/19 14:40 Resp 26 H 12/16/19 14:40 BP 112/56 L 12/16/19 14:40 Pulse Ox 96 12/16/19 15:53 Weight: 83.915 kg - Exam General: Alert, Oriented, Mild Distress, Moderate Distress HEENT: Conjunctiva Clear, EACs Clear, EOMI, Mucosa Moist & [place]: Supple, Trachea Midline, +2 Carotid Pulse wo Bruit, Full Range of Motion. No: Lymphadenopathy Lungs: Decreased Breath Sounds, Wheezing. No: Crackles, Rales, Rhonchi, Rub Cardiovascular: Regular Rhythm, Tachycardia. No: Systolic Murmur, Diastolic Murmur, Rubs, Gallop/S3, Gallop/S4 GI/Abdominal Exam: Normal Bowel Sounds, Soft, Non-Tender, Distended. No: Guarding, Rigid, Rebound Back Exam: Normal Inspection Extremities: Normal Inspection, Non-Tender, No Pedal Edema, Slow Capillary Refill Peripheral Pulses: 2+: Radial (L), Radial (R), Dorsalis Pedis (L), Dorsalis Pedis (R) Skin: Dry, Intact Neuro Extensive - Mental Status: Alert, Oriented x3 Psychiatric: Depressed, Agitated Sepsis Event Note - Evaluation Sepsis Screening Result: No Definite Risk - Problem List (1) Anxiety in acute stress reaction SNOMED Code(s): 24545790 ICD Code: F41.1 - GENERALIZED ANXIETY DISORDER; F43.0 - ACUTE STRESS REACTION Status: Acute Current Visit: Yes (2) COPD exacerbation SNOMED Code(s): 405037837 ICD Code: J44.1 - CHRONIC OBSTRUCTIVE PULMONARY DISEASE W (ACUTE) EXACERBATION Status: Acute Current Visit: No (3) Abdominal aortic aneurysm (AAA) 3.0 cm to 5.5 cm in diameter in male SNOMED Code(s): 053321941 ICD Code: I71.4 - ABDOMINAL AORTIC ANEURYSM, WITHOUT RUPTURE Status: Chronic Current Visit: No (4) Anxiety and depression SNOMED Code(s): 616882258 ICD Code: F41.9 - ANXIETY DISORDER, UNSPECIFIED; F32.9 - MAJOR DEPRESSIVE DISORDER, SINGLE EPISODE, UNSPECIFIED Status: Chronic Current Visit: No (5) Chronic alcohol dependence, continuous SNOMED Code(s): 003843704 ICD Code: F10.20 - ALCOHOL DEPENDENCE, UNCOMPLICATED Status: Chronic Current Visit: No (6) PTSD (post-traumatic stress disorder) SNOMED Code(s): 00274221 ICD Code: F43.10 - POST-TRAUMATIC STRESS DISORDER, UNSPECIFIED Status: Chronic Current Visit: No (7) Pacemaker SNOMED Code(s): 710950342 ICD Code: Z95.0 - PRESENCE OF CARDIAC PACEMAKER Status: Chronic Current Visit: No (8) Panlobular emphysema SNOMED Code(s): 2051869 ICD Code: J43.1 - PANLOBULAR EMPHYSEMA Status: Chronic Current Visit: No (9) Umbilical hernia SNOMED Code(s): 979450065 ICD Code: K42.9 - UMBILICAL HERNIA WITHOUT OBSTRUCTION OR GANGRENE Status: Chronic Current Visit: No Problem List Initiated/Reviewed/Updated: Yes Assessment/Plan Comment:: COPD exacerbation Anxiety in acute stress reaction Panlobular emphysema Current smoker Worsening shortness of breath for 3 days 2 visits to ED --> failed outpatient treatment Does have some end expiratory wheezing but not as much as to correlate with tachypnea Quits on and off, has been smoking again, 4 cigarettes a day Labs from yesterday within normal limits PLAN - Scheduled Xopenex and Budesonide - Medrol pack taper - Ativan 0.5 mg IV STAT - Azithromycin 500 now and 250 daily for 4 days - Nicotine patch - Smoking cessation counseling Anxiety/Depression/PTSD Has been having some issues at home When brought it up patient's respiratory status worsened significantly Recently saw [facility] who indicated she would adjust his medications He has not received new prescriptions PLAN - Continue home medications - Will evaluate response to STAT Ativan to evaluate possibility of continuing it Bradycardia s/p Pacemaker placement 2014 AAA s/p repair 06/07 Denies any chest pain, palpitations, near syncopal episodes MARIE and SOB have worsened significantly PLAN - Interrogate pacemaker PROPHYLAXIS DVT- Home eliquis GI- not indicated CODE STATUS: FULL CODE DISPOSITION: Patient will be admitted to medical floor for scheduled neb treatments under monitorization. - Mortality Measure Prognosis:: Good
[2019-12-16] MEDS ORDERED: hydrALAZINE 20 MG/ML SDV IVPUSH PRN (17:11)
[2019-12-16] MEDS: guaiFENesin 100 MG/5 ML Soln 10 ML UD Cup PO SCH (17:34)
[2019-12-16] MEDS: Rosuvastatin 10 MG Tab PO SCH (20:26)
[2019-12-16] MEDS: guaiFENesin 600 MG Tab.ER PO SCH (20:27)
[2019-12-16] MEDS: Benzonatate 100 MG Cap PO SCH (20:27)
[2019-12-16] MEDS: Apixaban 5 MG Tab PO SCH (20:27)
[2019-12-16] MEDS: Budesonide 0.5 MG/2 ML Neb Susp NEB SCH (20:56)
[2019-12-16] MEDS: Ipratropium 0.02% 0.5 MG/2.5 ML Neb Soln NEB SCH (20:56)
[2019-12-16] MEDS ORDERED: Metoprolol Succinate 25 MG Tab.ER PO SCH (21:00)
[2019-12-16] MEDS ORDERED: Apixaban 5 MG Tab PO SCH (21:00)
[2019-12-17] MEDS: guaiFENesin 100 MG/5 ML Soln 10 ML UD Cup PO SCH ×3 (00:18→17:01)
[2019-12-17] MEDS: Ipratropium 0.02% 0.5 MG/2.5 ML Neb Soln NEB SCH ×3 (05:56→20:22)
[2019-12-17] MEDS: Budesonide 0.5 MG/2 ML Neb Susp NEB SCH ×2 (05:57→20:21)
[2019-12-17] MEDS: Mirtazapine 30 MG Tab PO SCH (08:17)
[2019-12-17] MEDS: Aspirin 81 MG Tab.EC PO SCH (08:17)
[2019-12-17] MEDS: Oxybutynin 5 MG Tab.ER PO SCH (08:17)
[2019-12-17] MEDS: Benzonatate 100 MG Cap PO SCH ×3 (08:18→21:35)
[2019-12-17] MEDS: guaiFENesin 600 MG Tab.ER PO SCH ×2 (08:18→21:34)
[2019-12-17] MEDS: Tamsulosin 0.4 MG Cap.ER PO SCH (08:18)
[2019-12-17] MEDS: Azithromycin 250 MG Tab PO SCH (08:18)
[2019-12-17] MEDS: Nicotine 14 MG/24 Hr Patch TRDERM SCH (08:19)
[2019-12-17] MEDS: Apixaban 5 MG Tab PO SCH ×2 (08:24→21:38)
[2019-12-17] MEDS ORDERED: FLUoxetine 10 MG Cap PO SCH (09:00)
[2019-12-17] MEDS ORDERED: predniSONE 20 MG Tab PO SCH (09:00)
--- NOTE | 2019-12-17 11:43 | CR ---
Chest: Frontal view of the chest was obtained. Comparison: Prior chest x-ray of 04/02/[address] of 07/27/19. Heart size is normal. Tortuous thoracic aorta is seen. Bichamber pacemaker is seen. Lungs show no acute parenchymal change. Bony structures are grossly intact. Impression: 1. Findings as noted above. 2. Nothing acute is seen. Diagnostic code #2 This report was dictated in MDT
--- NOTE | 2019-12-17 13:50 | PCM.PN ---
- General Info Date of Service: 12/17/19 Admission Dx/Problem (Free Text): Admission Diagnosis/Problem Admission Diagnosis/Problem COPD with acute lower respiratory infection Subjective Update: Ismael continues to complain of shortness of breath. Patient did require 1 L of oxygen overnight, but was weaned off this morning. [facility] and his Prozac was increased from 10 to 20 mg by psychiatry. Patient does have a history of PTSD from the [place] War. Cardiolite cardiac scan with Lexiscan on November 19, 2019 showed no abnormality on Cardiolite portion or EKG portion of cardiac stress test. Ejection fraction was estimated at 64%. - Review of Systems General: Reports: Fatigue HEENT: Reports: No Symptoms Pulmonary: Reports: Shortness of Breath Cardiovascular: Reports: No Symptoms Gastrointestinal: Reports: No Symptoms Genitourinary: Reports: No Symptoms Musculoskeletal: Reports: No Symptoms Psychiatric: Reports: Anxiety - Patient Data Vitals - Most Recent: Last Vital Signs Temp 97.9 F 12/17/19 11:40 Pulse 64 12/17/19 11:40 Resp 20 12/17/19 11:40 BP 111/70 12/17/19 11:40 Pulse Ox 96 12/17/19 13:05 Weight - Most Recent: 85.275 kg I&O - Last 24 Hours: Intake & Output 12/16/19 12/17/19 12/17/19 22:59 06:59 14:59 Intake Total 200 Output Total 1200 Balance -1000 Imaging Impressions - Last 24 Hours: Chest x-ray shows pacemaker. Lungs showed no acute parenchymal change. Lab Results Last 24 Hours: Laboratory Results - last 24 hr 12/16/19 12/16/19 12/16/19 Range/Units 14:45 15:38 16:05 WBC (4.23-9.07) K/mm3 RBC (4.63-6.08) M/mm3 Hgb (13.7-17.5) gm/dl Hct (40.1-51.0) % MCV (79.0-92.2) fl MCH (25.7-32.2) pg MCHC (32.2-35.5) g/dl RDW Std Deviation (35.1-43.9) fL Plt Count (163-337) K/mm3 MPV (9.4-12.3) fl Neut % (Auto) (34.0-67.9) % Lymph % (Auto) (21.8-53.1) % [place] % (Auto) (5.3-12.2) % Eos % (Auto) (0.8-7.0) Baso % (Auto) (0.1-1.2) % Neut # (Auto) (1.78-5.38) K/mm3 Lymph # (Auto) (1.32-3.57) K/mm3 [place] # (Auto) (0.30-0.82) K/mm3 Eos # (Auto) (0.04-0.54) K/mm3 Baso # (Auto) (0.01-0.08) K/mm3 Manual Slide Review Puncture Site Rt radial ABG pH 7.55 H (7.35-7.45) ABG pCO2 24.0 L (35.0-45.0) mmHg ABG pO2 54.0 L (80.0-100.0) mmHg ABG HCO3 21.1 L (22.0-26.0) meq/L ABG O2 Saturation 91.1 L (96.0-97.0) % ABG Base Excess 0.3 (-2-2.0) Tyson Test Positive A-a Gradient 66 mmHg O2 Delivery Device Room air Oxygen Flow Rate 0.0 FiO2 21.00 (21.00-100.00) % Sodium (136-145) mEq/L Potassium (3.5-5.1) mEq/L Chloride (98-107) mEq/L Carbon Dioxide (21-32) mEq/L Anion Gap (5-15) BUN (7-18) mg/dL Creatinine (0.7-1.3) mg/dL Est Cr Clr Drug Dosing mL/min Estimated GFR (MDRD) (>60) mL/min BUN/Creatinine Ratio (14-18) Glucose (83-115) mg/dL Calcium (8.5-10.1) mg/dL Phosphorus (2.6-4.7) mg/dL Magnesium (1.8-2.4) mg/dl NT-Pro-B Natriuret Pep (0-125) pg/mL Mycoplasma pneumon IgM Negative (NEGATIVE) SARS Virus RNA (PCR) Negative (NEGATIVE) 07/31/20 07/31/20 07/31/20 Range/Units 06:22 06:22 12:23 WBC 10.23 H (4.23-9.07) K/mm3 RBC 4.21 L (4.63-6.08) M/mm3 Hgb 12.4 L D (13.7-17.5) gm/dl Hct 39.3 L (40.1-51.0) % MCV 93.3 H (79.0-92.2) fl MCH 29.5 (25.7-32.2) pg MCHC 31.6 L (32.2-35.5) g/dl RDW Std Deviation 56.9 H (35.1-43.9) fL Plt Count 208 (163-337) K/mm3 MPV 9.6 (9.4-12.3) fl Neut % (Auto) 72.8 H (34.0-67.9) % Lymph % (Auto) 18.4 L (21.8-53.1) % [place] % (Auto) 7.8 (5.3-12.2) % Eos % (Auto) 0.7 L (0.8-7.0) Baso % (Auto) 0.1 (0.1-1.2) % Neut # (Auto) 7.45 H (1.78-5.38) K/mm3 Lymph # (Auto) 1.88 (1.32-3.57) K/mm3 [place] # (Auto) 0.80 (0.30-0.82) K/mm3 Eos # (Auto) 0.07 (0.04-0.54) K/mm3 Baso # (Auto) 0.01 (0.01-0.08) K/mm3 Manual Slide Review Normal smear Puncture Site ABG pH (7.35-7.45) ABG pCO2 (35.0-45.0) mmHg ABG pO2 (80.0-100.0) mmHg ABG HCO3 (22.0-26.0) meq/L ABG O2 Saturation (96.0-97.0) % ABG Base Excess (-2-2.0) Tyson Test A-a Gradient mmHg O2 Delivery Device Oxygen Flow Rate FiO2 (21.00-100.00) % Sodium 142 (136-145) mEq/L Potassium 4.2 (3.5-5.1) mEq/L Chloride 107 (98-107) mEq/L Carbon Dioxide 26 (21-32) mEq/L Anion Gap 13.2 (5-15) BUN 20 H (7-18) mg/dL Creatinine 1.2 (0.7-1.3) mg/dL Est Cr Clr Drug Dosing 61.96 mL/min Estimated GFR (MDRD) 59 (>60) mL/min BUN/Creatinine Ratio 16.7 (14-18) Glucose 91 (83-115) mg/dL Calcium 8.7 (8.5-10.1) mg/dL Phosphorus 3.3 (2.6-4.7) mg/dL Magnesium 2.0 (1.8-2.4) mg/dl NT-Pro-B Natriuret Pep 436 H (0-125) pg/mL Mycoplasma pneumon IgM (NEGATIVE) SARS Virus RNA (PCR) (NEGATIVE) Med Orders - Current: Current Medications Acetaminophen (Tylenol) 650 mg PO Q4H PRN PRN Reason: Pain (Mild 1-3)/fever Apixaban (Eliquis) 5 mg PO BID [facility] Last Admin: 12/17/19 08:24 Dose: 5 mg Documented by: Aspirin (Halfprin) 81 mg PO DAILY [facility] Last Admin: 12/17/19 08:17 Dose: 81 mg Documented by: Azithromycin (Zithromax) 250 mg PO DAILY [facility] Last Admin: 12/17/19 08:18 Dose: 250 mg Documented by: Benzonatate (Tessalon Perles) 100 mg PO TID [facility] Last Admin: 12/17/19 08:18 Dose: 100 mg Documented by: Budesonide (Pulmicort) 0.5 mg NEB BIDRT [facility] Last Admin: 12/17/19 05:57 Dose: 0.5 mg Documented by: Fluoxetine HCl (Prozac) 20 mg PO DAILY [facility] Furosemide (Lasix) 20 mg IVPUSH ONETIME ONE Stop: 12/17/19 13:49 Guaifenesin (Mucinex) 600 mg PO BID [facility] Last Admin: 12/17/19 08:18 Dose: 600 mg Documented by: Guaifenesin (Robitussin) 200 mg PO Q8H [facility] Last Admin: 12/17/19 08:17 Dose: 200 mg Documented by: Hydralazine HCl (Apresoline) 10 mg IVPUSH Q2H PRN PRN Reason: Hypertension Ipratropium [place] (Atrovent) 0.5 mg NEB Q8HRRT [facility] Last Admin: 12/17/19 13:04 Dose: 0.5 mg Documented by: Mirtazapine (Remeron) 60 mg PO DAILY [facility] Last Admin: 12/17/19 08:17 Dose: 60 mg Documented by: Nicotine (Habitrol) 14 mg TRDERM DAILY [facility] Last Admin: 12/17/19 08:19 Dose: Not Given Documented by: Nitroglycerin (Nitrostat) 0.4 mg SL ASDIRECTED [facility] Ondansetron HCl (Zofran Odt) 4 mg PO Q6H PRN PRN Reason: nausea, able to take PO Ondansetron HCl (Zofran) 4 mg IV Q6H PRN PRN Reason: Nausea/Vomiting Oxybutynin Chloride (Oxybutynin Er) 5 mg PO DAILY [facility] Last Admin: 12/17/19 08:17 Dose: 5 mg Documented by: Rosuvastatin Calcium (Crestor) 40 mg PO BEDTIME [facility] Last Admin: 12/16/19 20:26 Dose: 40 mg Documented by: Tamsulosin HCl (Flomax) 0.4 mg PO DAILY [facility] Last Admin: 12/17/19 08:18 Dose: 0.4 mg Documented by: Discontinued Medications Albuterol/Ipratropium (Duoneb 3.0-0.5 Mg/3 Ml) 3 ml NEB ONETIME ONE Stop: 12/16/19 15:07 Last Admin: 12/16/19 15:12 Dose: 3 ml Documented by: Albuterol/Ipratropium (Duoneb 3.0-0.5 Mg/3 Ml) 3 ml NEB ONETIME ONE Stop: 12/16/19 15:47 Last Admin: 12/16/19 15:53 Dose: 3 ml Documented by: Apixaban (Eliquis) 5 mg PO BID [facility] Azithromycin (Zithromax) 500 mg PO ONETIME STA Stop: 12/16/19 17:00 Last Admin: 12/16/19 17:34 Dose: 500 mg Documented by: Fluoxetine HCl (Prozac) 10 mg PO DAILY [facility] Last Admin: 12/17/19 08:17 Dose: 10 mg Documented by: Lorazepam (Ativan) 0.5 mg IVPUSH ONETIME ONE Stop: 12/16/19 16:26 Last Admin: 12/16/19 16:33 Dose: 0.5 mg Documented by: Methylprednisolone (Medrol) 0 mg PO DAILY [facility]; Taper Stop: 12/23/19 01:59 Metoprolol Succinate (Toprol Xl) 12.5 mg PO BEDTIME SERGIO Prednisone (Prednisone) 40 mg PO WITHBREAKFAST [facility] Last Admin: 12/17/19 08:23 Dose: 40 mg Documented by: - Exam Quality Assessment: No: Supplemental Oxygen General: Alert, Oriented HEENT: Pupils Equal, Mucous Membr. Moist/[place] Neck: Supple Lungs: Normal Respiratory Effort, Crackles (Bibasilar) Cardiovascular: Regular Rate, Regular Rhythm GI/Abdominal Exam: Normal Bowel Sounds, Soft, Non-Tender, No Organomegaly, No Distention, No Abnormal Bruit, No Mass, Pelvis Stable Extremities: Normal Inspection, Normal Range of Motion, Non-Tender, No Pedal Edema, Normal Capillary Refill Skin: Warm, Dry, Intact Psy/Mental Status: Alert, Normal Affect, Normal Mood Sepsis Event Note - Evaluation Sepsis Screening Result: No Definite Risk - Focused Exam Vital Signs: Vital Signs Temp Pulse Resp BP Pulse Ox Pulse Ox 12/17/19 13:05 96 12/17/19 11:40 97.9 F 64 20 111/70 90 L 12/17/19 08:32 65 94 L 12/17/19 07:50 98.1 F 73 20 114/77 91 L 12/17/19 05:37 98.1 F 66 18 122/87 92 L Date Exam was Performed: 12/17/19 Time Exam was Performed: 15:34 - Problem List Review Problem List Initiated/Reviewed/Updated: Yes - My Orders Last 24 Hours: My Active Orders 12/17/19 Echo Comp wo Cont [US] Routine 12/17/19 10:56 RT Incentive Spirometry [RC] ASDIRECTED 12/17/19 13:48 Furosemide [Lasix] 20 mg IVPUSH ONETIME ONE 12/17/19 14:00 Nitroglycerin [Nitrostat] 0.4 mg SL ASDIRECTED 12/18/19 09:00 FLUoxetine [PROzac] 20 mg PO DAILY - Assessment Assessment:: Admission COPD exacerbation Anxiety in acute stress reaction Panlobular emphysema Current smoker Worsening shortness of breath for 3 days 2 visits to ED --> failed outpatient treatment Does have some end expiratory wheezing but not as much as to correlate with tachypnea Quits on and off, has been smoking again, 4 cigarettes a day Labs from yesterday within normal limits PLAN - Scheduled Xopenex and Budesonide - Medrol pack taper - Ativan 0.5 mg IV STAT - Azithromycin 500 now and 250 daily for 4 days - Nicotine patch - Smoking cessation counseling Anxiety/Depression/PTSD Has been having some issues at home When brought it up patient's respiratory status worsened significantly Recently saw [facility] who indicated she would adjust his medications He has not received new prescriptions PLAN - Continue home medications - Will evaluate response to STAT Ativan to evaluate possibility of continuing it Bradycardia s/p Pacemaker placement 2014 AAA s/p repair 06/07 Denies any chest pain, palpitations, near syncopal episodes MARIE and SOB have worsened significantly PLAN - Interrogate pacemaker December 17, 2019 * Continued complaints of shortness of breath * Normal pulse ox * Lung exam significant for bibasilar crackles but no wheezing * Currently on oral methylprednisolone -changed to prednisone 40 mg today * Anxiety may be a component of symptoms. Steroids may be worsening anxiety wi thout significant improvement in respiratory symptoms. * proBNP 436 * Given Lasix 20 mg IV x1 - Plan Plan:: COPD exacerbation Anxiety in acute stress reaction Panlobular emphysema Current smoker * Give prednisone 40 mg orally this morning * Consider holding prednisone tomorrow secondary to worsening anxiety if pulmonary status continues to improve. * Continue azithromycin * Encourage smoking cessation Anxiety/Depression/PTSD * Likely worsening respiratory symptoms * Increase fluoxetine to 20 mg, his home dose * Continue other home meds Bradycardia s/p Pacemaker placement 2014 AAA s/p repair 06/07 Mildly elevated proBNP * Lasix 20 mg IV x1 * Echocardiogram * Normal chest x-ray * Ejection fraction from myocardial perfusion scan 64% earlier this month PROPHYLAXIS DVT- Home eliquis GI- not indicated CODE STATUS: FULL CODE DISPOSITION: Patient will be admitted to medical floor for scheduled neb treatments under monitorization.
[2019-12-17] MEDS ORDERED: Nitroglycerin 0.4 MG Tab.SL SL SCH (14:00)
[2019-12-17] MEDS ORDERED: NITROGLYCERIN 0.4 MG SL SCH (14:00)
[2019-12-17] MEDS ORDERED: Furosemide 20 MG/2 ML VIAL IVPUSH ONE (14:00)
[2019-12-17] MEDS ORDERED: lamoTRIgine 100 MG Tab PO SCH (15:30)
[2019-12-17] MEDS: Rosuvastatin 10 MG Tab PO SCH (21:33)
[2019-12-18] MEDS: guaiFENesin 100 MG/5 ML Soln 10 ML UD Cup PO SCH (04:29)
[2019-12-18] MEDS: Budesonide 0.5 MG/2 ML Neb Susp NEB SCH ×2 (05:55→21:01)
[2019-12-18] MEDS: Ipratropium 0.02% 0.5 MG/2.5 ML Neb Soln NEB SCH ×3 (05:55→21:01)
[2019-12-18] MEDS ORDERED: guaiFENesin 100 MG/5 ML Soln 10 ML UD Cup PO SCH (06:00)
[2019-12-18] MEDS ORDERED: predniSONE 20 MG Tab PO ONE (09:31)
[2019-12-18] MEDS: Benzonatate 100 MG Cap PO SCH ×3 (09:32→20:47)
[2019-12-18] MEDS: Oxybutynin 5 MG Tab.ER PO SCH (09:32)
[2019-12-18] MEDS: Mirtazapine 30 MG Tab PO SCH (09:33)
[2019-12-18] MEDS: Azithromycin 250 MG Tab PO SCH (09:34)
[2019-12-18] MEDS: Tamsulosin 0.4 MG Cap.ER PO SCH (09:34)
[2019-12-18] MEDS: Aspirin 81 MG Tab.EC PO SCH (09:34)
[2019-12-18] MEDS: guaiFENesin 600 MG Tab.ER PO SCH ×2 (09:34→20:46)
[2019-12-18] MEDS: FLUoxetine 20 MG Cap PO SCH (09:34)
[2019-12-18] MEDS: Apixaban 5 MG Tab PO SCH ×2 (09:39→20:52)
[2019-12-18] MEDS: Nicotine 14 MG/24 Hr Patch TRDERM SCH (09:40)
--- NOTE | 2019-12-18 09:48 | PCM.PN ---
- General Info Date of Service: 12/18/19 Admission Dx/Problem (Free Text): Admission Diagnosis/Problem Admission Diagnosis/Problem COPD with acute lower respiratory infection Subjective Update: Patient states that he continues to feel better, but is still short of breath. He denies any fever or chills. He is concerned if he goes home today he will end up returning to the emergency department. Functional Status: Reports: Pain Controlled - Review of Systems General: Reports: No Symptoms HEENT: Reports: No Symptoms Pulmonary: Reports: Shortness of Breath Cardiovascular: Reports: No Symptoms Gastrointestinal: Reports: No Symptoms Musculoskeletal: Reports: No Symptoms Neurological: Reports: No Symptoms Psychiatric: Reports: No Symptoms - Patient Data Vitals - Most Recent: Last Vital Signs Temp 97.8 F 12/18/19 07:49 Pulse 68 12/18/19 07:49 Resp 18 12/18/19 07:49 BP 114/93 H 12/18/19 07:49 Pulse Ox 91 L 12/18/19 07:49 Weight - Most Recent: 83.234 kg I&O - Last 24 Hours: Intake & Output 12/17/19 12/18/19 12/18/19 22:59 06:59 14:59 Intake Total 990 800 Output Total 1450 950 Balance -460 -150 Lab Results Last 24 Hours: Laboratory Results - last 24 hr 12/16/19 12/17/19 12/18/19 Range/Units 14:45 12:23 05:44 Sodium 141 (136-145) mEq/L Potassium 3.8 (3.5-5.1) mEq/L Chloride 105 (98-107) mEq/L Carbon Dioxide 27 (21-32) mEq/L Anion Gap 12.8 (5-15) BUN 24 H (7-18) mg/dL Creatinine 1.0 (0.7-1.3) mg/dL Est Cr Clr Drug Dosing 74.35 mL/min Estimated GFR (MDRD) > 60 (>60) mL/min BUN/Creatinine Ratio 24.0 H (14-18) Glucose 102 (83-115) mg/dL Calcium 8.9 (8.5-10.1) mg/dL Magnesium 1.8 (1.8-2.4) mg/dl NT-Pro-B Natriuret Pep 436 H (0-125) pg/mL Procalcitonin <0.05 (<0.10) ng/mL Saulo Results Last 24 Hours: Microbiology 12/16/19 20:05 Streptococcus pneumoniae Antigen (M - Final Urine Med Orders - Current: Current Medications Acetaminophen (Tylenol) 650 mg PO Q4H PRN PRN Reason: Pain (Mild 1-3)/fever Apixaban (Eliquis) 5 mg PO BID [facility] Last Admin: 12/18/19 09:39 Dose: 5 mg Documented by: Aspirin (Halfprin) 81 mg PO DAILY [facility] Last Admin: 12/18/19 09:34 Dose: 81 mg Documented by: Azithromycin (Zithromax) 250 mg PO DAILY [facility] Last Admin: 12/18/19 09:34 Dose: 250 mg Documented by: Benzonatate (Tessalon Perles) 100 mg PO TID [facility] Last Admin: 12/18/19 09:32 Dose: 100 mg Documented by: Budesonide (Pulmicort) 0.5 mg NEB BIDRT [facility] Last Admin: 12/18/19 05:55 Dose: 0.5 mg Documented by: Fluoxetine HCl (Prozac) 20 mg PO DAILY [facility] Last Admin: 12/18/19 09:34 Dose: 20 mg Documented by: Guaifenesin (Mucinex) 600 mg PO BID [facility] Last Admin: 12/18/19 09:34 Dose: 600 mg Documented by: Guaifenesin (Robitussin) 200 mg PO TID@0600,1400,2200 [facility] Last Admin: 12/18/19 06:20 Dose: 200 mg Documented by: Hydralazine HCl (Apresoline) 10 mg IVPUSH Q2H PRN PRN Reason: Hypertension Ipratropium [place] (Atrovent) 0.5 mg NEB Q8HRRT [facility] Last Admin: 12/18/19 05:55 Dose: 0.5 mg Documented by: Lamotrigine (Lamotrigine) 50 mg PO DAILY [facility] Last Admin: 12/18/19 09:32 Dose: 50 mg Documented by: Mirtazapine (Remeron) 60 mg PO DAILY [facility] Last Admin: 12/18/19 09:33 Dose: 60 mg Documented by: Nicotine (Habitrol) 14 mg TRDERM DAILY [facility] Last Admin: 12/18/19 09:40 Dose: Not Given Documented by: Nitroglycerin (Nitrostat) 0.4 mg ASDIRECTED [facility] Ondansetron HCl (Zofran Odt) 4 mg PO Q6H PRN PRN Reason: nausea, able to take PO Ondansetron HCl (Zofran) 4 mg IV Q6H PRN PRN Reason: Nausea/Vomiting Oxybutynin Chloride (Oxybutynin Er) 5 mg PO DAILY [facility] Last Admin: 12/18/19 09:32 Dose: 5 mg Documented by: Rosuvastatin Calcium (Crestor) 40 mg PO BEDTIME [facility] Last Admin: 12/17/19 21:33 Dose: 40 mg Documented by: Tamsulosin HCl (Flomax) 0.4 mg PO DAILY [facility] Last Admin: 12/18/19 09:34 Dose: 0.4 mg Documented by: Discontinued Medications Albuterol/Ipratropium (Duoneb 3.0-0.5 Mg/3 Ml) 3 ml NEB ONETIME ONE Stop: 12/16/19 15:07 Last Admin: 12/16/19 15:12 Dose: 3 ml Documented by: Albuterol/Ipratropium (Duoneb 3.0-0.5 Mg/3 Ml) 3 ml NEB ONETIME ONE Stop: 12/16/19 15:47 Last Admin: 12/16/19 15:53 Dose: 3 ml Documented by: Apixaban (Eliquis) 5 mg PO BID [facility] Azithromycin (Zithromax) 500 mg PO ONETIME STA Stop: 12/16/19 17:00 Last Admin: 12/16/19 17:34 Dose: 500 mg Documented by: Fluoxetine HCl (Prozac) 10 mg PO DAILY [facility] Last Admin: 12/17/19 08:17 Dose: 10 mg Documented by: Furosemide (Lasix) 20 mg IVPUSH ONETIME ONE Stop: 12/17/19 14:01 Last Admin: 12/17/19 14:33 Dose: 20 mg Documented by: Guaifenesin (Robitussin) 200 mg PO Q8H [facility] Last Admin: 12/18/19 04:29 Dose: Not Given Documented by: Lamotrigine (Lamotrigine) 50 mg PO DAILY [facility] Last Admin: 12/17/19 17:17 Dose: Not Given Documented by: Lorazepam (Ativan) 0.5 mg IVPUSH ONETIME ONE Stop: 12/16/19 16:26 Last Admin: 12/16/19 16:33 Dose: 0.5 mg Documented by: Methylprednisolone (Medrol) 0 mg PO DAILY [facility]; Taper Stop: 12/23/19 01:59 Metoprolol Succinate (Toprol Xl) 12.5 mg PO BEDTIME [facility] Nitroglycerin (Nitrostat) 0.4 mg SL ASDIRECTED [facility] Prednisone (Prednisone) 40 mg PO WITHBREAKFAST SERGIO Last Admin: 12/17/19 08:23 Dose: 40 mg Documented by: Prednisone (Prednisone) 20 mg PO ONETIME ONE Stop: 12/18/19 09:32 Last Admin: 12/18/19 09:39 Dose: 20 mg Documented by: - Exam Quality Assessment: No: Supplemental Oxygen General: Alert, Oriented HEENT: Pupils Equal, Mucous Membr. Moist/[place] Neck: Supple Lungs: Clear to Auscultation. No: Normal Respiratory Effort (Increased respiratory rate with normal effort) Cardiovascular: Regular Rate, Regular Rhythm GI/Abdominal Exam: Normal Bowel Sounds, Soft, Non-Tender, No Organomegaly, No Distention, No Abnormal Bruit, No Mass, Pelvis Stable Back Exam: Normal Inspection Extremities: Normal Inspection, Normal Range of Motion, Non-Tender, No Pedal Edema Skin: Warm, Dry, Intact Neurological: No New Focal Deficit Psy/Mental Status: Alert, Normal Affect, Normal Mood Sepsis Event Note - Evaluation Sepsis Screening Result: No Definite Risk - Focused Exam Vital Signs: Vital Signs Temp Temp Pulse Pulse Resp BP BP 12/18/19 07:49 97.8 F 68 18 114/93 H 12/18/19 06:20 98.1 F 61 13 106/71 12/18/19 05:56 Pulse Ox Pulse Ox 12/18/19 07:49 91 L 12/18/19 06:20 90 L 12/18/19 05:56 94 L Date Exam was Performed: 12/18/19 Time Exam was Performed: 11:24 - Problem List Review Problem List Initiated/Reviewed/Updated: Yes - My Orders Last 24 Hours: My Active Orders 12/17/19 10:56 RT Incentive Spirometry [RC] ASDIRECTED 12/17/19 14:00 Nitroglycerin [Nitrostat] 0.4 mg SL ASDIRECTED 12/17/19 15:30 lamoTRIgine 50 mg PO DAILY 12/18/19 09:00 FLUoxetine [PROzac] 20 mg PO DAILY - Assessment Assessment:: Admission COPD exacerbation Anxiety in acute stress reaction Panlobular emphysema Current smoker Worsening shortness of breath for 3 days 2 visits to ED --> failed outpatient treatment Does have some end expiratory wheezing but not as much as to correlate with tachypnea Quits on and off, has been smoking again, 4 cigarettes a day Labs from yesterday within normal limits PLAN - Scheduled Xopenex and Budesonide - Medrol pack taper - Ativan 0.5 mg IV STAT - Azithromycin 500 now and 250 daily for 4 days - Nicotine patch - Smoking cessation counseling Anxiety/Depression/PTSD Has been having some issues at home When brought it up patient's respiratory status worsened significantly Recently [facility] who indicated she would adjust his medications He has not received new prescriptions PLAN - Continue home medications - Will evaluate response to STAT Ativan to evaluate possibility of continuing it Bradycardia s/p Pacemaker placement 2014 AAA s/p repair 06/07 Denies any chest pain, palpitations, near syncopal episodes MARIE and SOB have worsened significantly PLAN - Interrogate pacemaker December 17, 2019 * Continued complaints of shortness of breath * Normal pulse ox * Lung exam significant for bibasilar crackles but no wheezing * Currently on oral methylprednisolone -changed to prednisone 40 mg today * Anxiety may be a component of symptoms. Steroids may be worsening anxiety without significant improvement in respiratory symptoms. * proBNP 436 * Given Lasix 20 mg IV x1 December 18, 2019 * Improving shortness of breath * Normal oxygenation * Continued mild bibasilar crackles * Anxiety improved. * Echocardiogram pending * Increase fluoxetine to 20 mg daily * Chest x-ray without acute findings yesterday - Plan Plan:: COPD exacerbation Anxiety in acute stress reaction Panlobular emphysema Current smoker * Give prednisone 20 mg orally this morning * Continue azithromycin * Encourage smoking cessation Anxiety/Depression/PTSD * Improved today * Likely worsening respiratory symptoms * Fluoxetine increased to 20 mg yesterday. Maintain dose. * Continue other home meds Bradycardia s/p Pacemaker placement 2014 AAA s/p repair 06/07 Mildly elevated proBNP * Echocardiogram -pending * Normal chest x-ray -yesterday * Ejection fraction from myocardial perfusion scan 64% earlier this month PROPHYLAXIS DVT- Home eliquis GI- not indicated CODE STATUS: FULL CODE DISPOSITION: Plan discharge tomorrow morning.
[2019-12-18] MEDS: Rosuvastatin 10 MG Tab PO SCH (20:46)
[2019-12-19] MEDS: Ipratropium 0.02% 0.5 MG/2.5 ML Neb Soln NEB SCH ×2 (06:08→12:59)
[2019-12-19] MEDS: Budesonide 0.5 MG/2 ML Neb Susp NEB SCH (06:08)
[2019-12-19] MEDS: Mirtazapine 30 MG Tab PO SCH (08:53)
[2019-12-19] MEDS: Azithromycin 250 MG Tab PO SCH (08:54)
[2019-12-19] MEDS: Aspirin 81 MG Tab.EC PO SCH (08:54)
[2019-12-19] MEDS: Tamsulosin 0.4 MG Cap.ER PO SCH (08:54)
[2019-12-19] MEDS: FLUoxetine 20 MG Cap PO SCH (08:54)
[2019-12-19] MEDS: Benzonatate 100 MG Cap PO SCH (08:55)
[2019-12-19] MEDS: guaiFENesin 600 MG Tab.ER PO SCH (08:55)
[2019-12-19] MEDS: Oxybutynin 5 MG Tab.ER PO SCH (08:56)
[2019-12-19] MEDS: Apixaban 5 MG Tab PO SCH (08:58)
[2019-12-19] MEDS: Nicotine 14 MG/24 Hr Patch TRDERM SCH (08:58)
--- NOTE | 2019-12-19 09:35 | PCM.DCSUM1 ---
Discharge Summary - Hospital Course HPI Initial Comments: This is a 74-year-old male with past medical history of advanced COPD who comes emergency department complaining of worsening shortness of breath. As per patient on Friday he was spraying a weed substance in his yard after which he went inside and started experiencing shortness of breath. At that time he used his pro-air 3 times in his Symbicort that evening without any changes Slept through the night however in the morning started having shortness of br eath as well that did not respond to his inhalers for which she came to the emergency department was treated and discharged at 7 PM Discharged on daily prednisone which he took yesterday and then slept okay This morning again he started experiencing shortness of breath, inability to catch his breath for which she came in for further evaluation Associated with chest pain, palpitations Denies any fevers, chills, MARIE, PND, lower extremity edema, indigestion, nausea, vomiting, abdominal pain, diarrhea, constipation He is still smoking about 4 cigarettes a day COPD exacerbation Anxiety in acute stress reaction Panlobular emphysema Current smoker Worsening shortness of breath for 3 days 2 visits to ED --> failed outpatient treatment Does have some end expiratory wheezing but not as much as to correlate with tachypnea Quits on and off, has been smoking again, 4 cigarettes a day Labs from yesterday within normal limits PLAN - Scheduled Xopenex and Budesonide - Medrol pack taper - Ativan 0.5 mg IV STAT - Azithromycin 500 now and 250 daily for 4 days - Nicotine patch - Smoking cessation counseling Anxiety/Depression/PTSD Has been having some issues at home When brought it up patient's respiratory status worsened significantly Recently saw [place] psychiatrist who indicated she would adjust his medications He has not received new prescriptions PLAN - Continue home medications - Will evaluate response to STAT Ativan to evaluate possibility of continuing it Bradycardia s/p Pacemaker placement 2014 AAA s/p repair 06/07 Denies any chest pain, palpitations, near syncopal episodes MARIE and SOB have worsened significantly PLAN - Interrogate pacemaker Diagnosis: Stroke: No - Discharge Data Discharge Date: 12/19/19 Discharge Disposition: Home, Self-Care 01 Condition: Good - Referral to Home Health Primary Care Physician: Sigifredo Thompson MD - Discharge Diagnosis/Problem(s) (1) Anxiety in acute stress reaction SNOMED Code(s): 40876870 ICD Code: F41.1 - GENERALIZED ANXIETY DISORDER; F43.0 - ACUTE STRESS REACTION Status: Acute Current Visit: Yes (2) COPD exacerbation SNOMED Code(s): 033090703 ICD Code: J44.1 - CHRONIC OBSTRUCTIVE PULMONARY DISEASE W (ACUTE) EXACERBATION Status: Acute Current Visit: Yes (3) PTSD (post-traumatic stress disorder) SNOMED Code(s): 57868091 ICD Code: F43.10 - POST-TRAUMATIC STRESS DISORDER, UNSPECIFIED Status: Chronic Current Visit: No - Patient Summary/Data Consults: Consultations 12/16/19 16:59 Respiratory Care Assess and Treatment [CONS] Routine Hospital Course: December 17, 2019 * Continued complaints of shortness of breath * Normal pulse ox * Lung exam significant for bibasilar crackles but no wheezing * Currently on oral methylprednisolone -changed to prednisone 40 mg today * Anxiety may be a component of symptoms. Steroids may be worsening anxiety without significant improvement in respiratory symptoms. * proBNP 436 * Given Lasix 20 mg IV x1 December 18, 2019 * Improving shortness of breath * Normal oxygenation * Continued mild bibasilar crackles * Anxiety improved. * Echocardiogram pending * Increase fluoxetine to 20 mg daily * Chest x-ray without acute findings yesterday December 19, 2019day of discharge * Shortness of breath resolved * Normal oxygenation * Continued bibasilar crackles * Anxiety improved * Echocardiogram still pending * Fourth of fifth dose of Zithromax - Patient Instructions Diet: Usual Diet as Tolerated Activity: As Tolerated Driving: Do Not Drive Showering/Bathing: May Shower Notify Provider of: Fever Other/Special Instructions: Follow-up with your primary care provider in the next week. You have 1 more day of azithromycin. Please take that tomorrow. - Discharge Plan *PRESCRIPTION DRUG MONITORING PROGRAM REVIEWED*: No *COPY OF PRESCRIPTION DRUG MONITORING REPORT IN PATIENT GABRIELLE: No Prescriptions/Med Rec: Nicotine [Habitrol] 14 mg TRDERM DAILY #30 patch guaiFENesin [Mucinex] 600 mg PO BID #14 tab.er Azithromycin [Zithromax] 250 mg PO DAILY #1 tablet Home Medications: Home Meds Albuterol [Proair HFA] 2 puff INH Q4H PRN 12/15/19 [History] Apixaban [Eliquis] 5 mg PO BID 12/15/19 [History] Cyanocobalamin (Vitamin B12) [Vitamin B12] 1,000 mcg PO DAILY 12/15/19 [History] Docusate Sodium 100 mg PO TID PRN 12/15/19 [History] FLUoxetine [PROzac] 20 mg PO DAILY 12/15/19 [History] Folic Acid 0.8 mg PO DAILY 12/15/19 [History] Metoprolol Succinate 12.5 mg PO QAM 12/15/19 [History] Mirtazapine 60 mg PO QPM 12/15/19 [History] Rosuvastatin Calcium 40 mg PO BEDTIME 12/15/19 [History] Tamsulosin HCl [Flomax] 0.4 mg PO DAILY 12/15/19 [History] lamoTRIgine [Lamotrigine] 50 mg PO DAILY 12/15/19 [History] Aspirin [Aspirin EC] 81 mg PO DAILY 12/16/19 [History] Budesonide/Formoterol Fumarate [Symbicort 80-4.5 MCG] 2 puff IH Q12H 12/16/19 [History] Lutein/Minerals/Vit A,C & E [Ocuvite] 1 tab PO DAILY 12/16/19 [History] Magnesium Oxide [Magnesium] 400 mg PO DAILY 12/16/19 [History] Oxybutynin [Oxybutynin ER] 5 mg PO DAILY 12/16/19 [History] Cholecalciferol (Vitamin D3) [Vitamin D3] 50 mcg PO DAILY 12/17/19 [History] Nicotine Polacrilex [Nicotine Lozenge] 2 mg BC ASDIRECTED PRN 12/17/19 [History] Nitroglycerin 0.4 mg SL ASDIRECTED 12/17/19 [History] Azithromycin [Zithromax] 250 mg PO DAILY #1 tablet 12/19/19 [Rx] Nicotine [Habitrol] 14 mg TRDERM DAILY #30 patch 12/19/19 [Rx] guaiFENesin [Mucinex] 600 mg PO BID #14 tab.er 12/19/19 [Rx] Oxygen Therapy Mode: Room Air Patient Handouts: Chronic Obstructive Pulmonary Disease Exacerbation Referrals: Sigifredo Thompson MD [Primary Care Provider] - (Call clinic tomorrow to make an appointment to follow-up with this week.) - Discharge Summary/Plan Comment DC Time >30 min.: Yes Discharge Summary/Plan Comment: Discharged home in stable condition. Follow-up with primary care provider in 1 week. Finish 1 more day of antibiotics. No further steroids prescribed. Continue with your current dose of fluoxetine 20 mg daily. - General Info Date of Service: 12/19/19 Admission Dx/Problem (Free Text: Admission Diagnosis/Problem Admission Diagnosis/Problem COPD with acute lower respiratory infection Subjective Update: Patient is doing well. He denies any shortness of breath or anxiety. Functional Status: Reports: Pain Controlled - Review of Systems General: Reports: No Symptoms HEENT: Reports: No Symptoms Pulmonary: Reports: No Symptoms Cardiovascular: Reports: No Symptoms Gastrointestinal: Reports: No Symptoms Musculoskeletal: Reports: No Symptoms Neurological: Reports: No Symptoms - Patient Data Vitals - Most Recent: Last Vital Signs Temp 98.6 F 12/19/19 07:52 Pulse 65 12/19/19 07:52 Resp 15 12/19/19 06:28 BP 115/76 12/19/19 07:52 Pulse Ox 94 L 12/19/19 07:52 Weight - Most Recent: 83.506 kg I&O - Last 24 hours: Intake & Output 12/18/19 12/19/19 12/19/19 22:59 06:59 14:59 Intake Total 1460 400 Output Total 950 650 Balance 510 -250 Med Orders - Current: Current Medications Acetaminophen (Tylenol) 650 mg PO Q4H PRN PRN Reason: Pain (Mild 1-3)/fever Apixaban (Eliquis) 5 mg PO BID ON LICENSE OF [facility] Last Admin: 12/19/19 08:58 Dose: 5 mg Documented by: Aspirin (Halfprin) 81 mg PO DAILY ON [facility] Last Admin: 12/19/19 08:54 Dose: 81 mg Documented by: Azithromycin (Zithromax) 250 mg PO DAILY ON [facility] Last Admin: 12/19/19 08:54 Dose: 250 mg Documented by: Benzonatate (Tessalon Perles) 100 mg PO TID ON LICENSE OF [facility] Last Admin: 12/19/19 08:55 Dose: 100 mg Documented by: Budesonide (Pulmicort) 0.5 mg NEB BIDRT ON LICENSE OF [facility] Last Admin: 12/19/19 06:08 Dose: 0.5 mg Documented by: Fluoxetine HCl (Prozac) 20 mg PO DAILY ON [facility] Last Admin: 08/02/20 08:54 Dose: 20 mg Documented by: Guaifenesin (Mucinex) 600 mg PO BID ON [facility] Last Admin: 12/19/19 08:55 Dose: 600 mg Documented by: Hydralazine HCl (Apresoline) 10 mg IVPUSH Q2H PRN PRN Reason: Hypertension Ipratropium [place] (Atrovent) 0.5 mg NEB Q8HRRT ON [facility] OF [facility] Last Admin: 12/19/19 06:08 Dose: 0.5 mg Documented by: Lamotrigine (Lamotrigine) 50 mg PO DAILY ON [facility] Last Admin: 12/19/19 08:58 Dose: 50 mg Documented by: Mirtazapine (Remeron) 60 mg PO DAILY ON [facility] Last Admin: 12/19/19 08:53 Dose: 60 mg Documented by: Nicotine (Habitrol) 14 mg TRDERM DAILY ON [facility] Last Admin: 12/19/19 08:58 Dose: Not Given Documented by: Nitroglycerin (Nitrostat) 0.4 mg SL ASDIRECTED ON LICENSE OF [facility] Ondansetron HCl (Zofran Odt) 4 mg PO Q6H PRN PRN Reason: nausea, able to take PO Ondansetron HCl (Zofran) 4 mg IV Q6H PRN PRN Reason: Nausea/Vomiting Oxybutynin Chloride (Oxybutynin Er) 5 mg PO DAILY ON [facility] Last Admin: 12/19/19 08:56 Dose: 5 mg Documented by: Rosuvastatin Calcium (Crestor) 40 mg PO BEDTIME ON [facility] Last Admin: 12/18/19 20:46 Dose: 40 mg Documented by: Tamsulosin HCl (Flomax) 0.4 mg PO DAILY ON [facility] Last Admin: 12/19/19 08:54 Dose: 0.4 mg Documented by: Discontinued Medications Albuterol/Ipratropium (Duoneb 3.0-0.5 Mg/3 Ml) 3 ml NEB ONETIME ONE Stop: 12/16/19 15:07 Last Admin: 12/16/19 15:12 Dose: 3 ml Documented by: Albuterol/Ipratropium (Duoneb 3.0-0.5 Mg/3 Ml) 3 ml NEB ONETIME ONE Stop: 12/16/19 15:47 Last Admin: 12/16/19 15:53 Dose: 3 ml Documented by: Apixaban (Eliquis) 5 mg PO BID ON [facility] Azithromycin (Zithromax) 500 mg PO ONETIME STA Stop: 12/16/19 17:00 Last Admin: 12/16/19 17:34 Dose: 500 mg Documented by: Fluoxetine HCl (Prozac) 10 mg PO DAILY ON [facility] Last Admin: 12/17/19 08:17 Dose: 10 mg Documented by: Furosemide (Lasix) 20 mg IVPUSH ONETIME ONE Stop: 12/17/19 14:01 Last Admin: 12/17/19 14:33 Dose: 20 mg Documented by: Guaifenesin (Robitussin) 200 mg PO Q8H ON [facility] Last Admin: 12/18/19 04:29 Dose: Not Given Documented by: Guaifenesin (Robitussin) 200 mg PO TID@0600,1400,2200 ON [facility] Last Admin: 12/18/19 06:20 Dose: 200 mg Documented by: Lamotrigine (Lamotrigine) 50 mg PO DAILY ON [facility] Last Admin: 12/17/19 17:17 Dose: Not Given Documented by: Lorazepam (Ativan) 0.5 mg IVPUSH ONETIME ONE Stop: 12/16/19 16:26 Last Admin: 12/16/19 16:33 Dose: 0.5 mg Documented by: Methylprednisolone (Medrol) 0 mg PO DAILY ON [facility] OF [facility]; Taper Stop: 12/23/19 01:59 Metoprolol Succinate (Toprol Xl) 12.5 mg PO BEDTIME ON LICENSE OF [facility] Nitroglycerin (Nitrostat) 0.4 mg SL ASDIRECTED ON LICENSE OF [facility] Prednisone (Prednisone) 40 mg PO WITHBREAKFAST ON LICENSE OF [facility] Last Admin: 12/17/19 08:23 Dose: 40 mg Documented by: Prednisone (Prednisone) 20 mg PO ONETIME ONE Stop: 12/18/19 09:32 Last Admin: 12/18/19 09:39 Dose: 20 mg Documented by: - Exam Quality Assessment: Denies: Supplemental Oxygen General: Reports: Alert, Oriented HEENT: Reports: Pupils Equal, Mucous Membr. Moist/[place] Neck: Reports: Supple Lungs: Reports: Normal Respiratory Effort, Crackles (Bibasilar) Cardiovascular: Reports: Regular Rate, Regular Rhythm GI/Abdominal Exam: Normal Bowel Sounds, Soft, Non-Tender, No Organomegaly, No Distention, No Abnormal Bruit Extremities: Normal Inspection, Normal Range of Motion, Non-Tender, No Pedal Edema, Normal Capillary Refill Neurological: Reports: No New Focal Deficit Psy/Mental Status: Reports: Alert, Normal Affect, Normal Mood
[2019-12-19 12:33] VITALS: BP 105/80; PULSE 74
== END 2019-12-19 11:37 | disposition home or self-care (01) ==
LOC: JD.ED 14:35 → JD.MS 16:27
PROVIDERS: ADMIT Internal Medicine; ATTEND Internal Medicine
DX: J43.1 Panlobular emphysema (principal); E78.00 Pure hypercholesterolemia, unspecified; K21.9 Gastro-esophageal reflux disease without esophagitis; F32.9 Major depressive disorder, single episode, unspecified; E66.9 Obesity, unspecified; F17.210 Nicotine dependence, cigarettes, uncomplicated; F41.1 Generalized anxiety disorder; F43.0 Acute stress reaction; R00.1 Bradycardia, unspecified; F10.20 Alcohol dependence, uncomplicated; K42.9 Umbilical hernia without obstruction or gangrene; F43.10 Post-traumatic stress disorder, unspecified; Z20.828 Contact with and (suspected) exposure to other viral communicable diseases; Z79.82 Long term (current) use of aspirin; Z95.0 Presence of cardiac pacemaker; Z79.899 Other long term (current) drug therapy; Z88.8 Allergy status to other drugs, medicaments and biological substances; Z98.890 Other specified postprocedural states; Z87.19 Personal history of other diseases of the digestive system; Z68.24 Body mass index [BMI] 24.0-24.9, adult
CPT/HCPCS: 36415; 36600; 71046; 80048; 82803; 83735; 83880; 84100; 84145; 85025; 86738; 87635; 87899; 93306; 94640; 94761; 96374; 96375; 99285; A9270; G0378; J2060; J7512; 93010; 99217; 99219; 99225; 99284; J7620-GY; U0002

== ENCOUNTER 2020-01-24 13:13 | Emergency (ER) | payer OTHER, MEDICARE ==
[2020-01-24 13:21] VITALS: BP 122/96; PULSE 84
--- NOTE | 2020-01-24 14:07 | EDM.PDOC ---
ED HPI GENERAL MEDICAL PROBLEM - General Chief Complaint: Upper Extremity Injury/Pain Stated Complaint: LT ARM PAIN FINGERS TO ELBOW AREA Time Seen by Provider: 01/24/20 13:25 Source of Information: Reports: Patient, RN Notes Reviewed - History of Present Illness INITIAL COMMENTS - FREE TEXT/NARRATIVE: 74 yr male comes in with severe L elbow and L forearm pain. Not aware of any injury. Left Elbow Pain Score (Numeric/FACES): 8 - Related Data Allergies Allergy/AdvReac Type Severity Reaction Status Date / Time atorvastatin calcium AdvReac Muscle Verified 01/24/20 13:21 [From Lipitor] Aches Home Meds: Home Meds Albuterol [Proair HFA] 2 puff INH Q4H PRN 12/15/19 [History] Apixaban [Eliquis] 5 mg PO BID 12/15/19 [History] Cyanocobalamin (Vitamin B12) [Vitamin B12] 1,000 mcg PO DAILY 12/15/19 [History] Docusate Sodium 100 mg PO TID PRN 12/15/19 [History] FLUoxetine [PROzac] 20 mg PO DAILY 12/15/19 [History] Folic Acid 0.8 mg PO DAILY 12/15/19 [History] Metoprolol Succinate 12.5 mg PO QAM 12/15/19 [History] Mirtazapine 60 mg PO QPM 12/15/19 [History] Rosuvastatin Calcium 40 mg PO BEDTIME 12/15/19 [History] Tamsulosin HCl [Flomax] 0.4 mg PO DAILY 12/15/19 [History] lamoTRIgine [Lamotrigine] 50 mg PO DAILY 12/15/19 [History] Aspirin [Aspirin EC] 81 mg PO DAILY 12/16/19 [History] Budesonide/Formoterol Fumarate [Symbicort 80-4.5 MCG] 2 puff IH Q12H 12/16/19 [History] Lutein/Minerals/Vit A,C & E [Ocuvite] 1 tab PO DAILY 12/16/19 [History] Magnesium Oxide [Magnesium] 400 mg PO DAILY 12/16/19 [History] Oxybutynin [Oxybutynin ER] 5 mg PO DAILY 12/16/19 [History] Cholecalciferol (Vitamin D3) [Vitamin D3] 50 mcg PO DAILY 07/31/20 [History] Nicotine Polacrilex [Nicotine Lozenge] 2 mg BC ASDIRECTED PRN 12/17/19 [History] Nitroglycerin 0.4 mg SL ASDIRECTED 12/17/19 [History] Azithromycin [Zithromax] 250 mg PO DAILY #1 tablet 12/19/19 [Rx] Nicotine [Habitrol] 14 mg TRDERM DAILY #30 patch 12/19/19 [Rx] guaiFENesin [Mucinex] 600 mg PO BID #14 tab.er 12/19/19 [Rx] Past Medical History HEENT History: Reports: Impaired Vision, Macular Degeneration Other HEENT History: Wears glasses Cardiovascular History: Reports: Aneurysm, Arrhythmia, High Cholesterol, Pacemaker, Other (See Below) Other Cardiovascular History: bradycardia.anuerysm repair 2019 Respiratory History: Reports: COPD, SOB Gastrointestinal History: Reports: GERD Genitourinary History: Reports: BPH, Urinary Incontinence Other Genitourinary History: bladder spasms Musculoskeletal History: Reports: Other (See Below) Other Musculoskeletal History: Injection in L) shoulder Neurological History: Reports: Migraines Psychiatric History: Reports: Addiction, Depression, PTSD Other Psychiatric History: nightmares and went thru treatment and feels it has helped. alcoholism Endocrine/Metabolic History: Reports: Obesity/BMI 30+ Hematologic History: Reports: Anticoagulation Therapy Immunologic History: Reports: None Oncologic (Cancer) History: Reports: Malignant Melanoma Other Oncologic History: melonoma cancer to back and surgically removed Dermatologic History: Reports: Melanoma Other Dermatologic History: sebaceous cyst to R cheek, Melanoma to back - Infectious Disease History Infectious Disease History: Reports: None - Past Surgical History HEENT Surgical History: Reports: Cataract Surgery Cardiovascular Surgical History: Reports: AAA Repair, Pacer GI Surgical History: Reports: Cholecystectomy, Colonoscopy, EGD, ERCP, Other (See Below) Musculoskeletal Surgical History: Reports: Arthroscopic Knee Dermatological Surgical History: Reports: Other (See Below) Social & Family History - Family History Family Medical History: Noncontributory Cardiac: Reports: [place] Other Cardiac Family History: Pt states his father had a couple heart attacks. Endocrine/Metabolic: Reports: Diabetes, type II Other Endocrine/Metabolic Family History: Pt states nobody in his family has DM II. 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 Oncologic: Reports: Prostate, Other (See Below) Other Oncologic Family History: Pt states his bother has prostate CA with mets to back. - Tobacco Use Smoking Status *Q: Current Every Day Smoker Years of Tobacco use: 50 Packs/Tins Daily: 0.1 - Caffeine Use Caffeine Use: Reports: None Other Caffeine Use: rarely - Recreational Drug Use Recreational Drug Use: No - Living Situation & Occupation Living situation: Reports: , with Spouse Occupation: Retired Review of Systems - Review of Systems Review Of Systems: See Below Constitutional: Denies: Chills, Fever Mouth/Throat: Reports: No Symptoms Respiratory: Denies: Shortness of Breath Cardiovascular: Denies: Chest Pain GI/Abdominal: Denies: Abdominal Pain, Vomiting Musculoskeletal: Reports: Joint Pain Skin: Reports: No Symptoms Neurological: Reports: No Symptoms ED EXAM, GENERAL - Physical Exam Exam: See Below General Appearance: Alert, No Apparent Distress, Other (at rest) Head: Atraumatic Neck: Supple Respiratory/Chest: No Respiratory Distress Extremities: Other (moderate tenderness L elbow, pain with any type of motion L elbow, tender L proximal forearm) Skin Exam: Warm, Dry, Normal Color Course - Vital Signs Last Recorded V/S: Last Vital Signs Temp 96.9 F 01/24/20 13:19 Pulse 84 01/24/20 13:19 Resp 16 01/24/20 13:19 BP 122/96 H 01/24/20 13:19 Pulse Ox 95 01/24/20 13:19 - Orders/Labs/Meds Orders: Active Orders 24 hr Category Date Time Status Durable Medical Equipment for Discharge [DME for Ot 01/24/20 14:55 Ordered Discharge] [COMM] Stat Durable Medical Equipment for Discharge [DME for Ot 01/24/20 15:01 Ordered Discharge] [COMM] Stat Meds: Medications Discontinued Medications Generic Name Dose Route Start Last Admin Trade Name Freq PRN Reason Stop Dose Admin Prednisone 40 mg 01/24/20 14:51 01/24/20 15:05 Prednisone PO 01/24/20 14:52 40 mg ONETIME ONE Administration - Re-Assessments/Exams Free Text/Narrative Re-Assessment/Exam: 01/24/20 15:24. No visible fx but does seem to have a small jt effusion. Discharge instr. as documented. Departure - Departure Time of Disposition: 15:05 Disposition: Home, Self-Care 01 Condition: Fair Clinical Impression: Elbow pain, left - Discharge Information Referrals: Sigifredo Thompson MD [Primary Care Provider] - Forms: ED Department Discharge Additional Instructions: Elio wrap L elbow, L arm sling. We have given prednisone 40 mg here in the ED. Prednisone 20 mg daily for the next 3 days. Have rechecked if not much better in 5 to 7 days as expected. Tylenol for mild pain or percocet if needed for more severe pain. Return to ED as needed. Sepsis Event Note (ED) - Evaluation Sepsis Screening Result: No Definite Risk - Focused Exam Vital Signs: Vital Signs Temp Pulse Resp BP Pulse Ox 01/24/20 13:19 96.9 F 84 16 122/96 H 95 - My Orders Last 24 Hours: My Active Orders 01/24/20 14:55 Durable Medical Equipment for Discharge [DME for Discharge] [COMM] Stat 01/24/20 15:01 Durable Medical Equipment for Discharge [DME for Discharge] [COMM] Stat - Assessment/Plan Last 24 Hours: My Active Orders 01/24/20 14:55 Durable Medical Equipment for Discharge [DME for Discharge] [COMM] Stat 01/24/20 15:01 Durable Medical Equipment for Discharge [DME for Discharge] [COMM] Stat
--- NOTE | 2020-01-24 14:46 | CR ---
Left elbow: 4 views left elbow were obtained. Small olecranon spur is noted. Joint effusion appears to be present. No discrete fracture or dislocation is noted. On the lateral view calcification is noted off the radial head possibly due to small loose body. Impression: 1. Joint effusion, small olecranon spur and possible small calcified joint body. 2. No definite acute bony abnormality is appreciated. Diagnostic code #2 This report was dictated in MDT
--- NOTE | 2020-01-24 14:47 | CR ---
Left forearm: 2 views of the left forearm were obtained. Comparison: No previous study. Small olecranon spur is noted within the elbow. No discrete fracture or other bony abnormality is appreciated. Impression: 1. Small olecranon spur. 2. Nothing acute is seen on 2 view left forearm study. Diagnostic code #2 This report was dictated in MDT
[2020-01-24] MEDS ORDERED: predniSONE 20 MG Tab PO ONE (14:51)
== END 2020-01-24 15:22 | disposition home or self-care (01) ==
LOC: JD.ED 13:13
DX: M25.522 Pain in left elbow (principal); J44.9 Chronic obstructive pulmonary disease, unspecified; E78.00 Pure hypercholesterolemia, unspecified; E66.9 Obesity, unspecified; F32.9 Major depressive disorder, single episode, unspecified; F17.210 Nicotine dependence, cigarettes, uncomplicated; Z88.8 Allergy status to other drugs, medicaments and biological substances; Z79.899 Other long term (current) drug therapy; Z79.82 Long term (current) use of aspirin; Z79.01 Long term (current) use of anticoagulants; Z68.25 Body mass index [BMI] 25.0-25.9, adult
CPT/HCPCS: 73080; 73090; 99283; J7512

== ENCOUNTER 2020-02-18 11:01 | Emergency (ER) | payer OTHER, MEDICARE ==
--- NOTE | 2020-02-18 11:27 | EDM.PDOC ---
ED HPI GENERAL MEDICAL PROBLEM - General Chief Complaint: Respiratory Problem Stated Complaint: COVID + SOB Time Seen by Provider: 02/18/20 11:20 Source of Information: Reports: Patient History Limitations: Reports: No Limitations - History of Present Illness INITIAL COMMENTS - FREE TEXT/NARRATIVE: 74-year-old male presents to the ED with a 4-day history of fever chills marked anorexia, paroxysmal cough productive of whitish sputum. Increased shortness of breath over the last 48 hours. Patient has underlying COPD. O2 sats only 70% on arrival. Increased to 90% on 4 L/min by nasal cannula. Patient is alert and oriented. He reports 2-3 loose diarrhea stools per day for the last 3 days. Particular if he drinks or eats anything it seems to go right through him. Generalized weakness. Patient is chronically anticoagulated with Eliquis 5 mg twice daily. Onset: Gradual Onset Date: 02/15/20 Duration: Day(s):, Constant, Getting Worse Location: Reports: Chest (Short of breath with productive cough whitish sputum.), Generalized, Other (Generalized weakness. Fever chills diarrhea and marked anorexia.) Quality: Reports: Ache (Neurolysed myalgia.) Severity: Moderate (10) Improves with: Reports: None Worsens with: Reports: None Context: Denies: Activity, Exercise, Lifting, Sick Contact, Trauma, Other Associated Symptoms: Reports: Cough (White sputum axilla small), cough w sputum, Fever/Chills, Headaches, Loss of Appetite, Malaise, Shortness of Breath, Weakness, Other (Loose diarrhea stools 2 to 3/day.). 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 Generalized Pain Score (Numeric/FACES): 5 - Related Data Allergies Allergy/AdvReac Type Severity Reaction Status Date / Time atorvastatin calcium AdvReac Muscle Verified 01/24/20 13:21 [From Lipitor] Aches Home Meds: Home Meds Albuterol [Proair HFA] 2 puff INH Q4H PRN 12/15/19 [History] Apixaban [Eliquis] 5 mg PO BID 12/15/19 [History] Cyanocobalamin (Vitamin B12) [Vitamin B12] 1,000 mcg PO DAILY 12/15/19 [History] Docusate Sodium 100 mg PO TID PRN 12/15/19 [History] FLUoxetine [PROzac] 20 mg PO DAILY 12/15/19 [History] Folic Acid 0.8 mg PO DAILY 12/15/19 [History] Metoprolol Succinate 12.5 mg PO QAM 12/15/19 [History] Mirtazapine 60 mg PO QPM 12/15/19 [History] Rosuvastatin Calcium 40 mg PO BEDTIME 12/15/19 [History] Tamsulosin HCl [Flomax] 0.4 mg PO DAILY 12/15/19 [History] lamoTRIgine [Lamotrigine] 50 mg PO DAILY 12/15/19 [History] Aspirin [Aspirin EC] 81 mg PO DAILY 12/16/19 [History] Budesonide/Formoterol Fumarate [Symbicort 80-4.5 MCG] 2 puff IH Q12H 12/16/19 [History] Lutein/Minerals/Vit A,C & E [Ocuvite] 1 tab PO DAILY 12/16/19 [History] Cholecalciferol (Vitamin D3) [Vitamin D3] 50 mcg PO DAILY 12/17/19 [History] Nicotine Polacrilex [Nicotine Lozenge] 2 mg BC ASDIRECTED PRN 12/17/19 [History] Nitroglycerin 0.4 mg SL ASDIRECTED 12/17/19 [History] guaiFENesin [Mucinex] 600 mg PO BID #14 tab.er 12/19/19 [Rx] Albuterol/Ipratropium [DuoNeb 3.0-0.5 MG/3 ML] 1 inh INH ASDIRECTED PRN 02/18/20 [History] Doxycycline Hyclate 100 mg PO BID 02/18/20 [History] Tiotropium [Spiriva HandiHaler] 1 inh INH DAILY 02/18/20 [History] predniSONE [Prednisone] 40 mg PO DAILY 02/18/20 [History] Past Medical History HEENT History: Reports: Impaired Vision, Macular Degeneration Other HEENT History: Wears glasses Cardiovascular History: Reports: Aneurysm, Arrhythmia, High Cholesterol, Pacemaker, Other (See Below) Other Cardiovascular History: bradycardia.anuerysm repair 2019 Respiratory History: Reports: COPD, SOB Gastrointestinal History: Reports: GERD Genitourinary History: Reports: BPH, Urinary Incontinence Other Genitourinary History: bladder spasms Musculoskeletal History: Reports: Other (See Below) Other Musculoskeletal History: Injection in L) shoulder Neurological History: Reports: Migraines Psychiatric History: Reports: Addiction, Depression, PTSD Other Psychiatric History: nightmares and went thru treatment and feels it has helped. alcoholism Hematologic History: Reports: Anticoagulation Therapy Immunologic History: Reports: None Oncologic (Cancer) History: Reports: Malignant Melanoma Other Oncologic History: melonoma cancer to back and surgically removed Dermatologic History: Reports: Melanoma Other Dermatologic History: sebaceous cyst to R cheek, Melanoma to back - Infectious Disease History Infectious Disease History: Reports: None - Past Surgical History HEENT Surgical History: Reports: Cataract Surgery Cardiovascular Surgical History: Reports: AAA Repair, Pacer GI Surgical History: Reports: Cholecystectomy, Colonoscopy, EGD, ERCP, Other (See Below) Musculoskeletal Surgical History: Reports: Arthroscopic Knee Dermatological Surgical History: Reports: Other (See Below) Social & Family History - Family History Family Medical History: Noncontributory Cardiac: Reports: [place] Other Cardiac Family History: Pt states his father had a couple heart attacks. Endocrine/Metabolic: Reports: Diabetes, type II Other Endocrine/Metabolic Family History: Pt states nobody in his family has DM II. RN unable to unchart DM II by FILM CRITIC. Oncologic: Reports: Prostate, Other (See Below) Other Oncologic Family History: Pt states his bother has prostate CA with mets to back. - Caffeine Use Caffeine Use: Reports: None Other Caffeine Use: rarely - Living Situation & Occupation Living situation: Reports: , with Spouse Occupation: Retired ED ROS GENERAL - Review of Systems Review Of Systems: See Below Constitutional: Reports: Fever, Chills, Malaise, Weakness, Fatigue, Decreased Appetite, Weight Loss HEENT: Reports: Glasses (SPECT it but not sure how much.), Hearing Loss Respiratory: Reports: Shortness of Breath (Hard of hearing. Does not wear hearing aid.), Wheezing, Cough, Sputum. Denies: Pleuritic Chest Pain, Hemoptysis Cardiovascular: Reports: Blood Pressure Problem, Dyspnea on Exertion, Lightheadedness (Weak with standing.). Denies: Chest Pain (Whitish sputum), Claudication, Edema (Acute on chronic.), Orthopnea, Palpitations Endocrine: Reports: Fatigue GI/Abdominal: Reports: Anorexia, Diarrhea (Usually 2-3 loose yellow stools per day.). Denies: Abdominal Pain : Reports: Other (Decreased urinary output.) Musculoskeletal: Reports: Other (Generalized myalgia particularly lower back neck.) Skin: Reports: No Symptoms Neurological: Reports: Dizziness, Headache, Difficulty Walking (Generalized weakness), Weakness. Denies: Confusion, Numbness, Syncope, Tingling, Trouble Speaking, Change in Speech ( to weakness in his legs.) Psychiatric: Reports: No Symptoms Hematologic/Lymphatic: Reports: No Symptoms Immunologic: Reports: No Symptoms ED EXAM, GENERAL - Physical Exam Exam: See Below Exam Limited By: No Limitations General Appearance: Alert, WD/WN, Moderate Distress, Other (Temperature is 37.2 although he feels much warmer than this. Heart rate 108 and sinus at the bedside. Heart rate is 108 and sinus at the bedside. Respiratory of 28 with O2 sats of 70% room air BP 118/80.) Eye Exam: Bilateral Eye: Normal Inspection, PERRL Throat/Mouth: Normal Lips, Normal Teeth, Normal Oropharynx, Other (Tongue is mildly dry and coated. No infection in the oropharynx appreciated.) Head: Atraumatic, Normocephalic Neck: Normal Inspection, Supple, Non-Tender, Full Range of Motion. No: Carotid Bruit, Lymphadenopathy (L), Lymphadenopathy (R) Respiratory/Chest: No Accessory Muscle Use, Respiratory Distress (Tachypnea at rest. O2 sats only 70% room air. Improved to 90% on 4 L/min by nasal cannul a.), Decreased Breath Sounds (Noted wheezing throughout all lung valladares. Presteroid to the lower 40% lung valladares bilaterally due to COPD.), Rhonchi (Sounding cough.), Wheezing. No: Lungs Clear, Normal Breath Sounds, Rales Cardiovascular: No Edema, No Gallop (This tachycardia of 108 to 110/min), No Murmur, No Rub, Tachycardia. No: Normal Peripheral Pulses Peripheral Pulses: 1+: Posterior Tibial (L), Posterior Tibial (R), Dorsalis Pedis (L), Dorsalis Pedis (R), 2+: Carotid (L), Carotid (R) GI/Abdominal: Non-Tender, No Organomegaly, No Mass, Pelvis Stable, Distended (Mild tympany to percussion upper abdomen), Other (Has had previous AAA resected.). No: Guarding, Rigid, Rebound Back Exam: Decreased Range of Motion, Vertebral Tenderness. No: CVA Tenderness (L), CVA Tenderness (R), Muscle Spasm (Adjacent to the lumbar spine bilaterally.) Extremities: Normal Inspection, Normal Range of Motion, Non-Tender, No Pedal Edema, Other (She has decreased) Neurological: Alert ( pulses to both feet.), Oriented, CN II-XII Intact, Normal Cognition Psychiatric: Normal Affect, Anxious Skin Exam: Warm, Dry, Intact, Normal Color, No Rash EKG INTERPRETATION EKG Date: 02/18/20 Time: 11:37 Rhythm: Other (Sinus tachycardia at 100/min) Rate (Beats/Min): 100 (Occasional PVCs.) Bronson: LAD-Left Bronson Deviation (-75 degrees) P-Wave: Present (Borderline first-degree AV block.) QRS: LBBB (Left anterior fascicular block pattern) ST-T: Other (There is T wave inversion in V2 and V3 which are nonspecific but consider ischemia.) QT: Normal EKG Interpretation Comments: Abnormal ECG Course - Vital Signs Last Recorded V/S: Last Vital Signs Temp 37.4 C 02/18/20 13:38 Pulse 92 02/18/20 13:38 Resp 24 H 02/18/20 13:38 BP 91/63 02/18/20 13:38 Pulse Ox 90 L 02/18/20 13:38 - Orders/Labs/Meds Orders: Active Orders 24 hr Category Date Time Status EKG Documentation Completion [RC] STAT Care 02/18/20 11:32 Active EKG Documentation Completion [RC] STAT Care 02/18/20 11:34 Active Oxygen Therapy [RC] ASDIRECTED Care 02/18/20 11:33 Active Chest 1V Frontal [CR] Stat Exams 02/18/20 11:32 Taken CULTURE BLOOD [BC] Stat Lab 02/18/20 12:16 Received CULTURE BLOOD [BC] Stat Lab 02/18/20 12:31 Received URINALYSIS W/MICROSCOPIC [UA W/MICROSCOPIC] [URIN] Stat Lab 02/18/20 11:34 Ordered Dextrose 5%-0.9% NaCl [Dextrose 5%-Normal Saline] 1,000 Med 02/18/20 11:45 Active ml IV ASDIRECTED Remdesivir (Eua) [Remdesivir (EUA)] 200 mg Med 02/18/20 13:45 Active Sodium Chloride 0.9% [Normal Saline] 250 ml IV ONETIME Blood Culture x2 Reflex Set [OM.PC] Stat Oth 02/18/20 11:34 Ordered Medication Orders Dextrose/Sodium Chloride (Dextrose 5%-Normal Saline) 1,000 mls @ 125 mls/hr IV ASDIRECTED SERGIO Last Admin: 02/18/20 11:55 Dose: 125 mls/hr Documented by: KATTY Remdesivir 200 mg/ Sodium (Chloride) 250 mls @ 250 mls/hr IV ONETIME ONE Stop: 02/18/20 14:44 Last Admin: 02/18/20 13:51 Dose: 250 mls/hr Documented by: KATTY Labs: Laboratory Tests 02/18/20 02/18/20 02/18/20 Range/Units 11:30 11:30 11:30 WBC 6.73 (4.23-9.07) K/mm3 RBC 4.23 L (4.63-6.08) M/mm3 Hgb 12.5 L (13.7-17.5) gm/dl Hct 39.0 L (40.1-51.0) % MCV 92.2 (79.0-92.2) fl MCH 29.6 (25.7-32.2) pg MCHC 32.1 L (32.2-35.5) g/dl RDW Std Deviation 58.5 H (35.1-43.9) fL Plt Count 187 (163-337) K/mm3 MPV 9.2 L (9.4-12.3) fl Neut % (Auto) 82.3 H (34.0-67.9) % Lymph % (Auto) 8.2 L (21.8-53.1) % Robeson % (Auto) 9.1 (5.3-12.2) % Eos % (Auto) 0 L (0.8-7.0) Baso % (Auto) 0.1 (0.1-1.2) % Neut # (Auto) 5.54 H (1.78-5.38) K/mm3 Lymph # (Auto) 0.55 L (1.32-3.57) K/mm3 Robeson # (Auto) 0.61 (0.30-0.82) K/mm3 Eos # (Auto) 0.00 L (0.04-0.54) K/mm3 Baso # (Auto) 0.01 (0.01-0.08) K/mm3 Manual Slide Review Normal smear PT 11.0 (9.7-11.7) SECONDS INR 1.03 APTT 29 (22-31) SECONDS D-Dimer, Quantitative (0.19-0.50) mg/L Puncture Site ABG pH (7.35-7.45) ABG pCO2 (35.0-45.0) mmHg ABG pO2 (80.0-100.0) mmHg ABG HCO3 (22.0-26.0) meq/L ABG O2 Saturation (96.0-97.0) % ABG Base Excess (-2-2.0) A-a Gradient mmHg O2 Delivery Device Oxygen Flow Rate FiO2 (21.00-100.00) % Sodium 139 (136-145) mEq/L Potassium 4.0 (3.5-5.1) mEq/L Chloride 101 (98-107) mEq/L Carbon Dioxide 27 (21-32) mEq/L Anion Gap 15.0 (5-15) BUN 23 H (7-18) mg/dL Creatinine 1.3 (0.7-1.3) mg/dL Est Cr Clr Drug Dosing 57.19 mL/min Estimated GFR (MDRD) 54 (>60) mL/min BUN/Creatinine Ratio 17.7 (14-18) Glucose 110 (83-115) mg/dL Lactic Acid (0.4-2.0) mmol/L Calcium 9.3 (8.5-10.1) mg/dL Magnesium 1.6 L (1.8-2.4) mg/dl Ferritin (26-388) ng/ml Total Bilirubin 0.6 (0.2-1.0) mg/dL AST 61 H (15-37) U/L ALT 51 (16-63) U/L Alkaline Phosphatase 57 (46-116) U/L Lactate Dehydrogenase 301 H (85-227) U/L CK-MB (CK-2) 0.5 (0-3.6) ng/ml Troponin I < 0.017 (0.00-0.056) ng/mL C-Reactive Protein 10.5 H* (<1.0) mg/dL NT-Pro-B Natriuret Pep (0-125) pg/mL Total Protein 7.2 (6.4-8.2) g/dl Albumin 2.9 L (3.4-5.0) g/dl Globulin 4.3 gm/dL Albumin/Globulin Ratio 0.7 L (1-2) 02/18/20 02/18/20 02/18/20 Range/Units 11:30 11:30 11:30 WBC (4.23-9.07) K/mm3 RBC (4.63-6.08) M/mm3 Hgb (13.7-17.5) gm/dl Hct (40.1-51.0) % MCV (79.0-92.2) fl MCH (25.7-32.2) pg MCHC (32.2-35.5) g/dl RDW Std Deviation (35.1-43.9) fL Plt Count (163-337) K/mm3 MPV (9.4-12.3) fl Neut % (Auto) (34.0-67.9) % Lymph % (Auto) (21.8-53.1) % Robeson % (Auto) (5.3-12.2) % Eos % (Auto) (0.8-7.0) Baso % (Auto) (0.1-1.2) % Neut # (Auto) (1.78-5.38) K/mm3 Lymph # (Auto) (1.32-3.57) K/mm3 Robeson # (Auto) (0.30-0.82) K/mm3 Eos # (Auto) (0.04-0.54) K/mm3 Baso # (Auto) (0.01-0.08) K/mm3 Manual Slide Review PT (9.7-11.7) SECONDS INR APTT (22-31) SECONDS D-Dimer, Quantitative 3.26 H (0.19-0.50) mg/L Puncture Site ABG pH (7.35-7.45) ABG pCO2 (35.0-45.0) mmHg ABG pO2 (80.0-100.0) mmHg ABG HCO3 (22.0-26.0) meq/L ABG O2 Saturation (96.0-97.0) % ABG Base Excess (-2-2.0) A-a Gradient mmHg O2 Delivery Device Oxygen Flow Rate FiO2 (21.00-100.00) % Sodium (136-145) mEq/L Potassium (3.5-5.1) mEq/L Chloride (98-107) mEq/L Carbon Dioxide (21-32) mEq/L Anion Gap (5-15) BUN (7-18) mg/dL Creatinine (0.7-1.3) mg/dL Est Cr Clr Drug Dosing mL/min Estimated GFR (MDRD) (>60) mL/min BUN/Creatinine Ratio (14-18) Glucose (83-115) mg/dL Lactic Acid (0.4-2.0) mmol/L Calcium (8.5-10.1) mg/dL Magnesium (1.8-2.4) mg/dl Ferritin 414 H (26-388) ng/ml Total Bilirubin (0.2-1.0) mg/dL AST (15-37) U/L ALT (16-63) U/L Alkaline Phosphatase (46-116) U/L Lactate Dehydrogenase (85-227) U/L CK-MB (CK-2) (0-3.6) ng/ml Troponin I (0.00-0.056) ng/mL C-Reactive Protein (<1.0) mg/dL NT-Pro-B Natriuret Pep 472 H (0-125) pg/mL Total Protein (6.4-8.2) g/dl Albumin (3.4-5.0) g/dl Globulin gm/dL Albumin/Globulin Ratio (1-2) 02/18/20 02/18/20 Range/Units 11:30 12:15 WBC (4.23-9.07) K/mm3 RBC (4.63-6.08) M/mm3 Hgb (13.7-17.5) gm/dl Hct (40.1-51.0) % MCV (79.0-92.2) fl MCH (25.7-32.2) pg MCHC (32.2-35.5) g/dl RDW Std Deviation (35.1-43.9) fL Plt Count (163-337) K/mm3 MPV (9.4-12.3) fl Neut % (Auto) (34.0-67.9) % Lymph % (Auto) (21.8-53.1) % Robeson % (Auto) (5.3-12.2) % Eos % (Auto) (0.8-7.0) Baso % (Auto) (0.1-1.2) % Neut # (Auto) (1.78-5.38) K/mm3 Lymph # (Auto) (1.32-3.57) K/mm3 Robeson # (Auto) (0.30-0.82) K/mm3 Eos # (Auto) (0.04-0.54) K/mm3 Baso # (Auto) (0.01-0.08) K/mm3 Manual Slide Review PT (9.7-11.7) SECONDS INR APTT (22-31) SECONDS D-Dimer, Quantitative (0.19-0.50) mg/L Puncture Site Rt radial ABG pH 7.49 H (7.35-7.45) ABG pCO2 30.6 L (35.0-45.0) mmHg ABG pO2 68.0 L (80.0-100.0) mmHg ABG HCO3 23.3 (22.0-26.0) meq/L ABG O2 Saturation 94.2 L (96.0-97.0) % ABG Base Excess 1.0 (-2-2.0) A-a Gradient 151 mmHg O2 Delivery Device Nasal cannula Oxygen Flow Rate 4.0 FiO2 36.00 (21.00-100.00) % Sodium (136-145) mEq/L Potassium (3.5-5.1) mEq/L Chloride (98-107) mEq/L Carbon Dioxide (21-32) mEq/L Anion Gap (5-15) BUN (7-18) mg/dL Creatinine (0.7-1.3) mg/dL Est Cr Clr Drug Dosing mL/min Estimated GFR (MDRD) (>60) mL/min BUN/Creatinine Ratio (14-18) Glucose (83-115) mg/dL Lactic Acid 1.3 (0.4-2.0) mmol/L Calcium (8.5-10.1) mg/dL Magnesium (1.8-2.4) mg/dl Ferritin (26-388) ng/ml Total Bilirubin (0.2-1.0) mg/dL AST (15-37) U/L ALT (16-63) U/L Alkaline Phosphatase (46-116) U/L Lactate Dehydrogenase (85-227) U/L CK-MB (CK-2) (0-3.6) ng/ml Troponin I (0.00-0.056) ng/mL C-Reactive Protein (<1.0) mg/dL NT-Pro-B Natriuret Pep (0-125) pg/mL Total Protein (6.4-8.2) g/dl Albumin (3.4-5.0) g/dl Globulin gm/dL Albumin/Globulin Ratio (1-2) Meds: Medications Generic Name Dose Route Start Last Admin Trade Name Freq PRN Reason Stop Dose Admin Dextrose/Sodium Chloride 1,000 mls @ 125 mls/hr 02/18/20 11:45 02/18/20 11:55 Dextrose 5%-Normal Saline IV 125 mls/hr ASDIRECTED SERGIO Administration Remdesivir 200 mg/ Sodium 250 mls @ 250 mls/hr 02/18/20 13:45 02/18/20 13:51 Chloride IV 02/18/20 14:44 250 mls/hr ONETIME ONE Administration Discontinued Medications Generic Name Dose Route Start Last Admin Trade Name Freq PRN Reason Stop Dose Admin Acetaminophen 975 mg 02/18/20 11:45 02/18/20 11:59 Tylenol PO 02/18/20 11:46 975 mg ONETIME ONE Administration Dexamethasone 6 mg 02/18/20 11:35 02/18/20 11:59 Dexamethasone IVPUSH 02/18/20 11:36 6 mg ONETIME ONE Administration - Radiology Interpretation Free Text/Narrative:: 74-year-old male presents to the ED due to increased shortness of breath at rest. Patient believes symptoms started about 4 days ago with fever chills body aches and mild headache. This progressed to anorexia over the last 48 hours he is hardly eaten anything. Associated loose diarrhea stools x2 or 3 daily mainly yellow in color without any blood. Increased productive cough with whitish sputum production over the last 48 hours. Patient is not normally on oxygen at home. O2 sat 70% at the time of admission to the ED. Improved to 90% on 4 L/min by nasal cannula. Lungs reveal diffuse wheezing throughout all lung valladares with decreased air entry to both lower lung valladares due to COPD. Patient will be given dexamethasone 6 mg IV bolus. Routine labs including COVID labs to be done. Patient was screened for COVID 2 days ago and found out this morning that he is COVID positive. Patient will be given Tylenol 975 mg p.o. for fever relief. The patient is going to require hospitalization. Our hospital is currently on diversion. I will contact hospitals in [place] to see if there is a bed available. - Re-Assessments/Exams Free Text/Narrative Re-Assessment/Exam: 02/18/20 12:30 White count is 6.73 with 82% neutrophils on the auto differential. Hemoglobin 12.5 with hematocrit of 39.0. Platelet count 287,000. Platelet count is 187,000. PT is 11.0 with an INR of 1.03. PTT is 29 d-dimer is elevated at 3.26. ABGs revealed a pH of 7.49 with a PCO2 of 30.6. PO2 is 68.0 saturations 94% on 4 L of oxygen per nasal cannula. 02/18/20 12:52 Chemistry reveals a sodium 139 potassium 4.0 chloride 101 with a bicarb of 27. Anion gap is 15.0. BUN is 23 with a creatinine of 1.3. GFR is ported to be 54. Glucose 110 with a calcium of 9.3. Magnesium slightly low at 1.6. Ferritin is elevated at 414. Liver function is normal with slightly elevated AST at 61. LDH slightly elevated at 301. CK-MB fraction is 0.5 with a troponin I of less than 0.017. C-reactive protein is elevated at 10.5. BNP elevated at 472. Total protein is 7.2 with a low albumin fraction of 2.9. X- ray reveals infiltrate left lower lobe and right middle lobe and portions of the inferior aspect of the right upper lobe. Moderate cardiomegaly appreciated. No pleural effusions. Patient will be transferred to [facility] per ground ambulance. 02/18/20 13:20: 2 sats remained 91 to 93% on 4 L/min by nasal cannula. Patient remains febrile. He is a candidate for Merrem to severe and he will be given initial dose 200 mg IV in the ED. Ambulance believes they now have ability to transfer him to [facility] in [place]. Patient has been accepted by hospitalist Dr. 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 CRP is elevated at 10.5. 02/18/20 14:00: I have discussed the case with patient's (Abby) whom is a retired ER nurse. Decays that he was started on prednisone 40 mg once daily in the morning 2 days ago through the clinic. He was also started on antibiotic doxycycline 100 mg twice daily for 5 days which the patient has not yet completed. He is using DuoNeb treatments every 6 hours via his home nebulizer. This is been increased from 3 times daily. Departure - Departure Time of Disposition: 14:11 Disposition: DC/Tfer to [facility] 02 Condition: Serious Clinical Impression: COVID-19 determined by clinical diagnostic criteria Respiratory failure with hypoxia Qualifiers: Chronicity: acute Qualified Code(s): J96.01 - Acute respiratory failure with hypoxia Fever Qualifiers: Fever type: due to other condition Qualified Code(s): R50.81 - Fever presenting with conditions classified elsewhere - Discharge Information Referrals: Sigifredo Thompson MD [Primary Care Provider] - Forms: ED Department Discharge Additional Instructions: Patient transferred to [facility] in [place] with diagnosis of COVID-19 illness through [facility] notifying the patient today. He was tested to the clinic 2 days ago. Patient has a history of COPD without need for home oxygen use. His indicates that he still sneaks the occasional cigarette 1 or 2 cigarettes/day. Recently he was started on prednisone 40 mg once daily according to his when he was seen through the clinic 2 days ago and also his DuoNeb was increased to 1 Nebules at home every 6 hours or 4 times daily. He was also started on doxycycline 100 mg twice daily for 5 days and he has not yet completed that prescription. This was for acute on chronic bronchitis which proved to be COVID. Patient is in respiratory failure at the time of evaluation in the emergency room with O2 sats of 70%. He has received 6 mg of dexamethasone IV bolus and first dose of REM to severe 200 mg. Sepsis Event Note (ED) - Evaluation Sepsis Screening Result: Possible Sepsis Risk - Focused Exam Vital Signs: Vital Signs Temp Pulse Resp BP Pulse Ox Pulse Ox 02/18/20 13:38 37.4 C 92 24 H 91/63 90 L 02/18/20 11:22 92 L 02/18/20 11:13 37.2 C 108 H 28 H 118/80 70 L - My Orders Last 24 Hours: My Active Orders 02/18/20 11:32 EKG Documentation Completion [RC] STAT Chest 1V Frontal [CR] Stat 02/18/20 11:33 Oxygen Therapy [RC] ASDIRECTED 02/18/20 11:34 EKG Documentation Completion [RC] STAT URINALYSIS W/MICROSCOPIC [UA W/MICROSCOPIC] [URIN] Stat Blood Culture x2 Reflex Set [OM.PC] Stat 02/18/20 11:45 Dextrose 5%-0.9% NaCl [Dextrose 5%-Normal Saline] 1,000 ml IV ASDIRECTED 02/18/20 12:16 CULTURE BLOOD [BC] Stat 02/18/20 12:31 CULTURE BLOOD [BC] Stat 02/18/20 13:45 Remdesivir (Eua) [Remdesivir (EUA)] 200 mg Sodium Chloride 0.9% [Normal Saline] 250 ml IV ONETIME - Assessment/Plan Last 24 Hours: My Active Orders 02/18/20 11:32 EKG Documentation Completion [RC] STAT Chest 1V Frontal [CR] Stat 02/18/20 11:33 Oxygen Therapy [RC] ASDIRECTED 02/18/20 11:34 EKG Documentation Completion [RC] STAT URINALYSIS W/MICROSCOPIC [UA W/MICROSCOPIC] [URIN] Stat Blood Culture x2 Reflex Set [OM.PC] Stat 02/18/20 11:45 Dextrose 5%-0.9% NaCl [Dextrose 5%-Normal Saline] 1,000 ml IV ASDIRECTED 02/18/20 12:16 CULTURE BLOOD [BC] Stat 02/18/20 12:31 CULTURE BLOOD [BC] Stat 02/18/20 13:45 Remdesivir (Eua) [Remdesivir (EUA)] 200 mg Sodium Chloride 0.9% [Normal Saline] 250 ml IV ONETIME
[2020-02-18] MEDS ORDERED: Dexamethasone 10 MG/ML SDV IVPUSH ONE (11:35)
[2020-02-18] MEDS ORDERED: Acetaminophen 325 MG Tab PO ONE (11:45)
[2020-02-18] MEDS ORDERED: Dextrose 5%-0.9% NaCl 1,000 ML IV SCH (11:45)
[2020-02-18 14:21] VITALS: BP 99/67; PULSE 81
== END 2020-02-18 14:21 ==
LOC: JD.ED 11:01
DX: J96.01 Acute respiratory failure with hypoxia (principal); U07.1 COVID-19; E78.00 Pure hypercholesterolemia, unspecified; J44.9 Chronic obstructive pulmonary disease, unspecified; N40.0 Benign prostatic hyperplasia without lower urinary tract symptoms; F32.9 Major depressive disorder, single episode, unspecified; Z88.8 Allergy status to other drugs, medicaments and biological substances; Z79.899 Other long term (current) drug therapy; Z79.82 Long term (current) use of aspirin; Z79.01 Long term (current) use of anticoagulants
CPT/HCPCS: 36415; 36600; 71045; 80053; 82553; 82728; 82803; 83605; 83615; 83735; 83880; 84484; 85025; 85379; 85610; 85730; 86140; 87040; 93005; 94762; 96361; 96365; 96375; 99285; A9270; J1100; J7042; J7050; 93010

== ENCOUNTER 2020-10-09 13:45 | Emergency (ER) | payer OTHER ==
[2020-10-09 14:00] VITALS: PULSE 76
--- NOTE | 2020-10-09 14:23 | EDM.PDOC ---
ED HPI GENERAL MEDICAL PROBLEM - General Chief Complaint: Chest Pain Stated Complaint: CHEST PAIN Time Seen by Provider: 10/09/20 13:57 Source of Information: Reports: Patient, Family History Limitations: Reports: No Limitations - History of Present Illness INITIAL COMMENTS - FREE TEXT/NARRATIVE: Patient presents with the onset of chest pain this morning about 1030. He was out in the [place] for some nuts and bolts and had onset of left-sided chest pain that started radiating to the left neck and into the left arm and down to the about the elbow area. He decided to go home because it was lunchtime. He still had the discomfort and started to get worse to where it was about a 7 out of 10 pain heavy dull ache with some sharp characteristics associated with nausea no lightheadedness or fainting spell no diaphoresis had may be a little bit of feeling more short of breath although he does use oxygen up to 3 L/min for COPD and a history of Covid in the fall. He took 2 nitroglycerin and that did seem to help. He takes aspirin but usually at night did not take any today. Ate lunch and was not better and therefore comes in for evaluation. No fever chills or sweats no coughing or cold symptoms no sore throat or runny nose no vomiting or diarrhea no bowel problems no urinary symptoms such as burning or pain with urination no lower extremity swelling or calf pain. Left Chest Pain Score (Numeric/FACES): 4 - Related Data Allergies Allergy/AdvReac Type Severity Reaction Status Date / Time atorvastatin calcium AdvReac Muscle Verified 10/09/20 14:00 [From Lipitor] Aches Home Meds: Home Meds Albuterol [Proair HFA] 2 puff INH Q4H PRN 12/15/19 [History] Apixaban [Eliquis] 5 mg PO BID 12/15/19 [History] Docusate Sodium 100 mg PO TID PRN 12/15/19 [History] FLUoxetine [PROzac] 20 mg PO DAILY 12/15/19 [History] Metoprolol Succinate 12.5 mg PO QAM 12/15/19 [History] Mirtazapine 60 mg PO QPM 12/15/19 [History] Rosuvastatin Calcium 40 mg PO BEDTIME 12/15/19 [History] Tamsulosin HCl [Flomax] 0.4 mg PO DAILY 12/15/19 [History] Aspirin [Aspirin EC] 81 mg PO DAILY 12/16/19 [History] Budesonide/Formoterol Fumarate [Symbicort 80-4.5 MCG] 2 puff IH Q12H 12/16/19 [History] Lutein/Minerals/Vit A,C & E [Ocuvite] 1 tab PO DAILY 12/16/19 [History] Cholecalciferol (Vitamin D3) [Vitamin D3] 50 mcg PO DAILY 12/17/19 [History] Nicotine Polacrilex [Nicotine Lozenge] 2 mg BC ASDIRECTED PRN 12/17/19 [History] Nitroglycerin 0.4 mg SL ASDIRECTED 12/17/19 [History] Albuterol/Ipratropium [DuoNeb 3.0-0.5 MG/3 ML] 1 inh INH ASDIRECTED PRN 02/18/20 [History] Tiotropium [Spiriva HandiHaler] 1 inh INH DAILY 02/18/20 [History] Past Medical History HEENT History: Reports: Impaired Vision, Macular Degeneration Other HEENT History: Wears glasses Cardiovascular History: Reports: Aneurysm, Arrhythmia, High Cholesterol, Pacemaker, Other (See Below) Other Cardiovascular History: bradycardia.anuerysm repair 2019 Respiratory History: Reports: COPD, SOB Gastrointestinal History: Reports: GERD Genitourinary History: Reports: BPH, Urinary Incontinence Other Genitourinary History: bladder spasms Musculoskeletal History: Reports: Other (See Below) Other Musculoskeletal History: Injection in L) shoulder Neurological History: Reports: Migraines Psychiatric History: Reports: Addiction, Depression, PTSD Other Psychiatric History: nightmares and went thru treatment and feels it has helped. alcoholism Endocrine/Metabolic History: Reports: Obesity/BMI 30+ Hematologic History: Reports: Anticoagulation Therapy Immunologic History: Reports: None Oncologic (Cancer) History: Reports: Malignant Melanoma Other Oncologic History: melonoma cancer to back and surgically removed Dermatologic History: Reports: Melanoma Other Dermatologic History: sebaceous cyst to R cheek, Melanoma to back - Infectious Disease History Infectious Disease History: Reports: None, Novel Coronavirus - Past Surgical History HEENT Surgical History: Reports: Cataract Surgery Other HEENT Surgeries/Procedures: injections to R) eye Cardiovascular Surgical History: Reports: AAA Repair, Pacer Other Cardiovascular Surgeries/Procedures: PPM/ICD. GI Surgical History: Reports: Cholecystectomy, Colonoscopy, EGD, ERCP, Other (See Below) Other GI Surgeries/Procedures: hemorrhoid surgery Male Surgical History: Reports: None Neurological Surgical History: Reports: None Musculoskeletal Surgical History: Reports: Arthroscopic Knee Oncologic Surgical History: Reports: None Dermatological Surgical History: Reports: Other (See Below) Social & Family History - Family History Family Medical History: No Pertinent Family History Cardiac: Reports: [place] Other Cardiac Family History: Pt states his father had a couple heart attacks. Endocrine/Metabolic: Reports: Diabetes, type II Other Endocrine/Metabolic Family History: Pt states nobody in his family has DM II. RN unable to unchart DM II by P[employer]. Oncologic: Reports: Prostate, Other (See Below) Other Oncologic Family History: Pt states his bother has prostate CA with mets to back. - Tobacco Use Tobacco Use Status *Q: Current Every Day Tobacco User Years of Tobacco use: 50 Packs/Tins Daily: 0.1 - Caffeine Use Caffeine Use: Reports: None Other Caffeine Use: rarely - Recreational Drug Use Recreational Drug Use: No - Living Situation & Occupation Living situation: Reports: , with Spouse Occupation: Retired ED ROS GENERAL - Review of Systems Review Of Systems: See Below Constitutional: Denies: Fever, Chills, Diaphoresis HEENT: Denies: Rhinitis, Throat Pain Respiratory: Reports: Shortness of Breath, Pleuritic Chest Pain. Denies: Cough Cardiovascular: Reports: Chest Pain. Denies: Dyspnea on Exertion, Lightheadedness, Palpitations, Syncope GI/Abdominal: Reports: No Symptoms, Nausea. Denies: Diarrhea, Vomiting Skin: Reports: No Symptoms Neurological: Reports: No Symptoms, Paresthesia. Denies: Dizziness, Headache, Tingling Psychiatric: Reports: No Symptoms ED EXAM, GENERAL - Physical Exam Exam: See Below Exam Limited By: No Limitations General Appearance: Alert, WD/WN, No Apparent Distress Throat/Mouth: Normal Oropharynx Neck: Normal Inspection, Supple, Non-Tender Respiratory/Chest: No Respiratory Distress, Lungs Clear, Normal Breath Sounds Cardiovascular: Normal Peripheral Pulses, Regular Rate, Rhythm Peripheral Pulses: 2+: Radial (L), Radial (R) GI/Abdominal: Normal Bowel Sounds, Soft, Non-Tender Extremities: Normal Inspection, No Pedal Edema Neurological: Alert, Oriented, CN II-XII Intact, No Motor/Sensory Deficits Psychiatric: Normal Affect #1 Interpretation EKG Date: 10/09/20 Time: 13:57 Rhythm: NSR Rate (Beats/Min): 77 EKG Interpretation Comments: Reviewed EKG showing sinus rhythm rate of 77 ND 182 QRS is 84 QT corrected 433 low voltage inferior leads otherwise no acute ischemic changes are noted. Course - Vital Signs Text/Narrative:: Patient with chest pain left-sided rule out acute coronary syndrome he does have risk factors, will need to rule out a least acute coronary syndrome it sounds like he is been using nitroglycerin about once a week although seems like some of the symptoms are lasting a little longer now and requiring more than 1 dose of nitro. No acute EKG findings at present seems less likely acute aortic dissection or PE. He does have underlying lung disease rule out pneumonia pleurisy or other etiologies as well. Last Recorded V/S: Last Vital Signs Temp 97.5 F 10/09/20 13:56 Pulse 76 10/09/20 13:56 Resp 20 10/09/20 13:56 BP 100/60 10/09/20 14:45 Pulse Ox 96 10/09/20 13:56 - Orders/Labs/Meds Orders: Active Orders 24 hr Category Date Time Status Cardiac Monitoring [RC] . DIRECTED Care 10/09/20 14:25 Active EKG 12 Lead [EKG Documentation Completion] [RC] STAT Care 10/09/20 14:21 Active TROPONIN I [CHEM] Stat Lab 10/09/20 17:15 Ordered Sodium Chloride 0.9% [Normal Saline] 1,000 ml Med 10/09/20 14:27 Active IV ONETIME Sodium Chloride 0.9% [Normal Saline] 100 ml Med 10/09/20 17:00 Active IV ASDIRECTED Medication Orders Sodium Chloride (Normal Saline) 1,000 mls @ 250 mls/hr IV ONETIME ONE Stop: 10/09/20 18:26 Last Admin: 10/09/20 14:45 Dose: 250 mls/hr Documented by: EAMON Sodium Chloride (Normal Saline) 100 mls @ 60 mls/hr IV ASDIRECTED SERGIO Labs: Laboratory Tests 10/09/20 10/09/20 10/09/20 Range/Units 14:04 14:04 14:04 WBC 9.39 H (4.23-9.07) K/mm3 RBC 4.35 L (4.63-6.08) M/mm3 Hgb 12.8 L (13.7-17.5) gm/dl Hct 40.2 (40.1-51.0) % MCV 92.4 H (79.0-92.2) fl MCH 29.4 (25.7-32.2) pg MCHC 31.8 L (32.2-35.5) g/dl RDW Std Deviation 59.8 H (35.1-43.9) fL Plt Count 237 (163-337) K/mm3 MPV 9.9 (9.4-12.3) fl Neut % (Auto) 75.5 H (34.0-67.9) % Lymph % (Auto) 14.9 L (21.8-53.1) % [place] % (Auto) 8.0 (5.3-12.2) % Eos % (Auto) 1.3 (0.8-7.0) Baso % (Auto) 0.1 (0.1-1.2) % Neut # (Auto) 7.09 H (1.78-5.38) K/mm3 Lymph # (Auto) 1.40 (1.32-3.57) K/mm3 [place] # (Auto) 0.75 (0.30-0.82) K/mm3 Eos # (Auto) 0.12 (0.04-0.54) K/mm3 Baso # (Auto) 0.01 (0.01-0.08) K/mm3 D-Dimer, Quantitative (0.19-0.50) mg/L Sodium 142 (136-145) mEq/L Potassium 4.5 (3.5-5.1) mEq/L Chloride 106 (98-107) mEq/L Carbon Dioxide 25 (21-32) mEq/L Anion Gap 15.5 H (5-15) BUN 27 H (7-18) mg/dL Creatinine 1.3 (0.7-1.3) mg/dL Est Cr Clr Drug Dosing 56.34 mL/min Estimated GFR (MDRD) 54 (>60) mL/min BUN/Creatinine Ratio 20.8 H (14-18) Glucose 116 H (70-99) mg/dL Calcium 9.0 (8.5-10.1) mg/dL Total Bilirubin 0.5 (0.2-1.0) mg/dL AST 20 (15-37) U/L ALT 29 (16-63) U/L Alkaline Phosphatase 72 (46-116) U/L Troponin I < 0.017 (0.00-0.056) ng/mL C-Reactive Protein 0.5 (<1.0) mg/dL NT-Pro-B Natriuret Pep 167 H (0-125) pg/mL Total Protein 7.5 (6.4-8.2) g/dl Albumin 3.6 (3.4-5.0) g/dl Globulin 3.9 gm/dL Albumin/Globulin Ratio 0.9 L (1-2) Lipase 144 (73-393) U/L 10/09/20 Range/Units 14:38 WBC (4.23-9.07) K/mm3 RBC (4.63-6.08) M/mm3 Hgb (13.7-17.5) gm/dl Hct (40.1-51.0) % MCV (79.0-92.2) fl MCH (25.7-32.2) pg MCHC (32.2-35.5) g/dl RDW Std Deviation (35.1-43.9) fL Plt Count (163-337) K/mm3 MPV (9.4-12.3) fl Neut % (Auto) (34.0-67.9) % Lymph % (Auto) (21.8-53.1) % [place] % (Auto) (5.3-12.2) % Eos % (Auto) (0.8-7.0) Baso % (Auto) (0.1-1.2) % Neut # (Auto) (1.78-5.38) K/mm3 Lymph # (Auto) (1.32-3.57) K/mm3 [place] # (Auto) (0.30-0.82) K/mm3 Eos # (Auto) (0.04-0.54) K/mm3 Baso # (Auto) (0.01-0.08) K/mm3 D-Dimer, Quantitative 2.18 H (0.19-0.50) mg/L Sodium (136-145) mEq/L Potassium (3.5-5.1) mEq/L Chloride (98-107) mEq/L Carbon Dioxide (21-32) mEq/L Anion Gap (5-15) BUN (7-18) mg/dL Creatinine (0.7-1.3) mg/dL Est Cr Clr Drug Dosing mL/min Estimated GFR (MDRD) (>60) mL/min BUN/Creatinine Ratio (14-18) Glucose (70-99) mg/dL Calcium (8.5-10.1) mg/dL Total Bilirubin (0.2-1.0) mg/dL AST (15-37) U/L ALT (16-63) U/L Alkaline Phosphatase (46-116) U/L Troponin I (0.00-0.056) ng/mL C-Reactive Protein (<1.0) mg/dL NT-Pro-B Natriuret Pep (0-125) pg/mL Total Protein (6.4-8.2) g/dl Albumin (3.4-5.0) g/dl Globulin gm/dL Albumin/Globulin Ratio (1-2) Lipase (73-393) U/L White blood cell count 9.3 hemoglobin 12.8 hematocrit of 40.2 platelet count is 237,000 sodium 142 potassium 4.5 chloride 106 CO2 is 25 BUN 27 creatinine 1.3 GFR 54 glucose 116 troponin negative LFTs are normal CRP is negative D-dimer 2.18 base 144 Meds: Medications Generic Name Dose Route Start Last Admin Trade Name Freq PRN Reason Stop Dose Admin Sodium Chloride 1,000 mls @ 250 mls/hr 10/09/20 14:27 10/09/20 14:45 Normal Saline IV 10/09/20 18:26 250 mls/hr ONETIME ONE Administration Sodium Chloride 100 mls @ 60 mls/hr 10/09/20 17:00 Normal Saline IV ASDIRECTED SERGIO Discontinued Medications Generic Name Dose Route Start Last Admin Trade Name Freq PRN Reason Stop Dose Admin Aspirin 324 mg 10/09/20 14:26 10/09/20 14:45 Aspirin 81 Mg Tab.Chew PO 10/09/20 14:27 324 mg ONETIME ONE Administration Iopamidol 100 ml 10/09/20 16:55 Iopamidol 755 Mg/Ml 100 Ml Bottle IVPUSH 10/09/20 16:56 ONETIME ONE Nitroglycerin 0.3 mg 10/09/20 14:26 10/09/20 14:45 Nitroglycerin 0.3 Mg Tab.Sl SL 10/09/20 14:27 0.3 mg ONETIME ONE Administration Sodium Chloride 10 ml 10/09/20 16:55 Sodium Chloride 0.9% 10 Ml Syringe FLUSH 10/09/20 16:56 ONETIME ONE - Radiology Interpretation Free Text/Narrative:: CT chest angiogram is only showing emphysema no acute pulmonary embolism noted. Portable chest x-ray is nothing acute - Re-Assessments/Exams Free Text/Narrative Re-Assessment/Exam: 10/09/20 17:31 Patient has been doing well no further chest pain or neck pain or symptoms. We will get a check in troponin if negative will plan discharge home however recommend he follow-up with his primary care and may need stress test. Blood pressure is 131/97 pulse is 91 sats are 96% on room air. Departure - Departure Time of Disposition: 17:40 Disposition: Home, Self-Care 01 Condition: Fair Clinical Impression: Chest pain in adult Referrals: Sigifredo Thompson MD [Primary Care Provider] - Forms: ED Department Discharge Additional Instructions: Recommend patient follow-up with his primary care this week recommend a stress test as an outpatient. Continue to take his normal medications and return if any increasing chest pain especially not relieved with nitro, lightheadedness dizziness short of breath or worsening symptoms. Sepsis Event Note (ED) - Evaluation Sepsis Screening Result: No Definite Risk - Focused Exam Vital Signs: Vital Signs Temp Pulse Resp BP BP Pulse Ox 10/09/20 14:45 100/60 10/09/20 13:56 97.5 F 76 20 115/75 96 - My Orders Last 24 Hours: My Active Orders 10/09/20 14:21 EKG 12 Lead [EKG Documentation Completion] [RC] STAT 10/09/20 14:25 Cardiac Monitoring [RC] . DIRECTED 10/09/20 14:27 Sodium Chloride 0.9% [Normal Saline] 1,000 ml IV ONETIME 10/09/20 17:00 Sodium Chloride 0.9% [Normal Saline] 100 ml IV ASDIRECTED 10/09/20 17:15 TROPONIN I [CHEM] Stat - Assessment/Plan Last 24 Hours: My Active Orders 10/09/20 14:21 EKG 12 Lead [EKG Documentation Completion] [RC] STAT 10/09/20 14:25 Cardiac Monitoring [RC] . DIRECTED 10/09/20 14:27 Sodium Chloride 0.9% [Normal Saline] 1,000 ml IV ONETIME 10/09/20 17:00 Sodium Chloride 0.9% [Normal Saline] 100 ml IV ASDIRECTED 10/09/20 17:15 TROPONIN I [CHEM] Stat
[2020-10-09] MEDS ORDERED: Aspirin 81 MG Tab.Chew PO ONE (14:26)
[2020-10-09] MEDS ORDERED: Nitroglycerin 0.3 MG Tab.SL SL ONE (14:26)
[2020-10-09] MEDS ORDERED: Sodium Chloride 0.9% 1,000 ML IV ONE (14:27)
[2020-10-09 14:47] VITALS: BP 100/60
--- NOTE | 2020-10-09 14:57 | CR ---
Chest: Portable view of the chest was obtained. Comparison: Prior chest x-ray of 12/17/19. Heart size is normal. Tortuous thoracic aorta is seen. Pacemaker is noted. Slight parenchymal density is seen within the left lung base. This is either due to early area of pneumonia or an area of atelectasis. Lungs otherwise are clear. Bony structures are grossly intact. Impression: 1. Slight density within the left lung base either due to atelectasis or early area of pneumonia if patient has correlating symptoms. 2. Other portions of the chest are stable from prior exam. Diagnostic code #3
[2020-10-09] MEDS ORDERED: Sodium Chloride 0.9% 10 ML Syringe FLUSH ONE (16:55)
[2020-10-09] MEDS ORDERED: Iopamidol 755 Mg/ML 100 ML Bottle IVPUSH ONE (16:55)
[2020-10-09] MEDS ORDERED: Sodium Chloride 0.9% 100 ML IV SCH (17:00)
--- NOTE | 2020-10-09 17:23 | CT ---
CT chest Technique: Multiple axial sections through the chest were obtained. Intravenous contrast was utilized. Study has been performed as a pulmonary angiogram protocol. Findings: Pulmonary arteries are well-opacified. No filling defects are seen to indicate pulmonary embolism. Thoracic aorta shows atherosclerotic calcification with no aneurysm. No mediastinal adenopathy is seen. Moderately prominent coronary artery calcification is noted. No pericardial thickening is seen. Small cyst is noted within the upper right kidney measuring 1.6 cm. Prior cholecystectomy is noted. Emphysematous changes are seen within both lungs. Slight parenchymal density is seen within the right lung base most likely due to fibrosis. Mild fibrosis is also felt to be present within the left base and lingula. Bone window settings were reviewed which show scattered disc space narrowing and spurring within the spine. No acute osseous abnormality is appreciated. Bichamber pacemaker is also noted. Impression: 1. Emphysematous change. Mild basilar fibrosis is felt to be present. 2. No findings of pulmonary embolism. 3. Coronary artery calcification and other findings as noted above. Nothing acute is appreciated. Diagnostic code #3
== END 2020-10-09 18:02 | disposition home or self-care (01) ==
LOC: JD.ED 13:45
DX: R07.9 Chest pain, unspecified (principal); E78.00 Pure hypercholesterolemia, unspecified; J44.9 Chronic obstructive pulmonary disease, unspecified; K21.9 Gastro-esophageal reflux disease without esophagitis; Z79.01 Long term (current) use of anticoagulants; Z79.899 Other long term (current) drug therapy; Z79.82 Long term (current) use of aspirin; E66.9 Obesity, unspecified; Z68.30 Body mass index [BMI] 30.0-30.9, adult; Z86.16 Personal history of COVID-19; Z72.0 Tobacco use; Z88.8 Allergy status to other drugs, medicaments and biological substances
CPT/HCPCS: 36415; 71045; 71275; 80053; 83690; 83880; 84484; 85025; 85379; 86140; 93005; 99285; A9270; J7030; 93010; 99284

== ENCOUNTER 2020-11-17 10:26 | Emergency (ER) | payer OTHER ==
[2020-11-17 10:45] VITALS: BP 106/79; PULSE 73
--- NOTE | 2020-11-17 11:09 | EDM.PDOC ---
ED HPI GENERAL MEDICAL PROBLEM - General Chief Complaint: Respiratory Problem Stated Complaint: DIZZY/SOB Time Seen by Provider: 11/17/20 11:08 Source of Information: Reports: Patient History Limitations: Reports: No Limitations - History of Present Illness INITIAL COMMENTS - FREE TEXT/NARRATIVE: 75-year-old male presents to the ED in the accompaniment of his who is a retired ER nurse. Patient is somewhat forgetful and is believed to have some early dementia. He suffered COVID-19 illness in February of last year and was in hospital for 17 days but survived. He is on home oxygen since that time at 3 L/min and he indicates lately he has been using 4 L/min. This morning he had a severe coughing episode and then produced a good amount of bright red hemoptysis. He coughed this up it did not come from his nose or not there was no hematemesis. He produced some bright red hemoptysis again in the ED. Of note the patient was identified on interrogation of his pacemaker about 6 weeks ago to be experiencing bouts of paroxysmal atrial fibrillation as high as 170 bpm. Due to his hypotension he was started on digoxin 0.125 mg once daily. Patient is on Eliquis 5 mg twice daily. Patient states he slept fairly well and seem to develop sudden onset of shortness of breath and coughing spell this morning. Patient does have significant COPD and is believed to still be sneaking the occasional cigarette. Past history of alcohol abuse as well. Patient does use DuoNeb via his home nebulizer usually 3 times daily and albuterol in between for dyspnea and wheezing. No recent fever or chills. Onset: Today, Sudden Onset Date: 11/17/20 Onset Time: 09:00 Duration: Hour(s):, Intermittent Location: Reports: Chest (Coughing up carlton blood after a severe coughing jag earlier this morning. Feels more short of breath as well) Quality: Reports: Other (Hemoptysis with increased dyspnea at rest) Severity: Moderate Improves with: Reports: Rest Worsens with: Reports: Other (Worse with coughing and walking.) Context: Reports: Other (Spontaneous development of carlton mopped assist after a coughing jag earlier this morning. Of note the patient is on Eliquis 5 mg twice daily and his did withhold this medication this morning. He was started because of interrogation of his pacemaker identified he was having paroxysmal atrial f). Denies: Activity, Exercise, Lifting, Sick Contact, Trauma Associated Symptoms: Reports: Cough, cough w sputum (Hemoptysis this morning with no sputum), Loss of Appetite, Malaise, Shortness of Breath (Running for him but worse today.). Denies: Confusion, Chest Pain, Diaphoresis, Fever/Chills, Headaches, Nausea/Vomiting, Rash, Seizure, Syncope, Weakness Treatments ASSISTANT CLINICAL NURSE MANAGER: Reports: Other (see below) (None.) - Related Data Allergies Allergy/AdvReac Type Severity Reaction Status Date / Time atorvastatin calcium AdvReac Muscle Verified 11/17/20 10:45 [From Lipitor] Aches Home Meds: Home Meds Albuterol [Proair HFA] 2 puff INH Q4H PRN 12/15/19 [History] Apixaban [Eliquis] 5 mg PO BID 12/15/19 [History] FLUoxetine [PROzac] 20 mg PO DAILY 12/15/19 [History] Metoprolol Succinate 12.5 mg PO QPM 12/15/19 [History] Mirtazapine 60 mg PO QPM 12/15/19 [History] Rosuvastatin Calcium 40 mg PO BEDTIME 12/15/19 [History] Tamsulosin HCl [Flomax] 0.4 mg PO DAILY 12/15/19 [History] Aspirin [Aspirin EC] 81 mg PO DAILY 12/16/19 [History] Budesonide/Formoterol Fumarate [Symbicort 80-4.5 MCG] 2 puff IH Q12H 12/16/19 [History] Lutein/Minerals/Vit A,C & E [Ocuvite] 1 tab PO DAILY 12/16/19 [History] Nicotine Polacrilex [Nicotine Lozenge] 2 mg BC ASDIRECTED PRN 12/17/19 [History] Nitroglycerin 0.4 mg SL ASDIRECTED 12/17/19 [History] Albuterol/Ipratropium [DuoNeb 3.0-0.5 MG/3 ML] 1 inh INH TID PRN 02/18/20 [History] Tiotropium [Spiriva HandiHaler] 1 inh INH QPM 02/18/20 [History] Digoxin [Lanoxin] 125 mcg PO DAILY 11/17/20 [History] Past Medical History HEENT History: Reports: Impaired Vision, Macular Degeneration Other HEENT History: Wears glasses Cardiovascular History: Reports: Aneurysm, Arrhythmia, High Cholesterol, Pacemaker, Other (See Below) Other Cardiovascular History: bradycardia.anuerysm repair 2019 Respiratory History: Reports: COPD, SOB Gastrointestinal History: Reports: GERD Genitourinary History: Reports: BPH, Urinary Incontinence Other Genitourinary History: bladder spasms Musculoskeletal History: Reports: Other (See Below) Other Musculoskeletal History: Injection in L) shoulder Neurological History: Reports: Migraines Psychiatric History: Reports: Addiction, Depression, PTSD Other Psychiatric History: nightmares and went thru treatment and feels it has helped. alcoholism Endocrine/Metabolic History: Reports: Obesity/BMI 30+ Hematologic History: Reports: Anticoagulation Therapy Immunologic History: Reports: None Oncologic (Cancer) History: Reports: Malignant Melanoma Other Oncologic History: melonoma cancer to back and surgically removed Dermatologic History: Reports: Melanoma Other Dermatologic History: sebaceous cyst to R cheek, Melanoma to back - Infectious Disease History Infectious Disease History: Reports: Novel Coronavirus - Past Surgical History HEENT Surgical History: Reports: Cataract Surgery Other HEENT Surgeries/Procedures: injections to R) eye Cardiovascular Surgical History: Reports: AAA Repair, Pacer Other Cardiovascular Surgeries/Procedures: PPM/ICD. GI Surgical History: Reports: Cholecystectomy, Colonoscopy, EGD, ERCP, Other (See Below) Other GI Surgeries/Procedures: hemorrhoid surgery Male Surgical History: Reports: None Neurological Surgical History: Reports: None Musculoskeletal Surgical History: Reports: Arthroscopic Knee Oncologic Surgical History: Reports: None Dermatological Surgical History: Reports: Other (See Below) Social & Family History - Family History Family Medical History: No Pertinent Family History Cardiac: Reports: SD Other Cardiac Family History: Pt states his father had a couple heart attacks. Endocrine/Metabolic: Reports: Diabetes, type II Other Endocrine/Metabolic Family History: Pt states nobody in his family has DM II. RN unable to unchart DM II by VETERINARY LABORATORY TECHNICIAN. Oncologic: Reports: Prostate, Other (See Below) Other Oncologic Family History: Pt states his bother has prostate CA with mets to back. - Tobacco Use Tobacco Use Status *Q: Former Tobacco User Used Tobacco, but Quit: Yes Month/Year Tobacco Last Used: 2019 - Caffeine Use Caffeine Use: Reports: Soda Other Caffeine Use: rarely - Recreational Drug Use Recreational Drug Use: No - Living Situation & Occupation Living situation: Reports: , with Spouse Occupation: Retired ED ROS GENERAL - Review of Systems Review Of Systems: See Below Constitutional: Reports: Malaise, Weakness, Fatigue, Decreased Appetite. Denies: Fever, Chills HEENT: Reports: Glasses, Hearing Loss (Primarily for reading mild bilateral hearing loss) Respiratory: Reports: Shortness of Breath, Wheezing, Cough, Sputum, Hemoptysis (Carlton mopped assist this morning after coughing spell. Has coughed up carlton blood on 4 5 occasions since that time.). Denies: Pleuritic Chest Pain Cardiovascular: Reports: Dyspnea on Exertion, Edema (Mild chronic dependent edema), Lightheadedness, Palpitations ( occasional.). Denies: Chest Pain (Usually some sputum first thing every morning.), Blood Pressure Problem (Tends to run low with current medications. He was started on digoxin due to his hypotension and need for rate control), Claudication, Orthopnea Endocrine: Reports: Fatigue ( Aware of palpitations intermittently) GI/Abdominal: Reports: Constipation. Denies: Hematochezia, Melena : Reports: Frequency, Other Musculoskeletal: Reports: Neck Pain, Shoulder Pain, Back Pain (Nocturia x3. Known BPH), Joint Pain Skin: Reports: Bruising (Is easily since he is on Eliquis 5 mg twice daily) Neurological: Reports: Confusion (Diagnosed with early dementia with), Dizziness ( very poor short-term memory), Headache, Difficulty Walking, Weakness. Denies: Numbness, Syncope, Tingling (Occasional headaches), Trouble Speaking (Walks with the aid of a walker.), Change in Speech Psychiatric: Reports: Anxiety, Depression, Other (Early organic brain disease) Hematologic/Lymphatic: Reports: Anemia, Easy Bruising (Since starting Eliquis.) Immunologic: Reports: No Symptoms ED EXAM, GENERAL - Physical Exam Exam: See Below Exam Limited By: Physical Impairment (Mildly hard of hearing. Also has mild short-term memory dysfunction.) General Appearance: Anxious, Mild Distress, Other (Patient has a fairly flat affect and is hard to read. Temperature was 36.3 with heart rate in the 70s. Respiratory was 22 with O2 sats of 93% on 3 L/min by nasal cannula. Blood pressure 106 on 79.) Eye Exam: Bilateral Eye: Normal Inspection (Mild blepharal pallor without scleral icterus.), PERRL Nose: Normal Inspection, Normal Mucosa, No Blood, Other (No evidence that he has been suffering from nosebleeds.) Throat/Mouth: Normal Inspection, Normal Lips, Normal Teeth, Normal Oropharynx, Other Head: Atraumatic (Lung is very dry and coated and he has yet to eat or drink yet today.), Normocephalic Neck: Normal Inspection, Supple, Limited Range of Motion (Crepitus on lateral rotation and flexion with loss of 10 degrees flexion and extension). No: Full Range of Motion ( and 10 degrees lateral rotation and flexion.), Carotid Bruit, Lymphadenopathy (L), Lymphadenopathy (R), Thyromegaly Respiratory/Chest: No Accessory Muscle Use, Chest Non-Tender, Respiratory Distress (Mild tachypnea.), Decreased Breath Sounds (Decreased breath sounds to lower 30% of lung valladares bilaterally.), Wheezing (Diffuse wheezing in all 5 lobes of lungs both on inspiration and expiration.). No: No Respiratory Distress, Lungs Clear, Normal Breath Sounds Cardiovascular: Regular Rate, Rhythm (Sinus rhythm on the monitor with no ectopic rhythm.), No Gallop, No Murmur (No murmur could be identified due to), No Rub ( marked adventitial sounds coming from his lungs.). No: Normal Peripheral Pulses, No Edema Peripheral Pulses: 1+: Posterior Tibial (L), Posterior Tibial (R), Dorsalis Pedis (L), Dorsalis Pedis (R), 2+: Carotid (L), Carotid (R) GI/Abdominal: Normal Bowel Sounds, Soft, Non-Tender, No Organomegaly, No Mass, Pelvis Stable, Other (Evidence of previous abdominal surgery for aortic aneurysm repair.) Back Exam: Decreased Range of Motion (Stiff lower back with difficulty standing fully erect.). No: CVA Tenderness (L), CVA Tenderness (R) Extremities: Normal Range of Motion, Non-Tender, Pedal Edema (2+ pitting edema both lower extremities.) Neurological: Alert, Oriented, CN II-XII Intact, Normal Cognition. No: Normal Gait (Not assessed) Psychiatric: Flat Affect Skin Exam: Warm, Dry, Intact, Normal Color, No Rash #1 Interpretation EKG Date: 11/17/20 Time: 10:36 Rhythm: NSR Rate (Beats/Min): 74 Bayard: LAD-Left Bayard Deviation (-60 degrees) P-Wave: Present QRS: Other (RSR prime wave noted in V1 V2 versus right ventricular perjury pattern. Decreased voltage both limb and precordial leads.) ST-T: Other (Nonspecific T wave flattening aVL in lead III) QT: Normal EKG Interpretation Comments: Abnormal ECG Course - Vital Signs Last Recorded V/S: Last Vital Signs Temp 36.3 C 11/17/20 10:39 Pulse 73 11/17/20 10:39 Resp 22 H 11/17/20 10:39 BP 106/79 11/17/20 10:39 Pulse Ox 94 L 11/17/20 11:22 - Orders/Labs/Meds Orders: Active Orders 24 hr Category Date Time Status Peripheral IV Insertion Adult [OM.PC] Stat Oth 11/17/20 11:18 Ordered Labs: Laboratory Tests 11/17/20 11/17/20 11/17/20 Range/Units 12:44 12:44 12:44 WBC 7.89 (4.23-9.07) K/mm3 RBC 4.01 L (4.63-6.08) M/mm3 Hgb 11.7 L (13.7-17.5) gm/dl Hct 38.0 L (40.1-51.0) % MCV 94.8 H (79.0-92.2) fl MCH 29.2 (25.7-32.2) pg MCHC 30.8 L (32.2-35.5) g/dl RDW Std Deviation 58.2 H (35.1-43.9) fL Plt Count 266 (163-337) K/mm3 MPV 8.7 L (9.4-12.3) fl Neut % (Auto) 70.8 H (34.0-67.9) % Lymph % (Auto) 20.0 L (21.8-53.1) % Petroleum % (Auto) 6.7 (5.3-12.2) % Eos % (Auto) 1.8 (0.8-7.0) Baso % (Auto) 0.3 (0.1-1.2) % Neut # (Auto) 5.59 H (1.78-5.38) K/mm3 Lymph # (Auto) 1.58 (1.32-3.57) K/mm3 Petroleum # (Auto) 0.53 (0.30-0.82) K/mm3 Eos # (Auto) 0.14 (0.04-0.54) K/mm3 Baso # (Auto) 0.02 (0.01-0.08) K/mm3 PT 11.0 (9.7-12.0) SECONDS INR 1.03 APTT 26.3 (21.7-31.4) SECONDS Sodium 144 (136-145) mEq/L Potassium 4.6 (3.5-5.1) mEq/L Chloride 109 H (98-107) mEq/L Carbon Dioxide 27 (21-32) mEq/L Anion Gap 12.6 (5-15) BUN 22 H (7-18) mg/dL Creatinine 1.2 (0.7-1.3) mg/dL Est Cr Clr Drug Dosing 61.03 mL/min Estimated GFR (MDRD) 59 (>60) mL/min BUN/Creatinine Ratio 18.3 H (14-18) Glucose 87 (70-99) mg/dL Calcium 9.0 (8.5-10.1) mg/dL Magnesium 2.1 (1.8-2.4) mg/dL Total Bilirubin 0.4 (0.2-1.0) mg/dL AST 20 (15-37) U/L ALT 29 (16-63) U/L Alkaline Phosphatase 71 (46-116) U/L Troponin I < 0.017 (0.00-0.056) ng/mL C-Reactive Protein <0.2 (<1.0) mg/dL NT-Pro-B Natriuret Pep (0-125) pg/mL Total Protein 7.3 (6.4-8.2) g/dl Albumin 3.3 L (3.4-5.0) g/dl Globulin 4.0 gm/dL Albumin/Globulin Ratio 0.8 L (1-2) Digoxin (0.9-2.0) ng/mL 11/17/20 11/17/20 Range/Units 12:44 12:44 WBC (4.23-9.07) K/mm3 RBC (4.63-6.08) M/mm3 Hgb (13.7-17.5) gm/dl Hct (40.1-51.0) % MCV (79.0-92.2) fl MCH (25.7-32.2) pg MCHC (32.2-35.5) g/dl RDW Std Deviation (35.1-43.9) fL Plt Count (163-337) K/mm3 MPV (9.4-12.3) fl Neut % (Auto) (34.0-67.9) % Lymph % (Auto) (21.8-53.1) % Petroleum % (Auto) (5.3-12.2) % Eos % (Auto) (0.8-7.0) Baso % (Auto) (0.1-1.2) % Neut # (Auto) (1.78-5.38) K/mm3 Lymph # (Auto) (1.32-3.57) K/mm3 Petroleum # (Auto) (0.30-0.82) K/mm3 Eos # (Auto) (0.04-0.54) K/mm3 Baso # (Auto) (0.01-0.08) K/mm3 PT (9.7-12.0) SECONDS INR APTT (21.7-31.4) SECONDS Sodium (136-145) mEq/L Potassium (3.5-5.1) mEq/L Chloride (98-107) mEq/L Carbon Dioxide (21-32) mEq/L Anion Gap (5-15) BUN (7-18) mg/dL Creatinine (0.7-1.3) mg/dL Est Cr Clr Drug Dosing mL/min Estimated GFR (MDRD) (>60) mL/min BUN/Creatinine Ratio (14-18) Glucose (70-99) mg/dL Calcium (8.5-10.1) mg/dL Magnesium (1.8-2.4) mg/dL Total Bilirubin (0.2-1.0) mg/dL AST (15-37) U/L ALT (16-63) U/L Alkaline Phosphatase (46-116) U/L Troponin I (0.00-0.056) ng/mL C-Reactive Protein (<1.0) mg/dL NT-Pro-B Natriuret Pep 136 H (0-125) pg/mL Total Protein (6.4-8.2) g/dl Albumin (3.4-5.0) g/dl Globulin gm/dL Albumin/Globulin Ratio (1-2) Digoxin 0.5 L (0.9-2.0) ng/mL Meds: Medications Discontinued Medications Generic Name Dose Route Start Last Admin Trade Name Freq PRN Reason Stop Dose Admin Albuterol/Ipratropium 3 ml 11/17/20 11:22 11/17/20 11:37 Albuterol/Ipratropium 3.0-0.5 Mg/3 Ml Neb Soln NEB 11/17/20 11:23 3 ml ONETIME ONE Administration Sodium Chloride 10 ml 11/17/20 11:18 11/17/20 12:38 Sodium Chloride 0.9% 10 Ml Syringe FLUSH 10 ml ASDIRECTED PRN Administration Keep Vein Open - Radiology Interpretation Free Text/Narrative:: 75-year-old male presents to the ED with a history of acute onset of dyspnea this morning associate with a severe paroxysmal coughing jag. He then developed significant hemoptysis of bright red in color. He did have further hemoptysis while in the ED. Of note the patient is on Eliquis 5 mg twice daily for paroxysmal atrial fibrillation when his pacemaker was interrogated. Dosage this morning has been withheld by the . Patient has a 55 to 60-year history of cigarette smoking. Plan we will do routine labs. Patient is maintained on oxygen at 3 L/min at all times and he has been using 4 L at times. Patient is diffusely wheezy on examination. He will receive DuoNeb now. Plan we will pursue CT of the chest without any contrast as his kidney function is likely to be poor. - Re-Assessments/Exams Free Text/Narrative Re-Assessment/Exam: 11/17/20 13:05 Labs are not yet available. CT of the chest without contrast has been performed. Pacemaker appreciated. Thoracic aorta shows atherosclerotic calcification without aneurysmal dilatation. Mediastinum shows no adenopathy. No axial adenopathy is seen. No pericardial thickening is noted. Cysts are noted within the kidneys. Prior cholecystectomy is appreciated. Visualized abdominal aorta shows slight aneurysmal dilatation of 3.8 cm in the AP dimensio n. Diffuse coronary artery calcification is appreciated. Diffuse emphysematous changes are present within both lungs. Slight scarring is noted within both lung bases which is stable. There is a small nodule being seen within the right lung base. This measures about 8 mm in size. This nodule has increased in size from the 2019 exam. Small nodules also noted within the subpleural location within the right middle lobe measuring 5 mm which is stable no other abnormality is seen within the chest. Bone window settings were reviewed which show no acute osseous abnormalities. No discrete intraluminal filling defect is seen within the visualized trachea. 11/17/20 13:09 On examination the patient has mild expiratory wheeze present now much improved after DuoNeb. Still awaiting his labs to make sure there is no component of heart failure. 11/17/20 13:49 White count is normal at 7.89. Differential shows 70% neutrophils on the auto differential. Hemoglobin slightly low at 11.7 with he matocrit of 38.0. Platelet count 266,000. PT is 11.0 with an INR of 1.03. PTT is 26.3. Sodium is 144 with a potassium of 4.6. Chloride 109 with a bicarb of 27. Anion gap is 12.6. BUN is 22 with a creatinine of 1.2 and a GFR of 59. Glucose is 87. Calcium is 9.0 with a magnesium of 2.1. Bilirubin is 0.4 the remainder the liver function is normal. Troponin I is less than 0.017. C-reactive protein less than 0.2 BNP is 136 normal. Total protein is 7.3 with an albumin fraction of 3.3. Serum digoxin is therapeutic at 0.5. 11/17/20 14:10 : I discussed the findings with the patient and his . I suspect his carlton mopped assist was from broken blood vessels in the upper bronchi or posterior oropharynx with increased bleeding due to being on Eliquis. There were no findings on the CT scan of the chest without contrast that were worrisome for a definitive bronchogenic carcinoma. Advised Eliquis to be placed on hold for the next 2 days as well as his aspirin for 5 days. He is in sinus rhythm at this time and was started on Eliquis for prophylaxis of paroxysmal atrial fibrillation. Advised he may experience some further carlton bleeding on coughing for the next day or so. After 48 hours however there should be no further bleeding. If further bleeding occurs after reinstituting the Eliquis he may well need further evaluation by box gluer for bronchoscopy. He has advised that there is a 8 mm nodule base of the right lung that requires CT follow-up in 3 to 4 months time as it is apparently growing slowly according to radiology report. At this time the patient would not be a candidate for any form of lung surgery at any rate. Departure - Departure Time of Disposition: 14:08 Disposition: Home, Self-Care 01 Condition: Fair Clinical Impression: Cough with hemoptysis - Discharge Information *PRESCRIPTION DRUG MONITORING PROGRAM REVIEWED*: Not Applicable *COPY OF PRESCRIPTION DRUG MONITORING REPORT IN PATIENT GABRIELLE: Not Applicable Instructions: Hemoptysis, [id number] Referrals: Sigifredo Thompson MD [Primary Care Provider] - Forms: ED Department Discharge Additional Instructions: Evaluation in the emergency room today in regards to coughing up carlton blood on multiple occasions this morning. As you indicated you had a coughing spell earlier this morning with no blood and then the blood showed up after this. Associated shortness of breath. History of emphysema and requirement for oxygen at 3 L/min at all times. Recently placed on Eliquis 5 mg twice daily for paroxysmal atrial fibrillation identified on interrogation of your pacemaker. You are in normal sinus rhythm on today's exam. Lab tests all proved to be normal with no evidence of heart related illness or heart failure to contribute to hemoptysis. Diffuse wheezing throughout all lung valladares appreciated on initial exam improved with DuoNeb treatment which you have at home. CT scan of the chest performed reveals no obvious source for the bleeding. There is a small nodule being seen within the right lung base that measures about 8 mm in size. This nodule has increased minimally from the 2019 exam. Small nodules also noted within the subpleural location within the right middle lobe measuring 5 mm which is unchanged from 2019. You therefore need a repeat CT scan of your chest in 4 to 6 months time to see if this nodule in the right lung base is growing at all due to past history of cigarette smoking. It is my impression that coughing spell this morning broke blood vessels in the upper airway which in turn bled vigorously due to being on Eliquis. Eliquis has been withheld this morning appropriately. It is my suggestion to hold it for the next 2 days and started again on Friday evening. Also suggest holding aspirin for the next 5 days. Expect a few further bouts of coughing up blood over the next 48 hours but after that there should be no further carlton blood loss. If there is you need to return to the hospital. Continue all other medications as previously prescribed Sepsis Event Note (ED) - Evaluation Sepsis Screening Result: No Definite Risk - Focused Exam Vital Signs: Vital Signs Temp Pulse Resp BP Pulse Ox Pulse Ox 11/17/20 11:22 94 L 11/17/20 10:39 36.3 C 73 22 H 106/79 93 L - My Orders Last 24 Hours: My Active Orders 11/17/20 11:18 Peripheral IV Insertion Adult [OM.PC] Stat - Assessment/Plan Last 24 Hours: My Active Orders 11/17/20 11:18 Peripheral IV Insertion Adult [OM.PC] Stat
[2020-11-17] MEDS ORDERED: Sodium Chloride 0.9% 10 ML Syringe FLUSH PRN (11:18)
[2020-11-17] MEDS ORDERED: Albuterol/Ipratropium 3.0-0.5 MG/3 ML Neb Soln NEB ONE (11:22)
--- NOTE | 2020-11-17 12:46 | CT ---
CT chest Technique: Multiple axial sections through the chest were obtained. Intravenous contrast was not utilized. Reconstructed coronal and sagittal images were obtained. Comparison: Prior chest CT study of 10/09/20 and 04/03/19. Findings: Pacemaker is noted. Thoracic aorta shows atherosclerotic calcification without aneurysmal dilatation. Mediastinum shows no adenopathy. No axillary adenopathy is seen. No pericardial thickening is noted. Cysts are noted within the kidneys. Prior cholecystectomy is noted. Visualized abdominal aorta shows slight aneurysmal dilatation of 3.8 cm in AP dimension. Coronary artery calcification is seen. Diffuse emphysematous changes are present within both lungs. Slight scarring is noted within both lung bases which is stable. There is a small nodule being seen within the right lung base. This measures about 8 mm in size. This nodule has increased in size from the 2019 exam. Small nodule is also noted within the subpleural location within the right middle lobe measuring 5 mm which is stable. No other acute abnormality is seen within the chest. Bone window settings were reviewed which show no acute osseous abnormality. No discrete intraluminal filling defect is seen within the visualized trachea. Impression: 1. 8 mm nodule within the right lung base increased in size from prior study of 2019. This could represent small area of neoplasm as well as increasing size of a benign nodule. 2. Stable 5 mm subpleural nodule within the right middle lobe. 3. Diffuse emphysematous change. 4. Partially visualized abdominal aortic aneurysm which was noted on prior CT study of 04/05/19 of the abdomen 5. Other findings as noted above which are stable. No other acute abnormality is appreciated. Diagnostic code #3
== END 2020-11-17 14:30 | disposition home or self-care (01) ==
LOC: JD.ED 10:26
DX: R04.2 Hemoptysis (principal); E78.00 Pure hypercholesterolemia, unspecified; J44.9 Chronic obstructive pulmonary disease, unspecified; K21.9 Gastro-esophageal reflux disease without esophagitis; E66.9 Obesity, unspecified; Z68.26 Body mass index [BMI] 26.0-26.9, adult; Z95.0 Presence of cardiac pacemaker; Z88.8 Allergy status to other drugs, medicaments and biological substances; Z79.01 Long term (current) use of anticoagulants; Z79.899 Other long term (current) drug therapy; Z86.16 Personal history of COVID-19
CPT/HCPCS: 36415; 71250; 71250-26; 80053; 80162; 83735; 83880; 84484; 85025; 85610; 85730; 86140; 93005; 93010; 94640; 99284; 99285-25; J7620-GY

== ENCOUNTER 2020-11-20 05:50 | Emergency (ER) | payer OTHER ==
[2020-11-20] MEDS ORDERED: Sodium Chloride 0.9% 10 ML Syringe FLUSH PRN (06:27)
[2020-11-20] MEDS ORDERED: Sodium Chloride 0.9% 1,000 ML IV ONE (06:28)
--- NOTE | 2020-11-20 06:52 | EDM.PDOC ---
<Amos Ramos Zak - Last Filed: 11/20/20 08:35> ED HPI GENERAL MEDICAL PROBLEM - General Chief Complaint: Respiratory Problem Stated Complaint: COUGHING UP BLOOD Time Seen by Provider: 11/20/20 06:02 - Related Data Allergies Allergy/AdvReac Type Severity Reaction Status Date / Time atorvastatin calcium AdvReac Muscle Verified 11/20/20 06:05 [From Lipitor] Aches Home Meds: Home Meds Albuterol [Proair HFA] 2 puff INH Q4H PRN 12/15/19 [History] Apixaban [Eliquis] 5 mg PO BID 12/15/19 [History] FLUoxetine [PROzac] 20 mg PO DAILY 12/15/19 [History] Metoprolol Succinate 12.5 mg PO QPM 12/15/19 [History] Mirtazapine 60 mg PO QPM 12/15/19 [History] Rosuvastatin Calcium 40 mg PO BEDTIME 12/15/19 [History] Tamsulosin HCl [Flomax] 0.4 mg PO DAILY 12/15/19 [History] Aspirin [Aspirin EC] 81 mg PO DAILY 12/16/19 [History] Budesonide/Formoterol Fumarate [Symbicort 80-4.5 MCG] 2 puff IH Q12H 12/16/19 [History] Lutein/Minerals/Vit A,C & E [Ocuvite] 1 tab PO DAILY 12/16/19 [History] Nicotine Polacrilex [Nicotine Lozenge] 2 mg BC ASDIRECTED PRN 12/17/19 [History] Nitroglycerin 0.4 mg SL ASDIRECTED 12/17/19 [History] Albuterol/Ipratropium [DuoNeb 3.0-0.5 MG/3 ML] 1 inh INH TID PRN 02/18/20 [History] Tiotropium [Spiriva HandiHaler] 1 inh INH QPM 02/18/20 [History] Digoxin [Lanoxin] 125 mcg PO DAILY 11/17/20 [History] Course - Re-Assessments/Exams Free Text/Narrative Re-Assessment/Exam: 11/20/20 07:40. Have assumed care from Dr Thomas at change of shift. No hemoptysis so far here in the ED but he had significant hemoptysis at home this Am as well as [address] at this hospital 3 days ago showed an 8 mm nodule R lung base increased in size form prior study of 2019. He had covid last February about 8 months ago with a 7 days hospital admission at that time. He has been on 24/7 O2 since that time. He does not feel any more short of breath than usual this at this time. Vitals are stable. O2 sat 93 %. CXR shows small area of increased lung markings R base and slightly increased lung markings L lung lung field. 11/20/20 07:50. WBC 8,000, Hgb 11.6, Plts 276,000. Chem nl. Covid screen, INR pending. Have called [facility] to arrange transfer, waiting for them to call me back. 11/20/20 08:19> He will go to the [facility] ED, Dr Herrera accepting Phys. We will send him by ground ambulance. Departure - Departure Time of Disposition: 08:15 Disposition: DC/Tfer to [facility] ([facility]3] Hospital 02 Condition: Serious Clinical Impression: Hemoptysis, Incidental lung nodule, greater than or equal to 8mm COPD (chronic obstructive pulmonary disease) Qualifiers: COPD type: unspecified COPD Qualified Code(s): J44.9 - Chronic obstructive pulmonary disease, unspecified - Discharge Information Referrals: Sigifredo Thompson MD [Primary Care Provider] - Forms: ED Department Discharge <Genoveva Thomas - Last Filed: 11/21/20 03:30> ED HPI GENERAL MEDICAL PROBLEM - General Source of Information: Reports: Patient, Family History Limitations: Reports: Other (Alzheimer's disease) - History of Present Illness INITIAL COMMENTS - FREE TEXT/NARRATIVE: Patient is a 75-year-old male brought in by his for having several bouts of hematemesis which woke him up from sleep this morning. Patient states his mouth filled with blood several times and he threw up numerous times at home this coming from his nose or stomach. Patient had exactly the same findings 3 days ago at which time he was seen in our emergency department and had a CAT scan showed a 8 mm nodule right lung base increased in size could represent an area of neoplasm. Patient is on Eliquis for atrial fibrillation. He was advised to stop the Eliquis which he did for 2 days after his previous ER visit but states she restarted yesterday afternoon he got a second dose yesterday evening. Patient is somewhat poor historian secondary to his Alzheimer's disease. He has complaints of anterior chest pain that is worse when he takes a deep breath. He denies being lightheaded or more short of breath than usual. Patient has O2 dependent COPD. Patient denies any bloody or tarry looking stools. He is also on the metoprolol and digoxin. Onset: Today, Sudden Duration: Resolved Prior to Arrival Location: Reports: Chest Quality: Reports: Ache Severity: Mild Improves with: Reports: None Worsens with: Reports: Breathing Associated Symptoms: Reports: Cough. Denies: Diaphoresis, Nausea/Vomiting, Shortness of Breath, Syncope Chest Pain Score (Numeric/FACES): 4 Past Medical History HEENT History: Reports: Impaired Vision, Macular Degeneration Other HEENT History: Wears glasses Cardiovascular History: Reports: Aneurysm, Arrhythmia, High Cholesterol, Pacemaker, Other (See Below) Other Cardiovascular History: bradycardia.anuerysm repair 2019 Respiratory History: Reports: COPD, SOB Gastrointestinal History: Reports: GERD Genitourinary History: Reports: BPH, Urinary Incontinence Other Genitourinary History: bladder spasms Musculoskeletal History: Reports: Other (See Below) Other Musculoskeletal History: Injection in L) shoulder Neurological History: Reports: Migraines Psychiatric History: Reports: Addiction, Depression, PTSD Other Psychiatric History: nightmares and went thru treatment and feels it has helped. alcoholism Endocrine/Metabolic History: Reports: Obesity/BMI 30+ Hematologic History: Reports: Anticoagulation Therapy Immunologic History: Reports: None Oncologic (Cancer) History: Reports: Malignant Melanoma Other Oncologic History: melonoma cancer to back and surgically removed Dermatologic History: Reports: Melanoma Other Dermatologic History: sebaceous cyst to R cheek, Melanoma to back - Infectious Disease History Infectious Disease History: Reports: Novel Coronavirus - Past Surgical History HEENT Surgical History: Reports: Cataract Surgery Other HEENT Surgeries/Procedures: injections to R) eye Cardiovascular Surgical History: Reports: AAA Repair, Pacer Other Cardiovascular Surgeries/Procedures: PPM/ICD. Other Respiratory Surgeries/Procedures: wears 02 constantly 3LNC GI Surgical History: Reports: Cholecystectomy, Colonoscopy, EGD, ERCP, Other (See Below) Other GI Surgeries/Procedures: hemorrhoid surgery Male Surgical History: Reports: None Neurological Surgical History: Reports: None Musculoskeletal Surgical History: Reports: Arthroscopic Knee Oncologic Surgical History: Reports: None Dermatological Surgical History: Reports: Other (See Below) Social & Family History - Family History Family Medical History: No Pertinent Family History Cardiac: Reports: [place] Other Cardiac Family History: Pt states his father had a couple heart attacks. Endocrine/Metabolic: Reports: Diabetes, type II Other Endocrine/Metabolic Family History: Pt states nobody in his family has DM II. RN unable to unchart DM II by [employer] INFORMATION OFFICER. Oncologic: Reports: Prostate, Other (See Below) Other Oncologic Family History: Pt states his bother has prostate CA with mets to back. - Tobacco Use Tobacco Use Status *Q: Never Tobacco User Used Tobacco, but Quit: No - Caffeine Use Caffeine Use: Reports: Soda Other Caffeine Use: rarely - Recreational Drug Use Recreational Drug Use: No - Living Situation & Occupation Living situation: Reports: , with Spouse Occupation: Retired ED ROS GENERAL - Review of Systems Review Of Systems: Comprehensive ROS is negative, except as noted in HPI. ED EXAM, GENERAL - Physical Exam Exam: See Below Exam Limited By: No Limitations General Appearance: Alert, No Apparent Distress Throat/Mouth: Normal Inspection Head: Normocephalic Neck: Normal Inspection, Supple Respiratory/Chest: No Respiratory Distress, Lungs Clear, Decreased Breath Sounds, Other (Patient has decreased breath sounds on his right lung area.) Cardiovascular: Regular Rate, Rhythm GI/Abdominal: Normal Bowel Sounds, Soft, Non-Tender, No Organomegaly Extremities: Normal Inspection, No Pedal Edema Neurological: Alert, CN II-XII Intact, Confused Psychiatric: Normal Mood Skin Exam: Warm, Dry, Normal Color Course - Vital Signs Last Recorded V/S: Last Vital Signs Temp 96.7 F L 11/20/20 08:38 Pulse 62 11/20/20 08:38 Resp 20 11/20/20 08:38 BP 113/84 11/20/20 08:38 Pulse Ox 96 11/20/20 08:38 At 7 AM care was transferred to Dr. Ramos due to change of shift. He is aware that I feel patient needs to be transferred to [facility] under the care I have a maintenance apprentice in case he rebleeds. We would be unable to do anything for him here or to control his bleeding. Patient's lab work is still pending at this point. Likely patient has not rebled in the department. - Orders/Labs/Meds Orders: Active Orders 24 hr Category Date Time Status Oxygen Therapy, ED [RC] ASDIRECTED Care 11/20/20 07:00 Active Peripheral IV Insertion Adult [OM.PC] Routine Oth 11/20/20 06:28 Ordered Labs: Laboratory Tests 11/20/20 11/20/20 11/20/20 Range/Units 06:28 06:28 06:28 WBC 8.03 (4.23-9.07) K/mm3 RBC 3.93 L (4.63-6.08) M/mm3 Hgb 11.6 L (13.7-17.5) gm/dl Hct 37.1 L (40.1-51.0) % MCV 94.4 H (79.0-92.2) fl MCH 29.5 (25.7-32.2) pg MCHC 31.3 L (32.2-35.5) g/dl RDW Std Deviation 59.5 H (35.1-43.9) fL Plt Count 276 (163-337) K/mm3 MPV 9.0 L (9.4-12.3) fl Neutrophils % (Manual) 68 H (40-60) % Band Neutrophils % 0 (0-10) % Lymphocytes % (Manual) 18 L (20-40) % Atypical Lymphs % 0 % Monocytes % (Manual) 12 H (2-10) % Eosinophils % (Manual) 2 (0.8-7.0) % Basophils % (Manual) 0 L (0.2-1.2) Platelet Estimate Adequate RBC Morph Comment Normal PT (9.7-12.0) SECONDS INR Sodium 146 H (136-145) mEq/L Potassium 4.2 (3.5-5.1) mEq/L Chloride 109 H (98-107) mEq/L Carbon Dioxide 26 (21-32) mEq/L Anion Gap 15.2 H (5-15) BUN 17 (7-18) mg/dL Creatinine 1.2 (0.7-1.3) mg/dL Est Cr Clr Drug Dosing 59.28 mL/min Estimated GFR (MDRD) 59 (>60) mL/min BUN/Creatinine Ratio 14.2 (14-18) Glucose 103 H (70-99) mg/dL Calcium 9.1 (8.5-10.1) mg/dL Total Bilirubin 0.4 (0.2-1.0) mg/dL AST 18 (15-37) U/L ALT 22 (16-63) U/L Alkaline Phosphatase 71 (46-116) U/L Total Protein 7.1 (6.4-8.2) g/dl Albumin 3.3 L (3.4-5.0) g/dl Globulin 3.8 gm/dL Albumin/Globulin Ratio 0.9 L (1-2) SARS-CoV-2 RNA (CARMEN) (NEGATIVE) Blood Type A POSITIVE Gel Antibody Screen Negative 11/20/20 11/20/20 Range/Units 06:28 07:17 WBC (4.23-9.07) K/mm3 RBC (4.63-6.08) M/mm3 Hgb (13.7-17.5) gm/dl Hct (40.1-51.0) % MCV (79.0-92.2) fl MCH (25.7-32.2) pg MCHC (32.2-35.5) g/dl RDW Std Deviation (35.1-43.9) fL Plt Count (163-337) K/mm3 MPV (9.4-12.3) fl Neutrophils % (Manual) (40-60) % Band Neutrophils % (0-10) % Lymphocytes % (Manual) (20-40) % Atypical Lymphs % % Monocytes % (Manual) (2-10) % Eosinophils % (Manual) (0.8-7.0) % Basophils % (Manual) (0.2-1.2) Platelet Estimate RBC Morph Comment PT 10.8 (9.7-12.0) SECONDS INR 1.01 Sodium (136-145) mEq/L Potassium (3.5-5.1) mEq/L Chloride (98-107) mEq/L Carbon Dioxide (21-32) mEq/L Anion Gap (5-15) BUN (7-18) mg/dL Creatinine (0.7-1.3) mg/dL Est Cr Clr Drug Dosing mL/min Estimated GFR (MDRD) (>60) mL/min BUN/Creatinine Ratio (14-18) Glucose (70-99) mg/dL Calcium (8.5-10.1) mg/dL Total Bilirubin (0.2-1.0) mg/dL AST (15-37) U/L ALT (16-63) U/L Alkaline Phosphatase (46-116) U/L Total Protein (6.4-8.2) g/dl Albumin (3.4-5.0) g/dl Globulin gm/dL Albumin/Globulin Ratio (1-2) SARS-CoV-2 RNA (CARMEN) Negative (NEGATIVE) Blood Type Gel Antibody Screen Meds: Medications Discontinued Medications Generic Name Dose Route Start Last Admin Trade Name Freq PRN Reason Stop Dose Admin Sodium Chloride 1,000 mls @ 500 mls/hr 11/20/20 06:28 11/20/20 06:45 Normal Saline IV 11/20/20 08:27 500 mls/hr ONETIME ONE Administration Sodium Chloride 10 ml 11/20/20 06:27 11/20/20 06:45 Sodium Chloride 0.9% 10 Ml Syringe FLUSH 10 ml ASDIRECTED PRN Administration Keep Vein Open Sepsis Event Note (ED) - Evaluation Sepsis Screening Result: No Definite Risk - My Orders Last 24 Hours: My Active Orders 11/20/20 06:28 Peripheral IV Insertion Adult [OM.PC] Routine - Assessment/Plan Last 24 Hours: My Active Orders 11/20/20 06:28 Peripheral IV Insertion Adult [OM.PC] Routine
[2020-11-20 09:01] VITALS: BP 113/84; PULSE 62
--- NOTE | 2020-11-20 13:09 | CR ---
Chest: Portable view of the chest was obtained. Comparison: Prior chest x-ray of 10/09/20. Heart size is normal. Tortuous thoracic aorta is seen. Pacemaker is present. Lung markings are diffusely increased which appear stable from prior exam. Mild degenerative change is seen within the spine. No acute osseous abnormality is appreciated. Impression: 1. Findings as described above which are stable from prior chest x-ray. 2. Nothing acute is otherwise seen on portable chest x-ray. Diagnostic code #2
== END 2020-11-20 08:38 ==
LOC: JD.ED 05:50
DX: J44.9 Chronic obstructive pulmonary disease, unspecified (principal); R91.1 Solitary pulmonary nodule; R04.2 Hemoptysis; E78.00 Pure hypercholesterolemia, unspecified; K21.9 Gastro-esophageal reflux disease without esophagitis; N40.0 Benign prostatic hyperplasia without lower urinary tract symptoms; Z88.8 Allergy status to other drugs, medicaments and biological substances; Z79.82 Long term (current) use of aspirin; Z79.01 Long term (current) use of anticoagulants; Z79.899 Other long term (current) drug therapy; Z20.822 Contact with and (suspected) exposure to COVID-19
CPT/HCPCS: 36415; 71045; 80053; 85007; 85027; 85610; 86850; 86900; 86901; 87635; 99285; J7030; U0002

== ENCOUNTER 2020-12-27 09:53 | Emergency (ER) | payer OTHER ==
[2020-12-27] MEDS ORDERED: Sodium Chloride 0.9% 10 ML Syringe FLUSH PRN (10:11)
--- NOTE | 2020-12-27 10:28 | CT ---
Head CT Technique: Multiple axial sections through the brain were obtained. Intravenous contrast was not utilized. Reconstructed coronal and sagittal images were obtained. Comparison: Most recent study is head CT exam of 12/06/18. Findings: Ventricles along with basal cisterns and sulci over the convexities are mildly prominent. Mildly prominent sulci over the cerebellum is also noted. 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 This is stable from prior study. No other abnormal parenchymal densities are seen. No evidence of intracranial hemorrhage. No midline shift or mass-effect is seen. Bone window settings were reviewed. Visualized mastoid sinuses and paranasal sinuses are clear. No acute calvarial abnormality is appreciated. Impression: 1. Stable senescent change as described above. 2. Nothing acute is appreciated on noncontrast head CT study. 3. If patient has persistent symptoms, consider MRI to further evaluate. Diagnostic code #2
[2020-12-27 10:30] VITALS: BP 100/75; PULSE 61
--- NOTE | 2020-12-27 11:13 | EDM.PDOC ---
ED HPI GENERAL MEDICAL PROBLEM - General Chief Complaint: Neuro Symptoms/Deficits Stated Complaint: DIZZY HEADACHE Time Seen by Provider: 12/27/20 10:11 Source of Information: Reports: Patient, Family, Provider History Limitations: Reports: No Limitations - History of Present Illness INITIAL COMMENTS - FREE TEXT/NARRATIVE: The patient presents with possible stroke. His last time known well was 1829 mountain time last night. He got dizzy and fell last night. He went to be thinking it would be better. He felt worse this morning and has a headache. He went to the [place] [facility] and they were worried he may have had a stroke. He has a history of A-fib and is on eliquis. He was coughing up blood in November and was sent to [facility]. He had a bronchoscopy done and they were able to stop the bleeding. He was discharged on the 01 of December and has been on eliquis since then. He denies fever, chills, cough, chest pain, shortness of breath, abdominal pain, nausea or vomiting. Onset: Sudden Duration: Hour(s): (1829 last night) Location: Reports: Head Quality: Reports: Ache Severity: Mild Improves with: Reports: None Worsens with: Reports: None Associated Symptoms: Reports: Headaches. Denies: Chest Pain, Cough, Fever/Chills, Nausea/Vomiting, Shortness of Breath Headache Pain Score (Numeric/FACES): 8 - Related Data Allergies Allergy/AdvReac Type Severity Reaction Status Date / Time atorvastatin calcium AdvReac Muscle Verified 12/27/20 10:30 [From Lipitor] Aches Home Meds: Home Meds Albuterol [Proair HFA] 2 puff INH Q4H PRN 12/15/19 [History] Apixaban [Eliquis] 5 mg PO BID 12/15/19 [History] FLUoxetine [PROzac] 20 mg PO DAILY 12/15/19 [History] Metoprolol Succinate 12.5 mg PO QPM 12/15/19 [History] Mirtazapine 60 mg PO QPM 12/15/19 [History] Rosuvastatin Calcium 40 mg PO BEDTIME 12/15/19 [History] Tamsulosin HCl [Flomax] 0.4 mg PO DAILY 12/15/19 [History] Aspirin [Aspirin EC] 81 mg PO DAILY 12/16/19 [History] Budesonide/Formoterol Fumarate [Symbicort 80-4.5 MCG] 2 puff IH Q12H 12/16/19 [History] Lutein/Minerals/Vit A,C & E [Ocuvite] 1 tab PO DAILY 12/16/19 [History] Nicotine Polacrilex [Nicotine Lozenge] 2 mg BC ASDIRECTED PRN 12/17/19 [History] Nitroglycerin 0.4 mg SL ASDIRECTED 12/17/19 [History] Albuterol/Ipratropium [DuoNeb 3.0-0.5 MG/3 ML] 1 inh INH TID PRN 02/18/20 [History] Tiotropium [Spiriva HandiHaler] 1 inh INH QPM 02/18/20 [History] Digoxin [Lanoxin] 125 mcg PO DAILY 11/17/20 [History] Past Medical History HEENT History: Reports: Impaired Vision, Macular Degeneration Other HEENT History: Wears glasses Cardiovascular History: Reports: Aneurysm, Arrhythmia, High Cholesterol, Pacemaker, Other (See Below) Other Cardiovascular History: bradycardia.anuerysm repair 2019 Respiratory History: Reports: COPD, SOB Gastrointestinal History: Reports: GERD Genitourinary History: Reports: BPH, Urinary Incontinence Other Genitourinary History: bladder spasms Musculoskeletal History: Reports: Other (See Below) Other Musculoskeletal History: Injection in L) shoulder Neurological History: Reports: Migraines Psychiatric History: Reports: Addiction, Depression, PTSD Other Psychiatric History: nightmares and went thru treatment and feels it has helped. alcoholism Endocrine/Metabolic History: Reports: Obesity/BMI 30+ Hematologic History: Reports: Anticoagulation Therapy Immunologic History: Reports: None Oncologic (Cancer) History: Reports: Malignant Melanoma Other Oncologic History: melonoma cancer to back and surgically removed Dermatologic History: Reports: Melanoma Other Dermatologic History: sebaceous cyst to R cheek, Melanoma to back - Infectious Disease History Infectious Disease History: Reports: Novel Coronavirus - Past Surgical History HEENT Surgical History: Reports: Cataract Surgery Other HEENT Surgeries/Procedures: injections to R) eye Cardiovascular Surgical History: Reports: AAA Repair, Pacer Other Cardiovascular Surgeries/Procedures: PPM/ICD. Other Respiratory Surgeries/Procedures: wears 02 constantly 3LNC GI Surgical History: Reports: Cholecystectomy, Colonoscopy, EGD, ERCP, Other (See Below) Other GI Surgeries/Procedures: hemorrhoid surgery Male Surgical History: Reports: None Neurological Surgical History: Reports: None Musculoskeletal Surgical History: Reports: Arthroscopic Knee Oncologic Surgical History: Reports: None Dermatological Surgical History: Reports: Other (See Below) Social & Family History - Family History Family Medical History: No Pertinent Family History Cardiac: Reports: [place] Other Cardiac Family History: Pt states his father had a couple heart attacks. Endocrine/Metabolic: Reports: Diabetes, type II Other Endocrine/Metabolic Family History: Pt states nobody in his family has DM II. RN unable to unchart DM II by YARN WINDER. Oncologic: Reports: Prostate, Other (See Below) Other Oncologic Family History: Pt states his bother has prostate CA with mets to back. - Tobacco Use Tobacco Use Status *Q: Current Status Unknown - Caffeine Use Caffeine Use: Reports: Soda Other Caffeine Use: rarely - Living Situation & Occupation Living situation: Reports: , with Spouse Occupation: Retired ED ROS GENERAL - Review of Systems Review Of Systems: See Below Constitutional: Reports: No Symptoms HEENT: Reports: No Symptoms Respiratory: Reports: No Symptoms Cardiovascular: Reports: No Symptoms Endocrine: Reports: No Symptoms GI/Abdominal: Reports: No Symptoms : Reports: No Symptoms Musculoskeletal: Reports: No Symptoms Neurological: Reports: Headache, Weakness (right side) ED EXAM, NEURO - Physical Exam Exam: See Below Exam Limited By: No Limitations General Appearance: Alert, No Apparent Distress Ears: Normal External Exam Nose: Normal Inspection Head Exam: Atraumatic, Normocephalic Neck: Normal Inspection Respiratory/Chest: No Respiratory Distress, Lungs Clear, Normal Breath Sounds Cardiovascular: Regular Rate, Rhythm, No Edema, No Murmur GI/Abdominal: Soft, Non-Tender, No Organomegaly, No Mass Neurological: Alert, Other (Mild to moderate weakness to the right arm and leg. Abnormal finger to nose with both right and left arms.) #1 Interpretation EKG Date: 12/27/20 Time: 10:18 Rhythm: Other (atrial paced rhythm) Rate (Beats/Min): 60 Effort: LAD-Left Effort Deviation P-Wave: Present QRS: Normal ST-T: Normal QT: Normal Course - Vital Signs Last Recorded V/S: Last Vital Signs Temp 97.9 F 12/27/20 10:19 Pulse 61 12/27/20 10:19 Resp 18 12/27/20 10:19 BP 100/75 12/27/20 10:19 Pulse Ox 100 12/27/20 10:19 - Orders/Labs/Meds Orders: Active Orders 24 hr Category Date Time Status Cardiac Monitoring [RC] . DIRECTED Care 12/27/20 10:11 Active EKG Documentation Completion [RC] STAT Care 12/27/20 10:12 Active Oxygen Therapy [RC] PRN Care 12/27/20 10:11 Active Peripheral IV Care [RC] . DIRECTED Care 12/27/20 10:12 Active COMPREHENSIVE METABOLIC PN,CMP [CHEM] Stat Lab 12/27/20 10:33 Received TROPONIN I [CHEM] Stat Lab 12/27/20 10:33 Received Sodium Chloride 0.9% [Saline Flush] Med 12/27/20 10:11 Active 10 ml FLUSH ASDIRECTED PRN Peripheral IV Insertion Adult [OM.PC] Stat Oth 12/27/20 10:11 Ordered Medication Orders Sodium Chloride (Sodium Chloride 0.9% 10 Ml Syringe) 10 ml FLUSH ASDIRECTED PRN PRN Reason: Keep Vein Open Last Admin: 12/27/20 10:17 Dose: 10 ml Documented by: MORALES Labs: Laboratory Tests 12/27/20 12/27/20 Range/Units 10:33 10:33 WBC 6.03 (4.23-9.07) K/mm3 RBC 4.13 L (4.63-6.08) M/mm3 Hgb 11.9 L (13.7-17.5) gm/dl Hct 38.5 L (40.1-51.0) % MCV 93.2 H (79.0-92.2) fl MCH 28.8 (25.7-32.2) pg MCHC 30.9 L (32.2-35.5) g/dl RDW Std Deviation 57.0 H (35.1-43.9) fL Plt Count 210 (163-337) K/mm3 MPV 9.2 L (9.4-12.3) fl Neut % (Auto) 68.1 H (34.0-67.9) % Lymph % (Auto) 19.7 L (21.8-53.1) % [place] % (Auto) 9.1 (5.3-12.2) % Eos % (Auto) 2.5 (0.8-7.0) Baso % (Auto) 0.3 (0.1-1.2) % Neut # (Auto) 4.10 (1.78-5.38) K/mm3 Lymph # (Auto) 1.19 L (1.32-3.57) K/mm3 [place] # (Auto) 0.55 (0.30-0.82) K/mm3 Eos # (Auto) 0.15 (0.04-0.54) K/mm3 Baso # (Auto) 0.02 (0.01-0.08) K/mm3 PT 11.2 (9.7-12.0) SECONDS INR 1.05 APTT 28.1 (21.7-31.4) SECONDS Meds: Medications Generic Name Dose Route Start Last Admin Trade Name Freq PRN Reason Stop Dose Admin Sodium Chloride 10 ml 12/27/20 10:11 12/27/20 10:17 Sodium Chloride 0.9% 10 Ml Syringe FLUSH 10 ml ASDIRECTED PRN Administration Keep Vein Open - Re-Assessments/Exams Free Text/Narrative Re-Assessment/Exam: 12/27/20 11:16 A stroke alert was called. His last time known well was last t 1830. I ordered a CT of his head, EKG, and labs. His NIH is 7. His EKG shows an atrial paced rhythm. His CT shows stable senescent change as described above. Nothing acute is appreciated on noncontrast head CT study. If patient has persistent symptoms, consider MRI to further evaluate. 12/27/20 11:19 His Hgb was low at 11.9. His CMP looks good. His troponin is negative. I called [facility] in [place] and talked with Dr Lucio the neurologist and he was concerned about a posterior stroke. He accepted the patient and I also talked with the ER doctor Dr Erickson. Departure - Departure Time of Disposition: 11:25 Disposition: DC/Tfer to Acute Hospital 02 Condition: Serious Clinical Impression: CVA (cerebral vascular accident) Qualifiers: CVA mechanism: unspecified Qualified Code(s): I63.9 - Cerebral infarction, unspecified - Discharge Information Referrals: Marysol Lee MD [Primary Care Provider] - Sepsis Event Note (ED) - Focused Exam Vital Signs: Vital Signs Temp Pulse Resp BP Pulse Ox 12/27/20 10:19 97.9 F 61 18 100/75 100 - My Orders Last 24 Hours: My Active Orders 12/27/20 10:11 Cardiac Monitoring [RC] . DIRECTED Oxygen Therapy [RC] PRN Sodium Chloride 0.9% [Saline Flush] 10 ml FLUSH ASDIRECTED PRN Peripheral IV Insertion Adult [OM.PC] Stat 12/27/20 10:12 EKG Documentation Completion [RC] STAT Peripheral IV Care [RC] . DIRECTED 12/27/20 10:33 COMPREHENSIVE METABOLIC PN,CMP [CHEM] Stat TROPONIN I [CHEM] Stat - Assessment/Plan Last 24 Hours: My Active Orders 12/27/20 10:11 Cardiac Monitoring [RC] . DIRECTED Oxygen Therapy [RC] PRN Sodium Chloride 0.9% [Saline Flush] 10 ml FLUSH ASDIRECTED PRN Peripheral IV Insertion Adult [OM.PC] Stat 12/27/20 10:12 EKG Documentation Completion [RC] STAT Peripheral IV Care [RC] . DIRECTED 12/27/20 10:33 COMPREHENSIVE METABOLIC PN,CMP [CHEM] Stat TROPONIN I [CHEM] Stat
== END 2020-12-27 11:30 ==
LOC: JD.ED 09:53
DX: I63.9 Cerebral infarction, unspecified (principal); J44.9 Chronic obstructive pulmonary disease, unspecified; E66.9 Obesity, unspecified; N40.0 Benign prostatic hyperplasia without lower urinary tract symptoms; G81.91 Hemiplegia, unspecified affecting right dominant side; Z79.82 Long term (current) use of aspirin; Z68.30 Body mass index [BMI] 30.0-30.9, adult; Z79.01 Long term (current) use of anticoagulants; Z88.8 Allergy status to other drugs, medicaments and biological substances
CPT/HCPCS: 36415; 70450; 70450-26; 80053; 82947; 84484; 85025; 85610; 85730; 93005; 93010; 99285; 99285-25

== ENCOUNTER 2021-06-29 12:25 | Emergency (ER) | payer MEDICARE, OTHER ==
[2021-06-29 12:47] VITALS: BP 105/76; PULSE 72
== END 2021-06-29 15:32 | disposition home or self-care (01) ==
LOC: JD.ED 12:25
DX: S50.01XA Contusion of right elbow, initial encounter (principal); E78.00 Pure hypercholesterolemia, unspecified; J44.9 Chronic obstructive pulmonary disease, unspecified; N40.1 Benign prostatic hyperplasia with lower urinary tract symptoms; N39.498 Other specified urinary incontinence; E66.9 Obesity, unspecified; Z68.26 Body mass index [BMI] 26.0-26.9, adult; Z96.611 Presence of right artificial shoulder joint; Z88.8 Allergy status to other drugs, medicaments and biological substances; Z79.82 Long term (current) use of aspirin; Z79.899 Other long term (current) drug therapy; Z79.01 Long term (current) use of anticoagulants; W23.0XXA Caught, crushed, jammed, or pinched between moving objects, initial encounter
CPT/HCPCS: 73030-26-RT; 73030-RT; 73060-26-RT; 73060-RT; 73080-26-RT; 73080-RT; 99283

== ENCOUNTER 2021-10-04 08:23 | Inpatient (IN) | payer OTHER ==
[2021-10-04] MEDS ORDERED: Sodium Chloride 0.9% 10 ML Syringe FLUSH PRN ×2 (09:03→09:46)
[2021-10-04] MEDS ORDERED: Iopamidol 755 Mg/ML 100 ML Bottle IVPUSH ONE (09:46)
[2021-10-04] MEDS ORDERED: Sodium Chloride 0.9% 100 ML IV SCH (10:00)
[2021-10-04] MEDS ORDERED: HYDROmorphone 0.5 MG/0.5 ML Syringe IVPUSH ONE (10:21)
[2021-10-04] MEDS ORDERED: Albuterol 6.7 GM Inhaler INH PRN (11:34)
[2021-10-04] MEDS ORDERED: Nicotine Polacrilex 2 MG Gum CHEW PRN (12:20)
[2021-10-04] MEDS ORDERED: Ondansetron 4 MG/2 ML SDV IV PRN (13:02)
[2021-10-04] MEDS ORDERED: Polyethylene Glycol 3350 Powder 17 GM Packet PO PRN (13:02)
[2021-10-04] MEDS: Acetaminophen 325 MG Tab PO PRN ×2 (13:37→17:21)
[2021-10-04] MEDS ORDERED: Nicotine 14 MG/24 Hr Patch TRDERM SCH (14:15)
[2021-10-04] MEDS ORDERED: traMADol 50 MG Tab PO PRN (14:26)
[2021-10-04] MEDS ORDERED: Mirtazapine 30 MG Tab PO SCH (18:00)
[2021-10-04] MEDS ORDERED: Metoprolol Succinate 25 MG Tab.ER PO SCH (18:00)
[2021-10-04] MEDS: Tiotropium Bromide 4 GM Inhalation Spray (2.5mcg/1 dose; 10 doses) INH SCH (18:38)
[2021-10-04] MEDS: Formoterol/Mometasone 100-5 MCG 8.8 GM Inhaler IH SCH (20:26)
[2021-10-04] MEDS: Albuterol/Ipratropium 3.0-0.5 MG/3 ML Neb Soln INH PRN (20:26)
[2021-10-04] MEDS: Apixaban 5 MG Tab PO SCH (20:40)
[2021-10-04] MEDS: Tamsulosin 0.4 MG Cap.ER PO SCH (20:41)
[2021-10-04] MEDS: Rosuvastatin 10 MG Tab PO SCH (20:41)
[2021-10-04] MEDS: Digoxin 125 MCG Tab PO SCH (20:42)
[2021-10-05] MEDS: Formoterol/Mometasone 100-5 MCG 8.8 GM Inhaler IH SCH ×2 (08:01→20:00)
[2021-10-05] MEDS: Albuterol/Ipratropium 3.0-0.5 MG/3 ML Neb Soln INH PRN ×3 (08:01→19:58)
[2021-10-05] MEDS: Apixaban 5 MG Tab PO SCH ×2 (08:25→21:44)
[2021-10-05] MEDS: Aspirin 81 MG Tab.EC PO SCH (08:25)
[2021-10-05] MEDS: Multivitamins with Minerals/Folic Acid/Lutein/Zeaxanth Tab PO SCH (08:25)
[2021-10-05] MEDS: Magnesium Oxide 400 MG Tab PO SCH (08:25)
[2021-10-05] MEDS: Metoprolol Succinate 25 MG Tab.ER PO SCH (08:25)
[2021-10-05] MEDS: Oxybutynin 5 MG Tab PO SCH (08:26)
[2021-10-05] MEDS: FLUoxetine 20 MG Cap PO SCH (08:26)
[2021-10-05] MEDS ORDERED: Digoxin 125 MCG Tab PO SCH (09:00)
[2021-10-05] MEDS ORDERED: Tamsulosin 0.4 MG Cap.ER PO SCH (09:00)
[2021-10-05] MEDS: Acetaminophen 325 MG Tab PO PRN (09:03)
[2021-10-05] MEDS: Digoxin 125 MCG Tab PO SCH (17:46)
[2021-10-05] MEDS: Tamsulosin 0.4 MG Cap.ER PO SCH (17:46)
[2021-10-05] MEDS ORDERED: Mirtazapine 30 MG Tab PO SCH (18:00)
[2021-10-05] MEDS: Tiotropium Bromide 4 GM Inhalation Spray (2.5mcg/1 dose; 10 doses) INH SCH (18:10)
[2021-10-05] MEDS: Rosuvastatin 10 MG Tab PO SCH (21:44)
[2021-10-06] MEDS: FLUoxetine 20 MG Cap PO SCH (08:13)
[2021-10-06] MEDS: Oxybutynin 5 MG Tab PO SCH (08:14)
[2021-10-06] MEDS: Metoprolol Succinate 25 MG Tab.ER PO SCH (08:14)
[2021-10-06] MEDS: Aspirin 81 MG Tab.EC PO SCH (08:14)
[2021-10-06] MEDS: Apixaban 5 MG Tab PO SCH (08:15)
[2021-10-06] MEDS: Magnesium Oxide 400 MG Tab PO SCH (08:15)
[2021-10-06] MEDS: Multivitamins with Minerals/Folic Acid/Lutein/Zeaxanth Tab PO SCH (08:15)
[2021-10-06] MEDS: Albuterol/Ipratropium 3.0-0.5 MG/3 ML Neb Soln INH PRN (08:20)
[2021-10-06] MEDS: Formoterol/Mometasone 100-5 MCG 8.8 GM Inhaler IH SCH (08:20)
[2021-10-06 12:09] VITALS: BP 127/75; PULSE 75
== END 2021-10-06 15:17 | disposition home or self-care (01) | DRG 57 ==
LOC: JD.ED 08:23 → JD.MS 12:31
PROVIDERS: ADMIT Internal Medicine; ATTEND Internal Medicine
DX: G81.94 Hemiplegia, unspecified affecting left nondominant side (principal); I63.9 Cerebral infarction, unspecified; E78.5 Hyperlipidemia, unspecified; J44.9 Chronic obstructive pulmonary disease, unspecified; R29.708 NIHSS score 8; H35.30 Unspecified macular degeneration; Z97.3 Presence of spectacles and contact lenses; N39.498 Other specified urinary incontinence; Z96.611 Presence of right artificial shoulder joint; G47.33 Obstructive sleep apnea (adult) (pediatric); F41.9 Anxiety disorder, unspecified; F10.11 Alcohol abuse, in remission; G43.909 Migraine, unspecified, not intractable, without status migrainosus; E78.00 Pure hypercholesterolemia, unspecified; F43.12 Post-traumatic stress disorder, chronic; I49.8 Other specified cardiac arrhythmias; Z95.0 Presence of cardiac pacemaker; K21.9 Gastro-esophageal reflux disease without esophagitis; Z85.89 Personal history of malignant neoplasm of other organs and systems; Z86.79 Personal history of other diseases of the circulatory system; N40.1 Benign prostatic hyperplasia with lower urinary tract symptoms; Z79.52 Long term (current) use of systemic steroids; R32 Unspecified urinary incontinence; F43.10 Post-traumatic stress disorder, unspecified; Z98.42 Cataract extraction status, left eye; Z98.41 Cataract extraction status, right eye; Z90.49 Acquired absence of other specified parts of digestive tract; Z99.81 Dependence on supplemental oxygen; F32.A Depression, unspecified; Z85.820 Personal history of malignant melanoma of skin; Z86.16 Personal history of COVID-19; F17.210 Nicotine dependence, cigarettes, uncomplicated; Z88.8 Allergy status to other drugs, medicaments and biological substances; Z79.01 Long term (current) use of anticoagulants; Z79.82 Long term (current) use of aspirin; Z79.899 Other long term (current) drug therapy; Z86.73 Personal history of transient ischemic attack (TIA), and cerebral infarction without residual deficits
CPT/HCPCS: 36415; 70450; 70496; 70498; 80053; 82947; 84484; 85025; 85610; 85730; 93005; 96374; 99285; J1170; J3490 ×2; Q9967; 80061; 83735; 92610-GN; 93306; 94640; 94760; 94761; 97112-GP; 97116-GP; 97163-GP; 97530-GP; A9270-GY; J7620-GY

== ENCOUNTER 2021-11-21 14:51 | Emergency (ER) | payer OTHER ==
[2021-11-21 15:35] VITALS: BP 99/73; PULSE 67
[2021-11-21] MEDS ORDERED: Aspirin 81 MG Tab.Chew PO ONE (15:44)
[2021-11-21] MEDS ORDERED: Sodium Chloride 0.9% 1,000 ML IV SCH (15:45)
[2021-11-21] MEDS ORDERED: Acetaminophen 325 MG Tab PO ONE (16:28)
[2021-11-21 16:48] LABS: ESTIMATED GFR 63 mL/min (>60)
== END 2021-11-21 18:20 | disposition home or self-care (01) ==
LOC: JD.ED 14:51
DX: R07.89 Other chest pain (principal); M47.22 Other spondylosis with radiculopathy, cervical region; E78.00 Pure hypercholesterolemia, unspecified; J44.9 Chronic obstructive pulmonary disease, unspecified; K21.9 Gastro-esophageal reflux disease without esophagitis; Z79.899 Other long term (current) drug therapy; Z72.0 Tobacco use
CPT/HCPCS: 36415; 71045; 80053; 81001; 82553; 83735; 83880; 84484; 85025; 85610; 85730; 86140; 93005; 96360; 96361; 99285; A9270; J7030; 93010; 99284

== ENCOUNTER 2022-06-28 14:34 | Emergency (ER) | payer OTHER ==
[2022-06-28 14:43] VITALS: BP 111/65; PULSE 84
[2022-06-28] MEDS ORDERED: Aspirin 81 MG Tab.Chew PO ONE (14:50)
[2022-06-28] MEDS ORDERED: Sodium Chloride 0.9% 10 ML Syringe FLUSH PRN (14:50)
[2022-06-28 17:25] LABS: CORONAVIRUS COVID-19 NAA NEGATIVE (NEGATIVE)
== END 2022-06-28 20:05 ==
LOC: JD.ED 14:34
DX: I20.0 Unstable angina (principal); J44.9 Chronic obstructive pulmonary disease, unspecified; K21.9 Gastro-esophageal reflux disease without esophagitis; E78.00 Pure hypercholesterolemia, unspecified; N40.0 Benign prostatic hyperplasia without lower urinary tract symptoms; E66.9 Obesity, unspecified; Z68.30 Body mass index [BMI] 30.0-30.9, adult; Z95.0 Presence of cardiac pacemaker; Z79.82 Long term (current) use of aspirin; Z79.899 Other long term (current) drug therapy; Z20.822 Contact with and (suspected) exposure to COVID-19
CPT/HCPCS: 0240U; 36415; 71045; 80053; 83690; 83735; 84484; 85025; 85610; 85730; 93005; 99285; A9270; J3490; 93010

== ENCOUNTER 2023-02-23 12:05 | Emergency (ER) | payer OTHER ==
[2023-02-23 12:29] LABS: BASOPHILS PERCENT AUTO 0.2 % (0.0-1.0); EOSINOPHILS ABSOLUTE AUTO 0.1 K/mm3 (0.0-0.4); EOSINOPHILS PERCENT AUTO 0.5 % (0.0-6.0); HEMATOCRIT 39.5 % (42.0-52.0); HEMOGLOBIN 12.4 gm/dl (14.0-18.0); IMMATURE GRAN ABSOLUTE AUTO 0.08 K/mm3 (0.00-0.05); IMMATURE GRAN PERCENT AUTO 0.9 % (0.0-0.4); LYMPHOCYTES ABSOLUTE AUTO 0.8 K/mm3 (1.0-4.8); LYMPHOCYTES PERCENT AUTO 8.2 % (24.0-44.0); MEAN CORPUSCULAR HEMOGLOBIN 28.8 pg (28.0-32.0); MEAN CORPUSCULAR HGB CONC 31.4 g/dl (32.0-36.0); MEAN CORPUSCULAR VOLUME 91.9 fl (83.0-99.0); MEAN PLATELET VOLUME 9.3 fl (9.4-12.4); MONOCYTES ABSOLUTE AUTO 0.8 K/mm3 (0.0-0.8); NEUTROPHILS ABSOLUTE AUTO 7.7 K/mm3 (1.8-7.7); NEUTROPHILS PERCENT AUTO 82.2 % (41.0-71.0); PLATELET COUNT,PLT 176 K/mm3 (150-400); WHITE BLOOD CELL COUNT,WBC 9.35 K/mm3 (3.9-11.3)
[2023-02-23 12:54] LABS: A/G RATIO 0.7 (1-2); ALBUMIN 2.9 g/dl (3.4-5.0); ANION GAP 11.9 (5-15); BILIRUBIN TOTAL 0.7 mg/dL (0.2-1.0); BUN/CREATININE RATIO 9.2 (14-18); CALCIUM 9.3 mg/dL (8.5-10.1); CREATININE 1.3 mg/dL (0.7-1.3); EST CRCL DRUG DOSING (CG) 56.21 mL/min; POTASSIUM,K 4.9 mEq/L (3.5-5.1); PROTEIN TOTAL,TP 7.3 g/dl (6.4-8.2)
[2023-02-23 12:57] LABS: INR 1.02; PROTHROMBIN TIME 10.9 SECONDS (9.7-12.0)
[2023-02-23 12:59] LABS: PTT,PARTIAL THROMBOPLSTIN TIME 27.6 SECONDS (21.7-31.4)
[2023-02-23] MEDS ORDERED: Iopamidol 755 Mg/ML 100 ML Bottle IVPUSH ONE (13:05)
[2023-02-23] MEDS ORDERED: Factor IX Complex Human 500 UNIT VIAL IV ONE ×2 (14:02→14:22)
[2023-02-23] MEDS ORDERED: Morphine 2 MG/ML SYRINGE IVPUSH ONE (14:36)
[2023-02-23 16:05] VITALS: BP 101/61; PULSE 84
== END 2023-02-23 16:20 ==
LOC: JD.ED 12:05
DX: S06.6X0A Traumatic subarachnoid hemorrhage without loss of consciousness, initial encounter (principal); S42.001A Fracture of unspecified part of right clavicle, initial encounter for closed fracture; E78.00 Pure hypercholesterolemia, unspecified; J44.9 Chronic obstructive pulmonary disease, unspecified; E66.9 Obesity, unspecified; Z86.16 Personal history of COVID-19; Z79.01 Long term (current) use of anticoagulants; Z79.899 Other long term (current) drug therapy; Z79.82 Long term (current) use of aspirin; W17.4XXA Fall from dock, initial encounter
CPT/HCPCS: 36415; 70450; 71045; 71260; 72125; 74177; 80053; 84484; 85025; 85610; 85730; 93005; 96374; 96375; 99285; J2270; J7168; Q9967

== ENCOUNTER 2023-03-09 12:32 | Emergency (ER) | payer OTHER ==
[2023-03-09] MEDS ORDERED: Acetaminophen/HYDROcodone 325-5 MG Tab PO ONE (13:35)
[2023-03-09 15:36] VITALS: BP 90/70; PULSE 87
== END 2023-03-09 14:29 | disposition home or self-care (01) ==
LOC: JD.ED 12:32
DX: S42.009A Fracture of unspecified part of unspecified clavicle, initial encounter for closed fracture (principal); E78.00 Pure hypercholesterolemia, unspecified; J44.9 Chronic obstructive pulmonary disease, unspecified; E66.9 Obesity, unspecified; Z68.23 Body mass index [BMI] 23.0-23.9, adult; Z86.16 Personal history of COVID-19; Z88.8 Allergy status to other drugs, medicaments and biological substances; Z79.01 Long term (current) use of anticoagulants; Z79.82 Long term (current) use of aspirin; Z79.899 Other long term (current) drug therapy; W13.0XXA Fall from, out of or through balcony, initial encounter
CPT/HCPCS: 99283; A9270

== ENCOUNTER 2023-05-11 12:54 | Emergency (ER) | payer OTHER ==
[2023-05-11] MEDS ORDERED: Sodium Chloride 0.9% 10 ML Syringe FLUSH PRN (13:15)
[2023-05-11 13:24] LABS: BASOPHILS PERCENT AUTO 0.4 % (0.0-1.0); EOSINOPHILS ABSOLUTE AUTO 0.1 K/mm3 (0.0-0.4); EOSINOPHILS PERCENT AUTO 1.1 % (0.0-6.0); HEMATOCRIT 43.3 % (42.0-52.0); HEMOGLOBIN 13.5 gm/dl (14.0-18.0); IMMATURE GRAN ABSOLUTE AUTO 0.04 K/mm3 (0.00-0.05); IMMATURE GRAN PERCENT AUTO 0.4 % (0.0-0.4); LYMPHOCYTES ABSOLUTE AUTO 1.1 K/mm3 (1.0-4.8); LYMPHOCYTES PERCENT AUTO 12.3 % (24.0-44.0); MEAN CORPUSCULAR HEMOGLOBIN 28.8 pg (28.0-32.0); MEAN CORPUSCULAR HGB CONC 31.2 g/dl (32.0-36.0); MEAN CORPUSCULAR VOLUME 92.3 fl (83.0-99.0); MEAN PLATELET VOLUME 9.2 fl (9.4-12.4); MONOCYTES ABSOLUTE AUTO 0.8 K/mm3 (0.0-0.8); MONOCYTES PERCENT AUTO 8.9 % (0.0-8.0); NEUTROPHILS ABSOLUTE AUTO 6.9 K/mm3 (1.8-7.7); NEUTROPHILS PERCENT AUTO 76.9 % (41.0-71.0); PLATELET COUNT,PLT 198 K/mm3 (150-400); RED BLOOD CELL COUNT 4.69 M/mm3 (4.52-5.90); WHITE BLOOD CELL COUNT,WBC 9.01 K/mm3 (3.9-11.3)
[2023-05-11 13:44] LABS: A/G RATIO 0.9 (1-2); ALBUMIN 3.9 g/dl (3.4-5.0); ANION GAP 10.5 (5-15); BILIRUBIN TOTAL 0.7 mg/dL (0.2-1.0); CALCIUM 9.5 mg/dL (8.5-10.1); CREATININE 1.2 mg/dL (0.7-1.3); EST CRCL DRUG DOSING (CG) 59.19 mL/min; POTASSIUM,K 4.5 mEq/L (3.5-5.1); PROTEIN TOTAL,TP 8.5 g/dl (6.4-8.2)
[2023-05-11 14:01] LABS: CORONAVIRUS COVID-19 NAA NEGATIVE (NEGATIVE); INFLUENZA A NAA NEGATIVE (NEGATIVE)
[2023-05-11] MEDS ORDERED: Iopamidol 612 MG/ML 100 ML Bottle IVPUSH ONE (14:14)
[2023-05-11] MEDS ORDERED: Sodium Chloride 0.9% 10 ML Syringe FLUSH ONE (14:14)
[2023-05-11 16:07] VITALS: BP 126/77; PULSE 73
== END 2023-05-11 16:09 | disposition home or self-care (01) ==
LOC: JD.ED 12:54
DX: J40 Bronchitis, not specified as acute or chronic (principal); E78.00 Pure hypercholesterolemia, unspecified; Z20.822 Contact with and (suspected) exposure to COVID-19; J44.9 Chronic obstructive pulmonary disease, unspecified; Z79.82 Long term (current) use of aspirin; Z79.899 Other long term (current) drug therapy
CPT/HCPCS: 0240U; 36415; 71045; 71260; 80053; 84484; 85025; 93005; 99285; J3490; Q9967

== ENCOUNTER 2023-06-11 11:09 | Emergency (ER) | payer OTHER ==
[2023-06-11] MEDS ORDERED: Acetaminophen 325 MG Tab PO ONE (11:38)
[2023-06-11] MEDS ORDERED: Dextrose 5%-0.9% NaCl 1,000 ML IV SCH (11:45)
[2023-06-11] MEDS ORDERED: Levofloxacin/Dextrose 5%-Water 750 MG in Premix Bag 1 BAG IV ONE (12:26)
[2023-06-11 12:35] LABS: BASOPHILS PERCENT AUTO 0.3 % (0.0-1.0); EOSINOPHILS PERCENT AUTO 0.1 % (0.0-6.0); HEMATOCRIT 41.4 % (42.0-52.0); IMMATURE GRAN ABSOLUTE AUTO 0.03 K/mm3 (0.00-0.05); IMMATURE GRAN PERCENT AUTO 0.4 % (0.0-0.4); LYMPHOCYTES ABSOLUTE AUTO 0.5 K/mm3 (1.0-4.8); LYMPHOCYTES PERCENT AUTO 6.3 % (24.0-44.0); MEAN CORPUSCULAR HEMOGLOBIN 28.8 pg (28.0-32.0); MEAN CORPUSCULAR HGB CONC 31.4 g/dl (32.0-36.0); MEAN CORPUSCULAR VOLUME 91.6 fl (83.0-99.0); MEAN PLATELET VOLUME 9.5 fl (9.4-12.4); MONOCYTES ABSOLUTE AUTO 0.9 K/mm3 (0.0-0.8); MONOCYTES PERCENT AUTO 12.1 % (0.0-8.0); NEUTROPHILS ABSOLUTE AUTO 5.9 K/mm3 (1.8-7.7); NEUTROPHILS PERCENT AUTO 80.8 % (41.0-71.0); PLATELET COUNT,PLT 132 K/mm3 (150-400); RED BLOOD CELL COUNT 4.52 M/mm3 (4.52-5.90); WHITE BLOOD CELL COUNT,WBC 7.27 K/mm3 (3.9-11.3)
[2023-06-11 12:54] LABS: INR 1.09; PROTHROMBIN TIME 11.6 SECONDS (9.7-12.0)
[2023-06-11 12:55] LABS: PTT,PARTIAL THROMBOPLSTIN TIME 30.2 SECONDS (21.7-31.4)
[2023-06-11 13:00] LABS: LACTIC ACID 0.9 mmol/L (0.4-2.0)
[2023-06-11 13:06] LABS: A/G RATIO 0.9 (1-2); ALBUMIN 3.7 g/dl (3.4-5.0); ANION GAP 12.4 (5-15); BUN/CREATININE RATIO 10.7 (14-18); C-REACTIVE PROTEIN 3.7 mg/dL (<1.0); CALCIUM 9.3 mg/dL (8.5-10.1); CREATININE 1.4 mg/dL (0.7-1.3); EST CRCL DRUG DOSING (CG) 50.73 mL/min; MAGNESIUM 1.6 mg/dL (1.8-2.4); POTASSIUM,K 4.4 mEq/L (3.5-5.1)
[2023-06-11 13:07] LABS: CORONAVIRUS COVID-19 NAA POSITIVE (NEGATIVE); INFLUENZA A NAA NEGATIVE (NEGATIVE); RESPIRATORY SYNCYTIAL VIR NAA NEGATIVE (NEGATIVE)
[2023-06-11] MEDS ORDERED: Sodium Chloride 0.9% 1,000 ML IV SCH (13:15)
[2023-06-11 15:12] VITALS: BP 139/99; PULSE 62
== END 2023-06-11 14:20 | disposition home or self-care (01) ==
LOC: JD.ED 11:09
DX: U07.1 COVID-19 (principal); J44.9 Chronic obstructive pulmonary disease, unspecified; E78.00 Pure hypercholesterolemia, unspecified; K21.9 Gastro-esophageal reflux disease without esophagitis; E66.9 Obesity, unspecified; F17.210 Nicotine dependence, cigarettes, uncomplicated; Z95.0 Presence of cardiac pacemaker; Z79.01 Long term (current) use of anticoagulants; Z79.899 Other long term (current) drug therapy; Z79.82 Long term (current) use of aspirin; Z88.8 Allergy status to other drugs, medicaments and biological substances; Z68.24 Body mass index [BMI] 24.0-24.9, adult
CPT/HCPCS: 0241U; 36415; 71045; 80053; 83605; 83735; 83880; 84484; 85025; 85610; 85730; 86140; 87040; 93005; 96361; 96365; 99285; A9270; J1956; J7042; 93010; 99283

== ENCOUNTER 2023-10-04 16:47 | Emergency (ER) | payer OTHER ==
[2023-10-04 17:46] LABS: BASOPHILS PERCENT AUTO 0.4 % (0.0-1.0); EOSINOPHILS ABSOLUTE AUTO 0.1 K/mm3 (0.0-0.4); HEMATOCRIT 41.4 % (42.0-52.0); HEMOGLOBIN 13.3 gm/dl (14.0-18.0); IMMATURE GRAN ABSOLUTE AUTO 0.02 K/mm3 (0.00-0.05); IMMATURE GRAN PERCENT AUTO 0.3 % (0.0-0.4); LYMPHOCYTES ABSOLUTE AUTO 1.3 K/mm3 (1.0-4.8); LYMPHOCYTES PERCENT AUTO 18.8 % (24.0-44.0); MEAN CORPUSCULAR HEMOGLOBIN 28.4 pg (28.0-32.0); MEAN CORPUSCULAR HGB CONC 32.1 g/dl (32.0-36.0); MEAN CORPUSCULAR VOLUME 88.3 fl (83.0-99.0); MEAN PLATELET VOLUME 9.1 fl (9.4-12.4); MONOCYTES ABSOLUTE AUTO 0.6 K/mm3 (0.0-0.8); NEUTROPHILS ABSOLUTE AUTO 4.8 K/mm3 (1.8-7.7); NEUTROPHILS PERCENT AUTO 70.5 % (41.0-71.0); PLATELET COUNT,PLT 166 K/mm3 (150-400); RED BLOOD CELL COUNT 4.69 M/mm3 (4.52-5.90); WHITE BLOOD CELL COUNT,WBC 6.75 K/mm3 (3.9-11.3)
[2023-10-04 18:04] LABS: INR 1.03
[2023-10-04 18:09] LABS: LACTIC ACID 0.9 mmol/L (0.4-2.0)
[2023-10-04 18:16] LABS: ALBUMIN 3.7 g/dl (3.4-5.0); ANION GAP 11.3 (5-15); BILIRUBIN TOTAL 0.7 mg/dL (0.2-1.0); BUN/CREATININE RATIO 11.5 (14-18); CALCIUM 9.8 mg/dL (8.5-10.1); CREATININE 1.3 mg/dL (0.7-1.3); EST CRCL DRUG DOSING (CG) 52.82 mL/min; POTASSIUM,K 4.3 mEq/L (3.5-5.1); PROTEIN TOTAL,TP 7.5 g/dl (6.4-8.2)
[2023-10-04] MEDS: Iopamidol 755 Mg/ML 100 ML Bottle IVPUSH ONE (19:32)
[2023-10-04] MEDS: Sodium Chloride 0.9% 10 ML Syringe FLUSH PRN (19:33)
[2023-10-04] MEDS ORDERED: Sodium Chloride 0.9% 100 ML IV SCH (19:45)
[2023-10-04 20:23] LABS: APPEARANCE,URINE CLEAR (Clear); BILIRUBIN,URINE NEGATIVE (Negative); COLOR,URINE YELLOW (Yellow); GLUCOSE,URINE NEGATIVE (Negative); KETONES,URINE NEGATIVE (Negative); LEUKOCYTE ESTERASE,URINE 2+ (Negative); NITRITE,URINE NEGATIVE (Negative); OCCULT BLOOD,URINE 1+ (Negative); PH,URINE 6.5 (5.0-8.0); PROTEIN,URINE 1+ (Negative); UROBILINOGEN,URINE 0.2 (0.2-1.0)
[2023-10-04 20:30] LABS: BACTERIA,URINE RARE /hpf (FEW); EPITHELIAL CELLS,URINE 0-5 /hpf (0-5); HYALINE CASTS,URINE 0-5 /lpf (0-5); WBC,URINE 20-30 /hpf (0-5)
[2023-10-04 20:31] LABS: MUCUS,URINE NOT SEEN /hpf (FEW)
[2023-10-04] MEDS: Aluminum Hydroxide/Magnesium Hydroxide/Simethicone Susp 30 ML Cup PO ONE (21:58)
[2023-10-04] MEDS: cefTRIAXone 1 GM in Sodium Chloride 0.9% 100 ML IV ONE (21:58)
[2023-10-04] MEDS: Famotidine 20 MG/2 ML SDV IVPUSH ONE (21:58)
[2023-10-05 00:19] VITALS: BP 114/73; PULSE 67
== END 2023-10-04 23:30 | disposition home or self-care (01) ==
LOC: JD.ED 16:47
DX: N30.01 Acute cystitis with hematuria (principal); E78.00 Pure hypercholesterolemia, unspecified; J44.9 Chronic obstructive pulmonary disease, unspecified; K21.9 Gastro-esophageal reflux disease without esophagitis; Z95.0 Presence of cardiac pacemaker; E66.9 Obesity, unspecified; Z79.899 Other long term (current) drug therapy; Z79.01 Long term (current) use of anticoagulants; Z79.82 Long term (current) use of aspirin; Z88.8 Allergy status to other drugs, medicaments and biological substances; Z68.22 Body mass index [BMI] 22.0-22.9, adult
CPT/HCPCS: 36415; 75635; 80053; 81001; 81003; 83605; 83690; 84484; 85025; 85610; 87086; 93005; 96365; 96375; 99284; A9270; J0696; J3490; Q9967

== ENCOUNTER 2024-01-10 08:36 | Emergency (ER) | payer OTHER ==
[2024-01-10] MEDS: Diatrizoate Meglumine/Diatrizoate Sodium 37% 120 ML Bottle PO ONE (09:48)
[2024-01-10 09:57] LABS: BASOPHILS PERCENT AUTO 0.5 % (0.0-1.0); EOSINOPHILS ABSOLUTE AUTO 0.1 K/mm3 (0.0-0.4); EOSINOPHILS PERCENT AUTO 2.2 % (0.0-6.0); HEMATOCRIT 35.9 % (42.0-52.0); IMMATURE GRAN ABSOLUTE AUTO 0.01 K/mm3 (0.00-0.05); IMMATURE GRAN PERCENT AUTO 0.2 % (0.0-0.4); LYMPHOCYTES ABSOLUTE AUTO 1.1 K/mm3 (1.0-4.8); LYMPHOCYTES PERCENT AUTO 20.4 % (24.0-44.0); MEAN CORPUSCULAR HEMOGLOBIN 28.9 pg (28.0-32.0); MEAN CORPUSCULAR VOLUME 90.2 fl (83.0-99.0); MEAN PLATELET VOLUME 9.6 fl (9.4-12.4); MONOCYTES ABSOLUTE AUTO 0.6 K/mm3 (0.0-0.8); MONOCYTES PERCENT AUTO 10.2 % (0.0-8.0); NEUTROPHILS ABSOLUTE AUTO 3.7 K/mm3 (1.8-7.7); NEUTROPHILS PERCENT AUTO 66.5 % (41.0-71.0); PLATELET COUNT,PLT 178 K/mm3 (150-400); RED BLOOD CELL COUNT 3.98 M/mm3 (4.52-5.90)
[2024-01-10] MEDS: diphenhydrAMINE 50 MG/ML SDV IVPUSH ONE (09:58)
[2024-01-10 10:00] LABS: HEMOGLOBIN 11.5 gm/dl (14.0-18.0)
[2024-01-10] MEDS: Metoclopramide 10 MG/2 ML SDV IVPUSH ONE (10:00)
[2024-01-10] MEDS: HYDROmorphone 0.5 MG/0.5 ML Syringe IVPUSH ONE (10:04)
[2024-01-10] MEDS: Dextrose 5%-0.9% NaCl 1,000 ML IV SCH (10:07)
[2024-01-10 10:18] LABS: INR 1.04
[2024-01-10 10:20] LABS: LACTIC ACID 0.9 mmol/L (0.4-2.0)
[2024-01-10 10:27] LABS: ALBUMIN 3.4 g/dl (3.4-5.0); ANION GAP 11.3 (5-15); BILIRUBIN TOTAL 0.6 mg/dL (0.2-1.0); BUN/CREATININE RATIO 11.5 (14-18); C-REACTIVE PROTEIN 0.15 mg/dL (<0.30); CALCIUM 8.8 mg/dL (8.5-10.1); CREATININE 1.3 mg/dL (0.7-1.3); EST CRCL DRUG DOSING (CG) 52.3 mL/min; MAGNESIUM 1.8 mg/dL (1.8-2.4); POTASSIUM,K 4.3 mEq/L (3.5-5.1); PROTEIN TOTAL,TP 6.8 g/dl (6.4-8.2)
[2024-01-10 11:52] LABS: APPEARANCE,URINE CLEAR (Clear); BILIRUBIN,URINE NEGATIVE (Negative); COLOR,URINE YELLOW (Yellow); GLUCOSE,URINE NEGATIVE (Negative); KETONES,URINE NEGATIVE (Negative); LEUKOCYTE ESTERASE,URINE 1+ (Negative); NITRITE,URINE NEGATIVE (Negative); OCCULT BLOOD,URINE NEGATIVE (Negative); PROTEIN,URINE NEGATIVE (Negative); UROBILINOGEN,URINE 0.2 (0.2-1.0)
[2024-01-10 12:17] LABS: BACTERIA,URINE FEW /hpf (FEW); MUCUS,URINE FEW /hpf (FEW); RBC,URINE 0-5 /hpf (0-5); SQUAMOUS EPITHELIAL CELLS,UR 0-5 /hpf (0-5)
[2024-01-10] MEDS: Magnesium Citrate Solution 296 ML Bottle PO ONE (14:33)
[2024-01-10] MEDS: Dicyclomine 10 MG Cap PO ONE (14:33)
[2024-01-10 19:29] VITALS: BP 115/78; PULSE 60
== END 2024-01-10 14:40 | disposition home or self-care (01) ==
LOC: JD.ED 08:36
DX: N30.01 Acute cystitis with hematuria (principal); K59.01 Slow transit constipation; N41.9 Inflammatory disease of prostate, unspecified; E78.00 Pure hypercholesterolemia, unspecified; J44.9 Chronic obstructive pulmonary disease, unspecified; E66.9 Obesity, unspecified; F17.210 Nicotine dependence, cigarettes, uncomplicated; Z86.16 Personal history of COVID-19; Z90.49 Acquired absence of other specified parts of digestive tract; Z95.0 Presence of cardiac pacemaker; Z79.01 Long term (current) use of anticoagulants; Z79.82 Long term (current) use of aspirin; Z79.899 Other long term (current) drug therapy; Z88.8 Allergy status to other drugs, medicaments and biological substances; Z68.22 Body mass index [BMI] 22.0-22.9, adult
CPT/HCPCS: 36415; 74176; 74176-26; 80053; 80162; 81001; 83605; 83690; 83735; 83880; 85025; 85610; 85730; 86140; 87086; 96361; 96374; 96375; 99284; 99284-25; A9270-GY; J1170; J1200; J2765; J7042; Q9963

== ENCOUNTER 2024-03-23 09:37 | Emergency (ER) | payer OTHER ==
[2024-03-23] MEDS ORDERED: Sodium Chloride 0.9% 10 ML Syringe FLUSH PRN (09:54)
[2024-03-23 10:25] LABS: BASOPHILS PERCENT AUTO 0.5 % (0.0-1.0); EOSINOPHILS ABSOLUTE AUTO 0.1 K/mm3 (0.0-0.4); EOSINOPHILS PERCENT AUTO 2.3 % (0.0-6.0); HEMATOCRIT 39.9 % (42.0-52.0); HEMOGLOBIN 12.5 gm/dl (14.0-18.0); IMMATURE GRAN ABSOLUTE AUTO 0.03 K/mm3 (0.00-0.05); IMMATURE GRAN PERCENT AUTO 0.5 % (0.0-0.4); LYMPHOCYTES ABSOLUTE AUTO 0.9 K/mm3 (1.0-4.8); LYMPHOCYTES PERCENT AUTO 15.5 % (24.0-44.0); MEAN CORPUSCULAR HEMOGLOBIN 28.5 pg (28.0-32.0); MEAN CORPUSCULAR HGB CONC 31.3 g/dl (32.0-36.0); MEAN CORPUSCULAR VOLUME 90.9 fl (83.0-99.0); MEAN PLATELET VOLUME 9.7 fl (9.4-12.4); MONOCYTES ABSOLUTE AUTO 0.5 K/mm3 (0.0-0.8); MONOCYTES PERCENT AUTO 8.8 % (0.0-8.0); NEUTROPHILS ABSOLUTE AUTO 4.1 K/mm3 (1.8-7.7); NEUTROPHILS PERCENT AUTO 72.4 % (41.0-71.0); PLATELET COUNT,PLT 169 K/mm3 (150-400); RED BLOOD CELL COUNT 4.39 M/mm3 (4.52-5.90)
[2024-03-23 10:30] LABS: INR 1.03; PROTHROMBIN TIME 10.9 SECONDS (9.7-12.0)
[2024-03-23 10:32] LABS: PTT,PARTIAL THROMBOPLSTIN TIME 26.8 SECONDS (21.7-31.4)
[2024-03-23 10:40] LABS: ALBUMIN 3.6 g/dl (3.4-5.0); ANION GAP 9.4 (5-15); BILIRUBIN TOTAL 0.7 mg/dL (0.2-1.0); CALCIUM 8.9 mg/dL (8.5-10.1); CREATININE 1.2 mg/dL (0.7-1.3); EST CRCL DRUG DOSING (CG) 58.26 mL/min; MAGNESIUM 1.9 mg/dL (1.8-2.4); POTASSIUM,K 4.4 mEq/L (3.5-5.1); PROTEIN TOTAL,TP 7.3 g/dl (6.4-8.2)
[2024-03-23 13:09] LABS: APPEARANCE,URINE CLEAR (Clear); BILIRUBIN,URINE NEGATIVE (Negative); COLOR,URINE YELLOW (Yellow); GLUCOSE,URINE NEGATIVE (Negative); KETONES,URINE NEGATIVE (Negative); LEUKOCYTE ESTERASE,URINE 1+ (Negative); NITRITE,URINE NEGATIVE (Negative); OCCULT BLOOD,URINE NEGATIVE (Negative); PH,URINE 6.5 (5.0-8.0); PROTEIN,URINE 1+ (Negative)
[2024-03-23 13:20] LABS: BACTERIA,URINE FEW /hpf (FEW); EPITHELIAL CELLS,URINE 0-5 /hpf (0-5); HYALINE CASTS,URINE 0-5 /lpf (0-5); MUCUS,URINE FEW /hpf (FEW); RBC,URINE 0-5 /hpf (0-5)
[2024-03-23] MEDS: Amoxicillin/Clavulanate K 875-125 MG Tab PO ONE (14:49)
[2024-03-23 19:52] VITALS: BP 115/76; PULSE 67
== END 2024-03-23 14:55 | disposition home or self-care (01) ==
LOC: JD.ED 09:37
DX: S09.90XA Unspecified injury of head, initial encounter (principal); N30.01 Acute cystitis with hematuria; E78.00 Pure hypercholesterolemia, unspecified; J44.9 Chronic obstructive pulmonary disease, unspecified; E66.9 Obesity, unspecified; F17.210 Nicotine dependence, cigarettes, uncomplicated; Z86.16 Personal history of COVID-19; Z90.49 Acquired absence of other specified parts of digestive tract; Z88.8 Allergy status to other drugs, medicaments and biological substances; Z79.01 Long term (current) use of anticoagulants; Z79.51 Long term (current) use of inhaled steroids; Z79.82 Long term (current) use of aspirin; Z79.2 Long term (current) use of antibiotics; Z79.899 Other long term (current) drug therapy; Z68.23 Body mass index [BMI] 23.0-23.9, adult; W01.10XA Fall on same level from slipping, tripping and stumbling with subsequent striking against unspecified object, initial encounter
CPT/HCPCS: 36415; 70450; 72125; 72128; 72131; 80053; 81001; 83735; 84484; 85025; 85610; 85730; 87086; 93005; 99284; A9270; 93010

== ENCOUNTER 2024-04-24 11:22 | Emergency (ER) | payer OTHER ==
[2024-04-24 11:44] VITALS: PULSE 78
[2024-04-24] MEDS ORDERED: Sodium Chloride 0.9% 10 ML Syringe FLUSH PRN ×2 (12:06)
[2024-04-24] MEDS ORDERED: Iopamidol 612 MG/ML 100 ML Bottle IVPUSH ONE (12:10)
[2024-04-24] MEDS: Sodium Chloride 0.9% 10 ML Syringe FLUSH ONE (12:30)
[2024-04-24 12:37] LABS: BASOPHILS PERCENT AUTO 0.2 % (0.0-1.0); EOSINOPHILS ABSOLUTE AUTO 0.1 K/mm3 (0.0-0.4); EOSINOPHILS PERCENT AUTO 1.6 % (0.0-6.0); HEMATOCRIT 39.2 % (42.0-52.0); HEMOGLOBIN 12.4 gm/dl (14.0-18.0); IMMATURE GRAN ABSOLUTE AUTO 0.03 K/mm3 (0.00-0.05); IMMATURE GRAN PERCENT AUTO 0.5 % (0.0-0.4); LYMPHOCYTES ABSOLUTE AUTO 1.1 K/mm3 (1.0-4.8); LYMPHOCYTES PERCENT AUTO 17.3 % (24.0-44.0); MEAN CORPUSCULAR HEMOGLOBIN 28.8 pg (28.0-32.0); MEAN CORPUSCULAR HGB CONC 31.6 g/dl (32.0-36.0); MEAN CORPUSCULAR VOLUME 91.2 fl (83.0-99.0); MEAN PLATELET VOLUME 9.5 fl (9.4-12.4); MONOCYTES ABSOLUTE AUTO 0.7 K/mm3 (0.0-0.8); NEUTROPHILS ABSOLUTE AUTO 4.4 K/mm3 (1.8-7.7); NEUTROPHILS PERCENT AUTO 69.4 % (41.0-71.0); PLATELET COUNT,PLT 178 K/mm3 (150-400); WHITE BLOOD CELL COUNT,WBC 6.37 K/mm3 (3.9-11.3)
[2024-04-24 12:54] LABS: INR 1.08; PROTHROMBIN TIME 11.4 SECONDS (9.7-12.0)
[2024-04-24 13:00] LABS: A/G RATIO 0.8 (1-2); ALBUMIN 3.5 g/dl (3.4-5.0); ANION GAP 10.2 (5-15); BILIRUBIN TOTAL 0.9 mg/dL (0.2-1.0); BUN/CREATININE RATIO 12.3 (14-18); CALCIUM 9.9 mg/dL (8.5-10.1); CREATININE 1.3 mg/dL (0.7-1.3); EST CRCL DRUG DOSING (CG) 53.78 mL/min; POTASSIUM,K 4.2 mEq/L (3.5-5.1); PROTEIN TOTAL,TP 7.9 g/dl (6.4-8.2)
[2024-04-24 17:25] VITALS: BP 120/84
== END 2024-04-24 16:32 | disposition home or self-care (01) ==
LOC: JD.ED 11:22
DX: K57.32 Diverticulitis of large intestine without perforation or abscess without bleeding (principal); R13.10 Dysphagia, unspecified; E78.00 Pure hypercholesterolemia, unspecified; J44.9 Chronic obstructive pulmonary disease, unspecified; K21.9 Gastro-esophageal reflux disease without esophagitis; E66.9 Obesity, unspecified; Z86.16 Personal history of COVID-19; Z90.49 Acquired absence of other specified parts of digestive tract; Z96.619 Presence of unspecified artificial shoulder joint; Z88.8 Allergy status to other drugs, medicaments and biological substances; Z79.01 Long term (current) use of anticoagulants; Z79.51 Long term (current) use of inhaled steroids; Z79.82 Long term (current) use of aspirin; Z79.899 Other long term (current) drug therapy; Z68.24 Body mass index [BMI] 24.0-24.9, adult
CPT/HCPCS: 36415; 71045; 71045-26; 74177; 74177-26; 80053; 84484; 85025; 85610; 93005; 93010; 99283; 99285

== ENCOUNTER 2024-05-10 09:49 | Day surgery (SDC) | payer MEDICARE, OTHER ==
[~2024-05-10 09:49] MED LIST: Sodium Chloride 0.9% 10 ML Syringe FLUSH PRN; Sodium Chloride 0.9% 10 ML Syringe FLUSH SCH
[2024-05-10] MEDS: Lactated Ringers 1,000 ML IV SCH (10:20)
[2024-05-10] MEDS ORDERED: Bupivacaine 0.5% 10 ML SDV ONE (10:32)
[2024-05-10] MEDS ORDERED: Propofol 200 MG/20 ML SDV ONE (10:42)
[2024-05-10] MEDS ORDERED: Lidocaine 1% 4 ML ONE (10:42)
[2024-05-10 12:53] VITALS: BP 112/79; PULSE 60
== END 2024-05-10 12:25 | disposition home or self-care (01) ==
LOC: JD.SDS 09:49
PROVIDERS: ATTEND Surgery
DX: K21.00 Gastro-esophageal reflux disease with esophagitis, without bleeding (principal); K22.70 Barrett's esophagus without dysplasia; J44.9 Chronic obstructive pulmonary disease, unspecified; E78.00 Pure hypercholesterolemia, unspecified; Z79.82 Long term (current) use of aspirin; Z79.899 Other long term (current) drug therapy
CPT/HCPCS: 00731; 88305; 99100; J0665; J2704; J3490; J7120

== ENCOUNTER 2024-09-01 13:35 | Emergency (ER) | payer MEDICARE, OTHER ==
[2024-09-01 14:27] LABS: BASOPHILS PERCENT AUTO 0.5 % (0.0-1.0); EOSINOPHILS ABSOLUTE AUTO 0.1 K/mm3 (0.0-0.4); EOSINOPHILS PERCENT AUTO 0.7 % (0.0-6.0); HEMATOCRIT 34.6 % (42.0-52.0); IMMATURE GRAN ABSOLUTE AUTO 0.03 K/mm3 (0.00-0.05); IMMATURE GRAN PERCENT AUTO 0.3 % (0.0-0.4); LYMPHOCYTES ABSOLUTE AUTO 0.8 K/mm3 (1.0-4.8); LYMPHOCYTES PERCENT AUTO 9.1 % (24.0-44.0); MEAN CORPUSCULAR HEMOGLOBIN 28.8 pg (28.0-32.0); MEAN CORPUSCULAR HGB CONC 31.8 g/dl (32.0-36.0); MEAN CORPUSCULAR VOLUME 90.6 fl (83.0-99.0); MEAN PLATELET VOLUME 9.8 fl (9.4-12.4); MONOCYTES ABSOLUTE AUTO 0.6 K/mm3 (0.0-0.8); MONOCYTES PERCENT AUTO 6.5 % (0.0-8.0); NEUTROPHILS ABSOLUTE AUTO 7.3 K/mm3 (1.8-7.7); NEUTROPHILS PERCENT AUTO 82.9 % (41.0-71.0); PLATELET COUNT,PLT 160 K/mm3 (150-400); RED BLOOD CELL COUNT 3.82 M/mm3 (4.52-5.90); WHITE BLOOD CELL COUNT,WBC 8.82 K/mm3 (3.9-11.3)
[2024-09-01 14:47] LABS: A/G RATIO 0.9 (1-2); ALBUMIN 3.3 g/dl (3.4-5.0); ANION GAP 14.4 (5-15); BILIRUBIN TOTAL 0.6 mg/dL (0.2-1.0); BUN/CREATININE RATIO 13.1 (14-18); CALCIUM 8.6 mg/dL (8.5-10.1); CREATININE 1.3 mg/dL (0.7-1.3); EST CRCL DRUG DOSING (CG) 52.93 mL/min; ETHANOL BLOOD MEDICAL 0.11 gm% (0.00); POTASSIUM,K 4.4 mEq/L (3.5-5.1); PROTEIN TOTAL,TP 6.8 g/dl (6.4-8.2)
[2024-09-01] MEDS: Diphtheria,Pertussis(Acell),Tetanus Vaccine 0.5 ML Syringe IM ONE (16:15)
[2024-09-01 17:57] VITALS: BP 104/69; PULSE 65
== END 2024-09-01 16:35 | disposition home or self-care (01) ==
LOC: JD.ED 13:35
DX: S11.91XA Laceration without foreign body of unspecified part of neck, initial encounter (principal); E78.00 Pure hypercholesterolemia, unspecified; E66.9 Obesity, unspecified; J44.9 Chronic obstructive pulmonary disease, unspecified; K21.9 Gastro-esophageal reflux disease without esophagitis; Z23 Encounter for immunization; Z95.0 Presence of cardiac pacemaker; Z79.899 Other long term (current) drug therapy; Z79.02 Long term (current) use of antithrombotics/antiplatelets; Z79.82 Long term (current) use of aspirin; Z79.01 Long term (current) use of anticoagulants; Z79.811 Long term (current) use of aromatase inhibitors; Z88.8 Allergy status to other drugs, medicaments and biological substances; Z86.16 Personal history of COVID-19; Z90.49 Acquired absence of other specified parts of digestive tract; Z68.23 Body mass index [BMI] 23.0-23.9, adult; W17.89XA Other fall from one level to another, initial encounter
CPT/HCPCS: 12001; 36415; 73000-26-RT; 73000-RT; 73552-26-RT; 73552-RT; 73562-26-RT; 73562-RT; 80053; 80307; 85025; 90471; 90715; 93005; 93010; 99284; 99284-25

== ENCOUNTER 2024-11-21 13:41 | Emergency (ER) | payer MEDICARE, OTHER ==
[2024-11-21 14:44] LABS: BASOPHILS ABSOLUTE AUTO 0.0 K/mm3 (0.0-0.2); BASOPHILS PERCENT AUTO 0.3 % (0.0-1.0); EOSINOPHILS ABSOLUTE AUTO 0.1 K/mm3 (0.0-0.4); EOSINOPHILS PERCENT AUTO 2.0 % (0.0-6.0); IMMATURE GRAN ABSOLUTE AUTO 0.02 K/mm3 (0.00-0.05); IMMATURE GRAN PERCENT AUTO 0.3 % (0.0-0.4); LYMPHOCYTES ABSOLUTE AUTO 1.1 K/mm3 (1.0-4.8); LYMPHOCYTES PERCENT AUTO 16.7 % (24.0-44.0); MEAN PLATELET VOLUME 9.5 fl (9.4-12.4); MONOCYTES ABSOLUTE AUTO 0.5 K/mm3 (0.0-0.8); MONOCYTES PERCENT AUTO 7.7 % (0.0-8.0); NEUTROPHILS ABSOLUTE AUTO 4.7 K/mm3 (1.8-7.7); NEUTROPHILS PERCENT AUTO 73.0 % (41.0-71.0); NRBC ABSOLUTE 0.00 (0.00-0.02); NRBC PERCENT 0.0 % (0.0-0.2); PLATELET COUNT,PLT 138 K/mm3 (150-400); RED BLOOD CELL COUNT 4.52 M/mm3 (4.52-5.90); WHITE BLOOD CELL COUNT,WBC 6.48 K/mm3 (3.9-11.3)
[2024-11-21 15:01] LABS: INR 1.02
[2024-11-21 15:05] LABS: A/G RATIO 1.0 (1-2); ALANINE AMINOTRANSFERASE,ALT 42.0 U/L (16-63); ASPARTATE AMNIOTRANSFERASE,AST 27.0 U/L (15-37); BILIRUBIN TOTAL 0.5 mg/dL (0.2-1.0); BLOOD UREA NITROGEN,BUN 18.0 mg/dL (7-18); CARBON DIOXIDE,CO2 30.0 mEq/L (21-32); CHLORIDE,CL 108.0 mEq/L (98-107); CREATINE KINASE,CK 55.0 U/L (39-308); CREATININE 1.0 mg/dL (0.7-1.3); EST CRCL DRUG DOSING (CG) 67.17 mL/min; ESTIMATED GFR 77.0 mL/min (>60); GLUCOSE RANDOM 83.0 mg/dL (70-99); POTASSIUM,K 4.2 mEq/L (3.5-5.1); PROTEIN TOTAL,TP 7.2 g/dl (6.4-8.2); SODIUM,NA 142.0 mEq/L (136-145)
[2024-11-21 15:40] LABS: APPEARANCE,URINE CLEAR (Clear); GLUCOSE,URINE NEGATIVE (Negative); OCCULT BLOOD,URINE TRACE-INTACT (Negative)
[2024-11-21 15:54] LABS: EPITHELIAL CELLS,URINE 0-5 /hpf (0-5)
[2024-11-21 17:53] VITALS: BP 122/80; PULSE 78
== END 2024-11-21 17:52 | disposition home or self-care (01) ==
LOC: JD.ED 13:41
DX: R10.31 Right lower quadrant pain (principal); I10 Essential (primary) hypertension; J44.9 Chronic obstructive pulmonary disease, unspecified; K21.9 Gastro-esophageal reflux disease without esophagitis; E66.9 Obesity, unspecified; I25.10 Atherosclerotic heart disease of native coronary artery without angina pectoris; E78.5 Hyperlipidemia, unspecified; Z86.16 Personal history of COVID-19; Z79.899 Other long term (current) drug therapy; Z79.82 Long term (current) use of aspirin; Z79.84 Long term (current) use of oral hypoglycemic drugs; Z79.01 Long term (current) use of anticoagulants; Z88.8 Allergy status to other drugs, medicaments and biological substances; Z68.22 Body mass index [BMI] 22.0-22.9, adult
CPT/HCPCS: 36415; 74176; 80053; 81001; 82550; 83605; 83690; 83735; 85025; 85610; 96360; 99284; J7030

== ENCOUNTER 2024-12-11 16:15 | Emergency (ER) | payer MEDICARE, OTHER ==
[2024-12-11] MEDS: Diphtheria,Pertussis(Acell),Tetanus Vaccine 0.5 ML Syringe IM ONE (17:26)
[2024-12-11] MEDS: Acetaminophen/HYDROcodone 325-5 MG Tab PO ONE (17:26)
[2024-12-11] MEDS: Lidocaine 1% with EPINEPHrine 1:100,000 20 ML MDV INJECT ONE (17:26)
[2024-12-11 18:40] VITALS: BP 114/82; PULSE 72
== END 2024-12-11 18:16 | disposition home or self-care (01) ==
LOC: JD.ED 16:15
DX: S61.412A Laceration without foreign body of left hand, initial encounter (principal); E78.00 Pure hypercholesterolemia, unspecified; K21.9 Gastro-esophageal reflux disease without esophagitis; Z88.8 Allergy status to other drugs, medicaments and biological substances; Z79.82 Long term (current) use of aspirin; Z79.899 Other long term (current) drug therapy; W18.30XA Fall on same level, unspecified, initial encounter
CPT/HCPCS: 71045; 73030; 73120; 90471; 90715; 99283; A9270; J2004

== ENCOUNTER 2024-12-25 13:05 | Emergency (ER) | payer OTHER ==
[2024-12-25] MEDS ORDERED: Sodium Chloride 0.9% 10 ML Syringe FLUSH PRN (13:13)
[2024-12-25 13:55] LABS: BASOPHILS ABSOLUTE AUTO 0.0 K/mm3 (0.0-0.2); BASOPHILS PERCENT AUTO 0.4 % (0.0-1.0); EOSINOPHILS ABSOLUTE AUTO 0.1 K/mm3 (0.0-0.4); EOSINOPHILS PERCENT AUTO 1.3 % (0.0-6.0); IMMATURE GRAN ABSOLUTE AUTO 0.03 K/mm3 (0.00-0.05); IMMATURE GRAN PERCENT AUTO 0.4 % (0.0-0.4); LYMPHOCYTES ABSOLUTE AUTO 0.8 K/mm3 (1.0-4.8); LYMPHOCYTES PERCENT AUTO 11.8 % (24.0-44.0); MEAN PLATELET VOLUME 9.6 fl (9.4-12.4); MONOCYTES ABSOLUTE AUTO 0.6 K/mm3 (0.0-0.8); MONOCYTES PERCENT AUTO 8.9 % (0.0-8.0); NEUTROPHILS ABSOLUTE AUTO 5.5 K/mm3 (1.8-7.7); NEUTROPHILS PERCENT AUTO 77.2 % (41.0-71.0); NRBC ABSOLUTE 0.00 (0.00-0.02); NRBC PERCENT 0.0 % (0.0-0.2); PLATELET COUNT,PLT 164 K/mm3 (150-400); RED BLOOD CELL COUNT 4.20 M/mm3 (4.52-5.90); WHITE BLOOD CELL COUNT,WBC 7.09 K/mm3 (3.9-11.3)
[2024-12-25 14:12] LABS: INR 1.13
[2024-12-25 14:13] LABS: PTT,PARTIAL THROMBOPLSTIN TIME 26.5 SECONDS (21.7-31.4)
[2024-12-25 14:18] LABS: A/G RATIO 1.0 (1-2); ALANINE AMINOTRANSFERASE,ALT 26 U/L (16-63); ASPARTATE AMNIOTRANSFERASE,AST 22 U/L (15-37); BILIRUBIN TOTAL 0.8 mg/dL (0.2-1.0); BLOOD UREA NITROGEN,BUN 21 mg/dL (7-18); CARBON DIOXIDE,CO2 31 mEq/L (21-32); CHLORIDE,CL 104 mEq/L (98-107); CREATININE 0.8 mg/dL (0.7-1.3); ESTIMATED GFR 91 mL/min (>60); GLUCOSE RANDOM 83 mg/dL (70-99); POTASSIUM,K 4.5 mEq/L (3.5-5.1); PROTEIN TOTAL,TP 7.1 g/dl (6.4-8.2); SODIUM,NA 140 mEq/L (136-145); TROPONIN I HIGH SENSITIVITY 8 pg/mL (<=76)
[2024-12-25 15:59] VITALS: BP 111/79; PULSE 69
== END 2024-12-25 15:58 ==
LOC: JD.ED 13:05
DX: I63.9 Cerebral infarction, unspecified (principal); J44.9 Chronic obstructive pulmonary disease, unspecified; I48.91 Unspecified atrial fibrillation; E78.00 Pure hypercholesterolemia, unspecified; K21.9 Gastro-esophageal reflux disease without esophagitis; Z95.0 Presence of cardiac pacemaker; Z86.16 Personal history of COVID-19; Z79.82 Long term (current) use of aspirin; Z79.899 Other long term (current) drug therapy; Z88.8 Allergy status to other drugs, medicaments and biological substances; Z79.01 Long term (current) use of anticoagulants
CPT/HCPCS: 36415; 70450; 70450-26; 70496; 70496-26; 70498; 70498-26; 80053; 84484; 85025; 85610; 85730; 93005; 99285

== ENCOUNTER 2025-03-13 13:56 | Emergency (ER) | payer OTHER, MEDICARE ==
[2025-03-13 14:27] VITALS: PULSE 65
[2025-03-13] MEDS ORDERED: Sodium Chloride 0.9% 10 ML Syringe FLUSH PRN (15:26)
[2025-03-13] MEDS: methylPREDNISolone Sodium Succinate 125 MG/2 ML SDV IVPUSH ONE (15:56)
[2025-03-13 16:38] LABS: BASOPHILS ABSOLUTE AUTO 0.0 K/mm3 (0.0-0.2); BASOPHILS PERCENT AUTO 0.5 % (0.0-1.0); EOSINOPHILS ABSOLUTE AUTO 0.1 K/mm3 (0.0-0.4); EOSINOPHILS PERCENT AUTO 1.5 % (0.0-6.0); IMMATURE GRAN ABSOLUTE AUTO 0.02 K/mm3 (0.00-0.05); IMMATURE GRAN PERCENT AUTO 0.3 % (0.0-0.4); LYMPHOCYTES ABSOLUTE AUTO 1.2 K/mm3 (1.0-4.8); LYMPHOCYTES PERCENT AUTO 18.0 % (24.0-44.0); MEAN PLATELET VOLUME 9.5 fl (9.4-12.4); MONOCYTES ABSOLUTE AUTO 0.5 K/mm3 (0.0-0.8); MONOCYTES PERCENT AUTO 8.0 % (0.0-8.0); NEUTROPHILS ABSOLUTE AUTO 4.8 K/mm3 (1.8-7.7); NEUTROPHILS PERCENT AUTO 71.7 % (41.0-71.0); NRBC ABSOLUTE 0.00 (0.00-0.02); NRBC PERCENT 0.0 % (0.0-0.2); PLATELET COUNT,PLT 149 K/mm3 (150-400); RED BLOOD CELL COUNT 3.96 M/mm3 (4.52-5.90); WHITE BLOOD CELL COUNT,WBC 6.65 K/mm3 (3.9-11.3)
[2025-03-13 17:09] LABS: A/G RATIO 1.0 (1-2); ALANINE AMINOTRANSFERASE,ALT 13 U/L (16-63); ASPARTATE AMNIOTRANSFERASE,AST 13 U/L (15-37); BILIRUBIN TOTAL 0.6 mg/dL (0.2-1.0); BLOOD UREA NITROGEN,BUN 18 mg/dL (7-18); CHLORIDE,CL 108 mEq/L (98-107); CREATININE 1.5 mg/dL (0.7-1.3); ESTIMATED GFR 47 mL/min (>60); GLUCOSE RANDOM 114 mg/dL (70-99); POTASSIUM,K 4.4 mEq/L (3.5-5.1); PROTEIN TOTAL,TP 6.5 g/dl (6.4-8.2); SODIUM,NA 144 mEq/L (136-145); TROPONIN I HIGH SENSITIVITY 5 pg/mL (<=76)
[2025-03-13 17:16] LABS: CORONAVIRUS COVID-19 NAA NEGATIVE (NEGATIVE); INFLUENZA A NAA NEGATIVE (NEGATIVE); RESPIRATORY SYNCYTIAL VIR NAA NEGATIVE (NEGATIVE)
[2025-03-13 17:23] LABS: CARBON DIOXIDE,CO2 31 mEq/L (21-32)
[2025-03-13 18:12] VITALS: BP 101/67
== END 2025-03-13 18:26 | disposition home or self-care (01) ==
LOC: JD.ED 13:56
DX: J44.1 Chronic obstructive pulmonary disease with (acute) exacerbation (principal); E78.00 Pure hypercholesterolemia, unspecified; K21.9 Gastro-esophageal reflux disease without esophagitis; Z86.16 Personal history of COVID-19; Z90.49 Acquired absence of other specified parts of digestive tract; Z88.8 Allergy status to other drugs, medicaments and biological substances; Z79.82 Long term (current) use of aspirin; Z79.01 Long term (current) use of anticoagulants; Z79.899 Other long term (current) drug therapy
CPT/HCPCS: 36415; 71045; 80053; 83880; 84484; 85025; 87637; 93005; 94640; 96374; 99285; A9270; J2919; J7620; 93010; 99284

== ENCOUNTER 2025-04-22 15:04 | Emergency (ER) | payer MEDICARE, OTHER ==
[2025-04-22] MEDS: Sodium Chloride 0.9% 10 ML Syringe FLUSH PRN (15:45)
[2025-04-22 16:00] LABS: BASOPHILS ABSOLUTE AUTO 0.0 K/mm3 (0.0-0.2); BASOPHILS PERCENT AUTO 0.4 % (0.0-1.0); EOSINOPHILS ABSOLUTE AUTO 0.1 K/mm3 (0.0-0.4); EOSINOPHILS PERCENT AUTO 0.9 % (0.0-6.0); IMMATURE GRAN ABSOLUTE AUTO 0.03 K/mm3 (0.00-0.05); IMMATURE GRAN PERCENT AUTO 0.4 % (0.0-0.4); LYMPHOCYTES ABSOLUTE AUTO 0.9 K/mm3 (1.0-4.8); LYMPHOCYTES PERCENT AUTO 10.3 % (24.0-44.0); MEAN PLATELET VOLUME 9.7 fl (9.4-12.4); MONOCYTES ABSOLUTE AUTO 0.9 K/mm3 (0.0-0.8); MONOCYTES PERCENT AUTO 10.2 % (0.0-8.0); NEUTROPHILS ABSOLUTE AUTO 6.7 K/mm3 (1.8-7.7); NEUTROPHILS PERCENT AUTO 77.8 % (41.0-71.0); NRBC ABSOLUTE 0.00 (0.00-0.02); NRBC PERCENT 0.0 % (0.0-0.2); PLATELET COUNT,PLT 166 K/mm3 (150-400); RED BLOOD CELL COUNT 4.00 M/mm3 (4.52-5.90); WHITE BLOOD CELL COUNT,WBC 8.54 K/mm3 (3.9-11.3)
[2025-04-22 16:12] LABS: A/G RATIO 0.9 (1-2); ALANINE AMINOTRANSFERASE,ALT 15.0 U/L (16-63); ASPARTATE AMNIOTRANSFERASE,AST 13.0 U/L (15-37); BILIRUBIN TOTAL 0.7 mg/dL (0.2-1.0); BLOOD UREA NITROGEN,BUN 10.0 mg/dL (7-18); CARBON DIOXIDE,CO2 31.0 mEq/L (21-32); CHLORIDE,CL 106.0 mEq/L (98-107); CREATININE 1.2 mg/dL (0.7-1.3); EST CRCL DRUG DOSING (CG) 56.96 mL/min; ESTIMATED GFR 62.0 mL/min (>60); GLUCOSE RANDOM 89.0 mg/dL (70-99); POTASSIUM,K 3.7 mEq/L (3.5-5.1); PROTEIN TOTAL,TP 6.5 g/dl (6.4-8.2); SODIUM,NA 143.0 mEq/L (136-145); TROPONIN I HIGH SENSITIVITY 8.0 pg/mL (<=76)
[2025-04-22 21:04] VITALS: BP 103/67; PULSE 69
== END 2025-04-22 20:50 | disposition home or self-care (01) ==
LOC: JD.ED 15:04
DX: J18.9 Pneumonia, unspecified organism (principal); R07.2 Precordial pain; E78.00 Pure hypercholesterolemia, unspecified; E66.9 Obesity, unspecified; K21.9 Gastro-esophageal reflux disease without esophagitis; Z88.8 Allergy status to other drugs, medicaments and biological substances; Z86.16 Personal history of COVID-19; Z90.49 Acquired absence of other specified parts of digestive tract; Z79.899 Other long term (current) drug therapy; Z79.82 Long term (current) use of aspirin; Z79.51 Long term (current) use of inhaled steroids; Z79.01 Long term (current) use of anticoagulants; Z68.23 Body mass index [BMI] 23.0-23.9, adult
CPT/HCPCS: 36415; 71045; 80053; 82947; 83690; 84484; 85025; 93005; 99285; A9270